=== PATIENT | male | born 1960 | race Caucasian/White ===

== ENCOUNTER → 2017-09-26 01:41 | Outpatient (CLI) | payer OTHER, SELFPAY ==
--- NOTE | 2017-09-26 14:27 | SCREENCT_ITS ---
SYMPTOMS/DIAGNOSIS: SCREENING, Z13.9, FORMER SMOKER CHEST CT FOR LUNG CANCER SCREENING: A low dose screening protocol was used. The exam was somewhat limited by the patient's body habitus. No pulmonary nodules are identified. No infiltrates or effusions are seen. There are no visible emphysematous changes. The heart size is normal. The patient is status post cholecystectomy. IMPRESSION: Lung Rads Category I, continued annual low dose screening CT is recommended. Lung-RAD Category: Lung RADS Category 1- Negative
== END ==
PROVIDERS: PCP Family Medicine; Visit Provider Family Medicine
DX: Z12.2 Encounter for screening for malignant neoplasm of respiratory organs (principal); Z87.891 Personal history of nicotine dependence; Z90.49 Acquired absence of other specified parts of digestive tract
CPT/HCPCS: G0297

== ENCOUNTER 2017-12-12 09:21 | Outpatient (CLI) | payer OTHER, SELFPAY ==
--- NOTE | 2017-12-12 09:07 | DI.RAD_ITS ---
SYMPTOM/DIAGNOSIS: F/U TKA LEFT KNEE: Two views. Comparison is made with 12/15/16. There are again seen post surgical changes of a left total knee replacement. The orthopedic hardware appears in good position. No evidence of hardware failure is seen. There is again seen an orthopedic staple in the distal femur. The bones are intact and normally mineralized. No acute fracture or dislocation is present. Dystrophic calcifications are seen in the soft tissues inferior to the patella. These are unchanged. Vascular calcifications are seen in the soft tissues. IMPRESSION: Stable left TKR. RIGHT KNEE: Two views. Comparison is made with 01/17/17. There are again seen post surgical changes of a right total knee replacement. No evidence of hardware failure is seen. Dystrophic calcifications are seen about the knee, particularly laterally. No acute fracture or dislocation is present. The soft tissues are unremarkable. IMPRESSION: Stable right TKR.
== END 2017-12-12 09:41 ==
PROVIDERS: PCP Family Medicine; Visit Provider Physician Assistant
DX: Z96.653 Presence of artificial knee joint, bilateral (principal); Z47.1 Aftercare following joint replacement surgery
CPT/HCPCS: 73560

== ENCOUNTER 2018-03-20 08:13 | Outpatient (CLI) | payer OTHER, SELFPAY ==
--- NOTE | 2018-03-20 08:09 | DI.RAD_ITS ---
SYMPTOM/DIAGNOSIS: BILAT WRIST PAIN RIGHT WRIST: There are minimal degenerative changes. Cysts are seen in the lunate and hamate. No bony erosions are identified. The bones appear normally mineralized. IMPRESSION: Mild degenerative changes. Incidental bone cysts. LEFT WRIST: No fracture or bony erosions are seen. The bones appear normally mineralized. There are mild degenerative changes at the first carpal metacarpal joint and scaphomultangular joint. There is a cyst in the distal pole of the navicular which may be degenerative. IMPRESSION: Mild degenerative changes.
== END 2018-03-20 08:33 ==
PROVIDERS: PCP Family Medicine; Visit Provider Student in an Organized Health Care Education/Training Program
DX: M25.531 Pain in right wrist (principal); M25.532 Pain in left wrist; M19.031 Primary osteoarthritis, right wrist; M19.032 Primary osteoarthritis, left wrist
CPT/HCPCS: 73110

== ENCOUNTER 2018-05-01 15:24 | Outpatient (CLI) | payer OTHER, SELFPAY ==
--- NOTE | 2018-05-01 15:21 | DI.RAD_ITS ---
SYMPTOM/DIAGNOSIS: RT FOOT MASS RIGHT FOOT: Three views. comparison 08/15/07. At the first metatarsal phalangeal joint there is moderately severe joint space narrowing. There are prominent osteophytes present particularly on the dorsal aspect of the joint. The metacarpal and interphalangeal joints are otherwise well maintained. There is a small spur at the plantar surface of the calcaneus. No lytic or sclerotic lesion is seen in the bones. No radiopaque foreign bodies are seen in the soft tissues. 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
== END 2018-05-01 15:44 ==
PROVIDERS: PCP Family Medicine; Visit Provider Physician Assistant
DX: R22.41 Localized swelling, mass and lump, right lower limb (principal); M19.071 Primary osteoarthritis, right ankle and foot; M77.31 Calcaneal spur, right foot
CPT/HCPCS: 73630

== ENCOUNTER 2018-06-27 12:15 | Day surgery (SDC) | payer OTHER, SELFPAY ==
[2018-06-27 12:31] VITALS: PULSE 78; RESP 16; TEMP 36.3; O2SAT 96
[2018-06-27] MEDS: Lactated Ringers 1,000 ML 80 ML IV (13:03)
[2018-06-27] MEDS: ceFAZolin 3,000 MG in Normal Saline 100 ML 200 MG IVPB (15:07)
[2018-06-27] MEDS: Sodium Bicarbonate 50 MEQ/50 ML VIAL (15:13)
[2018-06-27] MEDS: Lidocaine 1% Pres-Free 5 ML VIAL (15:13)
--- NOTE | 2018-06-27 15:29 | W.PM.DSUDISC ---
Discharge Plan Disposition Patient Disposition: HOME Condition: Good Discharge Details Reason For Visit: Left ECTR Attending Provider: Owen Amaya Primary Care Provider: Ha Anand Home Meds and New Rx's Prescriptions: New ibuprofen 600 mg tablet 600 mg PO TID PRN (Reason: pain) Qty: 30 RF: 3 hydrocodone-acetaminophen 5-325 mg tablet 1 tab PO Q6H PRN (Reason: pain) Qty: 6 RF: 0 Continued CPAP 1 applic Inhalation HS RF: 0 furosemide 20 MG tablet 20 mg PO DAILY PRNQty: 90 RF: 3 aspirin 81 MG tablet,delayed release (DR/EC) 162 mg PO BID Qty: 120 RF: 0 acetaminophen [Acetaminophen Extra Strength] 500 MG tablet 1,000 mg PO TID Qty: 180 RF: 0 ammonium lactate 225 GM lotion 1 applic Topical BID PRNQty: 225 RF: 2 albuterol sulfate [ProAir HFA] 8.5 GM HFA aerosol inhaler 2 puff Inhalation Q4H PRN Qty: 1 RF: 4 fluticasone propionate 16 GM spray,suspension 2 spry NS DAILY Qty: 16 RF: 7 sildenafil [Viagra] 100 MG tablet 100 mg PO PRN Qty: 40 RF: 3 amoxicillin 500 MG tablet 2,000 mg PO prior to dental work PRNQty: 15 RF: 1 omeprazole 40 mg capsule,delayed release(DR/EC) 40 mg PO DAILY Qty: 90 RF: 3 bupropion HCl [Wellbutrin SR] 150 mg tablet sustained-release 12 hr 150 mg PO BID Qty: 180 RF: 3 gabapentin 300 mg capsule 300 mg PO HS Qty: 90 RF: 1 Discontinued ibuprofen 200 mg Tablet 800 mg PO PRN PRNRF: 0 Discharge Instructions Stand Alone Forms: Monique Grimm Tunnel Release Referrals: Owen Amaya MD [ [facility] STAFF PHYSICIAN] - Equipment/Supplies: Sling Activity:: Elevate Remove Dressings/Wound Care:: 48 hours Shower/Bathe:: 48 hours Diet:: As Tolerated Discharge Orders Discharge Orders: Discharge Order (Routine); Ordered 06/27/18 Ordered By: Vernon Lynch DS: Diagnosis Discharge Diagnosis (1) Carpal tunnel syndrome of left wrist: Status: Chronic
[2018-06-27 16:07] VITALS: BP 139/76; PULSE 72; RESP 17; TEMP 36.6; O2SAT 94
--- NOTE | 2018-06-27 21:06 | W.PM.OP ---
Date of service: 06/27/18 Time of Service: 16:06 Operative Note DATE OF PROCEDURE: 06/27/18 PRE-OP DIAGNOSIS: Left Carpal Tunnel Syndrome POST-OP DIAGNOSIS: same PROCEDURE: Left Endoscopic Carpal Tunnel Release SURGEON: Owen Amaya ANESTHESIA: GETAnderson ESTIMATED BLOOD LOSS: 0 PATHOLOGY: none sent TOURNIQUET TIME: 6 COMPLICATIONS: None Patient was transported to: same day Patient's condition: stable Indications: I have seen Edwin in clinic for symptoms of carpal tunnel syndrome. The numbness, tingling, and pain limited function. Clinical exam findings with nerve conduction tests confirmed the diagnosis of carpal tunnel syndrome. Nonoperative measures such as bracing, time, activity modifications had been tried but disability and pain persisted. I discussed carpal tunnel release with the patient. I reviewed the risks of the procedure to include, but not limited to, bleeding, infection, pain, stiffness, incomplete release, damage to nerves or vessels, persistent numbness, recurrence. Despite these risks, the patient elected to proceed. Findings: There was tightened carpal tunnel. This was dilated and released successfully with the endoscopic with increased space within the tunnel. The antebrachial fascia was released proximally freeing the median nerve at the wrist. Procedure Description: Edwin was greeted in the preoperative holding area where the correct side was identified and marked. The consent was reviewed with the patient and signed. The history and physical was updated. All questions were answered. Edwin was taken back to the operating room. The patient was placed into the supine position on the operating room table with the left arm on an arm board. A nonsterile tourniquet was placed high onto the arm. All bony prominences were well padded. Prophylactic antibiotics in the form of Cefazolin were administered. The left arm was then prepped with Chloraprep and draped in a standard fashion with stockinette and extremity drape. A timeout to confirm correct identity, side and site, procedure, allergies, anesthesia, and medical concerns was performed. The surgical site was marked in the volar wrist creases in line with the radial border of the fourth ray. This area was anesthetized with approximately 6cc of 1% Lidocaine. The limb was then exsanguinated with an Esmarch. The skin was incised with a 15 blade, approximately 1cm. The skin only was cut and the deeper tissue was dissected bluntly with a tenotomy scissor, avoiding passing nerve and venous structures. The fascia was penetrated and opened bluntly. A two-prong skin hook was placed under this proximal fascial edge. A series of hamate finders were used to identify and dilate the carpal tunnel. Synovial elevator was used to free synovial attachments to the underside of the transverse carpal ligament. My thumb was kept in the palm to estrella the distal extent of the carpal tunnel and correctly position the hand. The Microaire endoscope was inserted without difficulty and without resistance. Excellent visualization showed horizontally running fibers of the transverse carpal ligament (TCL). The distal extent of the TCL was visualized and the end of the scope palpated with the thumb. The blade was elevated and withdrawn from distal to proximal. The TCL was split into two flaps. The endoscope was reinserted to confirm complete release and any remnant ligament was incised. The scope was withdrawn and the proximal aspect of the carpal tunnel was grossly inspected and appeared release with the median nerve visible. The antebrachial fascia at the level of the wrist was then freed from the overlying skin and then the underlying median nerve with blunt dissection. This was transected longitudinally for about 3cm proximal to the wrist incision. The wound was then irrigated with easy flow of irrigant distally and proximally. The incision was closed with a single 4-0 Nylon suture. The wound was dressed with Xeroform, Gauze, Kerlix and Lloyd. The tourniquet was deflated with the initial dressing and held with some pressure. Blood flow returned easily to all digits with capillary refill less than 2 seconds. The patient tolerated the procedure well and was returned to the Same Day Surgery area in a stable condition suffering no known complication.
== END 2018-06-27 16:26 | disposition home or self-care (01) ==
PROVIDERS: PCP Family Medicine; Visit Provider Student in an Organized Health Care Education/Training Program
PROC: 01N54ZZ Release Median Nerve, Percutaneous Endoscopic Approach (ICD-10-PCS; CPT 29848; principal; 2018-06-27 13:15)
DX: G56.02 Carpal tunnel syndrome, left upper limb (principal)
CPT/HCPCS: 29848; J0690; L3650

== ENCOUNTER 2018-07-04 10:14 | Day surgery (SDC) | payer OTHER, SELFPAY ==
[2018-07-04 10:37] VITALS: BP 156/89; PULSE 67; RESP 20; TEMP 36.8; O2SAT 96
--- NOTE | 2018-07-04 10:47 | PDOC.DSDIS_ITS ---
Discharge Plan Disposition Patient Disposition: HOME Condition: Good Discharge Details Reason For Visit: Right Carpal Tunnel Syndrome Attending Provider: Owen Amaya Primary Care Provider: Ha Anand Home Meds and New Rx's Prescriptions: Continued CPAP 1 applic Inhalation HS RF: 0 furosemide 20 MG tablet 20 mg PO DAILY PRNQty: 90 RF: 3 aspirin 81 MG tablet,delayed release (DR/EC) 162 mg PO BID Qty: 120 RF: 0 acetaminophen [Acetaminophen Extra Strength] 500 MG tablet 1,000 mg PO TID Qty: 180 RF: 0 ammonium lactate 225 GM lotion 1 applic Topical BID PRNQty: 225 RF: 2 albuterol sulfate [ProAir HFA] 8.5 GM HFA aerosol inhaler 2 puff Inhalation Q4H PRN Qty: 1 RF: 4 fluticasone propionate 16 GM spray,suspension 2 spry NS DAILY Qty: 16 RF: 7 sildenafil [Viagra] 100 MG tablet 100 mg PO PRN Qty: 40 RF: 3 amoxicillin 500 MG tablet 2,000 mg PO prior to dental work PRNQty: 15 RF: 1 omeprazole 40 mg capsule,delayed release(DR/EC) 40 mg PO DAILY Qty: 90 RF: 3 bupropion HCl [Wellbutrin SR] 150 mg tablet sustained-release 12 hr 150 mg PO BID Qty: 180 RF: 3 gabapentin 300 mg capsule 300 mg PO HS Qty: 90 RF: 1 ibuprofen 600 mg tablet 600 mg PO TID PRN (Reason: pain) Qty: 30 RF: 3 hydrocodone-acetaminophen 5-325 mg tablet 1 tab PO Q6H PRN (Reason: pain) Qty: 6 RF: 0 Discharge Instructions Stand Alone Forms: Monique Grimm Tunnel Release Referrals: Owen Amaya MD [ [facility] STAFF PHYSICIAN] - Activity:: Elevate Remove Dressings/Wound Care:: 48 hours Shower/Bathe:: 48 hours Diet:: As Tolerated Discharge Orders Discharge Orders: Discharge Order (Routine); Ordered 07/04/18 Ordered By: Owen Amaya DS: Diagnosis Discharge Diagnosis (1) Carpal tunnel syndrome of right wrist: Status: Chronic
[2018-07-04] MEDS: Lactated Ringers 1,000 ML 80 ML IV (10:50)
[2018-07-04] MEDS: ceFAZolin 3,000 MG in Normal Saline 100 ML 200 MG IVPB (12:40)
[2018-07-04] MEDS: Lidocaine 1% Multi-Dose 50 ML VIAL (12:48)
[2018-07-04 13:40] VITALS: BP 140/77; PULSE 68; RESP 18; TEMP 36.6; O2SAT 95
--- NOTE | 2018-07-04 16:36 | ROE_ITS ---
Date of service: 07/04/18 Time of Service: 14:35 Operative Note DATE OF PROCEDURE: 07/04/18 PRE-OP DIAGNOSIS: Right Carpal Tunnel Syndrome POST-OP DIAGNOSIS: same PROCEDURE: Right Endoscopic Carpal Tunnel Release SURGEON: Owen Amaya ANESTHESIA: GETAnderson ESTIMATED BLOOD LOSS: 0 PATHOLOGY: none sent TOURNIQUET TIME: 5 COMPLICATIONS: None Patient was transported to: same day Patient's condition: stable Indications: I have seen Edwin in clinic for symptoms of carpal tunnel syndrome. The numbness, tingling, and pain limited function. Clinical exam findings with nerve conduction tests confirmed the diagnosis of carpal tunnel syndrome. Nonoperative measures such as bracing, time, activity modifications had been tried but disability and pain persisted. I discussed carpal tunnel release with the patient. I reviewed the risks of the procedure to include, but not limited to, bleeding, infection, pain, stiffness, incomplete release, damage to nerves or vessels, persistent numbness, recurrence. Despite these risks, the patient elected to proceed. Findings: There was tightened carpal tunnel. This was dilated and released successfully with the endoscopic with increased space within the tunnel. The antebrachial fascia was released proximally freeing the median nerve at the wrist. Procedure Description: Edwin was greeted in the preoperative holding area where the correct side was identified and marked. The consent was reviewed with the patient and signed. The history and physical was updated. All questions were answered. Edwin was taken back to the operating room. The patient was placed into the supine position on the operating room table with the right arm on an arm board. A nonsterile tourniquet was placed high onto the arm. All bony prominences were well padded. Prophylactic antibiotics in the form of Cefazolin were administered. The right arm was then prepped with Chloraprep and draped in a standard fashion with stockinette and extremity drape. A timeout to confirm correct identity, side and site, procedure, allergies, anesthesia, and medical concerns was performed. The surgical site was marked in the volar wrist creases in line with the radial border of the fourth ray. This area was anesthetized with approximately 6cc of 1% Lidocaine. The limb was then exsanguinated with an Esmarch. The skin was incised with a 15 blade, approximately 1cm. The skin only was cut and the deeper tissue was dissected bluntly with a tenotomy scissor, avoiding passing nerve and venous structures. The fascia was penetrated and opened bluntly. A two-prong skin hook was placed under this proximal fascial edge. A series of hamate finders were used to identify and dilate the carpal tunnel. Synovial elevator was used to free synovial attachments to the underside of the transverse carpal ligament. My thumb was kept in the palm to estrella the distal extent of the carpal tunnel and correctly position the hand. The Microaire endoscope was inserted without difficulty and without resistance. Excellent visualization showed horizontally running fibers of the transverse carpal ligament (TCL). The distal extent of the TCL was visualized and the end of the scope palpated with the thumb. The blade was elevated and withdrawn from distal to proximal. The TCL was split into two flaps. The endoscope was reinserted to confirm complete release and any remnant ligament was incised. The scope was withdrawn and the proximal aspect of the carpal tunnel was grossly inspected and appeared release with the median nerve visible. The antebrachial fascia at the level of the wrist was then freed from the overlying skin and then the underlying median nerve with blunt dissection. This was transected longitudinally for about 3cm proximal to the wrist incision. The wound was then irrigated with easy flow of irrigant distally and proximally. The incision was closed with a single 4-0 Nylon suture. The wound was dressed with Xeroform, Gauze, Kerlix and Lloyd. The tourniquet was deflated with the initial dressing and held with some pressure. Blood flow returned easily to all digits with capillary refill less than 2 seconds. The patient tolerated the procedure well and was returned to the Same Day Surgery area in a stable cond ition suffering no known complication.
== END 2018-07-04 14:25 | disposition home or self-care (01) ==
PROVIDERS: PCP Family Medicine; Visit Provider Student in an Organized Health Care Education/Training Program
PROC: 01N54ZZ Release Median Nerve, Percutaneous Endoscopic Approach (ICD-10-PCS; CPT 29848; principal; 2018-07-04 12:30)
DX: G56.01 Carpal tunnel syndrome, right upper limb (principal)
CPT/HCPCS: 29848; J0690; J1885

== ENCOUNTER 2018-08-15 09:16 | Outpatient (CLI) | payer OTHER, SELFPAY ==
[2018-08-15 11:06] LABS: Hemoglobin A1C 7.7 % (4.5-6.2)
[2018-08-15 11:20] LABS: Calculated LDL 85 mg/dL; Cholesterol 156 mg/dL (50-200); HDL Cholesterol 39 mg/dL (40-60); Triglyceride 164 mg/dL (30-150)
[2018-08-16 11:21] LABS: Hepatitis C Ab w Rflx HCV PCR Reactive (NEGAT)
[2018-08-17 14:16] LABS: HCV RNA Detection Quantitative Undetected IU/mL (UNDECT)
== END 2018-08-15 09:36 ==
PROVIDERS: PCP Family Medicine; Visit Provider Family Medicine
DX: E11.9 Type 2 diabetes mellitus without complications (principal); E78.5 Hyperlipidemia, unspecified; Z11.59 Encounter for screening for other viral diseases
CPT/HCPCS: 36415; 80048; 80061; 83721; 85027; 86803; 83036; 87522

== ENCOUNTER 2018-08-28 09:48 | Outpatient (CLI) | payer OTHER, SELFPAY ==
--- NOTE | 2018-08-28 09:19 | DI.RAD_ITS ---
SYMPTOMS/DIAGNOSIS: RT WRIST PAIN RIGHT WRIST: Three views. No acute fracture or dislocation is seen. The articular surfaces appear well maintained. The soft tissues are unremarkable. IMPRESSION: No acute abnormality.
== END 2018-08-28 10:08 ==
PROVIDERS: PCP Family Medicine; Visit Provider Physician Assistant
DX: M25.531 Pain in right wrist (principal)
CPT/HCPCS: 73110

== ENCOUNTER 2018-09-27 03:53 | Outpatient (CLI) | payer OTHER, SELFPAY ==
[2018-09-27] MEDS: Bupivacaine 0.5% Pres-Free 10 ML VIAL 3 ML IJ (12:54)
[2018-09-27] MEDS: Omnipaque 300 MG/ML 10 ML BTL IJ (12:55)
[2018-09-27] MEDS: methylPREDNISolone ACETATE 40 MG/ML VIAL IM (12:56)
--- NOTE | 2018-09-27 12:56 | DI.RAD_ITS ---
SYMPTOMS/DIAGNOSIS: PRIMARY OSTEOARTHRITIS OF RIGHT WRIST, M19.031 C-ARM FLUOROSCOPY OF THE RIGHT WRIST: Fluoroscopy Time: 4 sec Fluoroscopy was provided for Dr. Amaya for guidance while performing a wrist injection. Hard copy images show placement of a needle and injection of contrast. Please see procedure note for details.
--- NOTE | 2018-09-28 15:21 | W.PROCNOTE ---
Date of service: 09/27/18 Time of Service: 12:44 Procedure Note Date of procedure: 09/27/18 Procedure: Right wrist injection Surgeon/Proceduralist/Physician: Owen Amaya Procedure Diagnosis: Right wrist arthritis Procedure Indications: Jacob is a 58-year-old who has had acute pain of his right wrist since an injury at work on 09 August. He jammed his wrist and since that time has had persistent pain about the ulnar aspect of the right wrist as well as within the wrist itself. We tried conservative options but he continues have pain. 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 Given these findings I did offer a intra-articular injection of the right wrist. This will hopefully serve both diagnostic and therapeutic purposes. I reviewed the risk of the procedure with Jacob. He agreed to proceed. Procedure Description: Edwin was greeted in the fluoroscopy room. A consent was signed with the patient. The right hand was identified as the correct site. The right has been placed on the fluoroscopy table. A brief verbal timeout was performed. The soft spot between the first row of the carpus and the DRUJ was identified. This was marked on the skin and confirmed with x-ray. The skin and subcutaneous tissues was injected with 1% lidocaine. I then used a 22-gauge needle to enter into the wrist joint. This was done easily and confirmed to be in appropriate positions on the x-ray. A small amount of Omnipaque dye was then injected to confirm interarticular location. With this confirmed and then injected the wrist joint with 3 cc of 0.5% bupivacaine and 40 mg of Depo-Medrol. He tolerated procedure well. He did notice some improvement with his pain with range of motion. A Band-Aid was applied.
== END 2018-09-27 04:13 ==
PROVIDERS: PCP Family Medicine; Visit Provider Student in an Organized Health Care Education/Training Program
DX: M19.031 Primary osteoarthritis, right wrist (principal)
CPT/HCPCS: 20605; 77002; J1030

== ENCOUNTER 2018-10-02 01:22 | Outpatient (CLI) | payer OTHER, SELFPAY ==
--- NOTE | 2018-10-02 14:22 | DI.CTLCSR_ITS ---
SYMPTOMS/DIAGNOSIS: QUIT SMOKING ABOUT 2 YEARS AGO, REASSESSMENT OF LUNGS, 40 PACK-YEAR H/O TOBACCO USE, Z72.[address], LOW DOES LUNG CANCER SCREENING PROTOCOL: CT examination of the chest was performed utilizing low dose lung cancer screening protocol. Images obtained through the upper abdomen show unremarkable appearance of visualized portions of liver, spleen, pancreas, adrenals and kidneys. There is a 3 mm intrapulmonary nodule associated with the interlobar fissure on the left. A 1-2 mm nodule, which may be partially calcified, is seen in the right lower lobe. No additional nodules seen. No mediastinal or hilar adenopathy. No pleural effusion. Tracheobronchial tree appears intact. CONCLUSION: Benign appearance or behavior, category 2. Continue annual screening with LDCT in 12 mos. Lung-RAD Category: 2- Benign Appearance/Behavior Lung- RAD Management of Findings: Continue annual LDCT screening in 12 months
== END 2018-10-02 01:42 ==
PROVIDERS: PCP Family Medicine; Visit Provider Family Medicine
DX: Z12.2 Encounter for screening for malignant neoplasm of respiratory organs (principal); Z87.891 Personal history of nicotine dependence; R91.1 Solitary pulmonary nodule; I49.3 Ventricular premature depolarization; I47.1 Supraventricular tachycardia
CPT/HCPCS: 93228; G0297

== ENCOUNTER 2018-11-27 11:55 | Outpatient (CLI) | payer OTHER, SELFPAY ==
--- NOTE | 2018-11-27 10:22 | DI.RAD_ITS ---
EXAM: XR KNEE RT 2V AP,LAT INDICATION: ANNUAL F/U. COMPARISON: XR knee RT 2V AP,lat from 12/12/2017 TECHNIQUE: 2D digital imaging was performed. FINDINGS: Two views were obtained and show total knee joint replacement in position. Components appear well se ated. No other significant bony abnormality seen. IMPRESSION:
--- NOTE | 2018-11-27 10:22 | DI.RAD_ITS ---
EXAM: XR KNEE LT 2V AP,LAT INDICATION: ANNUAL F/U. COMPARISON: XR KNEE RT 2V AP,LAT from 11/27/2018 TECHNIQUE: 2D digital imaging was performed. FINDINGS: Two views were obtained and show total knee joint replacement in position. Components appear well se ated. No other significant bony abnormality seen. IMPRESSION:
== END 2018-11-27 12:15 ==
PROVIDERS: PCP Family Medicine; Visit Provider Student in an Organized Health Care Education/Training Program
DX: Z96.653 Presence of artificial knee joint, bilateral (principal); Z47.1 Aftercare following joint replacement surgery
CPT/HCPCS: 73560

== ENCOUNTER 2019-02-09 10:51 | Outpatient (CLI) | payer OTHER, SELFPAY ==
[2019-02-09 12:39] LABS: AST 32 U/L (15-37); CREATININE 0.93 mg/dL (0.70-1.30); Lipase 239 U/L (73-393)
== END 2019-02-09 11:11 ==
PROVIDERS: PCP Family Medicine; Visit Provider Family Medicine
DX: E11.9 Type 2 diabetes mellitus without complications (principal); R10.11 Right upper quadrant pain; R19.7 Diarrhea, unspecified
CPT/HCPCS: 36415; 83690; 82565; 84450; 86255

== ENCOUNTER 2019-03-02 09:10 | Emergency (ER) | payer OTHER, SELFPAY ==
[2019-03-02 09:14] VITALS: BP 167/84; PULSE 74; RESP 20; TEMP 36.6; O2SAT 96
--- NOTE | 2019-03-02 09:25 | ED.GENADUL_ITS ---
Discharge Plan Disposition Patient Disposition: HOME Condition: Improving Discharge Details Chief Complaint: GenMedical Clinical Impression: Sprain of costal cartilage Primary Care Provider: Ha Anand ED Provider: Rowdy Penn Home Meds and New Rx's Prescriptions: New methocarbamol 500 mg tablet 500 - 1,000 mg PO Q6H PRN (Reason: Back pain or spasm) Qty: 14 RF: 0 Continued ammonium lactate 12 % lotion 1 applic Topical BID PRN (Reason: dry skin) Qty: 225 RF: 2 (DME) blood-glucose meter [Pharmacy DevelopmentTouch Ultra2 Meter] Kit See Rx Instructions .ROUTE .MEDSUPPLY Qty: 1 RF: 0 (DME) lancets [Pharmacy DevelopmentTouch Delica Plus Lancet] 33 gauge misc See Rx Instructions .ROUTE .MEDSUPPLY Qty: 100 RF: 3 (DME) OneTouch Ultra Blue Test Strip Strip See Rx Instructions .ROUTE .MEDSUPPLY Qty: 100 RF: 3 trazodone 100 mg tablet 100 mg PO QHS Qty: 90 RF: 3 terbinafine HCl 250 mg tablet 250 mg PO DAILY Qty: 30 RF: 0 terbinafine HCl 250 mg tablet 250 mg PO DAILY Qty: 28 RF: 0 amoxicillin 500 mg tablet 2,000 mg PO prior to dental work PRN (Reason: dental prophylaxis) Qty: 15 RF: 0 sildenafil [Viagra] 100 mg tablet 100 mg PO PRN Qty: 40 RF: 3 albuterol sulfate [ProAir HFA] 90 mcg/actuation HFA aerosol inhaler 2 puff Inhalation Q4H PRN Qty: 1 RF: 4 bupropion HCl [Wellbutrin SR] 150 mg tablet sustained-release 12 hr 150 mg PO BID Qty: 180 RF: 3 ibuprofen 600 mg tablet 600 mg PO TID PRN (Reason: pain) Qty: 30 RF: 3 CPAP 1 applic Inhalation HS RF: 0 furosemide 20 MG tablet 20 mg PO DAILY PRNQty: 90 RF: 3 acetaminophen [Acetaminophen Extra Strength] 500 MG tablet 1,000 mg PO TID Qty: 180 RF: 0 metformin 1,000 mg tablet 1,000 mg PO BID Qty: 180 RF: 3 gabapentin 300 mg capsule 300 mg PO HS Qty: 90 RF: 1 omeprazole 40 mg capsule,delayed release(DR/EC) 40 mg PO DAILY Qty: 90 RF: 3 Discharge Instructions Additional Instructions: Ibuprofen 600 to 800 mg every 6-8 hours as needed for pain. [place] amounts of fluids to maintain hydration. May apply ice to area to reduce discomfort. Remove Lidoderm patch in 12 hours time, may obtain additional patches [id number]. May use methocarbamol as needed for muscular spasm. Return for worsening discomfort, development of shortness of breath or fever, or any other acute concerns. Medical Decision Making 58-year-old male with 2 complaints. First is a sore throat that he feels is secondary to sick contact with his who had strep. He has had 2 days of discomfort. Last night he was in bed and sneeze and developed the abrupt onset of left anterolateral rib pain is worse with coughing and movement. Patient given ibuprofen, rapid strep test obtained, he is referred for chest x- ray with rib views. Radiographs are unremarkable for acute process. Patient strep test is negative. While in the ED he did have some mild muscle spasm around the site of costochondral strain. Will prescribe him methocarbamol. He was provided a Lidoderm patch may obtain additional ones [id number] if needed. He un derstands homecare as well as return precautions. HPI General Mode of arrival: ambulatory . Date/Time Provider Initiated Documentation: 03/02/19 09:11 . Limitations to Documentation: no limitations . Information obtained by: patient . History of Present Illness 58 year old M presents to the emergency department with the chief complaint of Left chest pain and sore throat, described as mild, Quality is described as dull, and is localized to the left. Patient reports no radiation. Patient started experiencing this hour(s) and it has been constant. No relieving factors i mprove symptom(s), No exacerbating factors reported . Patient notes cough; denies shortness of breath. Patient did receive the following treatments prior to arrival, none Related Data Home Medications Medication Instructions Recorded Confirmed Cpap 1 applic INHALATION HS 01/14/12 02/09/19 furosemide 20 mg PO DAILY PRN #90 tab-cap 03/10/16 02/09/19 acetaminophen [Acetaminophen Extra 1,000 mg PO TID #180 tab 12/10/16 02/09/19 Strength] amoxicillin 500 mg tablet 2,000 mg PO prior to dental work 08/15/18 02/09/19 PRN #15 tab-cap sildenafil 100 mg tablet 100 mg PO PRN #40 tab-cap 08/15/18 02/09/19 terbinafine HCl 250 mg tablet 250 mg PO DAILY #28 tab 08/15/18 02/09/19 terbinafine HCl 250 mg tablet 250 mg PO DAILY #30 tab 08/15/18 02/09/19 ammonium lactate 12 % lotion 1 applic TOPICAL BID PRN #225 gm 09/27/18 02/09/19 blood sugar diagnostic #100 each 09/27/18 02/09/19 blood-glucose meter #1 each 09/27/18 02/09/19 lancets 33 gauge #100 each 09/27/18 02/09/19 trazodone 100 mg tablet 100 mg PO QHS #90 tab 09/27/18 02/09/19 metformin 1,000 mg tablet 1,000 mg PO BID #180 tab 10/20/18 02/09/19 gabapentin 300 mg capsule 300 mg PO HS #90 cap 12/01/18 02/09/19 omeprazole 40 mg capsule,delayed 40 mg PO DAILY #90 tab-cap 12/01/18 02/09/19 release albuterol sulfate 90 mcg/actuation 2 puff INHALATION Q4H PRN #1 02/09/19 02/09/19 aerosol inhaler inhaler bupropion HCl 150 mg tablet,12 hr 150 mg PO BID #180 tab-cap 02/09/19 02/09/19 sustained-release ibuprofen 600 mg tablet 600 mg PO TID PRN #30 tab 02/09/19 02/09/19 methocarbamol 500 - 1,000 mg PO Q6H PRN #14 tab 03/02/19 Previous Rx's Medication Instructions Recorded acetaminophen [Acetaminophen Extra 1,000 mg PO TID #180 tab 12/10/16 Strength] amoxicillin 500 mg tablet 2,000 mg PO prior to dental work 08/15/18 PRN #15 tab-cap sildenafil 100 mg tablet 100 mg PO PRN #40 tab-cap 08/15/18 terbinafine HCl 250 mg tablet 250 mg PO DAILY #28 tab 08/15/18 terbinafine HCl 250 mg tablet 250 mg PO DAILY #30 tab 08/15/18 ammonium lactate 12 % lotion 1 applic TOPICAL BID PRN #225 gm 09/27/18 blood sugar diagnostic #100 each 09/27/18 blood-glucose meter #1 each 09/27/18 lancets 33 gauge #100 each 09/27/18 trazodone 100 mg tablet 100 mg PO QHS #90 tab 09/27/18 metformin 1,000 mg tablet 1,000 mg PO BID #180 tab 10/20/18 gabapentin 300 mg capsule 300 mg PO HS #90 cap 12/01/18 omeprazole 40 mg capsule,delayed 40 mg PO DAILY #90 tab-cap 12/01/18 release albuterol sulfate 90 mcg/actuation 2 puff INHALATION Q4H PRN #1 02/09/19 aerosol inhaler inhaler bupropion HCl 150 mg tablet,12 hr 150 mg PO BID #180 tab-cap 02/09/19 sustained-release ibuprofen 600 mg tablet 600 mg PO TID PRN #30 tab 02/09/19 methocarbamol 500 - 1,000 mg PO Q6H PRN #14 tab 03/02/19 Allergies Allergy/AdvReac Type Severity Reaction Status Date / Time No Known Allergies Allergy Unverified 02/09/19 10:27 General Stated Complaint: GenMedical JESUS: 3 Review of Systems Narrative: Sore throat, sick contact with his . Sneezed last night and left chest pain COUNT INCLUDES THE [facility] Medical History Anxiety (Chronic) Depressive disorder (Chronic 07/07/12) Diabetes mellitus type 2 in nonobese (Acute) Gastroesophageal reflux disease (Chronic) Gout (Chronic 12/01/12) Hyperlipidemia (Chronic 07/07/12) pt. states he no longer has this condition 06/27/18 Insomnia (Chronic) Low back pain (Chronic) L4-L5 disectomy 1999; back injury after a fall 01/16, spinal stenosis; Obesity (Chronic) Obstructive sleep apnea syndrome (Chronic) CPAP Obstructive sleep apnea treated with continuous positive airway pressure (CPAP) (Acute) Triangular fibrocartilage complex injury (Acute) Surgical History (Updated 11/27/18 @ 10:42 by ERICKA Pa) ANKLE FX (~1989) LEFT Arthroplasty of knee (01/04/17) DR. AMAYA;RIGHT Cholecystectomy (~2002) Colonoscopy - MAC (~2002) History of carpal tunnel release (Acute) L - 06/27/18 History of total left knee replacement (TKR) (Inactive 12/07/16) Dr. Amaya History of total right knee replacement (TKR) (Inactive 01/04/17) Dr. Amaya PROCEDURES ARTERIAL CATHETERIZATION, 06/23 [facility]-SUCCESSFUL CATHETER BASED AVNRT CRYOABLATION Repair of inguinal hernia X 3 Repair, ACL (~1985) LEFT Replacement of total knee joint B/L Social History Smoking/Tobacco Use Status: Former Tobacco Use Quit Date: 06/13/17 Second Hand Exposure: Yes Alcohol Intake: never Drug use: Never Substance use type: does not use Caregiver/Support person: No Household members: spouse Housing: house Communication Needs: None Do you need help understanding health information?: Never Pets and animals: Yes Pets and animals: cat(s) and dog(s) Sexually active: Yes Do you think of yourself as: straight/heterosexual Current gender identity: male What is your relationship status?: How often do you talk on the phone with friends or family?: twice per week How often do you get together with friends or relatives?: once per week How often do you attend religious or anglican services?: 1-3 times per year Do you belong to any clubs or organized social groups?: no Panel score (0-1 are the most socially isolated patients): 2 What type of physical activity do you participate in: none Monica/Religious: Gnosticist Special monica needs: No Seatbelt use: always Helmet use: Yes Helmet use: always 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 Pleasant, well groomed, interactive. HEAD: Normocephalic, atraumatic ENT: Mucous membranes moist, oropharynx erythematous, question scant white exudate, no asymmetry, uvula midline, tympanic membranes clear bilaterally, External ear exam unremarkable EYES: PERRL, EOMI NECK: Full ROM, no CHERRY, no menigismus CHEST/RESP: Left mid axillary to ventral chest pain with palpation near the lower thorax margin, no crepitus, clear to auscultation bilateral, no wheeze/rhonchi/rales CARDIOVASCULAR: RRR, no murmur, rub sea. 2+ Rad pulse bilateral ABDOMEN: Soft, nontender, no mass. +Bowel sounds EXT: Full ROM, no edema, no rash Neuro: Grossly normal neurologic exam, conversant, interactive. Psych: Speech fluent, thoughts congruent, affect normal Course Vital Signs Vital signs: Vital Signs Temperature 36.6 C 03/02/19 09:14 Pulse 74 03/02/19 09:14 Respiratory Rate 03/02/19 09:14 Blood Pressure 167/84 H 03/02/19 09:14 Pulse Oximetry 96 03/02/19 09:14 Temperature 36.6 C 03/02/19 09:14 Temperature Source Skin 03/02/19 09:14 Pulse 74 03/02/19 09:14 Respiratory Rate 03/02/19 09:14 Respiratory Effort Non-Labored 03/02/19 09:17 Blood Pressure 167/84 H 03/02/19 09:14 Blood Pressure Position Sitting 03/02/19 09:14 Pulse Oximetry 96 03/02/19 09:14 Oxygen Delivery Method Room Air 03/02/19 09:14 Oxygen Flow Rate 0 03/02/19 09:14 Pain Level 10 03/02/19 09:14
[2019-03-02] MEDS: Ibuprofen 800 MG TAB PO (09:31)
--- NOTE | 2019-03-02 09:41 | DI.RAD_ITS ---
EXAM: XR RIBS LT W PA LAT CHEST INDICATION: L pain after sneeze. COMPARISON: CT CHEST LUNG CANCER SCREEN from 10/02/2018 TECHNIQUE: 2D digital imaging was performed. FINDINGS: Heart size is normal. The lungs appear clear. No pneumothorax, infiltrate or effusion seen. No ri b fractures are seen. Degenerative changes are seen in the left shoulder and thoracic spine. IMPRESSION: No acute abnormality.
[2019-03-02 10:16] VITALS: BP 167/84; PULSE 74; RESP 20; TEMP 36.6; O2SAT 96
== END 2019-03-02 10:16 | disposition home or self-care (01) ==
PROVIDERS: Emergency Provider Emergency Medicine; PCP Family Medicine
DX: J02.9 Acute pharyngitis, unspecified (principal); S23.41XA Sprain of ribs, initial encounter; X50.9XXA Other and unspecified overexertion or strenuous movements or postures, initial encounter; R06.7 Sneezing; E11.9 Type 2 diabetes mellitus without complications; Z79.84 Long term (current) use of oral hypoglycemic drugs; Z87.891 Personal history of nicotine dependence
CPT/HCPCS: 87880; 99283; 71046; 71100; 87081

== ENCOUNTER 2019-03-06 10:51 | Outpatient (CLI) | payer OTHER, SELFPAY ==
[2019-03-06 13:26] LABS: HCT 48.1 % (40.0-50.0); Mean Corp. HGB Concentration 33.3 g/dL (32.0-36.0); Mean Corpuscular Hemoglobin 28.6 pg (27.0-33.0); Mean Corpuscular Volume 85.9 fL (80-95); Mean Platelet Volume 8.9 fL (8.0-11.0); Platelet Count 163 x1000/uL (130-400); RBC Distribution Width 13.2 % (11.8-14.1); White Blood Cell Count 6.61 k/cumm (4.4-10.8)
== END 2019-03-06 11:11 ==
PROVIDERS: PCP Family Medicine; Visit Provider Nurse Practitioner
DX: R10.9 Unspecified abdominal pain (principal); E11.9 Type 2 diabetes mellitus without complications
CPT/HCPCS: 36415; 85027; 83036

== ENCOUNTER 2019-03-06 20:26 | Emergency (ER) | payer OTHER, SELFPAY ==
[2019-03-06 20:31] VITALS: BP 156/94; PULSE 99; RESP 20; TEMP 36.4; O2SAT 95
--- NOTE | 2019-03-06 20:51 | W.ED.GENAD ---
Discharge Plan Disposition Patient Disposition: HOME Condition: Good Discharge Details Chief Complaint: Abd Prob Clinical Impression: Calculus of distal left ureter, Renal mass, right Primary Care Provider: Ha Anand ED Provider: Hardik [place] Meds and New Rx's Prescriptions: New tamsulosin 0.4 mg capsule 0.4 mg PO QHS Qty: 14 RF: 0 hydrocodone-acetaminophen 5-325 mg tablet 1 tab PO BID PRN (Reason: pain) Qty: 4 RF: 0 Continued ammonium lactate 12 % lotion 1 applic Topical BID PRN (Reason: dry skin) Qty: 225 RF: 2 (DME) blood-glucose meter [SpeedTaxTouch Ultra2 Meter] Kit See Rx Instructions .ROUTE .MEDSUPPLY Qty: 1 RF: 0 (DME) lancets [SpeedTaxTouch Delica Plus Lancet] 33 gauge misc See Rx Instructions .ROUTE .MEDSUPPLY Qty: 100 RF: 3 (DME) OneTouch Ultra Blue Test Strip Strip See Rx Instructions .ROUTE .MEDSUPPLY Qty: 100 RF: 3 trazodone 100 mg tablet 100 mg PO QHS Qty: 90 RF: 3 terbinafine HCl 250 mg tablet 250 mg PO DAILY Qty: 30 RF: 0 amoxicillin 500 mg tablet 2,000 mg PO prior to dental work PRN (Reason: dental prophylaxis) Qty: 15 RF: 0 sildenafil [Viagra] 100 mg tablet 100 mg PO PRN Qty: 40 RF: 3 albuterol sulfate [ProAir HFA] 90 mcg/actuation HFA aerosol inhaler 2 puff Inhalation Q4H PRN Qty: 1 RF: 4 bupropion HCl [Wellbutrin SR] 150 mg tablet sustained-release 12 hr 150 mg PO BID Qty: 180 RF: 3 ibuprofen 600 mg tablet 600 mg PO TID PRN (Reason: pain) Qty: 30 RF: 3 CPAP 1 applic Inhalation HS RF: 0 furosemide 20 MG tablet 20 mg PO DAILY PRNQty: 90 RF: 3 acetaminophen [Acetaminophen Extra Strength] 500 MG tablet 1,000 mg PO TID Qty: 180 RF: 0 metformin 1,000 mg tablet 1,000 mg PO BID Qty: 180 RF: 3 gabapentin 300 mg capsule 300 mg PO HS Qty: 90 RF: 1 omeprazole 40 mg capsule,delayed release(DR/EC) 40 mg PO DAILY Qty: 90 RF: 3 methocarbamol 500 mg tablet 500 - 1,000 mg PO Q6H PRN (Reason: Back pain or spasm) Qty: 14 RF: 0 terbinafine HCl 250 mg tablet See Rx Instructions .ROUTE .COMPLEX RF: 0 Discharge Instructions Instructions: Renal Colic (ED) Additional Instructions: There is a 3 to 4 mm kidney stone in the distal ureter at the level of the bladder on the left. This should pass on its own. Please alternate ibuprofen 600 mg with acetaminophen 650 mg every 4 hours. If you have breakthrough pain you may take a hydrocodone/acetaminophen in addition. Please follow-up with primary care especially if no stone passage within a week. You will also need outpatient ultrasound of the right kidney to evaluate the mass which is likely a complex cyst. Please return to emergency department if you develop fever, uncontrolled pain, persistent vomiting. Referrals: Ha Anand [Primary Care Provider] - Medical Decision Making Patient presenting with continued abdominal pain, nausea and bloating. There is no vomiting. There is no fever. Some urinary symptoms but no CVAT. Differential includes kidney stone, diverticulitis, colitis, obstruction. Normal white count earlier today. Will place IV and make n.p.o. LR, Zofran, Toradol ordered. Labs ordered. CT scan of abdomen pelvis with IV contrast ordered. Patient laboratory studies are unremarkable other than some blood in his urine. No sign of infection. No white count. Normal kidney function. CT scan of the abdomen pelvis shows evidence of a 3 to 4 mm distal ureteral stone with mild to moderate hydroureter and hydronephrosis. He is noted to have some cysts in the left kidney. He is noted to have a mass in the right kidney which is likely a complex cyst but will need outpatient follow-up/ultrasound. In regards to his pain it is better after Toradol and Zofran. Will give Flomax. Will have patient alternate ibuprofen and acetaminophen but will provide to go hydrocodone/acetaminophen from here for breakthrough pain. Patient to strain urine. Patient to follow-up with primary care within the week if not better. Stone should pass on its own but if not will need referral to urology. Return to ED for fever, uncontrolled pain, persistent vomiting. Patient and aware of diagnosis and plan and are in agreement. Medical Records Medical records reviewed: Yes I reviewed the patient's medical records. Lab Data Lab results reviewed: Yes I reviewed the patient's lab results. HPI General Mode of arrival: ambulatory. Date/Time Provider Initiated Documentation: 03/06/19 20:51. Limitations to Documentation: no limitations. Information obtained by: patient, RN notes reviewed and old records reviewed. HPI Narrative: Patient presents to ED with continued nausea, bloating, left-sided abdominal pain. Patient seen here last week with sore throat and chest pain felt related to strain from coughing. His sore throat has resolved. Still has some discomfort in the left chest which is pretty much unchanged. Late last week he developed some abdominal pain which was intermittent and resolved over the weekend. Since yesterday he has had persistent pain, nausea and bloating. He was seen by primary care this morning. He has previous history of diverticulitis. Plan was to get CBC and if elevated white count start antibiotics. His white count was normal. He has not been able to eat or drink today. He has had no vomiting. He has had some loose stools. Pain is in the left lower quadrant radiating through to the back. There is no pain in the testicle. There is some urinary urgency and frequency but no hematuria or dysuria. He has had no fever. He came in for further evaluation tonight. Related Data Home Medications Medication Instructions Recorded Confirmed Cpap 1 applic INHALATION HS 01/14/12 03/06/19 furosemide 20 mg PO DAILY PRN #90 tab-cap 03/10/16 03/06/19 acetaminophen [Acetaminophen Extra 1,000 mg PO TID #180 tab 12/10/16 03/06/19 Strength] amoxicillin 500 mg tablet 2,000 mg PO prior to dental work 08/15/18 03/06/19 PRN #15 tab-cap sildenafil 100 mg tablet 100 mg PO PRN #40 tab-cap 08/15/18 03/06/19 terbinafine HCl 250 mg tablet 250 mg PO DAILY #30 tab 08/15/18 03/06/19 ammonium lactate 12 % lotion 1 applic TOPICAL BID PRN #225 gm 09/27/18 03/06/19 blood sugar diagnostic #100 each 09/27/18 03/06/19 blood-glucose meter #1 each 09/27/18 03/06/19 lancets 33 gauge #100 each 09/27/18 03/06/19 trazodone 100 mg tablet 100 mg PO QHS #90 tab 09/27/18 03/06/19 metformin 1,000 mg tablet 1,000 mg PO BID #180 tab 10/20/18 03/06/19 gabapentin 300 mg capsule 300 mg PO HS #90 cap 12/01/18 03/06/19 omeprazole 40 mg capsule,delayed 40 mg PO DAILY #90 tab-cap 12/01/18 03/06/19 release albuterol sulfate 90 mcg/actuation 2 puff INHALATION Q4H PRN #1 02/09/19 03/06/19 aerosol inhaler inhaler bupropion HCl 150 mg tablet,12 hr 150 mg PO BID #180 tab-cap 02/09/19 03/06/19 sustained-release ibuprofen 600 mg tablet 600 mg PO TID PRN #30 tab 02/09/19 03/06/19 methocarbamol 500 - 1,000 mg PO Q6H PRN #14 tab 03/02/19 03/06/19 hydrocodone-acetaminophen 1 tab PO BID PRN #4 tab 03/06/19 tamsulosin 0.4 mg PO QHS #14 cap 03/06/19 terbinafine HCl See Rx Instructions .ROUTE .COMPLEX 03/06/19 Previous Rx's Medication Instructions Recorded acetaminophen [Acetaminophen Extra 1,000 mg PO TID #180 tab 12/10/16 Strength] amoxicillin 500 mg tablet 2,000 mg PO prior to dental work 08/15/18 PRN #15 tab-cap sildenafil 100 mg tablet 100 mg PO PRN #40 tab-cap 08/15/18 terbinafine HCl 250 mg tablet 250 mg PO DAILY #30 tab 08/15/18 ammonium lactate 12 % lotion 1 applic TOPICAL BID PRN #225 gm 09/27/18 blood sugar diagnostic #100 each 09/27/18 blood-glucose meter #1 each 09/27/18 lancets 33 gauge #100 each 09/27/18 trazodone 100 mg tablet 100 mg PO QHS #90 tab 09/27/18 metformin 1,000 mg tablet 1,000 mg PO BID #180 tab 10/20/18 gabapentin 300 mg capsule 300 mg PO HS #90 cap 12/01/18 omeprazole 40 mg capsule,delayed 40 mg PO DAILY #90 tab-cap 12/01/18 release albuterol sulfate 90 mcg/actuation 2 puff INHALATION Q4H PRN #1 02/09/19 aerosol inhaler inhaler bupropion HCl 150 mg tablet,12 hr 150 mg PO BID #180 tab-cap 02/09/19 sustained-release ibuprofen 600 mg tablet 600 mg PO TID PRN #30 tab 02/09/19 methocarbamol 500 - 1,000 mg PO Q6H PRN #14 tab 03/02/19 hydrocodone-acetaminophen 1 tab PO BID PRN #4 tab 03/06/19 tamsulosin 0.4 mg PO QHS #14 cap 03/06/19 Allergies Allergy/AdvReac Type Severity Reaction Status Date / Time No Known Allergies Allergy Unverified 03/06/19 20:35 General Stated Complaint: Abd Prob JESUS: 3 Review of Systems Narrative: 11/27 Review of Systems completed and is negative except as stated above in HPI (Systems reviewed: Const, Eyes, ENT, Resp, CV, GI, , MSK, Skin, Neuro) [facility] Medical History Anxiety (Chronic) Depressive disorder (Chronic 07/07/12) Diabetes mellitus type 2 in nonobese (Chronic) Gastroesophageal reflux disease (Chronic) Gout (Chronic 12/01/12) Hyperlipidemia (Chronic 07/07/12) pt. states he no longer has this condition 06/27/18 Insomnia (Chronic) Low back pain (Chronic) L4-L5 disectomy 1999; back injury after a fall 01/16, spinal stenosis; Obesity (Chronic) Obstructive sleep apnea syndrome (Chronic) CPAP Surgical History ANKLE FX (~1989) LEFT Arthroplasty of knee (01/04/17) DR. LAND;RIGHT Cholecystectomy (~2002) Colonoscopy - MAC (~2002) History of carpal tunnel release (Acute) L - 06/27/18 History of total left knee replacement (TKR) (Inactive 12/07/16) Dr. Land History of total right knee replacement (TKR) (Inactive 01/04/17) Dr. Land PROCEDURES ARTERIAL CATHETERIZATION, 06/23 [facility] [place]-SUCCESSFUL CATHETER BASED AVNRT CRYOABLATION Repair of inguinal hernia X 3 Repair, ACL (~1985) LEFT Social History Smoking/Tobacco Use Status: Former Tobacco Use Quit Date: 06/13/17 Second Hand Exposure: Yes Alcohol Intake: never Drug use: Never Substance use type: does not use Caregiver/Support person: No Household members: spouse Housing: house Communication Needs: None Do you need help understanding health information?: Never Pets and animals: Yes Pets and animals: cat(s) and dog(s) Sexually active: Yes Do you think of yourself as: straight/heterosexual Current gender identity: male What is your relationship status?: How often do you talk on the phone with friends or family?: twice per week How often do you get together with friends or relatives?: once per week How often do you attend sikh or episcopal services?: 1-3 times per year Do you belong to any clubs or organized social groups?: no Panel score (0-1 are the most socially isolated patients): 2 What type of physical activity do you participate in: none Monica/Anglican: Protestant Special monica needs: No Seatbelt use: always Helmet use: Yes Helmet use: always 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 Elevated blood pressure and slightly elevated heart rate. Normal room air pulse oximetry. Const: Obese male in NAD but does appear uncomfortable. HEENT: NC/AT. Normal facial exam. Eyes: Normal conjunctiva and sclera. Neck: Supple. Trachea midline. Lungs: Normal respiratory effort. Lungs are clear. Cor: RRR without murmur/gallop. Good distal pulses. GI: Soft and slightly distended. Bowel sounds present. Tenderness without guarding in left lower quadrant. Tenderness with some guarding which is inconsistent on repeat evaluation and right lower quadrant. : No testicular swelling or tenderness. No obvious hernia. Back: No CVAT. Neuro: A+O x 3. CN grossly in tact. Good strength and no focal deficit. Ext: No C/C/E. Skin: Warm and dry without rash. Course Vital Signs Vital signs: Vital Signs Temperature 97.5 F L 03/06/19 20:31 Pulse 99 H 03/06/19 20:31 Respiratory Rate 20 03/06/19 20:31 Blood Pressure 156/94 H 03/06/19 20:31 Pulse Oximetry 95 03/06/19 20:31 Temperature 97.5 F L 03/06/19 20:31 Temperature Source Skin 03/06/19 20:31 Pulse 99 H 03/06/19 20:31 Respiratory Rate 20 03/06/19 20:31 Respiratory Effort Non-Labored 03/06/19 20:33 Blood Pressure 156/94 H 03/06/19 20:31 Blood Pressure Position Sitting 03/06/19 20:31 Pulse Oximetry 95 03/06/19 20:31 Oxygen Delivery Method Room Air 03/06/19 20:31 Oxygen Flow Rate 0 03/06/19 20:31 Pain Level 10 03/06/19 20:31
[2019-03-06] MEDS: Lactated Ringers 1,000 ML 1000 ML IV (21:15)
[2019-03-06] MEDS: Ondansetron 4 MG/2 ML VIAL IVP (21:15)
[2019-03-06] MEDS: Ketorolac 15 MG/ML VIAL IVP (21:20)
[2019-03-06 21:22] LABS: Lactate 1.2 mmol/L (0.6-1.4)
[2019-03-06 21:23] LABS: Abs Immature Grans 0.02 k/cumm (0.0-0.09); Absolute Basophil Count 0.02 k/cumm (0.0-0.2); Absolute Eosinophil Count 0.05 k/cumm (0.0-0.7); Absolute Monocyte Count 0.74 k/cumm (0.11-0.7); Absolute Neutrophil Count 5.73 k/cumm (1.2-6.7); Basophils % 0.2; Eosinophils % 0.6; HCT 46.4 % (40.0-50.0); HGB 15.8 g/dL (13.5-17.5); Immature Grans % 0.2 %; Lymphocytes % 18.6; Mean Corp. HGB Concentration 34.1 g/dL (32.0-36.0); Mean Corpuscular Hemoglobin 28.9 pg (27.0-33.0); Mean Platelet Volume 8.5 fL (8.0-11.0); Monocytes % 9.2; Neutrophils % 71.2; Platelet Count 153 x1000/uL (130-400); RBC 5.46 m/cumm (4.50-6.00); RBC Distribution Width 13.2 % (11.8-14.1); White Blood Cell Count 8.06 k/cumm (4.4-10.8)
[2019-03-06 21:37] LABS: ALT 45 U/L (16-63); AST 27 U/L (15-37); Albumin 3.7 g/dL (3.4-5.0); Alkaline Phosphatase 44 U/L (46-116); Anion Gap 10.7 mmol/L (3-11); BUN 21 mg/dL (7-18); CO2 26.3 mmol/L (21.0-32.0); CREATININE 1.22 mg/dL (0.70-1.30); Calcium 9.2 mg/dL (8.5-10.1); Chloride 98 mmol/L (98-107); Glucose 145 mg/dL (74-106); Lipase 174 U/L (73-393); Potassium 3.8 mmol/L (3.5-5.1); Sodium 135 mmol/L (136-145); Total Protein 7.7 g/dL (6.4-8.2)
[2019-03-06] MEDS: Omnipaque 350 MG/ML 100 ML BTL IV (21:53)
[2019-03-06] MEDS: Omnipaque 350 MG/ML 50 ML BTL IJ (21:56)
--- NOTE | 2019-03-06 21:56 | DI.CT_ITS ---
EXAM: CT ABDOMEN PELVIS W CLINICAL HISTORY: LLQ pain/flank pain; tenderness TECHNIQUE: Imaging Protocol: Axial computed tomography images with coronal and sagittal reformatted images were created and reviewed CONTRAST MATERIAL: Intravenous: Omnipaque 350 Contrast volume:125 mL Oral: No COMPARISON: CHEST - LUNG CANCER SCREENING from 09/26/2017 CT CHEST LUNG CANCER SCREEN from 10/02/2018 FINDINGS: ABDOMEN: Lung Bases: Atelectasis. Liver: Diffuse fatty infiltration. No measurable mass. Gallbladder and biliary tract: Status post cholecystectomy. No biliary ductal dilatation. Pancreas: Normal density, no abnormal calcifications or inflammatory process. Spleen: Normal. Kidneys: Normal size, contour and axis. There is a 3 millimeter stone at the left ureteral vesicular junction causing mild hydronephrosis. There are bilateral renal cysts. The largest right and left r enal cysts are slightly of increased density. These may represent complex cysts. Ultrasound may be considered for further evaluation. Adrenal glands: No masses seen. Abdominal Aorta: Abdominal portion non-dilated. Atherosclerosis. No aneurysmal dilatation. PELVIS: Bladder: Symmetric distention, no gross wall thickening. Bowel: No obstruction or bowel wall thickening. Normal appendix. Peritoneal cavity: No ascites, collection or mesenteric inflammatory response. Bones: Degenerative changes. Reproductive organs: Within normal limits. Lymph nodes: Unremarkable. Impression: 1. 3 millimeter left UVJ stone causing mild hydronephrosis. 2. Fatty infiltration of the liver 3. Bilateral renal cystic lesions. Ultrasound is recommended for evaluation of the cysts. The large st one on each of the kidneys is of slightly higher density and may represent a complex cyst. DATA REPOSITORY: All CT scans at this facility are submitted to the National Radiology Data Registry (NRDR) Dose Index Registry (DIR) with the [employer] (ACR). RADIATION OPTIMIZATION: All CT scans at this facility use at least one of these dose optimization te chniques: automated exposure control; mA and/or kV adjustment per patient size (includes targeted exa ms where dose is matched to clinical indication); or iterative reconstruction.
[2019-03-06 22:33] LABS: Bilirubin Negative (Negative); Blood Small (Negative); Clarity Clear (Clear); Glucose Negative (Negative); Ketones Negative (Negative); Leukocyte Esterase Negative (Negative); Nitrite Negative (Negative); Specific Gravity 1.025 (1.005-1.025); Urobilinogen 0.2 EU/dL (Up TO 0.2)
--- NOTE | 2019-03-06 22:33 | DI.VRAD_ITS ---
PROCEDURE INFORMATION: Exam: CT Abdomen And Pelvis With Contrast Exam date and time: 03/06/2019 9:10 PM Age: 58 years old Clinical indication: Abdominal pain; Localized; Left lower quadrant (llq); Prior surgery; Surgery date: 6+ months; Surgery type: Hernia repair x 2, cholecystectomy; Patient HX: Llq pain and nausea, , flank pain; Tenderness in blq TECHNIQUE: Imaging protocol: Computed tomography of the abdomen and pelvis with intravenous contrast. Radiation optimization: All CT scans at this facility use at least one of these dose optimization techniques: automated exposure control; mA and/or kV adjustment per patient size (includes targeted exams where dose is matched to clinical indication); or iterative reconstruction. Contrast material: OMNIPAQUE 350; Contrast volume: 125 ml; Contrast route: IV RAC; COMPARISON: No relevant prior studies. FINDINGS: There is atelectasis within the lung bases. There are degenerative changes of the spine. There is fatty infiltration of the liver. There is no liver mass. There is no intrahepatic biliary dilatation. The patient is status post cholecystectomy. The pancreas is unremarkable. The spleen is unremarkable. There is no adrenal mass. There is a 3.7 cm mass involving the midpole of the right kidney. This measures slightly above fluid attenuation. It could represent a complex cyst. There is a 2.1 cm cyst in the midpole of the left kidney. There is also a small cyst anteriorly within the midpole of the left kidney. There is some mild perinephric fat stranding on the left. There is mild hydronephrosis of the left kidney. There is no hydronephrosis of the right. The left ureter is mildly dilated with periureteric fat stranding. There is a 3-4 mm calculus in the left distal ureter just above the bladder. The aorta is normal in caliber. The IVC is normal in caliber. There is no retroperitoneal adenopathy. There is no mesenteric adenopathy. The stomach is unremarkable. The small bowel loops in the upper abdomen are nondistended with no bowel wall thickening. Feces is seen throughout the colon. There is no thickening of the wall of the ascending, transverse or descending colons. Within the pelvis: A normal appendix is seen within the right lower quadrant. The bladder is unremarkable. The prostate gland and seminal vesicles are normal. There is no free fluid within the pelvis. There is no inguinal adenopathy. There is no pelvic adenopathy. The bowel loops within the pelvis are unremarkable. IMPRESSION: 1. 3-4 mm calculus involving the left distal ureter producing mild hydronephrosis of the left kidney. 2. 3.7 cm mass involving the midpole of the right kidney just above fluid 10 attenuation. This may represent a complex cyst. Comparison with old studies would be helpful. Correlation with ultrasound may be warranted. 3. Fatty infiltration of the liver. Dictated and Authenticated by: George Bauer MD. Ordering:TE Dye MD
[2019-03-06 22:43] LABS: Bacteria Negative HPF (Negative); C & S Indicated? No; Crystals Negative HPF (Negative); Epithelial Cells Negative HPF (Negative); Mucus Trace (Negative); WBC Negative HPF (0-5)
[2019-03-06 22:50] VITALS: BP 154/89; PULSE 82; O2SAT 96
[2019-03-06 22:51] VITALS: O2SAT 96
[2019-03-06 23:00] VITALS: O2SAT 96
[2019-03-06 23:01] VITALS: BP 154/80; PULSE 81; O2SAT 94
[2019-03-06] MEDS: Tamsulosin 0.4 MG CAPCR PO (23:11)
[2019-03-06 23:15] VITALS: BP 154/80; PULSE 81; RESP 20; O2SAT 94
== END 2019-03-06 23:15 | disposition home or self-care (01) ==
PROVIDERS: Emergency Provider Emergency Medicine; PCP Family Medicine
DX: N13.2 Hydronephrosis with renal and ureteral calculous obstruction (principal); N13.4 Hydroureter; R93.421 Abnormal radiologic findings on diagnostic imaging of right kidney; R11.0 Nausea; E11.9 Type 2 diabetes mellitus without complications; Z79.84 Long term (current) use of oral hypoglycemic drugs
CPT/HCPCS: 36415; 80053; 83690; 96361; 96374; 96375; 99285; 74177; 81003; 81015; 83605; 85025; 99284; J1885; J2405; J3490; Q9967

== ENCOUNTER 2019-03-12 01:48 | Outpatient (CLI) | payer OTHER, SELFPAY ==
--- NOTE | 2019-03-12 10:36 | DI.US_ITS ---
EXAM: US RENAL CLINICAL HISTORY: assess rt kidney mass seen on CT, renal mass rt, N28.89 TECHNIQUE: Ultrasound performed using standard protocol. COMPARISON: CT ABDOMEN PELVIS W from 03/06/2019 CT ABDOMEN PELVIS W from 03/06/2019 FINDINGS: The exam is limited by patient body habitus. The prevoid bladder volume measures 86 cc. There is po stvoid residual of 4 cc. No bladder calculi or masses are seen. The prostate volume is 22 cc. Ther e is no evidence of hydronephrosis. Kidneys are normal in size and show normal parenchymal thicknes s and echogenicity. There is a simple appearing cyst measuring 4.3 cm in maximal dimension in the mi d portion of the right kidney. There is an exophytic 2.5 centimeter low-density lesion of the latera l portion of the left kidney. It appears well circumscribed. It is less well evaluated but also appe ars to represent a simple cyst. IMPRESSION: Bilateral renal lesions are consistent with cysts. There is no evidence of hydronephrosis.
== END 2019-03-12 02:08 ==
PROVIDERS: PCP Family Medicine; Visit Provider Family Medicine
DX: N28.1 Cyst of kidney, acquired; N28.89 Other specified disorders of kidney and ureter
CPT/HCPCS: 76770

== ENCOUNTER 2019-04-19 01:42 | Outpatient (CLI) | payer OTHER, SELFPAY ==
--- NOTE | 2019-04-19 14:30 | DI.RAD_ITS ---
EXAM: RF JOINT INJECTION FLUORO GUID CLINICAL HISTORY: R WRIST INJ UNDER FLUORO,rt wrist pain, m25.531 TECHNIQUE: 2D and realtime digital imaging was performed. water soluble contrast was administered. COMPARISON: No exams were available for comparison FINDINGS: Fluoroscopy was provided for Dr. Amaya during the performance of a right wrist injection. Please refer to the procedure report for complete details. Fluoro time: 18 seconds IMPRESSION:
[2019-04-19] MEDS: Omnipaque 300 MG/ML 10 ML BTL IJ (14:57)
[2019-04-19] MEDS: Bupivacaine 0.5% Pres-Free 10 ML VIAL 2 ML EP (14:58)
[2019-04-19] MEDS: methylPREDNISolone ACETATE 40 MG/ML VIAL IM (14:59)
--- NOTE | 2019-04-19 16:09 | W.PROCNOTE ---
Date of service: 04/19/19 Time of Service: 14:09 Procedure Note Date of procedure: 04/19/19 Procedure: Right TFCC Tear Surgeon/Proceduralist/Physician: Owen Amaya Procedure Indications: Edwin has had pain of the right wrist. He has had surgery but continues to be limited with some pain, albeit better and different. Noninvasive measures have been tried. To improve his pain and function, I recommended an injection under fluoroscopy. I discussed the risks of the procedure and the patient elected to proceed. Procedure Description: Edwin was greeted in the flouroscopy room. The correct side was identified and the consent was reviewed with the patient and signed. Edwin was seated next to the fluoroscopy table and his right hand was placed in a pronated position. The RIGHT wrist was then prepped with Chloraprep. The skin and soft tissue in the tract of the injection was anesthetized with 1% Lidocaine. A 1.5 spinal needle was then inserted deep into the wrist joing at the level of the DRUJ. A small amount of Omnipaque solution was injected to confirm intraarticular placement. Once confirmed, the wrist was injected with 2cc of 0.5% Bupivicaine and 40mg of Depo-Medrol. A bandaid was placed on the injection site. The patient tolerated the procedure well.
== END 2019-04-19 02:02 ==
PROVIDERS: PCP Family Medicine; Visit Provider Student in an Organized Health Care Education/Training Program
DX: M25.531 Pain in right wrist (principal)
CPT/HCPCS: 20605; 77002; J1030

== ENCOUNTER 2019-08-15 09:33 | Outpatient (CLI) | payer OTHER, SELFPAY ==
[2019-08-15 12:52] LABS: HCT 46.8 % (40.0-50.0); HGB 15.8 g/dL (13.5-17.5); Mean Corp. HGB Concentration 33.8 g/dL (32.0-36.0); Mean Corpuscular Hemoglobin 29.4 pg (27.0-33.0); Mean Platelet Volume 9.9 fL (8.0-11.0); Platelet Count 166 x1000/uL (130-400); RBC 5.38 m/cumm (4.50-6.00); RBC Distribution Width 13.1 % (11.8-14.1); White Blood Cell Count 4.79 k/cumm (4.4-10.8)
[2019-08-15 13:07] LABS: Anion Gap 9.9 mmol/L (3-11); CO2 26.1 mmol/L (21.0-32.0); Calculated LDL 54 mg/dL (<100); Chloride 99 mmol/L (98-107); Cholesterol 129 mg/dL (<200); HDL Cholesterol 45 mg/dL (40-60); Potassium 4.5 mmol/L (3.5-5.1); Sodium 135 mmol/L (136-145); Triglyceride 153 mg/dL (<150)
[2019-08-15 13:48] LABS: Hemoglobin A1C 6.8 % (3.8-5.6)
[2019-08-15 13:57] LABS: COMMENT (LAB VIEW ONLY) 92.19 mg/dL; Microalb ug/mg Crea 16.2 ug/mg Cr
== END 2019-08-15 09:53 ==
PROVIDERS: PCP Family Medicine; Visit Provider Nurse Practitioner Family
DX: Z01.818 Encounter for other preprocedural examination (principal); E11.9 Type 2 diabetes mellitus without complications; E87.1 Hypo-osmolality and hyponatremia; R73.9 Hyperglycemia, unspecified; E78.5 Hyperlipidemia, unspecified
CPT/HCPCS: 80051; 80061; 85027; 82043; 82565; 82570; 83036

== ENCOUNTER 2019-10-03 10:02 | Outpatient (CLI) | payer OTHER, SELFPAY ==
[2019-10-03 12:32] LABS: COMMENT (LAB VIEW ONLY) 123.95 mg/dL; Microalb ug/mg Crea 10.1 ug/mg Cr
[2019-10-04 09:18] LABS: PSA, Screening 0.4 ng/mL (0.0-3.5)
== END 2019-10-03 10:22 ==
PROVIDERS: PCP Family Medicine; Visit Provider Family Medicine
DX: E11.9 Type 2 diabetes mellitus without complications (principal); Z12.5 Encounter for screening for malignant neoplasm of prostate
CPT/HCPCS: 36415; 84153; 82043; 82570

== ENCOUNTER 2019-10-10 01:05 | Outpatient (CLI) | payer OTHER, SELFPAY ==
--- NOTE | 2019-10-10 06:30 | DI.CTLCSR_ITS ---
EXAM: CT CHEST LUNG CANCER SCREEN CLINICAL HISTORY: Screening for lung cancer,FORMER SMOKER,Z12.2 TECHNIQUE: COMPARISON: CT CT CHEST LUNG CANCER SCREEN from 10/02/2018 FINDINGS: CT examination of the chest was performed utilizing low-dose noncontrast lung cancer screening protoc ol. Images obtained through the upper abdomen are of very limited technical quality. No gross mediastinal or hilar adenopathy. No pleural effusion. Coronary artery calcification noted. Left interlobar fissure 3 millimeter noncalcified intrapulmonary nodule again noted, unchanged from A ugust 2019. Tiny calcified nodule again also noted. No new intrapulmonary nodule seen. IMPRESSION: Stable probably benign intrapulmonary nodules. Continue annual screening with LD CT in 12 months. Lung RADS Cat 2 - Benign Appearance / Behavior: Nodules with a very low likelihood of becoming a clin ically active cancer due to size or lack of growth RADIATION DOSE DELIVERED: 94.97mGy.cm Total DLP
== END 2019-10-10 01:25 ==
PROVIDERS: PCP Family Medicine; Visit Provider Family Medicine
DX: Z12.2 Encounter for screening for malignant neoplasm of respiratory organs (principal); Z87.891 Personal history of nicotine dependence; R91.8 Other nonspecific abnormal finding of lung field
CPT/HCPCS: G0297

== ENCOUNTER 2020-01-07 04:14 | Outpatient (CLI) | payer OTHER, SELFPAY ==
[2020-01-08 21:18] LABS: Patient Race White; SARS-CoV-2 RNA Undetected (Undetected); SARS-CoV-2 Specimen Source Nasal
== END 2020-01-07 04:34 ==
PROVIDERS: PCP Family Medicine; Visit Provider Family Medicine
DX: Z11.59 Encounter for screening for other viral diseases (principal)
CPT/HCPCS: U0003

== ENCOUNTER 2020-01-23 15:25 | Outpatient (CLI) | payer OTHER, SELFPAY ==
--- NOTE | 2020-01-23 12:30 | DI.RAD_ITS ---
EXAM: XR LUMBAR SPINE COMPLETE CLINICAL HISTORY: worsening back pain M54.9 dorsalgia. TECHNIQUE: 2D digital imaging was performed. COMPARISON: No exams were available for comparison FINDINGS: There is no evidence of fracture or listhesis. There is advanced multilevel disc space narrowing. A lso multilevel anterior osteophytes. Degenerative changes in the facet joints. Some posterior bony ridging is noted at L2-3 and L3-4 levels. Probably an element of spinal canal stenosis. SI joints a ppear unremarkable. Increased density noted in portable of obvious but this is mostly sub endplate t herefore less likely to represent metastatic blastic disease.. IMPRESSION: Advanced chronic multilevel degenerative disc disease and degenerative facet changes. Suspect multil evel spinal canal stenosis. If clinically indicated follow-up MRI can be performed. DATA REPOSITORY: RADIATION DOSE DELIVERED:
== END 2020-01-23 15:45 ==
PROVIDERS: PCP Family Medicine; Visit Provider Family Medicine
DX: M54.9 Dorsalgia, unspecified (principal); M47.816 Spondylosis without myelopathy or radiculopathy, lumbar region
CPT/HCPCS: 72110

== ENCOUNTER 2020-04-22 14:09 | Outpatient (CLI) | payer OTHER, SELFPAY ==
--- NOTE | 2020-04-25 10:54 | NS.NUTBLAN_ITS ---
Date of service: 04/22/20 Time of Service: 14:30 Nutritional Consult ASSESSMENT: ASSESSMENT: Edwin ( 60 y/o M) presents with referral from Dr. Anand at [facility] for DM edu, CGM placement and obesity. He is on 1000mg metformin BID , Rybelsus 7 mg for his DM. Patient stated that he does finger stick to check BG 3x/day and recently his numbers have been in the mid 130's 10 150's. He reports hx elevated A1c and BG levels in the 200's. It seems the oral semaglutide is helping and he stated that he has been watching what he eats and has had a recent desirable weight loss of ~10lbs. He reports no episodes of hypoglycemia. He was able to give a good snapshot of his typical meals. He has a very good understanding of counting CHO's and was given some CHO intake goals by [facility] which are strict but he reports he has been able to follow successfully w/o feeling hungry. He reports no GI issues r/t his DM meds but documentation reveal chcf hx dumping syndrome. He has hx bilateral knee replacements. He does a lot of the cooking at home. 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 He uses chronometer to track his CHO's. Overall his knowledge of DM is very good and his action plan to help with BG control is satisfactory. INTERVENTION: Reiterated the importance of CHO intake and eating a variety of fresh whole foods with emphasis on plant based and lean PRO to promote intake of phytochemicals and anti-oxidants. Provided instruction and demonstration of carbs and cals phone anish. explained how weight loss has lowering effect on A1c. Explained interstitial fluid Vs. blood glucose readings to clarify CGM use. Educated patient on the concept of 'lag time with CGM use. Provided guidance for patient to place Libre2 sensor and set alarms on reader from 70-180mg/dl. He was able to successfully place the device. Helped patient connect to [employer] to look at various reports associated with BG levels. Provided resources to help with mindfulness around food choices. Explained that the Rybelsus can be titrated to a 14mg dose if necessary to help with lowering BG and also noted the weight loss side effects associated with this medication. MONITOR/EVAL: Edwin will accept byUs invitation and download his reader after 72 hours of data have been collected. He has agreed to contact PCP for more sensors and he has information to connect to [employer] to obtain a coupon for the sensors as well. He has agreed to visit this RD to replace senor in 14-15 days and review 14 days of data on byUs to help adjust lifestyle, weight loss goals, review progress and set new goal in his DM self- management. Time Spent in Nutritional Counseling and Treatment: 1 hr/4 units face to face
== END 2020-04-22 14:10 | disposition home or self-care (01) ==
LOC: DS 14:10
PROVIDERS: PCP Family Medicine; Visit Provider Dietitian, Registered
DX: E11.9 Type 2 diabetes mellitus without complications (principal); E66.9 Obesity, unspecified; Z79.84 Long term (current) use of oral hypoglycemic drugs; Z71.3 Dietary counseling and surveillance
CPT/HCPCS: 97802

== ENCOUNTER 2020-05-06 04:07 | Outpatient (CLI) | payer OTHER, SELFPAY ==
--- NOTE | 2020-05-06 09:00 | NS.NUTBLAN_ITS ---
ASSESSMENT: Edwin returns for 14 day f/u after initial placement of Freestyle 2 CGM device. He continues on oral semaglutide (rybelsus) 7 mg 1 x/day and metformin 1000mg BID. He has had very good results with his meds and his adherence to diet and portion size with ~ 3-4 lbs weight loss since last encounter. His sensor still had 6 hours left on it when he arrived. He did not eat breakfast today and random CGM reading was 164mg/dl most likely r/t biliary glycogen conversion. He has some concerns about some hyperglycemic episodes in the morning and at night. He is improving and motivated to change lifestyle, diet and DM self- management with support from this office, Family member and MD. INTERVENTION: Reviewed Victoria Phenomenon and Symogi effect as possible reasons for night time and early am hyperglycemia. Advised Edwin to consume 3 meals per day to mitigate glycogen conversion resulting in glucose spikes. Connected Edwin to [employer] for remote monitoring. Encouraged continued weight loss and appropriate food choices and portion sizes. CGM Chidi Is adequate for analysis by MD: Time in Range: 99% Glucose Variablity: 16.3% HypoGlycemic Episodes: 0% Hyperglycemic Episodes: 1% ( 14 minutes) Average Glucose: 125mg/dl Recommendations: Edwin may benefit from completing the Rybelsus regemin with the 14mg dose when appropriate. MONITOR/EVAL: Edwin will continue to take DM meds as prescribed. He will stay connected with this RD through [employer] and consult his MD for further adjustment of meds if deemed necessary by MD.
== END 2020-05-06 04:08 | disposition home or self-care (01) ==
LOC: DS 04:07
PROVIDERS: PCP Family Medicine; Visit Provider Dietitian, Registered
DX: E11.9 Type 2 diabetes mellitus without complications (principal); Z79.84 Long term (current) use of oral hypoglycemic drugs; Z71.3 Dietary counseling and surveillance
CPT/HCPCS: G0270

== ENCOUNTER 2020-07-08 09:06 | Emergency (ER) | payer OTHER, SELFPAY ==
[2020-07-08 09:10] VITALS: BP 145/75; PULSE 66; RESP 16; TEMP 36.4; O2SAT 98
--- NOTE | 2020-07-08 09:15 | DI.RAD_ITS ---
Exam(s) XR ELBOW LT COMPLETE EXAM: XR ELBOW LT COMPLETE CLINICAL HISTORY: left elbow tenderness medially with traumatic burs. TECHNIQUE: 2D digital imaging was performed. COMPARISON: No exams were available for comparison FINDINGS: BONES: No acute fracture is present. No bony destructive lesion is seen. Spurring at the coronoid pro cess. JOINTS: The elbow is normally aligned. No joint effusion is seen. SOFT TISSUE: Normal. No tendon calcifications seen. IMPRESSION: Mild degenerative changes. DATA REPOSITORY: RADIATION DOSE DELIVERED:
--- NOTE | 2020-07-08 09:27 | ED.GENADUL_ITS ---
Discharge Plan Disposition Patient Disposition: HOME Condition: Good Discharge Details Clinical Impression: Bursitis, olecranon Primary Care Provider: Ha Anand ED Provider: Linda Ledezma Home Meds and New Rx's Prescriptions: No Action ammonium lactate 12 % lotion 1 applic Topical BID PRN (Reason: dry skin) Qty: 225 RF: 2 (DME) blood-glucose meter [OneTouch Ultra2 Meter] Kit See Rx Instructions .ROUTE .MEDSUPPLY Qty: 1 RF: 0 (DME) lancets [OneTouch Delica Plus Lancet] 33 gauge misc See Rx Instructions .ROUTE .MEDSUPPLY Qty: 100 RF: 3 albuterol sulfate [ProAir HFA] 90 mcg/actuation HFA aerosol inhaler 2 puff Inhalation Q4H PRN Qty: 1 RF: 4 (DME) OneTouch Ultra Blue Test Strip Strip See Rx Instructions .ROUTE .MEDSUPPLY Qty: 100 RF: 3 trazodone 100 mg tablet 100 mg PO QHS Qty: 90 RF: 3 metformin 1,000 mg tablet 1,000 mg PO BID Qty: 180 RF: 3 omeprazole 40 mg capsule,delayed release(DR/EC) 40 mg PO DAILY Qty: 90 RF: 3 sildenafil [Viagra] 100 mg tablet 100 mg PO PRN Qty: 40 RF: 6 ibuprofen 600 mg tablet 600 mg PO TID PRN (Reason: pain) Qty: 30 RF: 3 methocarbamol 500 mg tablet 500 - 1,000 mg PO Q6H PRN (Reason: Back pain or spasm) Qty: 14 RF: 0 losartan 50 mg tablet 50 mg PO DAILY Qty: 90 RF: 3 cyclobenzaprine 10 mg tablet 10 mg PO HS PRN (Reason: muscle spasm) Qty: 20 RF: 0 terbinafine HCl 250 mg tablet 250 mg PO DAILY Qty: 30 RF: 0 (DME) FreeStyle Gloria 2 Sensor Kit See Rx Instructions .ROUTE .MEDSUPPLY Qty: 1 RF: 5 CPAP 1 applic Inhalation HS RF: 0 furosemide 20 MG tablet 20 mg PO DAILY PRNQty: 90 RF: 3 acetaminophen [Acetaminophen Extra Strength] 500 MG tablet 1,000 mg PO TID Qty: 180 RF: 0 bupropion HCl [Wellbutrin SR] 150 mg tablet sustained-release 12 hr 150 mg PO BID Qty: 180 RF: 3 gabapentin 300 mg capsule 600 mg PO TID Qty: 180 RF: 2 Rybelsus 7 mg tablet 7 mg PO DAILY Qty: 90 RF: 3 amoxicillin 500 mg tablet 2,000 mg PO prior to dental work PRN (Reason: dental and tattoing prophylaxis) Qty: 16 RF: 0 Discharge Instructions Instructions: Elbow Bursitis (ED) Additional Instructions: Compression, rest your arm Tylenol as needed for pain You may use [id number] Voltaren gel or diclofenac gel as well Ice, return with spreading redness, fever, worsening pain Repeat x-ray in 1 week with persistent pain Medical Decision Making Obvious bursitis noted, no evidence of septic joint Sling as recommended Agree with anticoagulation Return precautions discussed patient with systems clinic, no septic joint, reviewed radiology interpretation without evidence of an acute fracture anterior fat-pad only Other range, boggy bursa consistent with olecranon bursitis. He evaluation in 1 week with persistent pain Differential Diagnosis Differential Diagnosis: olecranon bursitis, fracture, strain, abrasion HPI General Mode of arrival: ambulatory . Date/Time Provider Initiated Documentation: 07/08/20 09:13 . Limitations to Documentation: no limitations . Information obtained by: patient . HPI Narrative: This 60-year-old male with history of diarrhea, diabetes, spinal stenosis, obstructive sleep apnea, arthritis, gout presents with report of left elbow pain which is persistent after falling off a standard riding lawnmower. He states that he landed directly on his elbow. He denies head injury or any additional complaints at this time. He states the pain is exacerbated with movement. Denies any neck p ain, sensation change to extremities, abdominal pain, chest pain, or any additional complaints this time. Pain is exacerbated with movement. Related Data Home Medications Medication Instructions Recorded Confirmed Cpap 1 applic INHALATION HS 01/14/12 07/08/20 furosemide 20 mg PO DAILY PRN #90 tab-cap 03/10/16 07/08/20 acetaminophen [Acetaminophen Extra 1,000 mg PO TID #180 tab 12/10/16 07/08/20 Strength] ammonium lactate 12 % lotion 1 applic TOPICAL BID PRN #225 gm 09/27/18 07/08/20 blood-glucose meter #1 each 09/27/18 07/08/20 lancets 33 gauge #100 each 09/27/18 07/08/20 ibuprofen 600 mg tablet 600 mg PO TID PRN #30 tab 05/09/19 07/08/20 methocarbamol 500 mg tablet 500 - 1,000 mg PO Q6H PRN #14 tab 05/09/19 07/08/20 albuterol sulfate 90 mcg/actuation 2 puff INHALATION Q4H PRN #1 10/03/19 07/08/20 aerosol inhaler inhaler blood sugar diagnostic #100 each 10/03/19 07/08/20 trazodone 100 mg tablet 100 mg PO QHS #90 tab 10/03/19 07/08/20 metformin 1,000 mg tablet 1,000 mg PO BID #180 tab 12/11/19 07/08/20 omeprazole 40 mg capsule,delayed 40 mg PO DAILY #90 tab-cap 12/11/19 07/08/20 release sildenafil 100 mg tablet 100 mg PO PRN #40 tab-cap 12/11/19 07/08/20 cyclobenzaprine 10 mg tablet 10 mg PO HS PRN #20 tab 01/23/20 07/08/20 terbinafine HCl 250 mg tablet 250 mg PO DAILY #30 tab 03/19/20 07/08/20 losartan 50 mg tablet 50 mg PO DAILY #90 tab 04/01/20 07/08/20 flash glucose sensor #1 ea 04/23/20 07/08/20 bupropion HCl 150 mg tablet,12 hr 150 mg PO BID #180 tab-cap 04/24/20 07/08/20 sustained-release gabapentin 300 mg capsule 600 mg PO TID #180 cap 04/24/20 07/08/20 semaglutide 7 mg tablet 7 mg PO DAILY #90 tab 06/18/20 07/08/20 amoxicillin 500 mg tablet 2,000 mg PO prior to dental work 07/07/20 07/08/20 PRN #16 tab-cap Previous Rx's Medication Instructions Recorded acetaminophen [Acetaminophen Extra 1,000 mg PO TID #180 tab 12/10/16 Strength] ammonium lactate 12 % lotion 1 applic TOPICAL BID PRN #225 gm 09/27/18 blood-glucose meter #1 each 09/27/18 lancets 33 gauge #100 each 09/27/18 ibuprofen 600 mg tablet 600 mg PO TID PRN #30 tab 05/09/19 methocarbamol 500 mg tablet 500 - 1,000 mg PO Q6H PRN #14 tab 05/09/19 albuterol sulfate 90 mcg/actuation 2 puff INHALATION Q4H PRN #1 10/03/19 aerosol inhaler inhaler blood sugar diagnostic #100 each 10/03/19 trazodone 100 mg tablet 100 mg PO QHS #90 tab 10/03/19 metformin 1,000 mg tablet 1,000 mg PO BID #180 tab 12/11/19 omeprazole 40 mg capsule,delayed 40 mg PO DAILY #90 tab-cap 12/11/19 release sildenafil 100 mg tablet 100 mg PO PRN #40 tab-cap 12/11/19 cyclobenzaprine 10 mg tablet 10 mg PO HS PRN #20 tab 01/23/20 terbinafine HCl 250 mg tablet 250 mg PO DAILY #30 tab 03/19/20 losartan 50 mg tablet 50 mg PO DAILY #90 tab 04/01/20 flash glucose sensor #1 ea 04/23/20 bupropion HCl 150 mg tablet,12 hr 150 mg PO BID #180 tab-cap 04/24/20 sustained-release gabapentin 300 mg capsule 600 mg PO TID #180 cap 04/24/20 semaglutide 7 mg tablet 7 mg PO DAILY #90 tab 06/18/20 amoxicillin 500 mg tablet 2,000 mg PO prior to dental work 07/07/20 PRN #16 tab-cap Allergies Allergy/AdvReac Type Severity Reaction Status Date / Time No Known Allergies Allergy Verified 07/08/20 09:15 General Stated Complaint: Orthopedic JESUS: 4 Review of Systems Narrative: Review of systems obtained x3 aside from where indicated in HPI [facility] Medical History (Updated 07/08/20 @ 09:53 by ERICKA Mejia) Alcohol abuse (07/07/12) Anxiety 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 states he no longer has this condition 06/27/18 Insomnia LLQ abdominal pain Low back pain L4-L5 disectomy 1999; back injury after a fall 01/16, spinal stenosis; Obesity Obstructive sleep apnea syndrome CPAP Onychomycosis Test 12will start pulse therapy with terbinafine Right rotator cuff tendinitis (01/12/16) Right wrist tendinitis Smoker [place]raventricular tachy[place]02[place] [facility] [place] BASED CRYOBLATION Surgical History (Updated 12/18/19 @ 10:39 by Tamra Heck MD) ANKLE FX (~1989) LEFT Arthroplasty of knee (01/04/17) DR. AMAYA;RIGHT Carpal tunnel syndrome of left wrist Status post left ECTR 06/27/2018 Carpal tunnel syndrome of right wrist Status post right ECTR 07/04/2018 Colonoscopy - MAC (~2002) History of carpal tunnel release L - 06/27/18 History of total left knee replacement (TKR) (12/07/16) Dr. Amaya History of total right knee replacement (TKR) (01/04/17) Dr. Amaya PROCEDURES ARTERIAL CATHETERIZATION, 06/23 [facility] [place] AV[place]YOABLATION Repair of inguinal hernia X 3 Repair, ACL (~1985) LEFT Status post cholecystectomy Triangular fibrocartilage complex injury S/P right wrist arthroscopy with debridement of central TFCC tear and release of the third extensor compartment [place] Dr. Dorantes [place] [place]/21/2018 Family History Mother Hyperlipidemia Stroke Breast cancer Father Sleep apnea Heart disease Sister Heart disease CHF/ASHD Depression Brother Heart disease A-FIB Maternal Grandfather , 81 Heart disease Liver cancer Paternal Grandfather , 80 Prostate cancer Maternal Grandmother , 71 Diabetes Essential hypertension Lung cancer Paternal Grandmother , 80 Heart disease Colon cancer Maternal Aunt Lung cancer Maternal Aunt Breast cancer Sister Asthma Heart disease Brother Heart disease Son No problems noted. Daughter Heart disease Daughter Heart disease Other Diabetes mellitus type 2 in nonobese Social History Smoking/Tobacco Use Status: Former Tobacco Use Quit Date: 06/13/17 Tobacco: How many years used: 40 Smoking risk assessment performed?: Yes Alcohol Intake: current Alcohol Intake frequency: holidays/special occasions only Drug use: Never Substance use type: does not use Household members: spouse Pets and animals: Yes Pets and animals: cat(s) and dog(s) Sexually active: Yes Do you think of yourself as: straight/heterosexual Current gender identity: male What is your relationship status?: How often do you talk on the phone with friends or family?: twice per week How often do you attend christian or lutheran services?: 1-3 times per year Do you belong to any clubs or organized social groups?: no Panel score (0-1 are the most socially isolated patients): 1 What type of physical activity do you participate in: none Monica/Uatsdin: Rastafari Seatbelt use: always Helmet use: Yes Helmet use: always Drive 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: No Do you feel safe at home: Yes Do you feel safe in your relationship?: Yes Exam Const General: cooperative and no acute distress Neck Other: No midline tenderness Chest Other: No chest wall tenderness Extrem Other: Left elbow tenderness, no tenderness to left shoulder or left wrist, distal pulses intact, sensation intact intact distally, boggy olecranon bursa, tenderness medially, no visible sign of trauma bursitis, neurovascularly intact Course Vital Signs Vital signs: Vital Signs Temperature 36.4 C L 07/08/20 09:10 Pulse 66 07/08/20 09:10 Respiratory Rate 16 07/08/20 09:10 Blood Pressure 145/75 H 07/08/20 09:10 Pulse Oximetry 98 07/08/20 09:10 Temperature 36.4 C L 07/08/20 09:10 Temperature Source Temporal Artery Scan 07/08/20 09:10 Pulse 66 07/08/20 09:10 Respiratory Rate 16 07/08/20 09:10 Respiratory Effort Non-Labored 07/08/20 09:13 Blood Pressure 145/75 H 07/08/20 09:10 Blood Pressure Position Sitting 07/08/20 09:10 Pulse Oximetry 98 07/08/20 09:10 Oxygen Delivery Method Room Air 07/08/20 09:10 Oxygen Flow Rate 0 07/08/20 09:10 Pain Level 6 07/08/20 09:25
== END 2020-07-08 10:01 | disposition home or self-care (01) ==
PROVIDERS: Emergency Provider Physician Assistant; PCP Family Medicine
DX: M70.22 Olecranon bursitis, left elbow (principal)
CPT/HCPCS: 99283; 73080; 99282

== ENCOUNTER 2020-09-16 12:46 | Outpatient (CLI) | payer OTHER, SELFPAY ==
[2020-09-16 12:59] VITALS: BP 135/75; PULSE 63; RESP 18; TEMP 37.3; O2SAT 99
--- NOTE | 2020-09-16 14:05 | DI.RAD_ITS ---
Exam(s) XR PAIN CLINIC LUMBAR SP 2V EXAM: XR PAIN CLINIC LUMBAR SP 2V CLINICAL HISTORY: Lumbar Radiculopathy TECHNIQUE: 2D and realtime digital imaging was performed. COMPARISON: No exams were available for comparison FINDINGS: C-arm fluoroscopy was utilized by Dr. Blair during apparent trans foraminal injection. Hard copy shows needle placement overlying the left neural foramen at what appears to be the L5-S1 level. IMPRESSION: RADIATION DOSE DELIVERED: maximino Guerra 26.8 mGy
[2020-09-16] MEDS: Omnipaque 240 MG/ML 50 ML BTL IJ (14:06)
[2020-09-16] MEDS: Dexamethasone Sod. Phos./Pres-Free 10 MG/ML VIAL IJ (14:06)
[2020-09-16 14:10] VITALS: BP 151/88; PULSE 63; RESP 20; O2SAT 95
--- NOTE | 2020-09-16 15:57 | PDOC.PAIN_ITS ---
Pain Clinic Procedure Note Procedure Note Procedure Note: PROCEDURE NOTE Transforaminal Epidural Steroid Injection with Fluoroscopic Guidance at L5 TFESI Chief Complaint: left leg pain, involving left lower back with radiation down left lateral thigh to left knee, rarely past the left knee. patient is followed by Dr Yu who would not operate on him until his BMI is below 40. Pre-operative diagnosis: lumbar radiculopathy Post-operative diagnosis: same as above Edwin Levy Sr has been [facility] Lumbar Transforaminal Epidural Steroid Injection left L5 TFESI. COMMENTS: Pre-procedure VAS: 5/10 to the left leg Edwin Levy Sr was greeted by the nurse who verified patients name and . Patient was then taken to the fluoroscopy suite. Edwin was interviewed and the medical record reviewed. There were no medical, pharmacologic, radiographic or other structural contraindications to attempting fluoroscopically guided transforaminal lumbar epidural steroid injection. The risks, benefits, and potential side effects were reviewed with the patient. Risk include, but not limited to, post dural puncture, headache, infection, nerve injury, allergic reaction, possible increase in symptoms over the ensuing 24 to 48 hours, and paralysis. The patient appeared to understand, questions were answered and the patient agreed to proceed. Once I obtained informed verbal consent, the printed consent form was signed by the patient and myself. Standard time-out procedure was performed. TECHNIQUE: After informed written consent was obtained the patient was placed in the prone position. The lumbar spine was prepped with chloraprep and draped. Sterile technique was observed during the entire procedure ( cap, gloves, and mask were worn). Vitals signs were monitored throughout the procedure. The left side was marked with a radioopaque marker. The skin and subcutaneous structures were anesthetized with lidocaine 1% to a total volume of 3 ML at each level. Under fluoroscopic guidance, in ipsilateral oblique view, co-axial approach, 22 gauge 5'' spinal needle(s) were advanced to the base of the left L5 pedicle(s). The needle(s) were advanced to the superio-posterior aspect of the neural foramen under lateral view. Oblique and AP views were rechecked. Under AP view Omnipaque 240 1 cc's was injected while visualized with fluoroscopy. There was no evidence of intravascular uptake, the epidural space was delineated. 10 mg Dexamethasone was injected after negative aspiration, at each level, followed by lidocaine 1% 1.0-ML at each level. (49 cc of Omnipaque was wasted) Outcome: The patient tolerated the procedure well and had stable vital signs. The patient noted after getting up after the procedure that their left leg pain was at a 2 out of 10 level. Follow up plans and appointments were discussed with Edwin . The patient was observed in the pain clinic and then discharged after having met discharge criteria to the care of a concrete pile driver operator. The patient received written instructions as documented in nursing records. Disposition: Edwin was discharged from the procedure suite without new neurological complaints. Follow-up: left L5 TFESI was ordered by Ms Chloe Blanchard APRN for both diagnostic and therapeutic purposes. If patient has transient but excellent pain relief, then would need to work with PT, weight loss and discuss surgical intervention with Dr Yu whena appropriate. If significant and sustained pain relief of left leg pain, then this can be repeated up to three times per 12 calendar months. I personally performed the entire procedure. Yecenia Blair MD ABPN-subspecialty board certification in Pain Medicine Attending Physician-Pain Management
== END 2020-09-16 12:47 | disposition home or self-care (01) ==
LOC: PC 12:47
PROVIDERS: PCP Family Medicine; Visit Provider Internal Medicine
DX: M54.16 Radiculopathy, lumbar region (principal)
CPT/HCPCS: 64483; 72100; Q9967

== ENCOUNTER 2020-11-06 01:51 | Outpatient (CLI) | payer OTHER, SELFPAY ==
[2020-11-06 13:55] LABS: COMMENT (LAB VIEW ONLY) 160.19 mg/dL; Microalb ug/mg Crea 3.9 ug/mg Cr
[2020-11-06 14:28] LABS: Calculated LDL 65 mg/dL (<100); Cholesterol 136 mg/dL (<200); HDL Cholesterol 54 mg/dL (40-60); Potassium 4.4 mmol/L (3.5-5.1); Triglyceride 87 mg/dL (<150)
[2020-11-06 14:36] LABS: Uric Acid 8.4 mg/dL (3.5-7.2)
== END 2020-11-06 01:52 | disposition home or self-care (01) ==
LOC: LBO 01:51
PROVIDERS: PCP Family Medicine; Visit Provider Family Medicine
DX: E78.5 Hyperlipidemia, unspecified (principal); E11.9 Type 2 diabetes mellitus without complications; I10 Essential (primary) hypertension; M10.9 Gout, unspecified
CPT/HCPCS: 36415; 80061; 82043; 82565; 82570; 84132; 84550

== ENCOUNTER 2021-03-03 08:25 | Outpatient (CLI) | payer OTHER, SELFPAY ==
--- NOTE | 2021-03-03 08:15 | DI.RAD_ITS ---
Exam(s) XR ANKLE RT COMPLETE EXAM: XR ANKLE RT COMPLETE CLINICAL HISTORY: ankle pain. TECHNIQUE: 2D digital imaging was performed. COMPARISON: CR XR ANKLE LT COMPLETE from 03/03/2021 FINDINGS: No evidence of fracture nor widening of the mortise. Talar dome appears unremarkable. Mild degenera tive changes. Os trigonum noted. IMPRESSION: DATA REPOSITORY: RADIATION DOSE DELIVERED:
--- NOTE | 2021-03-03 08:15 | DI.RAD_ITS ---
Exam(s) XR ANKLE LT COMPLETE EXAM: XR ANKLE LT COMPLETE CLINICAL HISTORY: ankle pain. TECHNIQUE: 2D digital imaging was performed. COMPARISON: CR RIGHT ANKLE COMPLETE from 06/04/2008 FINDINGS: No evidence of fracture nor widening of the mortise. Mild degenerative changes in the ankle joint. Os trigonum noted. Small inferior calcaneal spur is noted. There is also calcification in the plant ar fascia evident on this side. IMPRESSION: DATA REPOSITORY: RADIATION DOSE DELIVERED:
== END 2021-03-03 08:26 | disposition home or self-care (01) ==
LOC: DIORS 08:25
PROVIDERS: PCP Family Medicine; Referring Provider Family Medicine; Visit Provider Physician Assistant
DX: M25.571 Pain in right ankle and joints of right foot (principal); M25.572 Pain in left ankle and joints of left foot; Q68.8 Other specified congenital musculoskeletal deformities; M77.32 Calcaneal spur, left foot
CPT/HCPCS: 73610

== ENCOUNTER 2021-03-24 01:05 | Outpatient (CLI) | payer OTHER, SELFPAY ==
--- NOTE | 2021-03-24 07:00 | DI.MRI_ITS ---
Exam(s) MR LOWER JOINT RT WO EXAM: MR LOWER JOINT RT WO CLINICAL HISTORY: R ANKLE PAIN,INSUFFICIENCY RT POSTERIOR TIBIAL TENDON,M76.821 TECHNIQUE: Multiplanar multisequence MRI was performed without intravenous contrast. COMPARISON: CR XR ANKLE RT COMPLETE from 03/03/2021 FINDINGS: BONES/JOINTS: There is nonspecific patchy marrow edema in the visualized bones of the foot and the di stal fibula. Subchondral cysts are seen at articulations at the tarsal metatarsal joints the talocal caneal joint and the distal fibula likely reflecting arthrosis. No occult fracture is seen.. No bon e lesions identified. The talar dome is smooth. The ankle mortise is maintained. There is a small jorge unt of fluid in the ankle joint. LIGAMENTS: The tibiofibular ligaments are intact. The posterior talofibular ligament is ill-defined w ith isointense soft tissue present. The anterior talofibular ligament show some intermediate signal and thickening.. There is some thickening and intermediate signal seen in the proximal calcaneal fibu lar ligament. The deltoid ligament is intact. The syndesmosis is unremarkable. Sinus tarsi is normal. MUSCULOTENDINOUS STRUCTURES: Achilles tendon: Unremarkable. Plantar fascia: There is mild thickening and intermediate signal at the plantar fascial insertion sit e on the calcaneus. Anterior Extensor tendons: Unremarkable. Posterior Tibialis: Unremarkable. Flexor Digitorum longus: Unremarkable. Flexor Hallucis longus: Unremarkable. Peroneus longus: Unremarkable. Peroneus brevis:Unremarkable. SOFT TISSUES: There is some fluid posterior to the ankle joint. This may lead to symptoms of impingem ent posteriorly. OTHER FINDINGS: None. IMPRESSION: 1. Unremarkable posterior tibialis tendon. 2. Thickening and ill-defined signal within the anterior talofibular, calcaneal fibular and posterior talofibular ligaments. This may represent a tear and/or fibrosis. 3. Fluid seen posterior to the ankle joint. This can lead to symptoms of impingement posteriorly. 4. Mild thickening and intermediate signal seen at the plantar fascia insertion site on the calcaneus . This may represent a mild plantar fasciitis. 5. Degenerative changes seen in the foot and ankle. DATA REPOSITORY:
== END 2021-03-24 01:25 ==
PROVIDERS: PCP Family Medicine; Visit Provider Student in an Organized Health Care Education/Training Program
DX: M76.821 Posterior tibial tendinitis, right leg (principal); M25.571 Pain in right ankle and joints of right foot; M25.471 Effusion, right ankle; M19.071 Primary osteoarthritis, right ankle and foot; M67.871 Other specified disorders of synovium, right ankle and foot
CPT/HCPCS: 73721

== ENCOUNTER 2021-05-11 09:42 | Outpatient (CLI) | payer OTHER, SELFPAY ==
--- NOTE | 2021-05-11 08:45 | DI.RAD_ITS ---
Exam(s) XR SHOULDER LT COMPLETE 2+V EXAM: XR SHOULDER LT COMPLETE 2+V CLINICAL HISTORY: eval L shoulder pain. TECHNIQUE: 2D digital imaging was performed. Two views. COMPARISON: CR RIGHT SHOULDER COMPLETE from 07/28/2015 FINDINGS: BONES: No acute fracture is present. No bony destructive lesion is seen. Subchondral cysts in the gl enoid, greater and lesser tuberosities. Prominence of the greater and lesser tuberosities. Small ca lcification adjacent to the greater tuberosity could indicate mild calcific tendinosis. JOINTS: Glenohumeral joint is well maintained. No dislocation present. Mild spurring at the AC join t. Mild spurring at the anteroinferior glenoid. SOFT TISSUE: Normal. IMPRESSION: [id number] degenerative changes and mild calcific tendinosis. DATA REPOSITORY: RADIATION DOSE DELIVERED:
== END 2021-05-11 09:43 | disposition home or self-care (01) ==
LOC: DIORS 09:43
PROVIDERS: PCP Family Medicine; Referring Provider Family Medicine; Visit Provider Student in an Organized Health Care Education/Training Program
DX: M25.512 Pain in left shoulder (principal); M75.32 Calcific tendinitis of left shoulder; M19.012 Primary osteoarthritis, left shoulder
CPT/HCPCS: 73030

== ENCOUNTER 2021-10-27 03:55 | Outpatient (CLI) | payer OTHER, SELFPAY ==
[2021-10-27 07:25] LABS: Hemoglobin A1C 5.5 % (<5.7)
[2021-10-27 07:33] LABS: CREATININE 0.9 mg/dL (0.70-1.30); Calculated LDL 47 mg/dL (<100); Cholesterol 114 mg/dL (<200); Estimated GFR 97.78 (mL/min/1.73m2); HDL Cholesterol 57 mg/dL (40-60); Potassium 3.5 mmol/L (3.5-5.1); Triglyceride 53 mg/dL (<150)
== END 2021-10-27 03:56 | disposition home or self-care (01) ==
LOC: LBO 03:55
PROVIDERS: PCP Family Medicine; Visit Provider Family Medicine
DX: I10 Essential (primary) hypertension (principal); R73.9 Hyperglycemia, unspecified; E78.5 Hyperlipidemia, unspecified
CPT/HCPCS: 36415; 80061; 82565; 83036; 84132

== ENCOUNTER 2022-02-23 13:36 | Outpatient (REF) | payer OTHER, SELFPAY ==
[2022-02-23 16:26] LABS: COMMENT (LAB VIEW ONLY) 105.84 mg/dL
== END 2022-02-23 13:37 | disposition home or self-care (01) ==
LOC: LBN 13:36
PROVIDERS: PCP Family Medicine; Visit Provider Family Medicine
DX: E11.9 Type 2 diabetes mellitus without complications (principal)
CPT/HCPCS: 82043; 82570

== ENCOUNTER 2022-11-15 11:17 | Outpatient (CLI) | payer OTHER, SELFPAY ==
--- NOTE | 2022-11-15 11:00 | DI.RAD_ITS ---
Exam(s) XR SHOULDER RT COMPLETE 2+V EXAM: XR SHOULDER RT COMPLETE 2+V CLINICAL HISTORY: RIGHT SHOULDER PAIN. TECHNIQUE: 2D digital imaging was performed. COMPARISON: CR XR SHOULDER LT COMPLETE 2+V from 05/11/2021 FINDINGS: Two views. There is no evidence of fracture location nor diminution of the subacromial space and there are no so ft tissue calcifications. There are mild degenerative changes in the glenohumeral joint. Small os o ssific ridge is noted on the undersurface the acromion. IMPRESSION: Mild degenerative changes. DATA REPOSITORY: RADIATION DOSE DELIVERED:
== END 2022-11-15 11:18 | disposition home or self-care (01) ==
LOC: DIORS 11:18
PROVIDERS: PCP Family Medicine; Visit Provider Student in an Organized Health Care Education/Training Program
DX: M25.511 Pain in right shoulder (principal)
CPT/HCPCS: 73030

== ENCOUNTER → 2022-12-13 01:58 | Outpatient (CLI) | payer OTHER, SELFPAY ==
--- NOTE | 2022-12-13 10:00 | DI.MRI_ITS ---
Exam(s) MR UPPER JOINT RT WO EXAM: MR UPPER JOINT RT WO CLINICAL HISTORY: eval R RTC tear? M75.81 RT SHULDER LESION. TECHNIQUE: Multiplanar multisequence MRI was performed. COMPARISON: Plain films 15 November 2022 FINDINGS: BONES: There is no fracture or contusion pattern. Degenerative cystic changes in the humeral head. JOINTS:The acromioclavicular joint postsurgical changes. Small amount of adjacent fluid. The glenoh umeral joint shows a small effusion. TENDONS: Supraspinatus: Abnormal thickening and edema greater anteriorly. Severe partial tear with a few inta ct fibers. Infraspinatus: Fluid but no visible tear. Some distal edema. Subscapularis: Unremarkable. Teres Minor: Unremarkable. Biceps and [place]: Edema surrounding proximal long head of biceps tendon but no visible tear. MUSCLES: Unremarkable. GLENOID LABRUM: Unremarkable on this noncontrast examination. SOFT TISSUES: Unremarkable. OTHER: Subacromial and subdeltoid bursae show minimal fluid.. IMPRESSION: Tendinosis and severe partial tear of the supraspinatus tendon. Fluid in infraspinatus tendon without visible tear. Edema around proximal biceps tendon without visible tear. Edema around distal subscapularis tendon without visible tear. DATA REPOSITORY:
== END ==
PROVIDERS: PCP Family Medicine; Visit Provider Student in an Organized Health Care Education/Training Program
DX: M75.81 Other shoulder lesions, right shoulder (principal)
CPT/HCPCS: 73221

== ENCOUNTER 2023-04-01 10:17 | Day surgery (SDC) | payer OTHER, SELFPAY ==
[2023-04-01] VITALS (10 sets, daily range): BP systolic 113–128; BP diastolic 55–72; PULSE 63–69; RESP 14–20; TEMP 36.4–37.1; O2SAT 91–96; BMI 40.8
--- NOTE | 2023-04-01 07:13 | PDOC.DSDIS_ITS ---
Date of service: 04/01/23 Time of Service: 15:30 Discharge Plan Disposition Patient Disposition: Home Condition: Stable Discharge Details Attending Provider: Corbin Moody Primary Care Provider: Ha Anand Home Meds and New Rx's Prescriptions: New naproxen 250 mg tablet 250 - 500 mg PO BID PRN (Reason: Moderate pain) Qty: 40 0RF aspirin 81 mg tablet,delayed release (DR/EC) 81 mg PO DAILY 7 Days Qty: 7 0RF oxycodone 5 mg tablet 5 - 10 mg PO Q4H PRN (Reason: Moderate to severe pain) Qty: 18 0RF Continued ibuprofen 600 mg tablet 600 mg PO TID PRN (Reason: pain) Qty: 30 3RF ammonium lactate 12 % lotion 1 applic Topical BID PRN (Reason: dry skin) Qty: 225 2RF amoxicillin 500 mg tablet 2,000 mg PO prior to dental work PRN (Reason: dental and tattoing prophylaxis) Qty: 16 0RF alprostadil/Papaverine/Phentolamine 0.5 ml intra-cavernosal PRN MDD 1 mL Qty: 5 12RF Rx Instructions: 10mcg/30mg/1mg per mL methocarbamol 500 mg tablet 500 - 1,000 mg PO Q6H PRN (Reason: Back pain or spasm) Qty: 14 0RF Hold Instructions: Home Medication placed on hold at Doctor's office CPAP 1 applic Inhalation HS Rx Instructions: [facility] [place] acetaminophen [Acetaminophen Extra Strength] 500 MG tablet 1,000 mg PO TID Qty: 180 0RF (DME) FreeStyle Gloria 2 Sensor Kit See Rx Instructions .ROUTE .MEDSUPPLY Qty: 1 5RF Rx Instructions: As directed phentermine 30 mg capsule 30 mg PO DAILY Qty: 30 2RF Rx Instructions: must administer 2 hours after breakfast allopurinol 300 mg tablet 300 mg PO DAILY Qty: 90 3RF amitriptyline 10 mg tablet 10 mg PO DAILY Qty: 90 3RF bupropion HCl [Wellbutrin SR] 150 mg tablet sustained-release 12 hr 150 mg PO BID Qty: 180 3RF Rx Instructions: 1 TAB BID losartan 50 mg tablet 50 mg PO DAILY Qty: 90 3RF metformin 1,000 mg tablet 1,000 mg PO BID Qty: 180 3RF omeprazole 40 mg capsule,delayed release(DR/EC) 40 mg PO DAILY Qty: 90 3RF Rx Instructions: 1 CAP DAILY ropinirole 1 mg tablet 1 mg PO QHS Qty: 90 3RF Rx Instructions: administer 1-3 hours before bedtime Ozempic 2 mg/dose (8 mg/3 mL) pen injector 2 mg subcut QWEEK Qty: 3 11RF trazodone 100 mg tablet 100 mg PO QHS Qty: 90 3RF Rx Instructions: start with 50 mg; increase to 100 mg as needed Discharge Instructions Additional Instructions: Surgery: Right shoulder arthroscopy with large rotator cuff repair (supraspinatus & infraspinatus), extensive debridement, and subacromial decompression. Activity: For 6 weeks, you should keep your arm at your side in a neutral position at all times except for physical therapy. Do not try to lift or raise your arm using your own muscles. You should use the sling whenever you are out of the house. You may have to adjust the abduction pillow or remove it for comfort. At home it is best to remove the sling and rest the arm on a pillow at your side or support the operative side with your other hand. You may allow the arm to dangle at your side. A physical therapy prescription will be sent electronically to begin in about 3 weeks. CONSERVATIVE protocol. Prescriptions: Aspirin 81 mg take 1 daily to prevent a blood clot for 7 days Naproxen 250 mg take 1-2 every 12 hours with a meal as needed for moderate pain Oxycodone 5 mg take 1-2 every 4-6 hours as needed for severe pain You may use [id number] Tylenol (acetaminophen) as needed for mild pain. These pain medications may be taken all at once or in different combinations as needed. Also, recommend Colace (docusate) as a stool softener as surgery and pain medicine cause constipation. You may try [id number] diphenhydramine (Benadryl) 25-50 mg nightly as a sleep aid Dressings: Remove shoulder bandage after 3 days. Leave the sticky Steri-Strips in place until they fall off or remove them after you shower. Cover the incisions with Band-Aids or leave them open to air. You may shower after 5 days. Follow-up: 10-[address] Moody You may take off the leg compression stockings this evening at home. You may also leave them on a few days longer if you have a history of leg swelling or edema. Let us know right away if you develop any redness, drainage, fevers, chest pain, or trouble breathing. Do not drink alcohol or drive for at least 24 hours after anesthesia. Please call the office during business hours with any questions or concerns. Discharge Orders Discharge Orders: Discharge Order (Routine); Ordered 04/01/23 Ordered By: Wicho Gu DS: Diagnosis Discharge Diagnosis (1) Left rotator cuff tear: Status: Acute
--- NOTE | 2023-04-01 07:28 | ROE_ITS ---
Date of service: 04/01/23 Time of Service: 15:00 Operative Note Operative Note DATE OF PROCEDURE: 04/01/23 PRE-OP DIAGNOSIS: Right shoulder: 1. Rotator cuff tear 2. Proximal biceps rupture 3. Bursitis POST-OP DIAGNOSIS: same PROCEDURE: Right shoulder: 1. Rotator cuff repair, CPT# 57313. This involved repair of the supraspinatus and partial infraspinatus using anchors and sutures to reattach the rotator cuff back to the footprint of the greater tuberosity. 3. Extensive debridement, CPT# 09512. This involved using arthroscopic hand instruments, power instruments, and radiofrequency instruments to debride anterior and posterior labral tearing, debride abnormal biceps tendon stump at the superior labrum from previous rupture, debride anterior capsule, release thickened and abnormal MG HL, and debride interposed SG HL and CHL as well as upper margin lateral subscapularis tearing. Significant time was also spent debriding what appeared to be calcium or gouty deposits throughout the glenohumeral joint. 3. Subacromial decompression with partial acromioplasty, CPT# 76884. This involved using arthroscopic power instruments and a radiofrequency wand to complete a bursectomy and smooth the undersurface of the acromion. The senior underwriting assistant was medically required in order to help assist in techniques above, which require positioning the arm, holding the arthroscope, and manipulat ing multiple instruments and sutures at the same time. This cannot be done without the help of an experienced senior underwriting assistant. SURGEON: Corbin Moody COORDINATE MEASURING MACHINE OPERATOR: Wicho Gu ANESTHESIA TYPE: Local By Surgeon, General LMA/ETT and Primary Nerve Block Refer to Anesthesia Record ESTIMATED BLOOD LOSS: 5 PATHOLOGY: none sent COMPLICATIONS: None Patient was transported to: PACU Patient's condition: stable Implants: Arthrex: 4.75mm SwiveLocks x 4 Indications: The patient was diagnosed with the above conditions and appropriately indicated for surgical intervention. Please see complete medical record for details. Findings: Exam under anesthesia: Full range of motion, no instability Glenohumeral joint: Large articular supraspinatus and infraspinatus tearing with small full-thickness defect anterior superiorly. Upper lateral margin s ubscapularis partial tearing. Disruption and interposing engaging in the glenohumeral joint biceps sling SGHL & CHL as well as thickening of the [facility] L. Significant calcium or gouty tophaceous deposits anteriorly and through the remainder of the glenohumeral joint including on the labrum. Anterior and posterior labral fraying tearing and these deposits. Prior biceps rupture with irregular superior labrum biceps tendon stump. Subacromial space: Significant bursal thickening and moderate bursitis. Only small supraspinatus bursal defect. Minimal undersurface acromial bone spurring. Moderately diffuse bursal rotator cuff fraying. Procedure Description: In the operating room, general anesthesia was induced. Bilateral shoulders were examined. The patient was positioned in the beachchair position. All bony prominences were well-padded. Preoperative antibiotics were administered. The shoulder was prepped and draped in the usual sterile fashion. The correct patient, procedure, and side of the procedure were all verified prior to incision. Starting through the posterior portal a standard complete diagnostic arthroscopy was performed of the glenohumeral joint including inspection of the long head of the biceps, anterior and superior labrum, subscapularis tendon, supraspinatus and infraspinatus tendons, and axillary recess. The glenoid and humeral head cartilage as well as the posterior labrum were inspected from a superior anterior lateral viewing portal established through the full-thickness rotator cuff tear. Significant findings and interventions noted above. Significant time was spent identifying and debriding abnormal glenohumeral and in particular anterior structures. There was significant interposed and redundant tissue that became apparent was disrupted biceps sling, thickened [facility] L, and partial subscapularis tearing. [place] gouty tophaceous deposits were debrided from the rotator interval, anterior and posterior labrum. The subscapularis was released from anterior capsular adhesions and the [facility] L. The Starting through the posterior portal, the arthroscope was directed into the subacromial space. A lateral 50 yard line lateral portal was created. A combination of power instruments and a radiofrequency ablator were used to debride bursitis anteriorly, posteriorly, and laterally as well as expose and smooth bone spurring on the undersurface of the acromion. The coracoacromial ligament was partially released. The bursectomy was completed viewing laterally and working from posteriorly and the rotator cuff was thoroughly inspected with findings noted above. Significant time was spent identifying the rotator cuff tearing in the subacromial space working on the lateral supraspinatus. There were a few smaller full-thickness rents in the bursal tendon slightly medial to the lateral drop-off. The goal was to identify the large nearly 90% articular sided tearing while preserving length for repair. The elevator was used to lift the lateralmost intact supraspinatus off the greater tuberosity and then debride irregular tendon margins until a large crescent tear was identified containing the majority of the supraspinatus and upper portion wrapping around to the infraspinatus. The greater tuberosity was thoroughly debrided to optimize bone tendon healing. Cuff grasper was used to confirm appropriate arm position and reduction of the rotator cuff from medial to lateral without undue tension. Anterior and posterior medial row anchors were placed 4.75 mm swivel lock [id number] loaded with FiberTape's. The 4 medial FiberTape's were individually shuttled through the appropriate level of the rotator cuff spreading across the tissue for best repair. The anterior most posterior and anterior medial row tapes were brought out and reduction demonstrated through the clear Nita cannula insert to an anterior lateral anchor, but before anchor was placed an additional suture tape FiberLink was secured to the anteriormost margin of the tear. The remaining medial FiberTape's were brought out laterally and similarly an additional suture tape FiberLink was placed through the posterior most margin of the tear ensuring security of the infraspinatus tissue wrapping around the greater tuberosity before being secured to a posterior lateral anchor. There was good reduction of the large rotator cuff tear across the well-prepared greater tuberosity. The repair was stable through motion and testing with excellent fixation strength. The shoulder was drained of arthroscopic fluid. All portal sites were copiously irrigated. These incisions were closed using 3-0 Monocryl in a buried fashion and then covered with Mastisol, Steri-Strips, Xeroform, dry gauze, and ABDs. The dressings were covered and secured with Medipore tape. The operative extremity was placed into a sling for immobilization. The patient awoke from anesthesia without complication and was transferred to the recovery room in a stable condition.
[2023-04-01] MEDS: Lactated Ringers 1,000 ML 30 ML IV (11:18)
--- NOTE | 2023-04-01 12:01 | W.ANESPRE ---
General Info Date of Service Date Performed: 04/01/23 Height: 6 ft Weight: 136.7 kg Body Mass Index (BMI): 40.8 Surgical Procedure: Operation Date: 04/01/23 13:10 Proposed Procedure Side Surgeon p Shoulder Rotator Cuff Arthroscopic w/Extensive Debridement, Subacromial Decompression Right Corbin Moody MD Meds Allergies and Home Medications Allergies Allergy/AdvReac Type Severity Reaction Status Date / Time No Known Allergies Allergy Verified 04/01/23 11:01 Home Medication Medication Instructions Recorded Cpap 1 applic inhalation HS 01/14/12 acetaminophen 500 mg tablet 1,000 mg (2 x 500 mg) PO TID #180 12/10/16 (Acetaminophen Extra Strength) tabs ibuprofen 600 mg tablet 600 mg PO TID PRN pain #30 tabs 10/24/20 flash glucose sensor (FreeStyle #1 ea 07/05/22 Gloria 2 Sensor kit) amoxicillin 500 mg tablet 2,000 mg (4 x 500 mg) PO prior to 07/21/22 dental work PRN dental and tattoing prophylaxis #16 tab-caps ammonium lactate 12 % lotion 1 applic topical BID PRN dry skin 11/03/22 #225 grams alprostadil/Papaverine/Phentolamine 0.5 ml intra-cavernosal PRN #5 mL 02/03/23 methocarbamol 500 mg tablet 500 - 1,000 mg (1 - 2 x 500 mg) PO 02/03/23 Q6H PRN Back pain or spasm #14 tabs allopurinol 300 mg tablet 300 mg PO DAILY #90 tabs 02/21/23 phentermine 30 mg capsule 30 mg PO DAILY #30 caps 02/21/23 amitriptyline 10 mg tablet 10 mg PO DAILY #90 tabs 03/21/23 bupropion HCl 150 mg tablet,12 hr 150 mg PO BID #180 tab-caps 03/21/23 sustained-release (Wellbutrin SR) losartan 50 mg tablet 50 mg PO DAILY #90 tabs 03/21/23 metformin 1,000 mg tablet 1,000 mg PO BID #180 tabs 03/21/23 omeprazole 40 mg capsule,delayed 40 mg PO DAILY #90 tab-caps 03/21/23 release ropinirole 1 mg tablet 1 mg PO QHS #90 tabs 03/21/23 semaglutide 2 mg/dose (8 mg/3 mL) 2 mg (0.75 mL) subcut QWEEK #3 mL 03/21/23 subcutaneous pen injector (Ozempic) trazodone 100 mg tablet 100 mg PO QHS #90 tabs 03/21/23 aspirin 81 mg tablet,delayed 81 mg PO DAILY Prevent blood clot 04/01/23 release 7 days #7 tabs naproxen 250 mg tablet 250 - 500 mg (1 - 2 x 250 mg) PO 04/01/23 BID PRN Moderate pain #40 tabs oxycodone 5 mg tablet 5 - 10 mg (1 - 2 x 5 mg) PO Q4H 04/01/23 PRN Moderate to severe pain #18 tabs Current Visit Medications: Current Medications Generic Name Dose Route Start Last Admin Trade Name Freq PRN Reason Stop Dose Admin Ringer's Solution 1,000 mls @ 30 mls/hr 04/01/23 06:00 04/01/23 11:18 IV 04/01/23 23:59 30 mls/hr INFUSION SHELL Administration Cefazolin Sodium 3,000 mg/ 100 mls @ 200 mls/hr 04/01/23 06:00 Sodium Chloride IV 04/01/23 23:59 PREOP [facility] IV Miscellaneous Supplies 1 each 04/01/23 06:00 Iv Access IV 04/01/23 23:59 DIRECTED SHELL Oxycodone HCl 0 mg 04/01/23 07:12 Oxycodone 5 Mg Tab PO 05/01/23 07:11 Q3H PRN PRN Pain Sodium Chloride 0 ml 04/01/23 06:00 Normal Saline Flush 10 Ml Syr IV 04/01/23 23:59 PRN PRN Sodium Chloride 0 ml 04/01/23 06:00 Normal Saline 10 Ml Vial IJ 04/01/23 23:59 DIRECTED PRN Sterile Water 0 ml 04/01/23 06:00 Water,Injection,Sterile 10 Ml Vial IJ 04/01/23 23:59 DIRECTED PRN PFSH Active Problems Active Problems: Problem Status Onset Code Biceps tendinitis of left shoulder M75.22 Dysfunction of left rotator cuff M67.912 Left shoulder pain M25.512 Erectile dysfunction N52.9 Arthrosis of left midfoot 01/12/16 M19.072 Arthrosis of right midfoot 01/12/16 M19.071 Arthralgia of right ankle M25.571 Bursitis, olecranon M70.20 Diarrhea R19.7 Essential hypertension I10 Diabetes mellitus E11.9 Spinal stenosis M48.00 Inguinal hernia K40.90 Abdominal pain R10.9 Obstructive sleep apnea treated with continuous positive airway pressure (CPAP) G47.33, Z99.89 Well adult Abnormal weight R68.89 Chest pain 01/13/03 R07.9 History of arthroscopy of knee Z98.890 Status post inguinal hernia repair Z98.890, Z87.19 Status post repair of anterior cruciate ligament Z98.890 Family history of hemochromatosis 08/29/14 Z83.49 Impaired fasting glucose 08/12/09 R73.01 Tear of right rotator cuff 07/28/15 M75.101 Arthritis of carpometacarpal (CMC) joint of right thumb M18.11 Obstructive sleep apnea syndrome G47.33 Obesity E66.9 Low back pain M54.5 Insomnia G47.00 Hyperlipidemia 07/07/12 E78.5 Gout 12/01/12 M10.9 Gastroesophageal reflux disease K21.9 Depressive disorder 07/07/12 F32.9 Anxiety F41.9 Medical History Medical History Alcohol abuse (07/07/12) Chronic nasal congestion Chronic rhinitis Closed nondisplaced fracture of first metatarsal bone of left foot with routine healing (01/12/16) De Quervain's tenosynovitis, left De Quervain's tenosynovitis, right Injected 03/20/2018 Diverticulitis (09/02/17) [facility]-09/02/17 Ganglion cyst of right foot History of fracture of ankle History of right inguinal hernia LLQ abdominal pain Onychomycosis Test 12will start pulse therapy with terbinafine Right rotator cuff tendinitis (01/12/16) Right wrist tendinitis Smoker Supraventricular tachycardia 07/02/09 [facility] [place]: SUCCESSFUL AVNRT CATHETER BASED CRYOBLATION Surgical History Surgical History ANKLE FX (~1989) LEFT Arthroplasty of knee (01/04/17) DR. AMAYA;RIGHT Carpal tunnel syndrome of left wrist Status post left ECTR 06/27/2018 Carpal tunnel syndrome of right wrist Status post right ECTR 07/04/2018 Colonoscopy - MAC (~2002) History of carpal tunnel release L - 06/27/18 History of total left knee replacement (TKR) (12/07/16) Dr. Amaya History of total right knee replacement (TKR) (01/04/17) Dr. Amaya PROCEDURES ARTERIAL CATHETERIZATION, 06/23 [facility] [place]-SUCCESSFUL CATHETER BASED AVNRT CRYOABLATION Repair of inguinal hernia X 3 Repair, ACL (~1985) LEFT Status post cholecystectomy Triangular fibrocartilage complex injury S/P right wrist arthroscopy with debridement of central TFCC tear and release of the third extensor compartment done by Dr. Dorantes ([facility] [place]) on 12/21/2018 Tobacco Smoking/Tobacco Use Status: Former Tobacco Use Passive smoking exposure: Yes Second hand exposure: Yes Alcohol Alcohol Intake: current Alcohol intake frequency: a few times a month Alcohol type: beer and wine Substance Use Substance use: Never Substance use type: does not use Vital Signs and Lab Results Vital Signs Most Recent Vital Signs in EMR: Most Recent Vital Signs Temp Pulse Resp BP Pulse Ox 37.0 C 69 16 123/68 95 04/01/23 11:07 04/01/23 11:07 04/01/23 11:07 04/01/23 11:07 04/01/23 11:07 Point of Care Results Point of Care Results: Finger Stick Blood Glucose 99 04/01/23 11:10 Lab Results Blood Type / Crossmatch: No Data to Display Complete Blood Count: No Data to Display Complete Metabolic Panel: No Data to Display Liver Function Panel: No Data to Display Coagulation Panel: No Data to Display Cardiac Panel: No Data to Display Arterial Blood Gas: No Data to Display Venous Blood Gas: No Data to Display Pancreas Panel: No Data to Display Thyroid Panel: No Data to Display Infectious Disease: No Data to Display Blood Cultures: No Data to Display Toxicology Panel: No Data to Display Imaging and Studies Imaging and Studies Study information below may be from another EMR and interpreted by another provider. Please see original notes in EMR for more complete details. Other Study Summary:: lumbar spine XR, nuclear medicine scan, echo results reviewed and results in chart Anesthesia Assessment and Plan Anesthesia History Personal History: No History of Anesthesia Complications Family History: No Family History of Anesthesia Complications Exercise Tolerance Exercise Tolerance: Metabolic Equivalents>4 Pertinent Negatives Pertinent Negatives: No Major Cardiovascular Symptoms or Complaints, No Major Pulmonary Symptoms or Complaints and No History of CVA/TIA Cardiac & Pulmonary Exam Cardiac Exam: Normal S1/S2 Heart Sounds Pulmonary Exam: Clear Bilateral Breath Sounds Implantable Cardiac Device Does patient have a Pacemaker or an ICD?: No Airway Exam Known Difficult Airway: No Mallampati Class: 3 Mouth Opening: Normal (> 3cm) Thyromental Distance: Greater than 3 cm Neck Range of Motion: Full ROM Neck Circumference: Normal Teeth Condition: Normal Dentition ASA Classification ASA Score: ASA 3 Emergency Case?: No NPO Status NPO Status: NPO Clears >2 hours, Solids >8 hours Anesthesia Plan Resuscitation Status: Full Code Anesthesia Technique: General Anesthesia Airway Planned: Endotracheal Tube Pain Management: Surgeon and patient request nerve block Monitors Used: Standard Monitors and SedLine
[2023-04-01] MEDS: ceFAZolin 3,000 MG in Normal Saline 100 ML 200 MG IV (14:13)
[2023-04-01] MEDS: Tranexamic Acid 1,000 MG/10 ML VIAL 1000 MG (14:24)
--- NOTE | 2023-04-01 14:39 | W.ANESNERVE ---
Nerve Block Single Injection Procedure Date and Time Date Performed: 04/01/23 Procedure Start: 12:39 Location Where Procedure Performed Procedure Location: Day Surgery Unit Reason Performed: Postoperative Analgesia Requesting Provider: Corbin Moody Timeout Performed Timeout Performed: Yes Monitoring Used ECG, Blood Pressure and SpO2 Sterility Sterility: Hand Hygiene, Surgical Cap, Surgical Mask, Sterile Gloves and Chlorhexidine Sedation Given During Procedure Sedation Given (Indicate Dose Given): Versed IV Dose:: 2mg Patient Mental Status Patient Mental Status: Sedate with meaningful communication Nerve Block 1st Nerve Block: Laterality: Right Block Type: Interscalene Ultrasound Image Saved?: Yes Needle / Catheter Used: 100mm SonoPlex II Local Anesthetic Bolus (Indicate Dose Given): Lidocaine used for local infiltration of skin, Injected in 3-5ml increments after negative blood aspiration, Bupivacaine 0.5% Dose:: 10mL and Exparel Dose:: 10mL Additives (Indicate Dose Given): None Ultrasound: Sterile probe cover and gel used Nerve Stimulator: Supplement to Ultrasound use Paresthesia: None Procedure Tolerated: No Complications and Patient tolerated well Procedure Outcome: Successful Performed By: Bill Chan
[2023-04-01] MEDS: Bupivacaine 0.25% Pres-Free 30 ML VIAL (14:43)
[2023-04-01] MEDS: EPINEPHrine 10 MG/10 ML ML ×2 (14:43→15:56)
--- NOTE | 2023-04-01 16:59 | W.ANESPOSTOP ---
Postoperative Evaluation Date, Time and Location Date Performed: 04/01/23 Time Performed: 16:59 Patient Location: PACU Vital Signs Most Recent Imported Vital Signs: Most Recent Vital Signs Temp Pulse Resp BP Pulse Ox 37.1 C 64 15 117/63 96 04/01/23 16:58 04/01/23 16:58 04/01/23 16:58 04/01/23 16:58 04/01/23 16:58 Pain Score Most Recent Pain Score: Most Recent Pain Score Pain Level 0 04/01/23 16:58 Assessment Mental Status: Awake (Alert & Oriented to Patient Baseline) Airway and Respiratory Function: Patent airway with normal (patient baseline) respiratory exam Cardiovascular Function: Hemodynamically Stable Hydration Status: Adequately Hydrated Nausea & Vomiting: No Nausea or Vomiting Pain: Pt. Denies Any Pain Peripheral Nerve Block: Regional nerve block not resolved at time of post operative discharge
== END 2023-04-01 10:18 | disposition home or self-care (01) ==
PROVIDERS: PCP Family Medicine; Visit Provider Student in an Organized Health Care Education/Training Program
PROC: (CPT 29827; principal; 2023-04-01 13:00)
DX: M75.121 Complete rotator cuff tear or rupture of right shoulder, not specified as traumatic (principal); M75.51 Bursitis of right shoulder; M1A Chronic gout; M75.21 Bicipital tendinitis, right shoulder; E11.9 Type 2 diabetes mellitus without complications; K21.9 Gastro-esophageal reflux disease without esophagitis; G47.33 Obstructive sleep apnea (adult) (pediatric)
CPT/HCPCS: 29827; 29823; 29826; C9290; J0131; J0665; J0690; J1100; J1885; J2001; J2250; J2371; J2405; J2704

== ENCOUNTER 2023-11-29 15:22 | Outpatient (CLI) | payer OTHER, SELFPAY ==
--- NOTE | 2023-11-29 08:15 | DI.RAD_ITS ---
Exam(s) XR SHOULDER LT COMPLETE 2+V EXAM: XR SHOULDER LT COMPLETE 2+V CLINICAL HISTORY: evalate shoulder. TECHNIQUE: 2D digital imaging was performed of the left shoulder. Two images were obtained. Axilla ry and Grashey views were obtained. COMPARISON: CR XR SHOULDER LT COMPLETE 2+V from 05/11/2021 FINDINGS: BONES: No acute fracture is present. No bony destructive lesion is seen. JOINTS: There are degenerative changes seen at both the acromioclavicular and glenohumeral joints ibrahima racterized by joint space narrowing and osteophytes. Subchondral cysts are seen at the glenoid. SOFT TISSUE: There are tiny calcifications adjacent to the greater tuberosity which may reflect calci fic tendinitis. IMPRESSION: Moderate arthrosis of the left shoulder. DATA REPOSITORY: RADIATION DOSE DELIVERED:
--- NOTE | 2023-11-29 08:45 | DI.RAD_ITS ---
Exam(s) XR SHOULDER RT COMPLETE 2+V EXAM: XR SHOULDER RT COMPLETE 2+V CLINICAL HISTORY: f/u shoulder pain. TECHNIQUE: 2D digital imaging was performed of the right shoulder. Two images were obtained. Grash ey and Y views were obtained. COMPARISON: CR XR SHOULDER RT COMPLETE 2+V from 11/15/2022 FINDINGS: BONES: No acute fracture is present. No bony destructive lesion is seen. JOINTS: No dislocation present. Mild degenerative changes are seen at the glenohumeral joint with a s mall spur at the inferior aspect of the humeral head. There are postsurgical changes seen at the acr omioclavicular joint. SOFT TISSUE: Normal. IMPRESSION: Mild degenerative changes seen at the glenohumeral joint. DATA REPOSITORY: RADIATION DOSE DELIVERED:
== END 2023-11-29 15:23 | disposition home or self-care (01) ==
LOC: DIORS 15:22
PROVIDERS: PCP Family Medicine; Visit Provider Student in an Organized Health Care Education/Training Program
DX: M19.011 Primary osteoarthritis, right shoulder (principal); M19.012 Primary osteoarthritis, left shoulder
CPT/HCPCS: 73030

== ENCOUNTER 2023-11-30 16:03 | Outpatient (REF) | payer OTHER, SELFPAY ==
--- OUTSIDE RECORDS SUMMARY | 2023-11-30 16:08 | XMS_ITS | Encounter Summary ---
Author Organization [facility] Address [facility] 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 [place] [address] [facility] [place] [address] Referral ID Status Reason Start Date Expiration Date V isits Requested Visits Authorized [id number] Closed Consult, Test & Treat 11/28/2020 11/28/2021 1 1 Encounter Details Date Type Department Care Team (Latest Contact Info) Description 01/13/2021 12:00 PM EST TH Visit (TeleHealth) [place] [address] Gianna Fountain [facility] [place] [address] Ulcerative colitis without complications, unspecified location Social History Tobacco Use Types Packs/Day Years Used Date Smoking Tobacco: Former Cigarettes Q uit: 07/03/2016 Smokeless Tobacco: Never Alcohol Use Standard Drinks/Week Comments Not Currently 0 (1 standard drink = 0.6 oz pur e alcohol) monthly Sex and Gender Information Value Date Recorded Sex Assigned at Male 04/21/2020 10:42 AM EST Gender Identity Male 04/21/2020 10:42 AM EST Sexual Orientation Not on file documented as of this encounter Progress Notes * Gianna Fountain, JANET - 01/13/2021 12:00 PM EST [facility] Gastroenterology Telehealth Visit Primary care provider: Ha Anand MD Referring provider: Ms. Avtar Betancourt APRN Other providers: Ms. Avtar Betancourt APRN Reason for visit: ulcerative proctitis Problem List Patient Active Problem List Diagnosis Date Noted ??? Diarrhea 04/22/2020 ??? Family history of colon cancer 04/22/2020 ??? Family history of celiac disease 04/22/2020 ??? Abdominal cramping 04/22/2020 ??? Abdominal bloating 04/22/2020 ??? Abdominal distention 04/22/2020 ??? History of diverticulitis of colon 04/22/2020 ??? History of heartburn 04/22/2020 ??? Right lateral epicondylitis 02/27/2020 ??? s/p Right Extensor Subsheath Reconstruction for Subluxing ECU - 08/30/2019 Dr. Dorantes 08/30/2019 ??? Subluxation of right extensor carpi ulnaris tendon 08/01/2019 ??? s/p Right wrist arthroscopy with debridement of central TFCC tear and release of the EPL right wrist 12/21/[address] Dorantse 10/09/2018 ??? CIS - Entered not Verified 05/28/2009 ??? CIS - Diabetes ??? CIS - Hyperlipidemia ??? CIS - Obesity ??? CIS - obstructive sleep apnea ??? CIS - palpitations Resolved Hospital Problems No resolved problems to display. Current Gastroenterology Medications: Canasa supp q hs History of Present Illness: Edwin Levy who is referred by Ms. Avtar Betancourt APRN at [facility] for new dx of Ulcerative proctitis by colonoscopy, see reports below. Please see Ms. Betancourt notes below for details of history. In summary, patient reported longstanding history of GI issues for many years that have progressively gotten worse. Notes postprandial crampy pain and urge to defecate. Bowel pattern varies: BM 3-6x/day watery to pudding consistencies. Other times formed stool that occur 1-2x/week. + urgency. No nocturnal Bm. No fecal incontinence. After his colonoscopy, he was started on Canasa supp Q hs on 12/15( delayed from pharmacy) He has less frequent BM, having Bm 4-5x/day, still mostly liquid stools, + urgency, no tenesmus, nobleeding, no mucus. At times will have nocturnal BM. Less crampy pain He is eating No f/c Has lost 65 lbs of weight over 5 months' duration, intentional weight loss thru dietary changes forhealth reason ( DM). No GERD sxs on Prilosec. H/O diverticulitis about 1 1/2 years ago when he presented to the ER with LLQ pain and CT scan revealed diverticulitis. Tx with abx. Taken from Ms. Avtar Betancourt notes on 04/22/20 : History of Present Illness: 60 y.o. male with past medical history significant for diabetes, hyperlipidemia, obesity, obstructive sleep apnea, palpitations, alcohol abuse (not currently), chronic rhinitis, depression, diverticulitis, former smoker, cholecystectomy (1999) ?? Edwin states that he has always had GI issues. Lately things are worse. ?? Whenever he eats or drinks within a 1/2hr after eating he has lower abdominal cramping and urge to defecate. Has occurred for years but worse, daily. Abdominal cramping 4/10 relieved after BM. ?? Variable bowel pattern. Watery stool or pudding consistency, 3-6 BM daily (large first BM followed by smaller). Only formed 1-2 times a week. Stable. Denies going a few days without BM. Dairy products cause formed. Has had formed followed by loose. Endorses fecal urgency. Denies fecal incontinence,nocturnal BM, bloody stool, melena, rectal tenesmus, straining, prolonged toilet time. [place] 6 and 7. Has seen mucus. Denies oily stool. ?? Abdominal bloating/distention. Has improved after cutting out carbohydrates. [place] after eating, increased bloating. Relieved with BM ?? Heartburn is completely controlled on prilosec. 20 years. Denies dysphagia and odynophagia. Denies nausea and vomiting. Denies upper abdominal pain. ?? Has lost 10lbs, this has been intentional. Denies fevers, night sweats, chills. ?? 1.5 years ago had LLQ pain. Went to ED and had CT that revealed diverticulitis. Treated with antibiotics. ?? Began metformin 1 year ago ?? Had EGD 30 years ago, normal. ?? Lifestyle NSAID: Ibuprofen (hasn't taken in a while) 1-2 times per week Caffeine/Soda/Artificial Sugar: 1 Coffee daily. Diet pepsi once every 2 weeks. 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 [employer] ?? Review of systems as in the HPI, the rest of the review of systems were negative. DETAILED IBD HISTORY: Ulcerative proctitis, but colitis on histology. - longstanding history of GI issues for many years that have progressively gotten worse. - Notes postprandial crampy pain and diarrhea, + urgency. - 11/18/20 Colonoscopy ( Dr. Fontaine): Rectal erythema, likely clinically insignificant otherwisenormal exam. EGD: Normal EGD. A - Duodenum ro celiac, biopsy (Multiple): Duodenal mucosa within normal limits, including preserved villous architecture. B - Colon random, biopsy (Multiple): ??Moderately active colitis, patchy. ??There is no evidence ofdysplasia. C - Rectum, biopsy (Multiple): Moderately active chronic colitis. There is no evidence of dysplasia. DISCUSSION B & C - The differential diagnosis includes chronic infection, and incipient inflammatory boweldisease (IBD). Clinical correlation is recommended. - Started on Canasa supp Q hs on 12/15/20 ( delayed from pharmacy) # H/O diverticulitis about 1 1/2 years ago when he presented to the ER with LLQ pain and CT scan revealed diverticulitis. Tx with abx. Past Medical History: Diagnosis Date ??? Alcohol abuse ??? Depression ??? Diabetes ??? Diverticulitis ??? Former smoker ??? Hyperlipidemia ??? FOUZIA (obstructive sleep apnea) ??? s/p Right Extensor Subsheath Reconstruction for Subluxing ECU - 08/30/2019 Dr. Dorantes 08/30/2019 Past Surgical History: Procedure Laterality Date ??? CARDIAC CATHERIZATION ??? CHOLECYSTECTOMY ??? PRO COLONOSCOPY, BIOPSY N/A 11/18/2020 COLONOSCOPY FLEXIBLE, WITH BX (WRVU 3.66) performed by Carrol Fontaine MD at [facility]COPY ??? PRO COLONOSCOPY, DIAGNOSTIC N/A 11/18/2020 COLONOSCOPY, DIAGNOSTIC performed by Carrol Fontaine MD at [facility]COPY ??? PRO EXCIS SYNOV WRIST, EXTENS TENDON Right 12/21/2018 SYNOVECTOMY, EXTENSOR SHEATH, WRIST, SINGLE COMPARTMENT (WRVU 4.51) performed by Ferdinand Dorantes MD at [facility] MAIN OR ??? PRO EXCIS SYNOV WRIST, EXTENS TENDON Right 08/30/2019 SYNOVECTOMY, EXTENSOR SHEATH, WRIST, SINGLE COMPARTMENT (WRVU 4.51) performed by Ferdinand Dorantes MD at [facility] MA[facility] OR ??? PRO REFOREARM EXT TEND SHEATH, GRAFT Right 08/30/2019 REPAIR, TENDON SHEATH , FOREARM &,OR WRIST, EXTENSOR, W/ FREE GRAFT (WRVU 8.96) performed by Ferdinand Dorantes MD at [facility] OR ??? PRO UPPER GI ENDOSCOPY, BIOPSY N/A 11/18/2020 UPPER GASTROINTESTINAL ENDOSCOPY,WITH BIOPSY SINGLE OR MULTIPLE (WRVU 2.49) performed by Carrol Fontaine MD at [facility] ??? PRO UPPER GI ENDOSCOPY, DIAGNOSTIC N/A 11/18/2020 EGD, UPPER GI ENDOSCOPY performed by Carrol Fontaine MD at [facility] ??? PRO WRIST ARTHROSCOP, EXCIS TRIANG CART Right 12/21/2018 ARTHROSCOPY WRIST, REPAIR TFCC, DEBRIDMENT (WRVU 6.89) performed by Ferdinand Dorantes MD at [facility] Social History Socioeconomic History ??? Marital status: Spouse name: Not on file ??? Number of children: Not on file ??? Years of education: Not on file ??? Highest education level: Not on file Occupational History ??? Not on file Tobacco Use ??? Smoking status: Former Smoker Types: Cigarettes Quit date: 07/03/2016 Years since quittin.5 ??? Smokeless tobacco: Never Used Vaping Use ??? Vaping Use: Never used Substance and Sexual Activity ??? Alcohol use: Not Currently Comment: monthly ??? Drug use: Not Currently ??? Sexual activity: Not on file Other Topics Concern ??? Not on file Social History Narrative ??? Not on file Social Determinants of Health Financial Resource Strain: Not on file Food Insecurity: Not on file Transportation Needs: Not on file Physical Activity: Not on file Housing Stability: Not on file Social History: reports that he quit smoking about 3 years ago. His smoking use included cigarettes. He has never used smokeless tobacco. He reports previous alcohol use. He reports previous drug use. Family History Problem Relation Age of Onset ??? Diabetes Maternal Grandmother ??? Diabetes Maternal Grandfather ??? Celiac Disease Sister ??? Colorectal Cancer Paternal Grandmother 81 ??? Inflammatory Bowel Disease Neg Hx ??? Esophageal Cancer Neg Hx Outpatient Medications Prior to Visit Medication Sig Dispense Refill ??? Mesalamine (Canasa) 1,[address] 1 suppository rectally nightly. 30 suppository 5 ??? cyclobenzaprine (Flexeril) 10 mg Tablet Bedtime ??? furosemide (Lasix) 20 mg Tablet PRN ??? losartan (Cozaar) 50 mg Tablet Daily ??? methocarbamoL (Robaxin) 500 mg Tablet Q6H ??? Rybelsus 3 mg Tablet ??? acetaminophen (Tylenol) 500 mg Tablet Take 1,000 mg by mouth every 6 hours as needed for Pain. ??? metFORMIN (GLUCOPHAGE) 1,000 mg Tablet Take 1,000 mg by mouth 2 times daily. ??? ibuprofen (ADVIL;MOTRIN) 600 mg Tablet Take 1 tablet by mouth every 8 hours as needed for Pain.30 tablet 3 ??? ONE TOUCH DELICA 33 gauge Misc 3 ??? terbinafine (LAMISIL) 250 mg Tablet 0 ??? gabapentin (NEURONTIN) 300 mg Capsule 1 ??? ONETOUCH ULTRA2 METER Misc 0 ??? ONETOUCH ULTRA BLUE TEST STRIP Strip 3 ??? amoxicillin (AMOXIL) 500 mg Capsule 0 ??? ammonium lactate (LAC-HYDRIN) 12 % Lotion 2 ??? PROVENTIL HFA 90 mcg/actuation HFA Aerosol Inhaler 4 ??? buPROPion (WELLBUTRIN SR OR ZYBAN) 150 mg Tablet Sustained Release TAKE ONE TABLET BY MOUTH TWICE A DAY 11 ??? omeprazole (PRILOSEC) 40 mg Capsule, Delayed Release(E.C.) TAKE ONE CAPSULE BY MOUTH EVERY DAY 11 ??? sildenafil (VIAGRA) 100 mg tablet 100MG, PO, PRN ??? traZODone (DESYREL) 100 mg tablet 50MG, PO, QHS No facility-administered medications prior to visit. Allergies/Adverse reactions Patient has no known allergies. No Physical Examination Performed Recent labs Admission on 11/18/2020, Discharged on 11/18/2020 Component Date Value Ref Range Status ??? UPPER GI ENDOSCOPY 11/18/2020 Final Value:[facility] Endoscopy Procedure Date: 11/18/2020 8:25 AM Patient Name: Edwin Levy Date of : 1960 Age: 60 Order #: [id number] Instrument Name: [id number] Procedure: Upper GI endoscopy Indications: Diarrhea Providers: Carrol Fontaine MD, Penny Willis RN, Lelia Serrano Referring MD: Ha Anand MD Requesting Provider: Avtar Betancourt Medicines: Monitored Anesthesia Care Complications: No immediate complications. Procedure: The procedure, indications, benefits, risks and alternatives were explained to the patient. Specifically discussed were potential complications including, but not limited to, bleeding, perforation, infection, missing a cancer, and adverse medication reactions. The Endoscope was introduced through the mouth, and advanced to the second part of duodenum. The patient tolerated the procedure well. The upper GI endoscopy was accomplished without difficulty. The patient tolerated the procedure well. Findings: The Z-line was regular and was found 45 cm from th e incisors. The examined esophagus was normal. The entire examined stomach was normal. The examined duodenum was normal with normal appearing villi. Biopsies for histology were taken with a cold forceps for evaluation of celiac disease. Moderate Sedation: Not applicable - See Anesthesia documentation Impression: - Normal EGD. Duodenal biopsies obtained. Recommendation: - Await pathology results. - Perform a colonoscopy today. Attending Participation: I personally performed the entire procedure. Carrol Fontaine MD 11/18/2020 8:44:11 AM Number of Addenda: 0 Note Initiated On: 11/18/2020 8:25 AM ??? COLONOSCOPY 11/18/2020 Final Value:[facility] Endoscopy Procedure Date: 11/18/2020 8:25 AM Patient Name: Edwin Levy Date of : 1960 Age: 60 Order #: [id number] Instrument Name: [id number] Procedure: Colonoscopy Indications: Clinically significant diarrhea of unexplained origin Providers: Carrol Fontaine MD, Penny Willis RN, Lelia Serrano Referring MD: Ha Anand MD Requesting Provider: Avtar Betancourt Medicines: Monitored Anesthesia Care Complications: No immediate complications. Procedure: The procedure, indications, benefits, risks and alternatives were explained to the patient. Specifically discussed were potential complications including, but not limited to, bleeding, perforation, infection, missing a cancer, and adverse medication reactions. The patient was placed in the left lateral decubitus position, and a digital rectal exam was performed. The Colonoscope was inserted in the anus and under direct visualization, advanced to the cecum, identified by appendiceal orifice and ileocecal valve. Careful inspection was made as the colonoscope was withdrawn. The colonoscopy was performed without difficulty. The patient tolerated the procedure well. The quality of the bowel preparation was evaluated using the BBPS ([place] Bowel Preparation Scale) with scores of: Right Colon = 2, Transverse Colon = 2 and Left Colon = 2. The total BBPS score equals 6. The quality of the bowel preparation was good. Scope withdrawal time was 8 minutes. Findings: The sigmoid colon, descending colon, transverse colon, ascending colon and cecum appeared normal. Biopsies for histology were taken with a cold forceps from the right colon and left colon for evaluation of microscopic colitis. A localized area of mildly erythematous mucosa was found in the rectum. Biopsies were taken with a cold forceps for histology. Moderate Sedation: Not applicable - See Anesthesia documentation Impression: - Rectal erythema, likely clinically insignificant otherwise normal exam. Biopsies taken. Recommendation: - Await pathology results. - Discharge home ambulatory. - Follow-up with Avtar Betancourt APRN as planned. Attending Participation: I personally performed the entire procedure. Carrol Fontaine MD 11/18/2020 9:11:31 AM Number of Addenda: 0 Note Initiated On: 11/18/2020 8:25 AM ??? Surgical Pathology Report 11/18/2020 Final Value:[id number] Location: 4T; EA12; A The signing pathologist has (i) examined the relevant preparation(s) for the specimen(s) and (ii) rendered or confirmed the diagnosis(es). . Surgical Pathology DIAGNOSIS A - Duodenum ro celiac, biopsy (Multiple): - Duodenal mucosa within normal limits, including preserved villous architecture. B - Colon random, biopsy (Multiple): - Moderately active colitis, patchy. - There is no evidence of dysplasia. C - Rectum, biopsy (Multiple): - Moderately active chronic colitis. - There is no evidence of dysplasia. Electronically signed by: Jessica PALUMBO PhD, Danuta Verified: 11/21/2020 11:03 Pathologist Performed at: -[facility] Dept. of Pathology, [place], [place] DISCUSSION B & C - The differential diagnosis includes chronic infection, and incipient inflammatory bowel disease (IBD). Clinical correlation is recommended. SPECIMEN(S) SUBMITTED A - Duodenum ro celiac, biopsy (Multiple) B - Colon random, biopsy (Multiple) C - Rectum, biopsy (Multiple) CLINICAL INFORMATION Diarrhea SPECIMEN PROCESSING A - Labeled/Fixative: Duodenum R/O celiac, formalin. Quantity/Size: Two, averaging 0.4 cm. Tissue Description: Soft, hinkle-pink tissues. Sections/Processing: Submitted en toto in 1 cassette labeled A1. B - Labeled/Fixative: Colon random, formalin. Quantity/Size: Multiple, 0.2-0.3 cm. Tissue Description: Soft, hinkle-pink tissues. Sections/Processing: Submitted en toto in 2 cassettes labeled B1-B2. C - Labeled/Fixative: Rectum, formalin. Quantity/Size: Four, 0.2-0.3 cm. Tissue Description: Soft, hinkle tissues. Sections/Processing: Submitted en toto in 1 cassette labeled C1. yojana Recent endoscopic procedures As in detailed in history above Recent relevant imaging As in detailed in history above Assessment/Plan: Mr. Levy is a 60 y.o. patient with past medical history significant for diabetes, hyperlipidemia, obesity, obstructive sleep apnea, palpitations, alcohol abuse (not currently), chronic rhinitis, depression, diverticulitis, former smoker, cholecystectomy (1999) who is referred by Ms Betancourt for new dx of Ulcerative proctitis but colitis on histology. He has been having GI issues for many years and has progressively gotten worse recently. Having frequent bm's of mostly liquid stool with urgency and crampy abdominal pain On 12/15, started canasa supp. He is still symptomatic. We discussed the natural history of Ulcerative colitis/proctitis and medications that would keep him in remission. Discussed use of oral and topical mesalamine. I told him that adding an oral mesalamine to his regimen would be helpful given he has colitis on histology. Reviewed risks/benefits. Plans: - Labs: CBC, CMP, ESR, CRP at [facility] - Submit stool tests: Cx, C diff and FCP at [facility] - Start Lialda 2 tabs BID - Continue Canasa supp qhs - Recheck Labs: CBC, CMP, ESR and CRP in 4 months then annually to evaluate for rare complications from IBD (PSC) and from mesalamine(interstitial nephritis, abnormal LFT's, myelosuppression) - F/U with me in 6 weeks. 20 minutes of this 30 minute telehealth appointment were spent in direct counseling regarding treatment of patient's gastroenterology concern. Please contact me if there are any further questions regarding the care of this patient. Nazario Fountain APRN Gastroenterology Section [facility] documented in this encounter Plan of Treatment Not on file documented as of this encounter Visit Diagnoses Diagnosis Ulcerative colitis without complications, unspecified location documented in this encounter Care Teams Spray Gun Operator Relationship Specialty Start Date End Date Ha Anand MD [address] [place] [address] PCP - General Family Medicine 09/25/18 documented as of this encounter
--- OUTSIDE RECORDS SUMMARY | 2023-11-30 16:08 | XMS_ITS | Encounter Summary ---
Author Organization [facility] Address [facility] [place] [address] Care Team Providers Care Agricultural Agent Name Role Phone Ha Anand MD Primary Care Provider [phone] [phone] Reason for Visit * Reason Comments Follow-up NXR Right ECU ten don subluxation repair DOS 08.30.19 Encounter Details Date Type Department Care Team (Latest Contact Info) Description 02/27/2020 9:00 AM EST Office [place] [address] Ferdinand Dorantes MD [facility] [place] [address] Subluxation of right extensor carpi ulnaris tendon, sequela; s/p Right wrist arthroscopy with debridement of central TFCC tear and release of the EPL right wrist 12/21/[address] Dorantes ; Right lateral epicondylitis Social History Tobacco Use Types Packs/Day Years [...] on file documented as of this encounter Last Filed Vital Signs Vital Sign Reading Time Taken Comments Blood Pressure 148/81 02/27/2020 8:58 AM EST Pulse 72 02/27/2020 8:58 AM EST Temperature - - Respiratory Rate - - Oxygen Saturation - - Inhaled Oxygen Concentration - - Weight 163.3 kg (360 lb) 02/27/2020 8:58 AM EST Height 180.3 cm (5' 11) 02/27/2020 8:58 AM EST Body Mass Index 50.21 02/27/2020 8:58 AM EST documented in this encounter Progress Notes * Ferdinand Dorantes MD - 02/27/2020 9:00 AM EST Edwin Levy returns for follow-up of his right wrist. He underwent right sixth extensor subsheath reconstruction by me on 08/30/2019. He has been working diligently in hand therapy and reports that about 2 weeks ago he developed right lateral epicondylar discomfort. He is being treated by hishand therapist for right lateral epicondylitis. He reports that his resting pain is significantly improved compared to preop but when doing anything with resistance he still has some exacerbation of discomfort over the extensor carpi ulnaris tendon proximal to the wrist joint. Examination reveals the patient is alert, oriented, and in no apparent distress. He has no significant swelling about his right wrist. His right hand is sensate and well perfused. He has no pain overthe TFCC but he does have discomfort over his ECU tendon at the site of the 6th extensor compartment reconstruction. There is no evidence of subluxation or snapping of his ECU tendon. He also does have tenderness directly to palpation over the lateral epicondyle and this is exacerbated with resisted wrist extension with his elbow extended. Overall Edwin is made some gains since his surgery but still is having discomfort in his wrist and now in his elbow. The elbow discomfort appears to be related to the hand therapy he was doing to work on strengthening. I believe that he has developed lateral epicondylitis. He will continue to treathis lateral epicondylitis with therapy for ultrasound, heat, iontophoresis, stretching, and a counterforce brace. He is not yet ready to work in any capacity and it is not clear that he is going to be able to return to his previous job. I do believe that he will likely become a candidate for vocational rehabilitation when he reaches [facility] [employer]. I would like to see him back for clinical reassessment in approximately 8 weeks. He may be at [facility] at that time. documented in this encounter Plan of Treatment Not on file documented as of this encounter Visit Diagnoses Diagnosis Subluxation of right extensor carpi ulnaris tendon, sequela s/p Right wrist arthroscopy with debridement of central TFCC tear and release of the EPL right wrist 12/21/[address] Dorantes Pain in joint, forearm Right lateral epicondylitis Lateral epicondylitis of elbow documented in this encounter Care Teams Agricultural Agent Relationship Specialty Start Date End Date Ha Anand MD [address] [place] [address] PCP - General Family Medicine 09/25/18 documented as of this encounter
--- OUTSIDE RECORDS SUMMARY | 2023-11-30 16:08 | XMS_ITS | Encounter Summary ---
Author Organization [facility] [place] [address] Care Team Providers Care Steam Gigger Name Role Phone Ha Anand MD Primary Care Provider [phone] [phone] Encounter Details Date Type Department Care Team (Late st Contact Info) Description 12/11/2020 Telephone [place] [phone] Erica Gabmoa Social History Tobacco Use Types Packs/Day Years [...] on file documented as of this encounter Miscellaneous Notes * Telephone Encounter - Erica Gamboa - 12/20/2020 1:16 PM EDT Left third message for patient to contact the office for scheduling. ROBERTO Betancourt would like the patient scheduled for a RAMSES with an IBD Provider for ulcerative proctitis. A letter has been sent askingthe patient to contact the office for scheduling. * Telephone Encounter - Erica Gamboa - 12/17/2020 12:19 PM EDT Left second message for patient to contact the office for scheduling. ROBERTO Betancourt would like the patient scheduled for a RAMSES with an IBD Provider for ulcerative proctitis. * Telephone Encounter - Erica Gamboa - 12/11/2020 1:00 PM EDT Left message for patient to contact the office for scheduling. ROBERTO Betancourt would like the patient scheduled for a RAMSES with an IBD Provider for ulcerative proctitis. documented in this encounter Plan of Treatment Not on file documented as of this encounter Visit Diagnoses Not on filedocumented in this encounter Care Teams Steam Gigger Relationship Specialty Start Date End Date Ha Anand MD [address] [place] [address] PCP - General Family Medicine 09/25/18 documented as of this encounter
--- OUTSIDE RECORDS SUMMARY | 2023-11-30 16:08 | XMS_ITS | Encounter Summary ---
Author Organization [facility] Address [facility] [place] [address] Care Team Providers Care Supervisor Multifocal Lens Name Role Phone Ha Anand MD Primary Care Provider [phone] Encounter Details Date Type Department Care Team (Late st Contact Info) Description 01/23/2020 Ancillary Procedure Radiology at [facility] [address] [place] [phone] Raul Jeffries MD [address] [place] [address] Social History Tobacco Use Types Packs/Day Years [...] on file documented as of this encounter Plan of Treatment Not on file documented as of this encounter Procedures Procedure Name Priority Date/Time Associated Diagnosis Comments FILM LIBRARY STORAGE ONLY DX SPINE Routine 01/23/2020 12:00 AM EST documented in this encounter Results * Film Library- Storage Only DX Spine (01/23/2020 12:00 AM EST) Narrative [facility] RAD - 02/20/2020 3:25 PM EST This exam is auto-finalizing. It's purpose is for storage only. Raul Jeffries MD [facility] [place] LIBRARY [place]D ERABLES [place], [place] documented in this encounter Visit Diagnoses Not on filedocumented in this encounter Care Teams Supervisor Multifocal Lens Relationship Specialty Start Date End Date Ha Anand MD [address] [place] [address] PCP - General Family Medicine 09/25/18 documented as of this encounter
--- OUTSIDE RECORDS SUMMARY | 2023-11-30 16:08 | XMS_ITS | Encounter Summary ---
Author Organization [facility] [address] Care Team Providers Care Dispatch Specialist Name Role Phone Ha Anand MD Primary Care Provider [phone] [phone] Encounter Details Date Type Department Care Team (Late st Contact Info) Description 02/11/2020 Ancillary Procedure [facility] [address] [place] [address] Raul Jeffries MD [address] [place] [address] Social History Tobacco Use Types Packs/Day Years [...] Associated Diagnosis Comments FILM LIBRARY STORAGE ONLY MR SPINE Routine 02/11/2020 12:00 AM EST documented in this encounter Results * Film Library- Storage Only MR Spine (02/11/2020 12:00 AM EST) Narrative [facility] RAD - 02/20/2020 3:25 PM EST This exam is auto-finalizing. It's purpose is for storage only. Raul Jeffries MD [facility] [place] LIBRARY ORD ERABLES [place], [place] documented in this encounter Visit Diagnoses Not on filedocumented in this encounter Care Teams Dispatch Specialist Relationship Specialty Start Date End Date Ha Anand MD [address] [place] [address] PCP - General Family Medicine 09/25/18 documented as of this encounter
--- OUTSIDE RECORDS SUMMARY | 2023-11-30 16:08 | XMS_ITS | Encounter Summary ---
Author Organization [facility] Address [facility] [place] [address] Care Team Providers Care Cna Caregiver Name Role Phone Ha Anand MD Primary Care Provider [phone] [phone] Encounter Details Date Type Department Care Team (Late st Contact Info) Description 06/01/2021 Orders [place] [address] Janny Hidalgo MD [facility] DR [place] [address] Bilateral foot pain; Chronic pain of both ankles Social History Tobacco Use Types Packs/Day Years [...] as of this encounter Progress Notes * Ezekiel Cerna - 06/01/2021 2:40 PM EDT Patient is being seen for bilateral foot and ankle pain. They only have images of the left ankle, and they are nonweightbearing. Pended orders for bilateral foot and ankle views to Dr. Hidalgo for review and approval if necessary. documented in this encounter Plan of Treatment Not on file documented as of this encounter Visit Diagnoses Diagnosis Bilateral foot pain Pain in limb Chronic pain of both ankles documented in this encounter Care Teams Cna Caregiver Relationship Specialty Start Date End Date Ha Anand MD [address] [place] [address] PCP - General Family Medicine 09/25/18 documented as of this encounter
--- OUTSIDE RECORDS SUMMARY | 2023-11-30 16:08 | XMS_ITS | Encounter Summary ---
Author Organization [facility] [place] [address] Care Team Providers Care Cold Storage Supervisor Name Role Phone Ha Anand MD Primary Care Provider [phone] [phone] Reason for Visit * Reason Onset Date Comments Reminder Appointment 04/22/2020 Encounter Details Date Type Department Care Team (Late st Contact Info) Description 04/22/2020 Telephone [place] [address] Karen Simpson CCMA Reminder Appointment Social History Tobacco Use Types Packs/Day Years [...] encounter Miscellaneous Notes * Telephone Encounter - Karen Simpson LNA - 04/22/2020 9:19 AM EST Called patient to review medications and allergies for their upcoming gastroenterology Type of Appointment: Telehealth appointment. Reach Patient during MA Check: No, Left Message Notes for the provider: Notes for the nurse: documented in this encounter Plan of Treatment Not on file documented as of this encounter Visit Diagnoses Not on filedocumented in this encounter Care Teams Cold Storage Supervisor Relationship Specialty Start Date End Date Ha Anand MD [address] [place] [address] PCP - General Family Medicine 09/25/18 documented as of this encounter
--- OUTSIDE RECORDS SUMMARY | 2023-11-30 16:08 | XMS_ITS | Encounter Summary ---
Author Organization [facility] Address [facility] [place] [address] Care Team Providers Care Assembler Equipment Name Role Phone Ha Anand MD Primary Care Provider [phone] [phone] Encounter Details Date Type Department Care Team (Late st Contact Info) Description 11/18/2020 8:31 AM EDT Anesthesia [place] [phone] Esmer Trujillo MD [facility] [place] [address] Edward Graham MD [facility] [place] [address] Anesthesia Record Procedure Summary Procedure Name Responsible Anesthesiologist Anesthesia Start Time Anesthesia Stop Time EGD, UPPER GI ENDOSCOPY (WRVU 2.09) (Trunk) Esmer Trujillo MD 11/18/20 0831 11/18/20 0907 Events Date Time Event Comment 11/18/2020 0808 0830 AN Verify 0831 Start 0831 An Start Data 0833 An Induction 0834 Anesthesia Ready 0907 an stop data 0907 Recovery or ICU Handoff Yesi ent care was transferred to the destination unit staff after review of the patient's medical history, current anesthetic/surgical status and plan, according to the Provider Handoff Checklist. 0907 Stop Meds Name Total IV Lidocaine 40 mg Propofol 70 mg Propofol INF 489.9 mg Dexmedetomidine 12 mcg lactated ringers infusion 0 mL * Agents Name O2 Auxiliary Flowmeter 1 * Blood No blood administrations on file. Lines, Drains, and Airways Type Details Placement Removal Incision 12/21/18; 1032; hand ; 10/12/21 (LDA cleanup utility RA#[id number]); 1715 (LDA cleanup utility RA#[id number]) 12/21/18 1032 by Osman Velásquez RN 10/12/21 1715 by Thea Gasca Incision 08/30/19; 1559; wris t; 10/12/21 (LDA cleanup utility RA#[id number]); 1715 (LDA cleanup utility RA#[id number]) 08/30/19 1559 by Kevin Garibay RN 10/12/21 1715 by Thea Gasca (RETIRED) Peripheral IV Line - Single Lumen 11/18/20; 0752; metacarpal vein (top of hand), right; [id number] catheter system; Anatomical Landmarks; 22 gauge; Wicho Vences RN; tolerated well, appears comfortable; 11/18/20; 0915 11/18/20 0752 by Rm Vences RN 11/18/20 0915 by Patsy Stauffer RN documented in this encounter Social History Tobacco Use Types Packs/Day Years [...] on file documented as of this encounter OR Notes * Anesthesia Postprocedure Evaluation - Esmer Trujillo MD - 11/18/2020 10:42 AM EDT Department of Anesthesiology Post-procedure Note Patient: Edwin Levy Procedure Summary Date: 11/18/20 Room / Location: [facility] ENDO 1 / [facility] ENDOSCOPY Anesthesia Start: 830 Anesthesia Stop: 906 Procedures: EGD, UPPER GI ENDOSCOPY (N/A Trunk) COLONOSCOPY, DIAGNOSTIC (N/A Trunk) UPPER GASTROINTESTINAL ENDOSCOPY,WITH BIOPSY SINGLE OR MULTIPLE (WRVU 2.49) (N/A ) COLONOSCOPY FLEXIBLE, WITH BX (WRVU 3.66) (N/A ) Diagnosis: Diarrhea, unspecified type Family history of colon cancer Family history of celiac disease Abdominal cramping Abdominal bloating Abdominal distention History of diverticulitis of colon History of heartburn (bloating, distention, abdominal cramping, diarrhea, family history of colon cancer, family historyof celiac disease.) Surgeons: Carrol Fontaine MD Responsible Provider: Esmer Trujillo MD Anesthesia Type: MAC ASA Status: 3 All Anesthesia Providers: Anesthesiologist: Esmer Trujillo MD DIGITAL MARKETING PROJECT MANAGER: Donna Rodriguez CRNA Vitals Value Taken Time BP 157/84 11/18/20 0940 Temp Pulse Resp 16 11/18/20 0940 SpO2 97 % 11/18/20 0940 Pain Level 0 11/18/20 0940 Patient Location: PACU/[facility] Level of Consciousness: Awake and Alert Pain Management: Satisfactory Analgesia PONV: None Cardiovascular Status: At Baseline and Hemodynamically Stable Respiratory Status: At Baseline and Room Air Postoperative Fluid Status: Intravascular EUvolemia Possible Anesthetic Complications: NONE apparent at time of evaluation Final Primary Anesthesia Type: MAC (The anesthetic type performed was the same as planned.) Comments: Esmer Trujillo MD * Anesthesia Preprocedure Evaluation - Esmer Trujillo MD - 11/18/2020 7:09 AM EDT Pre-Anesthesia Evaluation for: Edwin Capone Scarletkirtiashvin a 60 y.o. male. Procedure(s): EGD, UPPER GI ENDOSCOPY COLONOSCOPY, DIAGNOSTIC Patient Active Problem List Diagnosis ??? Diarrhea Added automatically from request for surgery [id number] ??? Family history of colon cancer Added automatically from request for surgery [id number] ??? Family history of celiac disease Added automatically from request for surgery [id number] ??? Abdominal cramping Added automatically from request for surgery [id number] ??? Abdominal bloating Added automatically from request for surgery [id number] ??? Abdominal distention Added automatically from request for surgery [id number] ??? History of diverticulitis of colon Added automatically from request for surgery [id number] ??? History of heartburn Added automatically from request for surgery [id number] ??? Right lateral epicondylitis ??? s/p Right Extensor Subsheath Reconstruction for Subluxing ECU - 08/30/2019 Dr. Dorantes ??? 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 s/p Right wrist arthroscopy with debridement of central TFCC tear and release of the EPL right wrist 12/21/[address] Dorantes ??? CIS - Entered not Verified ??? CIS - Diabetes ??? CIS - Hyperlipidemia ??? CIS - Obesity ??? CIS - obstructive sleep apnea ??? CIS - palpitations Past Medical History: Diagnosis Date ??? Alcohol abuse ??? Depression ??? Diabetes ??? Diverticulitis ??? Former smoker ??? Hyperlipidemia ??? FOUZIA (obstructive sleep apnea) ??? s/p Right Extensor Subsheath Reconstruction for Subluxing ECU - 08/30/2019 Dr. Dorantes 08/30/2019 Past Surgical History: Procedure Laterality Date ??? CARDIAC CATHERIZATION ??? CHOLECYSTECTOMY ??? PRO EXCIS SYNOV WRIST, EXTENS TENDON Right 12/21/2018 SYNOVECTOMY, EXTENSOR SHEATH, WRIST, SINGLE COMPARTMENT (WRVU 4.51) performed by Ferdinand Dorantes MD at [facility] MAIN OR ??? PRO EXCIS SYNOV WRIST, EXTENS TENDON Right 08/30/2019 SYNOVECTOMY, EXTENSOR SHEATH, WRIST, SINGLE COMPARTMENT (WRVU 4.51) performed by Ferdinand Dorantes MD at [facility] MAIN OR ??? PRO REFOREARM EXT TEND SHEATH, GRAFT Right 08/30/2019 REPAIR, TENDON SHEATH , FOREARM &,OR WRIST, EXTENSOR, W/ FREE GRAFT (WRVU 8.96) performed by Ferdinand Dorantes MD at [facility] MAIN OR ??? PRO WRIST ARTHROSCOP, EXCIS TRIANG CART Right 12/21/2018 ARTHROSCOPY WRIST, REPAIR TFCC, DEBRIDMENT (WRVU 6.89) performed by Ferdinand Dorantes MD at [facility] MAIN OR Social History Tobacco Use ??? Smoking status: Former Smoker Types: Cigarettes Quit date: 07/03/2016 Years since quittin.3 ??? Smokeless tobacco: Never Used Substance Use Topics ??? Alcohol use: Not Currently Comment: monthly Social History Substance and Sexual Activity Drug Use Not Currently No Known Allergies Medications: MAR and/or home medications have been reviewed. Physical Exam: Preprocedure Vitals Current as of 11/18/20 0709 No BP, pulse, respiration, SpO2, or temperature recorded. Height: Weight: BMI: IBW: Airway Assessment: Mallampati: I TM distance: >3 FB Neck ROM: full Cardiovascular Assessment: Rhythm: regular Rate: normal system normal Pulmonary Assessment: unlabored breathing pulmonary exam normal Dental Assessment: Misc Assessment: IV access: Peripheral line Other exam findings: Trim raymond Last Filed Perioperative Cognitive Screening None Anesthesia Plan: ASA 3 MAC, with a(n) intravenous induction 60 yo M here for EGD colo. Hx of FOUZIA, obesity BMI 42.45, DM, GERD, diverticulitis, depression, ETOH abuse Allergy: No Known Allergies Patient Vitals in the past 24 hrs: BP Readings from Last 3 Encounters: 04/23/20 : 139/65 02/27/20 : 148/81 12/12/19 : 157/85 Labs: No results found for: WBC, HGB, HCT, MCV, PLATELET No results found for: ALT, AST, GGT, ALKPHOS, BILITOT, BILIDIR, ALBUMIN, PROT Lab Results Component Value Date TSH 2.08 04/23/2020 [id number] 116 04/23/2020 TT4 6.8 04/23/2020 No results found for: HA1C No results found for: GLUCOSE NPO >4 METS No active GERD Plan: MAC with PIV access and standard ASA monitors. The patient was informed of the risks, benefits and alternatives of anesthesia. These risks included, but were not limited to, post-operative nausea and/or vomiting, pain, sore throat, dental/lip trauma, and other rare but serious complications such as major organ damage, awareness, severe allergicreactions, position-related nerve injuries, corneal abrasion/blindness and need blood transfusions.All questions were sought and answered. Consent was signed and placed in chart. Region - Other Informed Consent: Anesthetic plan and risks discussed with patient. Plan discussed with DIGITAL MARKETING PROJECT MANAGER. Anesthesia Screening documented in this encounter Plan of Treatment Not on file documented as of this encounter Visit Diagnoses Not on filedocumented in this encounter Administered Medications Inactive Administered Medications - up to 3 most recent administrations Medication Order MAR Action Action Date Dose Rate Site dexmedetomidine (Precedex) (4 mcg/mL) bolus injection (Anesthsia) Intravenous, PRN, Starting on Tue11/18/20 at 0835, Until Tue11/18/20 at 0907, Anesthesia Intra-op, Routine Given 11/18/2020 8:50 AM EDT 4 mcg Given 11/18/2020 8:35 AM EDT 8 mcg lactated ringers infusion 100 mL/hr, Intravenous, CONTINUOUS, Starting on Tue11/18/20 at 0800, Until Tue11/18/20 at 0915, Endoscopy (Day of Procedure) Rate/Dose Change 11/18/2020 9:04 AM EDT 100 mL/hr New Bag 11/18/2020 7:52 AM EDT 100 mL/hr 100 mL/hr lidocaine (pf) (Xylocaine) (20 mg/mL) 2% injection syringe Intravenous, PRN, Starting on Tue11/18/20 at 0833, Until Tue11/18/20 at 0907, Anesthesia Intra-op, Routine Given 11/18/2020 8:33 AM EDT 40 mg propofoL (Diprivan) 10 mg/mL bolus injection (Anesthesia) Intravenous, PRN, Starting on Tue11/18/20 at 0833, Until e 11/18/20 at 0907, Anesthesia Intra-op Given 11/18/2020 8:33 AM EDT 70 mg propofoL (Diprivan) infusion Intravenous, CONTINUOUS PRN, Starting on Tue11/18/20 at 0833, Until Tue11/18/20 at 0907, Anesthesia Intra-op, Routine Rate/Dose Change 11/18/2020 8:44 AM EDT 100 mcg/kg/min 85.2 mL/hr New Bag 11/18/2020 8:33 AM EDT 150 mcg/kg/min 127.8 mL/ hr documented in this encounter Care Teams Assembler Equipment Relationship Specialty Start Date End Date Ha Anand MD [address] [place] [address] PCP - General Family Medicine 09/25/18 documented as of this encounter
--- OUTSIDE RECORDS SUMMARY | 2023-11-30 16:08 | XMS_ITS | Encounter Summary ---
Author Organization [facility] Address [facility] [place] [address] Care Team Providers Care Wheel Adjuster Name Role Phone Ha Anand MD Primary Care Provider [phone] [phone] Reason for Referral * Occupational Therapy (Routine) - Specialty Diagnoses / Procedures Referred By Controel t Referred To Contact Diagnoses Subluxation of right extensor carpi ulnaris tendon, subsequent encounter Pain in right wrist Yenni Dorantes MD [facility] [place] [address] Referral ID Status Reason Start Date Expiration Date V isits Requested Visits Authorized [id number] Evaluate and Treat 12/12/2019 06/09/2020 12 12 Reason for Visit * Reason Comments Follow-up Right ECU tendon Sub luxation repair DOS 07.16.20 Encounter Details Date Type Department Care Team (Late st Contact Info) Description 12/12/2019 9:00 AM EDT Office [place] [address] Yenni Dorantes MD [facility] [place] [address] Subluxation of right extensor carpi ulnaris tendon, sequela; Subluxation of right extensor carpi ulnaris tendon, subsequent encounter; s/p Right wrist arthroscopy with debridement of central TFCC tear and release of the EPL right wrist 12/21/[address] Dorantes Social History Tobacco Use Types Packs/Day Years [...] Sign Reading Time Taken Comments Blood Pressure 157/85 12/12/2019 8:38 AM EDT Pulse 65 12/12/2019 8:38 AM EDT Temperature - - Respiratory Rate - - Oxygen Saturation - - Inhaled Oxygen Concentration - - Weight 163.3 kg (360 lb) 12/12/2019 8:38 AM EDT reported Height 180.3 cm (5' 11) 12/12/2019 8:38 AM EDT reported Body Mass Index 50.21 12/12/2019 8:38 AM EDT documented in this encounter Progress Notes * Pedro Song MD - 12/12/2019 9:00 AM EDT Orthopedic surgery hand clinic note Edwin is a very pleasant 59-year-old male who is now status post right sixth extensor compartment subsheath reconstruction on 08/30/2019 who presents for follow-up evaluation. Edwin reports that his been doing very well in the postoperative period. He does not have any acutecomplaints or concerns on today's visit. He has been wearing his removable right short wrist brace/splint as instructed. He has been careful not to move his right wrist and extremes of supination or wrist extension. He does not have any significant pain is no longer taking pain medication. He is also neurovascular intact diffusely to right upper extremity with exception of some minor paresthesia over thumb which he attributes to previous casting splinting but this is greatly improving with time. Review of systems is negative as he has no chest pain shortness of breath fevers chills nausea vomiting. Physical exam: Alert and oriented x3, well-appearing Nonlabored breathing on room air Right hand/wrist Incisions over dorsum of hand/wrist are well-healed scars without any erythema nor signs of wound healing complications Minor tenderness to palpation over 6 extensor compartment which is not overtly bothersome DRUJ stable to piano ledesma testing Able to get out to near full extension of right elbow and no significant pain with light wrist extension and supination just past neutral wrist Sensation diffusely intact median radial and ulnar nerve distributions perhaps subtle diminished sensation over volar aspect of thumb (improving) Motor intact to radial ulnar median nerve function Brisk cap refill +2 radial pulse Assessment and plan 59-year-old male who underwent right sixth extensor compartment sub-sheath reconstruction now approximately on 08/30/2019 who is progressing well in the postoperative period. Plan for continued work with hand therapy/OT as will now allow for weaning from removal short arm wrist splint with work of passive flexion extension and supination. He also may begin strengthening program of right wrist in 6months time from today's visit. Follow-up as planned for approximately [address] Dorantes. Pedro Song MD Orthopaedic Surgery PGY3 * Yenni Dorantes MD - 12/12/2019 9:00 AM EDT I examined Edwin Levy and I agree with Dr. Song' note. He is feeling much better and progressing well since his right sixth extensor compartment reconstruction. I am hopeful to make a planfor him to return to work after his next visit with me. YENNI DORANTES MD documented in this encounter Plan of Treatment Scheduled Referrals Name Type Priority Associated Diagnoses Orde r Schedule Referral to Occupational Therapy Outpatient Referral Routine Subluxation of right extensor carpi ulnaris tendon, subsequent encounter s/p Right wrist arthroscopy with debridement of central TFCC tear and release of the EPL right wrist 12/21/[address] Dorantes Ordered: 12/12/2019 documented as of this encounter Visit Diagnoses Diagnosis Subluxation of right extensor carpi ulnaris tendon, sequela Subluxation of right extensor carpi ulnaris tendon, subsequent encounter s/p Right wrist arthroscopy with debridement of central TFCC tear and release of the EPL right wrist 12/21/[address] Dorantes Pain in joint, forearm documented in this encounter Care Teams Wheel Adjuster Relationship Specialty Start Date End Date Ha Anand MD [address] [place] [address] PCP - General Family Medicine 09/25/18 documented as of this encounter
--- OUTSIDE RECORDS SUMMARY | 2023-11-30 16:08 | XMS_ITS | Encounter Summary ---
Author Organization [facility] [place] [place] [address] Care Team Providers Care Value Stream Leader Name Role Phone Ha Anand MD Primary Care Provider [phone] [phone] Encounter Details Date Type Department Care Team (Late st Contact Info) Description 03/24/2021 Ancillary Procedure Radiology Library at [facility] [place] [id number] Ha Anand MD [address] [place] [address] Social History Tobacco Use Types Packs/Day Years [...] Diagnosis Comments FILM LIBRARY STORAGE ONLY MR ANKLE Routine 03/24/2021 12:00 AM EST documented in this encounter Results * Film Library- Storage Only MR Ankle (03/24/2021 12:00 AM EST) Narrative [facility] - 04/13/2021 4:19 PM EST This exam is auto-finalizing. It's purpose is for storage only. Ha Anand MD IM FILM LIBRARY ORDERABLES [place], [place] documented in this encounter Visit Diagnoses Not on filedocumented in this encounter Care Teams Value Stream Leader Relationship Specialty Start Date End Date Ha Anand MD [address] [place] [address] PCP - General Family Medicine 09/25/18 documented as of this encounter
--- OUTSIDE RECORDS SUMMARY | 2023-11-30 16:08 | XMS_ITS | Encounter Summary ---
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 [place] [address] [facility] [address] [place] [address] Referral ID Status Reason Start Date Expiration Date V isits Requested Visits Authorized [id number] Closed Consult, Test & Treat 11/28/2020 11/28/2021 1 1 Encounter Details Date Type Department Care Team (Late st Contact Info) Description 11/28/2020 Telephone [place] [address] Avtar Betancourt APRN [facility] [place] [address] Social History Tobacco Use Types Packs/Day Years [...] encounter Miscellaneous Notes * Telephone Encounter - Avtar Betancourt APRN - 11/28/2020 3:25 PM EDT Called to discuss findings on colonoscopy. Discussed that biopsies of rectum revealed ulcerative proctitis. Will prescribe Canasa suppository. We discussed possible side effects. Since random colon biopsies also revealed moderately active colitis will place referral to IBD team. Patient is agreeable to this plan. 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
--- OUTSIDE RECORDS SUMMARY | 2023-11-30 16:08 | XMS_ITS | Encounter Summary ---
Author Organization [facility] [place] [address] Care Team Providers Care Center Rep Name Role Phone Ha Anand MD Primary Care Provider [phone] [phone] Encounter Details Date Type Department Care Team (Late st Contact Info) Description 02/05/2021 Telephone [place] [phone] Manjula Hudr Social History Tobacco Use Types Packs/Day Years [...] encounter Miscellaneous Notes * Telephone Encounter - Manjula Hurd - 02/05/2021 11:55 AM EST Left Message. Need to schedule appointment with Rose in Mid February documented in this encounter Plan of Treatment Not on file documented as of this encounter Visit Diagnoses Not on filedocumented in this encounter Care Teams Center Rep Relationship Specialty Start Date End Date Ha Anand MD [address] [place] [address] PCP - General Family Medicine 09/25/18 documented as of this encounter
--- OUTSIDE RECORDS SUMMARY | 2023-11-30 16:08 | XMS_ITS | Encounter Summary ---
Author Organization [facility] Address [facility] [place] [address] Care Team Providers Care Teacher Theater Arts Name Role Phone Ha Anand MD Primary Care Provider [phone] [phone] Reason for Visit * Occupational Therapy (Routine) - Specialty Diagnoses / Procedures Referred By Controel t Referred To Contact Orthopaedics Diagnoses Pain in right wrist Ferdinand Dorantes MD [facility] DR ORTHOPAEDIC [place] [address] Domonique Almanzar OT Referral ID Status Reason Start Date Expiration Date V isits Requested Visits Authorized [id number] Evaluate and Treat 10/31/2019 10/30/2020 12 12 Encounter Details Date Type Department Care Team (Late st Contact Info) Description 10/31/2019 11:00 AM EDT Office [place] [address] Domonique Almanzar OT Subluxation of right extensor carpi ulnaris tendon, sequela Social History Tobacco Use Types Packs/Day Years [...] as of this encounter Miscellaneous Notes * Initial Evaluation - Domonique Almanzar OT - 10/31/2019 11:00 AM EDT OCCUPATIONAL THERAPY ORTHOTIC EVALUATION Certification Period: 10/31/19 - 12/24/19 Referral Source: Dr. Jose E West MD Follow-up: 12/12/19 Total Treatment time: 19 Minutes Timed Code Treatment Time: 0 minutes OCCUPATIONAL PROFILE: Edwin Levy is a 59 y.o. year old Right hand dominant male who underwent RIGHT sixth dorsal compartment reconstruction. He has been in a [place] cast, has a recent hx ofRIGHT TFCC debridement. Edwin Levy is referred to Occupational Therapy for evaluation and treatment to include fabrication of a custom orthosis. Patient presents today alone. Date of onset of symptoms: ongoing Date of surgery: 08/30/19 Pertinent History and/or Co-morbidities: No diagnosis found. 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 Edwin Levy reportsstiffness in elbow extension, secondary to [place] cast. Global Mental Function: With gross screening of patient???s global mental functions, patient demonstrates orientation to person, place, time, and situation. Patient???s affect/behavior is appropriateand cooperative today. Pain: (Assessed using the Visual Analog Pain Scale) At Rest: 2/10 With Activity: 310 Treatment Today: Orthosis - Wrist-Hand Orthotic, W/O [employer] Fit & Adj ([id number]) Educated patient in etiology and biomechanics as related to patient's symptoms Fabricated volar wrist cock-up orthosis with approx. 8* radial deviation, neutral to flexion/extension (per Dr. Dorantes) Instructed in orthosis wear and care: on at all times Range of Motion Exercises: Edwin Levy was provided with exercises today which can be found in the scanned documents section of the chart. AROM elbow flexion/extension, gentle AROM wrist flexion/extension, tendon glides, full AROM pronation/supination only to neutral. CLINICAL DECISION MAKING: Edwin Levy has a well fitting orthosis post therapy. Edwin Levy is able to independently verbalize and demonstrate the recommended home program following instructions today. Edwin Levy has good potential for gains with therapy/home program use. Patient knows to call with any questions or concerns. Short Term Goals (to be met by end of the visit today): Date Goal Met: Today 1. Edwin Levy will demonstrate independence with donning and doffing of his orthosis and verbalization of purpose. Goal Status: Meets. Today 2. Edwin Levy will be independent with home exercises as evident with demonstration in therapy. Goal Status: Meets PLAN: Therapeutic exercises to increase functional mobility, Orthosis to provide support and protection to the joint and follow up PRN (X) Edwin Levy participated in the evaluation, collaborated on treatment goals, and agrees to the treatment plan. documented in this encounter Plan of Treatment Scheduled Referrals Name Type Priority Associated Diagnoses Orde r Schedule Referral to Occupational Therapy Outpatient Referral Routine s/p Right wrist arthroscopy with debridement of central TFCC tear and release of the EPL right wrist 12/21/[address] Dorantes Ordered: 10/31/2019 documented as of this encounter Visit Diagnoses Diagnosis Subluxation of right extensor carpi ulnaris tendon, sequela documented in this encounter Care Teams Teacher Theater Arts Relationship Specialty Start Date End Date Ha Anand MD [address] [place] [address] PCP - General Family Medicine 09/25/18 documented as of this encounter
--- OUTSIDE RECORDS SUMMARY | 2023-11-30 16:08 | XMS_ITS | Encounter Summary ---
Author Organization [facility] [place] [address] Care Team Providers Care Wood [employer] Factory Worker Name Role Phone Ha Anand MD Primary Care Provider [phone] [phone] Encounter Details Date Type Department Care Team (Latest Contact Info) Description 04/23/2020 10:35 AM EST Laboratory Appointment Lab [address]L [facility] [place] [phone] Diarrhea, unspecified type; Family history of colon cancer; Family history of celiac disease; Abdominal cramping; Abdominal bloating; Abdominal distention; History of diverticulitis of colon; History of heartburn Social History Tobacco Use Types Packs/Day Years [...] Procedure Name Priority Date/Time Associated Diagnosis Comments HC THYROID STIMULATING HORMONE, SERUM Routine 04/23/2020 10:57 AM EST Diarrhea, unspecified type Family history of colon cancer Family history of celiac disease Abdominal cramping Abdominal bloating Abdominal distention History of diverticulitis of colon History of heartburn HC FREE T3 LEVEL Routine 04/23/2020 10:5 7 AM EST Diarrhea, unspecified type Family history of colon cancer Family history of celiac disease Abdominal cramping Abdominal bloating Abdominal distention History of diverticulitis of colon History of heartburn HC TOTAL T3 Routine 04/23/2020 10:57 AM EST Diarrhea, unspecified type Family history of colon cancer Family history of celiac disease Abdominal cramping Abdominal bloating Abdominal distention History of diverticulitis of colon History of heartburn HC TOTAL T4 Routine 04/23/2020 10:57 AM EST Diarrhea, unspecified type Family history of colon cancer Family history of celiac disease Abdominal cramping Abdominal bloating Abdominal distention History of diverticulitis of colon History of heartburn documented in this encounter Results * [facility] [place] (04/23/2020 10:57 AM EST) [facility] Thyroid Stimulating Hormone 2.08 0.27 - 4.20 mcIU/mL [facility] Blood specimen (specimen) 04/23/2020 10:57 AM EST 04/23/2020 11:35 AM EST Narrative Resulting Agency Comment Spec In Lab Avtar Betancourt APRN CHEMISTRY ORDERABLE S Performing Organization Address [facility] Co de Phone Number [facility] [place] [place] [address] * T3 Total (04/23/2020 10:57 AM EST) Pathologist [facility] T3 Total 116 75 - 170 ng/dL [facility] Blood specimen (specimen) 04/23/2020 10:57 AM EST 04/23/2020 11:35 AM EST Narrative Resulting Agency Comment Spec In Lab Avtar Betancourt APRN CHEMISTRY ORDERABLE S Performing Organization Address [facility]/ZIP Co de Phone Number [facility] [place] [address] * T4 Total (04/23/2020 10:57 AM EST) Pathologist [facility] T4 Total 6.8 4.6 - 7.9 mcg/dL [facility] Comment: Reference Range: Females: First Trimester: 6.2-13.3 mcg/dL Second Trimester: 7.0-14.7 mcg/dL Third Trimester: 7.0-14.7 mcg/dL Blood specimen (specimen) 04/23/2020 10:57 AM EST 04/23/2020 11:35 AM EST Narrative Resulting Agency Comment Spec In Lab Avtar Betancourt DICE MANAGER CHEMISTRY ORDERABLE S Performing Organization Address City/[facility]/ZIP Co de Phone Number [facility] [place] [address] * T3, free (04/23/2020 10:57 AM EST) Free T3 3.1 2.0 - 4.4 pg/mL [facility] Blood specimen (specimen) 04/23/2020 10:57 AM EST 04/23/2020 11:35 AM EST Narrative Resulting Agency Comment Spec In Lab Avtar Betancourt DICE MANAGER CHEMISTRY ORDERABLE S Performing Organization Address City/[facility] Co de Phone Number [facility] [place] [address] documented in this encounter Visit Diagnoses Diagnosis Diarrhea, unspecified type Family history of colon cancer Family history of malignant neoplasm of gastrointestinal tract Family history of celiac disease Family history of other digestive disorders Abdominal cramping Abdominal pain, unspecified site Abdominal bloating Flatulence, eructation, and gas pain Abdominal distention Flatulence, eructation, and gas pain History of diverticulitis of colon Personal history of other diseases of digestive system History of heartburn Personal history of other diseases of digestive system documented in this encounter Care Teams [employer] Factory Worker Relationship Specialty Start Date End Date Ha Anand MD [address] [place] [address] PCP - General Family Medicine 09/25/18 documented as of this encounter
--- OUTSIDE RECORDS SUMMARY | 2023-11-30 16:08 | XMS_ITS | Clinical Summary ---
Author Organization [facility] Address [facility] [place] [address] Care Team Providers Care Area Coordinator Name Role Phone Ha Anand MD Primary Care Provider [phone] Allergies No known active allergies Medications Medication Sig Dispensed Refills Start Date End Date Status sildenafil (VIAGRA) 100 mg tablet 100MG, PO, PRN 10/06/2009 Active traZODone (DESYREL) 100 mg tablet 50MG, PO, QHS 10/06/2009 Active buPROPion (WELLBUTRIN SR OR ZYBAN) 150 mg Tablet Sustained Release TAKE ONE TABLET BY MOUTH TWICE A DAY 11 01/06/2016 Active omeprazole (PRILOSEC) 40 mg Capsule, Delayed Release(E.C.) TAKE ONE CAPSULE BY MOUTH EVERY DAY 11 01/06/2016 Active ONE TOUCH DELICA 33 gauge Misc 3 09/27/2018 Active terbinafine (LAMISIL) 250 mg Tablet 0 08/15/2018 Active gabapentin (NEURONTIN) 300 mg Capsule 1 08/31/2018 Active ONETOUCH ULTRA2 METER Misc 0 09/27/2018 Active ONETOUCH ULTRA BLUE TEST STRIP Strip 3 09/27/2018 Active amoxicillin (AMOXIL) 500 mg Capsule 0 08/15/2018 Active ammonium lactate (LAC-HYDRIN) 12 % Lotion 2 09/28/2018 Active PROVENTIL HFA 90 mcg/actuation HFA Aerosol Inhaler 4 08/15/2018 Active ibuprofen (ADVIL;MOTRIN) 600 mg Tablet Take 1 tablet by mouth every 8 hours as needed for Pain. 30 tablet 3 12/21/2018 Active metFORMIN (GLUCOPHAGE) 1,000 mg Tablet Take 1,000 mg by mouth 2 times daily. 01/30/2019 Active acetaminophen (Tylenol) 500 mg Tablet Take 1,000 mg by mouth every 6 hours as needed for Pain. 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 30 suppository 5 11/28/[address] (Lialda) 1.2 gram Tablet, Delayed Release (E.C.) Take 2 tablets by mouth 2 times daily. 120 tablet 3 01/13/2021 Active Active Problems Problem Noted Date Diagnosed Date Diarrhea 04/22/2020 Overview (04/22/2020): Added automatically from request for surgery [id number] Family history of colon cancer 04/22/2020 Overview (04/22/2020): Added automatically from request for surgery [id number] Family history of celiac disease 04/22/2020 Overview (04/22/2020): Added automatically from request for surgery [id number] Abdominal cramping 04/22/2020 Overview (04/22/2020): Added automatically from request for surgery [id number] Abdominal bloating 04/22/2020 Overview (04/22/2020): Added automatically from request for surgery [id number] Abdominal distention 04/22/2020 Overview (04/22/2020): Added automatically from request for surgery [id number] History of diverticulitis of colon 04/22/2020 Overview (04/22/2020): Added automatically from request for surgery [id number] History of heartburn 04/22/2020 Overview (04/22/2020): Added automatically from request for surgery [id number] Right lateral epicondylitis 02/27/2020 s/p Right Extensor Subsheath Reconstruction for Subluxing ECU - 08/30/2019 Dr. Dorantes 08/30/2019 Subluxation of right extensor carpi ulnaris tend on 08/01/2019 s/p Right wrist arthroscopy with debridement of central TFCC tear and release of the EPL right wrist 12/21/[address] Dorantes 10/09/2018 CIS - Entered not Verified 05/28/2009 CIS - Diabetes CIS - Hyperlipidemia CIS - Obesity CIS - obstructive sleep apnea CIS - palpitations Immunizations Name Administration Dates Next Due Influenza (Novel [id number]) Injectable 02/14/2009 Influenza Vaccine, Whole 11/14/2008 Pneumococcal 23-Valent Polysaccharide (Pneumovax 23) 07/03/2009 Td Adult (not absorbed) 03/19/2005 Family History Medical History Relation Comments Diabetes Maternal Grandfather Diabetes Maternal Grandmother Colorectal Cancer Paternal Grandmother Celiac Disease Sister Esophageal Cancer Neg Hx Inflammatory Bowel Disease Neg Hx Relation Status Comments Maternal Grandfather Maternal Grandmother Paternal Grandmother Sister Social History Tobacco Use Types Packs/Day Years [...] AM EST Sexual Orientation Not on file Last Filed Vital Signs Vital Sign Reading Time Taken Comments Blood Pressure 157/84 11/18/2020 9:40 AM EDT Pulse 59 11/18/2020 7:41 AM EDT Temperature 36.8 ??C (98.3 ??F) 11/18/2020 7:41 AM ED T Respiratory Rate 16 11/18/2020 9:40 AM EDT Oxygen Saturation 97% 11/18/2020 9:40 AM EDT Inhaled Oxygen Concentration - - Weight 142 kg (313 lb) 11/18/2020 7:41 AM EDT Height 182.9 cm (6') 11/18/2020 7:41 AM EDT Body Mass Index 42.45 11/18/2020 7:41 AM EDT Plan of Treatment Health Maintenance Due Date Last Done Comments CT Colonography 1961 FIT DNA 1961 FIT 1961 Sigmoidoscopy 1960 HIV screen 1979 Hepatitis C Screening 1979 Lipid Screening 1979 Tetanus/Diphtheria/Pertussis Vaccines (1 - Tdap) 03/20/2005 03/19/2005 Zoster vaccine (1 of 2) 2011 Advance Directive 2016 Covid-19 Vaccine ( - season) 2023 Influenza (Flu) vaccine (1 o f 1 - Influenza standard series) 10/16/2023 02/14/2009, 11/14/2008 Colonoscopy 11/18/2030 11/18/2020, 06/2020, 11/18/2020 Colorectal Cancer Screening 11/18/2030 Sigmoidoscopy (10 year) with FIT yearly 11/18/2030 11/18/2020, 11/18/2020, 11/18/2020 Procedures Procedure Name Priority Date/Time Associated Diagnosis Comments COLONOSCOPY Routine 11/18/2020 8:25 AM EDT from Last 3 Months or Most Recently Relevant to Health Maintenance Results * COLONOSCOPY (11/18/2020 8:25 AM EDT) [facility] Signature COLONOSCOPY [facility] Endoscopy Procedure Date: 11/18/2020 8:25 AM ? Patient Name: Edwin Levy ? Date of : 1960 ? Age: 60 ? Order #: [id number] ? Instrument Name: [id number] ? Procedure: ? Colonoscopy Indications: ? Clinically significant diarrhea of ? unexplained origin Providers: ? Carrol Fontaine MD, Penny ? ALEJA Willis, Lelia Serrano Referring : ?Ha Anand MD Requesting Provider: Avtar Betancourt Medicines: ? Monitored Anesthesia Care Complications: ? No immediate complications. Procedure: ? The procedure, indications, benefits, ? risks and alternatives were explained ? to the patient. Specifically ? discussed were potential ? complications including, but not ? limited to, bleeding, perforation, ? infection, missing a cancer, and ? adverse medication reactions. The ? patient was placed in the left ? lateral decubitus position, and a ? digital rectal exam was performed. ? The Colonoscope was inserted in the ? anus and under direct visualization, ? advanced to the cecum, identified by ? appendiceal orifice and ileocecal ? valve. Careful inspection was made as ? the colonoscope was withdrawn. The ? colonoscopy was performed without ? difficulty. The patient tolerated the ? procedure well. The quality of the ? bowel preparation was evaluated using ? the BBPS ([place] Bowel Preparation ? Scale) with scores of: Right Colon = ? 2, Transverse Colon = 2 and Left ? Colon = 2. The total BBPS score ? equals 6. The quality of the bowel ? preparation was good. Scope ? withdrawal time was 8 minutes. ? Findings: ? The sigmoid colon, descending colon, transverse ? colon, ascending colon and cecum appeared normal. ? Biopsies for histology were taken with a cold forceps ? from the right colon and left colon for evaluation of ? microscopic colitis. ? A localized area of mildly erythematous mucosa was ? found in the rectum. Biopsies were taken with a cold ? forceps for histology. ? Moderate Sedation: ? Not applicable - See Anesthesia documentation Impression: ?- Rectal erythema, likely clinically ? insignificant otherwise normal exam. ? Biopsies taken. Recommendation: ?- Await pathology results. ? - Discharge home ambulatory. ? - Follow-up with Avtar Betancourt APRN ? as planned. ? Attending Participation: ? I personally performed the entire procedure. ? Carrol Fontaine MD 11/18/2020 9:11:31 AM Number of Addenda: 0 Note Initiated On: 11/18/2020 8:25 AM PROVATION 11/18/2020 8:25 AM EDT Ha Anand MD GENERAL SURGICAL ORDERABLES PROVATION from Last 3 Months or Most Recently Relevant to Health Maintenance Advance Directives Documents on File Type Date Recorded Patient Benzene Washer Operator Expl anation Personal Benzene Washer Operator 08/02/2019 11:19 AM KD * Full Code (Latest Code Status on File) Date Activated Date Inactivated Comments 08/30/2019 3:03 PM 08/30/2019 8:17 PM Question Answer Comments Does patient have capacity to make decision: Yes Care Teams Area Coordinator Relationship Specialty Start Date End Date Ha Anand MD [address] [place] [address] PCP - General Family Medicine 09/25/18
--- OUTSIDE RECORDS SUMMARY | 2023-11-30 16:08 | XMS_ITS | Encounter Summary ---
Author Organization [facility] Address [facility] [place] [address] Care Team Providers Care Picture Framer Name Role Phone Ha Anand MD Primary Care Provider [phone] Reason for Visit * Consultation (Urgent) - Closed Specialty Diagnoses / Procedures Referred By Contac t Referred To Contact Gastroenterology Diagnoses Dysphagia, unspecified DYSPHAGIA Ha Anand MD [address] [place] [address] [facility] [address] [place] [address] Referral ID Status Reason Start Date Expiration Date V isits Requested Visits Authorized [id number] Closed Consult, Test & Treat Connection Center PCP Updated and/or Approved 04/07/2020 04/07/2021 6 6 Encounter Details Date Type Department Care Team (Latest Contact Info) Description 04/22/2020 11:00 AM EST TH Visit (TeleHealth) [place] [address] Avtar Betancourt, AUXILIARY POWER EQUIPMENT OPERATOR [facility] [place] [address] Diarrhea, unspecified type; Family history of colon [...] on file documented as of this encounter Patient Instructions * Patient Instructions* Avtar Betancourt, JANET - 04/22/2020 11:00 AM EST Dear Edwin, It was nice to meet you today. I have listed the recommendations we discussed below. -Labs -Stool studies -Upper endoscopy and colonoscopy with extended prep Therapeutics: -Prilosec 40mg daily. - discussed at length with patient that ideally he would use prilosec for theshortest time possible, but this may be limited by the need for his disease control. Discussed thatwe do not have manager intermediate data to correlate with single center studies to corroborate risks of dementia or renal failure. After extensive discussion of benefits/risks, patient chose to continue therapy. Patient should try to wean or come off of PPI every 6 months in collaboration with the PCP (can try alternating days, minimizing dose, and stopping completely based on pt preference) to see if symptoms can improve over time (which might enable stopping PPI). -Continue to work with PCP and dietitian regarding glycemic control and weight loss -PCP can consider referral to medical weight loss program or weight and wellness center at [facility] [place] handout -Discontinue NSAID -Discontinue crystal light -Begin Metamucil (make sure it is free of sugar and artificial sweetener): 1tsp daily for one week,then 2tsp daily for one week, then 3tsp (1TBSP) daily. May increase slowly up to 2 TBSP daily. Titrate according to what works best for you.This may cause bloating initially but this will improve with continued use. If this supplement causes too much bloating you may try Citrucel. -Follow-up with me in 6 months when testing is complete GERD (Gastroesophageal reflux disease) LIFESTYLE CHANGES -Weight loss (if appropriate) -Stop smoking if you smoke -Avoid trigger foods like: fatty foods, spicy foods, fried foods, chocolate, coffee, peppermint, carbonated beverages -Eat smaller more frequent meals -Avoid lying down for 2-3 hours after eating a meal or drinking acidic beverages -Elevate HOB 6-8 inches using cinder blocks or a wedge under the mattress -Wear loose fitting clothing documented in this encounter Progress Notes * Avtar Betancourt APRN - 04/22/2020 11:00 AM EST Images from the original note were not included. [facility] TELEMEDICINE PROGRAM Chief Complaint: Edwin Levy is a 60 y.o. patient referred for consultation by Dr. Anand for diarrhea. History of Present Illness: 60 y.o. male with past medical history significant for diabetes, hyperlipidemia, obesity, obstructive sleep apnea, palpitations, alcohol abuse (not currently), chronic rhinitis, depression, diverticulitis, former smoker, cholecystectomy (1999) Edwin states that he has always had GI issues. Lately things are worse. Whenever he eats or drinks within a 1/2hr after eating he has lower abdominal cramping and urge to defecate. Has occurred for years but worse, daily. Abdominal cramping 4/10 relieved after BM. Variable bowel pattern. Watery stool or pudding consistency, 3-6 BM daily (large first BM followed by smaller). Only formed 1-2 times a week. Stable. Denies going a few days without BM. Dairy products cause formed. Has had formed followed by loose. Endorses fecal urgency. Denies fecal incontinence,nocturnal BM, bloody stool, melena, rectal tenesmus, straining, prolonged toilet time. Darlington 6 and 7. Has seen mucus. Denies oily stool. Abdominal bloating/distention. Has improved after cutting out carbohydrates. Borborygmi after eating, increased bloating. Relieved with BM Heartburn is completely controlled on prilosec. 20 years. Denies dysphagia and odynophagia. Denies nausea and vomiting. Denies upper abdominal pain. Has lost 10lbs, this has been intentional. Denies fevers, night sweats, chills. 1.5 years ago had LLQ pain. Went to ED and had CT that revealed diverticulitis. Treated with antibiotics. Began metformin 1 year ago Had EGD 30 years ago, normal. Lifestyle NSAID: Ibuprofen (hasn't taken in a while) 1-2 times per week Caffeine/Soda/Artificial Sugar: 1 Coffee daily. Diet pepsi once every 2 weeks. 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 Medications: Outpatient Medications Prior to Visit Medication Sig Dispense Refill ??? Rybelsus 3 mg Tablet ??? acetaminophen (Tylenol) 500 mg Tablet Take 1,000 mg by mouth every 6 hours as needed for Pain. ??? metFORMIN (GLUCOPHAGE) 1,000 mg Tablet Take 1,000 mg by mouth 2 times daily. ??? ibuprofen (ADVIL;MOTRIN) 600 mg Tablet Take 1 tablet by mouth every 8 hours as needed for Pain.30 tablet 3 ??? terbinafine (LAMISIL) 250 mg Tablet 0 ??? gabapentin (NEURONTIN) 300 mg Capsule 1 ??? ammonium lactate (LAC-HYDRIN) 12 % Lotion [...] (DESYREL) 100 mg tablet 50MG, PO, QHS ??? oxyCODONE (Roxicodone) 5 mg Tablet Take 1-2 tablets by mouth every 4 hours as needed for Pain (Take 1-2 tabs (5-10 mg) for moderate-severe pain.). 20 tablet 0 ??? fluticasone propionate (FLONASE) 50 mcg/actuation Conesus, Suspension as needed. ??? ONE TOUCH DELICA 33 gauge Misc 3 ??? ONETOUCH ULTRA2 METER Misc 0 ??? ONETOUCH ULTRA BLUE TEST STRIP Strip 3 ??? amoxicillin (AMOXIL) 500 mg Capsule 0 No facility-administered medications prior to visit. Allergies: has No Known Allergies. Past Medical History: has a past medical history of Alcohol abuse, Depression, Diabetes, Diverticulitis, Former smoker, Hyperlipidemia, FOUZIA (obstructive sleep apnea), and s/p Right Extensor SubsheathReconstruction for Subluxing [facility] - 08/30/2019 Dr. Dorantes (08/30/2019). Past Surgical History: has a past surgical history that includes Wrist Arthroscop, Excis Triang Cart (35803) (Right, 12/21/2018); Excis Synov Wrist, Extens Tendon ([id number]) (Right, 12/21/2018); Excis Synov Wrist, Extens Tendon ([id number]) (Right, 08/30/2019); Reforearm Ext Tend Sheath, Graft ([id number]) (Right, 08/30/2019); Cardiac catheterization; and Cholecystectomy. Family History: family history includes Celiac Disease in his sister; Colorectal Cancer (age of onset: 81) in his paternal grandmother; Diabetes in his maternal grandfather and maternal grandmother. denies family history of IBD in mother father or other family members Social History: reports that he quit smoking about 3 years ago. His smoking use included cigarettes. He has never used smokeless tobacco. He reports previous alcohol use. He reports previous drug use. Physical exam: Constitutional: well appearing, no apparent distress Eyes: conjunctiva clear without icterus, pallor, or injection ENT: Nose without external redness or drainage. Mouth with normal dentition; moist mucous membranes CV: No lower extremity peripheral edema or signs of cyanosis Respiratory: Breathing comfortably and speaking in full sentences without evident tachypnea or signs of respiratory distress GI: Abdomen non-distended and non-tender to self-palpation Skin: No visible rashes Psych: Appropriate affect. Intact thought and speech Neuro: Alert and oriented. Moving upper extremities appropriately Questionnaire: GI New Clinic Responses 04/22/2020 In general, health is: Good Physical health 3 Mental health 3 Poor physical and mental health kept from usual activities 15 CDC Healthy Day Score 6 FBDSI Score 21 (Mild illness) Days absent from work 0 Days worked shorter hours 0 Days less productive Yes Typical hours scheduled to work 0 Hours worked per week 0 IBS Severity Score 310 (Severe IBS) VSI Score 25 (Within normal range) GAD7 Total Score 12 (Moderate Anxiety) PHQ-9 Total Score 5 (Mild Depression) Minutes to fall asleep 15 # of hours of sleep per night 8 MICHAELA Score 3 (No clinically significant insomnia) Overall relief from GI symptoms No Laboratory studies, imaging, and procedures (in summary of my review of prior records): -07/2013 colonoscopy: Somewhat limited but negative exam Assessment/Plan: Mr. Levy is a 60 y.o. patient with past medical history significant for diabetes, hyperlipidemia, obesity, obstructive sleep apnea, palpitations, alcohol abuse (not currently), chronic rhinitis, depression, diverticulitis, former smoker, cholecystectomy (1999) #Diarrhea #Abdominal cramping #Bloating and distention #History of diverticulitis #Heartburn (well controlled on Prilosec) #Family history of colon cancer (paternal grandmother age 81) #Family history of celiac disease (sister) Edwin states that he has had GI issues his whole life. Lately his symptoms have been worsening. Most bothersome symptom are diarrhea Darlington type and VII, 3- 6 BM daily (large first BM followed by smaller). Has formed stool 1-2 times a week. This has been his bowel pattern for many years. Also endorses abdominal cramping with the urge to defecate, relieved after BM, has occurred for years but worse lately. Endorses fecal urgency. Denies fecal incontinence, nocturnal BM, bloody stool, melena, rectal tenesmus, straining, prolonged toilet time, oily stool. Has seen mucus in his stool in the past. Strong gastrocolic reflex, usually urge to defecate begins half an hour after eating. Family history of colon cancer in paternal grandmother diagnosed at age 81. Sister recently diagnosed with celiac disease. Abdominal bloating and distention and borborygmi occur after eating. This has improved after cutting out carbohydrates. Relieved with BM. Approximately 1.5 years ago had LLQ pain, CT performed in the ED revealed diverticulitis, treated with antibiotics. Will investigate for structural causes of symptoms with EGD/colonoscopy, extended prep due to limited exam in 2013. Will investigate with stool studies to rule out infectious cause of diarrhea. Will investigate thyroid contributing with thyroid panel. We discussed that the main treatment for Peter symptoms will be optimizing glycemic control and continuing to work on weight loss, PCP can considerreferral to medical weight loss program or weight and wellness center at [facility]. We discussed general measures Peter can take in the meantime to assist with symptoms including discontinuing NSAID use,discontinuing Crystal light, and beginning Metamucil as tolerated. Briefly discussed functional bowel disorders today. We discussed that complete symptom relief may not be a fully achievable goal for this chronic condition, but that improvement in quality of life, healthy days at work and family functions, and also general symptom improvement may be more reasonable goals. We discussed that treatments should be tried individually and for periods of at least 4-8 weeks to truly assess symptom response. I did my bestto answer questions to the fullest ability. We discussed that recommended treatments should be tried individually for at least three months at a time to truly assess for a meaningful response, or as long as tolerated, before changing therapy. Recommendations: Diagnostics: -Thyroid panel -EGD/Colonoscopy with anesthesia (extended prep) for bloating, distention, abdominal cramping, diarrhea, family history of colon cancer, family history of celiac disease. Please obtain biopsies to rule out celiac disease and microscopic colitis -C. Diff, Giardia/Crypto -Consider anorectal manometry Therapeutics: -Prilosec 40mg daily. - discussed at length with patient that ideally he would use prilosec for theshortest time possible, but this may be limited by the need for his disease control. Discussed thatwe do not have manager intermediate data to correlate with single center studies to corroborate risks of dementia or renal failure. After extensive discussion of benefits/risks, patient chose to continue therapy. Patient should try to wean or come off of PPI every 6 months in collaboration with the PCP (can try alternating days, minimizing dose, and stopping completely based on pt preference) to see if symptoms can improve over time (which might enable stopping PPI). -Continue to work with PCP and dietitian regarding glycemic control and weight loss -PCP can consider referral to medical weight loss program or weight and wellness center at [facility] [place]GER[place] handout -Discontinue NSAID -Discontinue crystal light -Begin Metamucil (make sure it is free of sugar and artificial sweetener): 1tsp daily for one week,then 2tsp daily for one week, then 3tsp (1TBSP) daily. May increase slowly up to 2 TBSP daily. Titrate according to what works best for you.This may cause bloating initially but this will improve with continued use. If this supplement causes too much bloating you may try Citrucel. RTC in 6 months with me when testing is complete to further consolidate the GI care plan for the patient's local team. Due to the consultative nature of our practice, the patient should continue to work with Dr. Anand as the primary point of contact for urgent issues, medication refills and adjustments as needed for continuity of care purposes in between visits to our center based on the recommendations above. TIME SPENT WITH PATIENT Time spent reviewing records prior to this encounter on day of appointment: 1 minutes Time spent during encounter with patient including counselin minutes Time spent documenting encounter after office visit: 16 minutes Approximate total time devoted to this single encounter: 63 minutes Avtar Betancourt APRN [facility] [place] [address] documented in this encounter Plan of Treatment Scheduled Orders Name Type Priority Associated Diagnoses Orde r Schedule ENDOSCOPY CASE REQUEST: EGD, UPPER GI ENDOSCOPY, COLONOSCOPY, DIAGNOSTIC Procedures Routine Diarrhea, unspecified type Family history of colon cancer Family history of celiac disease Abdominal cramping Abdominal bloating Abdominal distention History of diverticulitis of colon History of heartburn Ordered: 04/22/2020 documented as of this encounter Results * T3, free (04/23/2020 10:57 AM EST) Free T3 3.1 2.0 - 4.4 pg/mL [facility] Blood specimen (specimen) 04/23/2020 10:57 AM EST 04/23/2020 11:35 AM EST Narrative Resulting Agency Comment Spec In Lab Avtar Betancourt APRN CHEMISTRY ORDERABLE S [facility] [place] [address] * T4 Total (04/23/2020 10:57 AM EST) T4 Total 6.8 4.6 - 7.9 mcg/dL [facility] Comment: Reference Range: Females: First Trimester: 6.2-13.3 mcg/dL Second Trimester: 7.0-14.7 mcg/dL Third Trimester: 7.0-14.7 mcg/dL Blood specimen (specimen) 04/23/2020 10:57 AM EST 04/23/2020 11:35 AM EST Narrative Resulting Agency Comment Spec In Lab Avtar Betancourt AUXILIARY POWER EQUIPMENT OPERATOR CHEMISTRY ORDERABLE S Performing Organization Address City/[facility]/ZIP Co de Phone Number [facility] [place] [address] * T3 Total (04/23/2020 10:57 AM EST) T3 Total 116 75 - 170 ng/dL [facility] Blood specimen (specimen) 04/23/2020 10:57 AM EST 04/23/2020 11:35 AM EST Narrative Resulting Agency Comment Spec In Lab Avtar Betancourt AUXILIARY POWER EQUIPMENT OPERATOR CHEMISTRY ORDERABLE S Performing Organization Address [facility] Co de Phone Number [facility] [place] [address] * TSH [place] (04/23/2020 10:57 AM EST) Thyroid Stimulating Hormone 2.08 0.27 - 4.20 mcIU/mL [facility] Blood specimen (specimen) 04/23/2020 10:57 AM EST 04/23/2020 11:35 AM EST Narrative Resulting Agency Comment Spec In Lab Avtar Betancourt AUXILIARY POWER EQUIPMENT OPERATOR CHEMISTRY ORDERABLE S Performing Organization Address City/[facility] Co de Phone Number [facility] [place] [address] documented in this encounter Visit Diagnoses Diagnosis [...] system documented in this encounter Care Teams Picture Framer Relationship Specialty Start Date End Date Ha Anand MD [address] [place] [address] PCP - General Family Medicine 09/25/18 documented as of this encounter
--- OUTSIDE RECORDS SUMMARY | 2023-11-30 16:08 | XMS_ITS | Encounter Summary ---
Author Organization [facility] [place] [address] Care Team Providers Care Senior Product Designer Name Role Phone Ha Anand MD Primary Care Provider [phone] Encounter Details Date Type Department Care Team (Late st Contact Info) Description 04/28/2020 Telephone [place] [phone] Erica Gamboa Social History Tobacco Use Types Packs/Day Years [...] * Telephone Encounter - Erica Gamboa - 04/28/2020 3:49 PM EDT Left message for patient to contact the office. Please ask the patient if he would like to have hislab and stool studies done here or elsewhere. Please fax if he says elsewhere. Orderis in for EGD/[place] documented in this encounter Plan of Treatment Not on file documented as of this encounter Visit Diagnoses Not on filedocumented in this encounter Care Teams Senior Product Designer Relationship Specialty Start Date End Date Ha Anand MD [address] [place] [address] PCP - General Family Medicine 09/25/18 documented as of this encounter
--- OUTSIDE RECORDS SUMMARY | 2023-11-30 16:08 | XMS_ITS | Encounter Summary ---
Author Organization [facility] [place] [address] Care Team Providers Care Grape Grower Name Role Phone Ha Anand MD Primary Care Provider [phone] Reason for Visit * Reason Onset Date Comments Reminder Appointment 01/13/2021 Encounter Details Date Type Department Care Team (Late st Contact Info) Description 01/13/2021 Telephone [place] [address] Karen Simpson CCMA Reminder Appointment Social History [...] Telephone Encounter - Karen Simpson LNA - 01/13/2021 8:39 AM EST Called patient to review medications and allergies for their upcoming gastroenterology Type of Appointment: Telehealth appointment. Reach Patient during MA Check: No, Left Message Notes for the provider: Notes for the nurse: documented in this encounter Plan of Treatment Not on file documented as of this encounter Visit Diagnoses Not on filedocumented in this encounter Care Teams Grape Grower Relationship Specialty Start Date End Date Ha Anand MD [address] [place] [address] PCP - General Family Medicine 09/25/18 documented as of this encounter
--- OUTSIDE RECORDS SUMMARY | 2023-11-30 16:08 | XMS_ITS | Encounter Summary ---
Author Organization [facility] [place] [address] Care Team Providers Care Prenatal Teacher Name Role Phone Ha Anand MD Primary Care Provider [phone] Encounter Details Date Type Department Care Team (Late st Contact Info) Description 03/03/2021 Ancillary Procedure Radiology Library at [facility] [place] [id number] Ha Anand MD [address] [place] [address] Social History Tobacco Use Types Packs/Day Years [...] Diagnosis Comments FILM LIBRARY STORAGE ONLY DX ANKLE Routine 03/03/2021 12:00 AM EST documented in this encounter Results * Film Library- Storage Only DX Ankle (03/03/2021 12:00 AM EST) Narrative [facility] - 04/13/2021 4:19 PM EST This exam is auto-finalizing. It's purpose is for storage only. Ha Anand MD IM FILM LIBRARY ORDERABLES [place], [place] documented in this encounter Visit Diagnoses Not on filedocumented in this encounter Care Teams Prenatal Teacher Relationship Specialty Start Date End Date aH Anand MD [address] [place] [address] PCP - General Family Medicine 09/25/18 documented as of this encounter
--- OUTSIDE RECORDS SUMMARY | 2023-11-30 16:08 | XMS_ITS | Encounter Summary ---
Author Organization [facility] [place] [address] Care Team Providers Care Mental Retardation Aide Name Role Phone Ha Anand MD Primary Care Provider [phone] Encounter Details Date Type Department Care Team (Late st Contact Info) Description 05/19/2020 Telephone Gastroenterology at [facility] [place] [phone] Esmer Grover Social History Tobacco Use Types Packs/Day Years [...] encounter Miscellaneous Notes * Telephone Encounter - Esmer Grover - 05/19/2020 10:57 AM EDT Edwin Levy [id number] Diagnosis/Indication: bloating, distention, abdominal cramping, diarrhea, family history of colon cancer, family history of celiac disease. 1. Have you ever had a/an Upper Endoscopy & Colonoscopy before? Yes: Date @ [facility] =5 years colo& 25 years EHD If yes, did you have any problems with the procedure? No What type of sedation was used: Other: unsure 2. Do you take any blood thinners or have you been diagnosed with a bleeding disorder that increases your risk of bleeding with procedures? No 3. Do you have a Pacemaker or Defibrillator device? No 4. Are you a diabetic? Yes: Controlled by diet or medication? Both 5. Do you have any Allergies to Eggs, Latex or Medications? No 6. Do you take any Oral Iron Supplements (Including multi-vitamins)? No 7. Do you have a history of three or more abdominal surgeries? Yes hernia 8. Have you had a problem with sedation or anesthesia? Yes nausea 9. Do you use a c-pap machine or oxygen tank? C-Pap 10. Do you take prescription narcotic pain medications, including suboxone or methodone? No 11. Do you have a preference regarding the gender of your provider? No Preference 12. Is there any other information you would like to us to note for the provider and nursing team who will perform your case? No 13. Say to patient: You must have a responsible constitution party who will drive you to your procedure, stay oncampus for the entire duration of your procedure, and drive you home from your procedure? *Please Verify the height and weight, and adjust if height and/or weight have changed* Estimated body mass index is 50.21 kg/m?? as calculated from the following: Height as of 04/23/20: 180.3 cm (5' 11). Weight as of 04/23/20: 163.3 kg (360 lb). Age:60 y.o. documented in this encounter Plan of Treatment Not on file documented as of this encounter Visit Diagnoses Not on filedocumented in this encounter Care Teams Mental Retardation Aide Relationship Specialty Start Date End Date Ha Anand MD [address] [place] [address] PCP - General Family Medicine 09/25/18 documented as of this encounter
--- OUTSIDE RECORDS SUMMARY | 2023-11-30 16:08 | XMS_ITS | Encounter Summary ---
Author Organization [facility] [place] [address] Care Team Providers Care Edge Stitcher Name Role Phone Ha Anand MD Primary Care Provider [phone] Encounter Details Date Type Department Care Team (Late st Contact Info) Description 04/02/2021 [place] [phone] Manjula Hurd Social History Tobacco Use Types Packs/Day Years [...] * Telephone Encounter - Manjula Hurd - 04/02/2021 4:15 PM EST Left 2nd message. Looking to schedule an follow-up appointment with Rose. documented in this encounter Plan of Treatment Not on file documented as of this encounter Visit Diagnoses Not on filedocumented in this encounter Care Teams Edge Stitcher Relationship Specialty Start Date End Date Ha Anand MD [address] [place] [address] PCP - General Family Medicine 09/25/18 documented as of this encounter
--- OUTSIDE RECORDS SUMMARY | 2023-11-30 16:08 | XMS_ITS | Encounter Summary ---
[place] [address] Care Team Providers Care Blind Lacer Name Role Phone Ha Anand MD Primary Care Provider [phone] Reason for Referral * Consultation (Routine) - Closed Specialty Diagnoses / Procedures Referred By Contac t Referred To Contact Orthopaedics Diagnoses Arthralgia of right ankle Arthrosis of midfoot, right Bilat ankle/foot pain (Right Worse) Procedures DR. MCKEON OR Owen Sullivan MD [address] [place] [address] [facility] [address] [place] [id number] Referral ID Status Reason Start Date Expiration Date V isits Requested Visits Authorized [id number] Closed Consult, Test & Treat PCP Updated and/or Approved 04/21/2021 04/21/2022 6 6 Encounter Details Date Type Department Care Team (Latest Contact Info) Description 04/21/2021 Transcribe Orders eD Incoming Referrals [phone] Owen Amaya MD [address] [place] [address] Arthralgia of right ankle; Arthrosis of midfoot, right Social History Tobacco Use Types Packs/Day Years [...] as of this encounter Plan of Treatment Scheduled Referrals Name Type Priority Associated Diagnoses Order Schedule Referral to Orthopaedics Outpatient Referral Routine Arthralgia of right ankle Arthrosis of midfoot, right Ordered: 04/21/2021 documented as of this encounter Visit Diagnoses Diagnosis Arthralgia of right ankle Pain in joint, ankle and foot Arthrosis of midfoot, right documented in this encounter Care Teams Blind Lacer Relationship Specialty Start Date End Date Ha Anand MD [address] [place] [address] PCP - General Family Medicine 09/25/18 documented as of this encounter
--- OUTSIDE RECORDS SUMMARY | 2023-11-30 16:08 | XMS_ITS | Encounter Summary ---
Author Organization [facility] [place] [address] Care Team Providers Care Clerical Assistant Name Role Phone Ha Anand MD Primary Care Provider [phone] Encounter Details Date Type Department Care Team (Late st Contact Info) Description 12/13/2022 Ancillary Procedure Radiology Library at [facility] [place] [phone] Ha Anand MD [address] [place] [address] Social History Tobacco Use Types Packs/Day Years [...] Diagnosis Comments FILM LIBRARY STORAGE ONLY MR SHOULDER Routine 12/13/2022 12:00 AM EDT documented in this encounter Results * Film Library- Storage Only MR Shoulder (12/13/2022 12:00 AM EDT) Narrative [facility] [place] - 02/03/2023 8:11 PM EST This exam is auto-finalizing. It's purpose is for storage only. Ha Anand MD IMG FILM LIBRARY ORDERABLES Performing Organization Address City/State/[facility] Co de Phone Number [place], [place] documented in this encounter Visit Diagnoses Not on filedocumented in this encounter Care Teams Clerical Assistant Relationship Specialty Start Date End Date Ha Anand MD [address] [place] [address] PCP - General Family Medicine 09/25/18 documented as of this encounter
--- OUTSIDE RECORDS SUMMARY | 2023-11-30 16:08 | XMS_ITS | Encounter Summary ---
Author Organization [facility] [place] [address] Care Team Providers Care Thermal Cutting Machine Operator Name Role Phone Ha Anand MD Primary Care Provider [phone] Reason for Visit * Reason Comments Follow Up Fracture Subluxation of right extensor carpi ulnaris tendon, subsequent encounter Encounter Details Date Type Department Care Team (Late st Contact Info) Description 10/31/2019 10:00 AM EDT Office [place] [phone] Subluxation of right extensor carpi ulnaris tendon, subsequent encounter Social History Tobacco Use Types Packs/Day [...] as of this encounter Progress Notes * César Roberts - 10/31/2019 10:00 AM EDT Edwin Levy presents to the clinic for a cast off per Dr. Dorantes. The cast was intact upon arrival. The patient was explained how the cast saw works and the cast was removed. The patient tolerated this procedure well. The patient's skin was intact.The patient was then sent to x-ray. documented in this encounter Plan of Treatment Not on file documented as of this encounter Visit Diagnoses Diagnosis Subluxation of right extensor carpi ulnaris tendon, subsequent encounter documented in this encounter Care Teams Thermal Cutting Machine Operator Relationship Specialty Start Date End Date Ha Anand MD [address] [place] [address] PCP - General Family Medicine 09/25/18 documented as of this encounter
--- OUTSIDE RECORDS SUMMARY | 2023-11-30 16:08 | XMS_ITS | Encounter Summary ---
Author Organization Formerly [facility], Later [facility] Address [facility] [place] [address] Care Team Providers Care [employer] Name Role Phone Ha Anand MD Primary Care Provider [phone] Encounter Details Date Type Department Care Team (Latest Contact Info) Description 11/18/2020 7:06 AM EDT - 11/18/2020 9:52 AM EDT Hospital [place] [address] Carrol Fontaine MD [facility] [place] [address] Diarrhea; Family history of colon cancer; Family history of celiac disease; Abdominal cramping; Abdominal bloating; Abdominal distention; History of diverticulitis of colon; History of heartburn Discharge Disposition: Home Social History Tobacco Use Types Packs/Day Years [...] Mass Index 42.45 11/18/2020 7:41 AM EDT documented in this encounter Discharge Instructions * Discharge Instructions* Patsy Stauffer, RN - 11/18/2020 9:15 AM EDT Upper GI Endoscopy: What to Expect at Home Your Recovery You will be able to go home after your doctor or nurse checks to make sure you are not having any problems. You may have to stay overnight if you had treatment during the test. You may have a sore throat fora day or two after the test. This care sheet gives you a general idea about what to expect after the test. How can you care for yourself at home? Activity Rest when you feel tired. ?? You can do your normal activities when it feels okay to do so. Diet ?? Follow your doctor's directions for eating. ?? Unless your doctor has told you not to, drink plenty of fluids. This helps to replace the fluidsthat were lost during the prep. ?? Do not drink alcohol. Medicines ?? Your doctor will tell you if and when you can restart your medicines. He or she will also give you instructions about taking any new medicines. ?? If you take blood thinners, such as warfarin (Coumadin), clopidogrel (Plavix), or aspirin, be sure to talk to your doctor. He or she will tell you if and when to start taking those medicines again. Make sure that you understand exactly what your doctor wants you to do. ?? If polyps were removed or a biopsy was done during the test, your doctor may tell you not to take aspirin or other anti-inflammatory medicines for a few days. These include ibuprofen (Advil, Motrin) and naproxen (Aleve). ?? If you have a sore throat the day after the procedure, use an zaxs-der-iozgwcq spray to numb your throat. Sucking on throat lozenges and gargling with warm salt water may also help relieve your symptoms. Other instructions ?? For your safety, do not drive or operate machinery until the medicine wears off and you can think clearly. Your doctor may tell you not to drive or operate machinery until the day after your test. ?? Do not sign legal documents or make major decisions until the medicine wears off and you can think clearly. The anesthesia can make it hard for you to fully understand what you are agreeing to. Additional Information for Sedation Patients For patients who received sedation: ?? You may have received medications before and/or during your procedure which effects your judgement and reaction time. ?? Do not drive, operate machinery, drink alcoholic beverages or make important decisions for 24 hours. ?? Be careful on stairs as you may be unsteady on your feet. ?? You may eat a regular diet as tolerated. ?? Do not smoke if you are alone. ?? IV site: Slight redness or tenderness is normal, you can use a warm compress if you would like. If tenderness and/or redness increase or if foul drainage occurs, please contact your Doctor. Please call [phone] before 8pm Mon-Fri with problems, questions or concerns. If you call after 8pm or on weekends, call the Hospital at [phone] and ask to speak to the Counterintelligence Analyst photovoltaic subcontractor and the block out machine operator will contact that person for you. When should you call for help? Call [phone] anytime you think you may need emergency care. For example, call if: ?? You passed out (lost consciousness). ?? You pass maroon or bloody stools. ?? You have trouble breathing. Call your doctor now or seek immediate medical care if: ?? You have pain that does not get better after you take pain medicine. ?? You are sick to your stomach or cannot drink fluids. ?? You have new or worse belly pain. ?? You have blood in your stools. ?? You have a fever. ?? You cannot pass stools or gas. Watch closely for changes in your health, and be sure to contact your doctor if you have any problems. Where can you learn more? [facility] View your After Visit Summary and more online at [email or web address] If you would like to provide feedback about your hospital experience, please call the Office of Patient and Family Relations at . If you have received this After Visit Summary in error, please immediately return it in person to the department, or notify the - Privacy Office by calling toll free at between the hours of 8AM and 5PM to arrange for our retrieval of the documents at no cost to you. Content Version: 12.2 ?? [phone] careersmore. Care instructions adapted under license by [facility]. If you have questions about a medical condition or this instruction, always ask your healthcare professional. [employer] disclaims any warranty or liability for your use of this information. Colonoscopy: What to Expect at Home Your Recovery Your doctor will talk to you about when you will need your next colonoscopy. Your doctor can help you decide how often you need to be checked. This will depend on the results of your test and your risk for colorectal cancer. After the test, you may be bloated or have gas pains. You may need to pass gas. If a biopsy was done or a polyp was removed, you may have streaks of blood in your stool (feces) for a few days. Problems such as heavy rectal bleeding may not occur until several weeks after the test. This isn't common. But it can happen after polyps are removed. This care sheet gives you a general idea about how long it will take for you to recover. But each person recovers at a different pace. Follow the steps below to get better as quickly as possible. How can you care for yourself at home? Activity Rest when you feel tired. ?? You can do your normal activities when it feels okay to do so. Diet ?? Follow your doctor's directions for eating. ?? Unless your doctor has told you not to, drink plenty of fluids. This helps to replace the fluidsthat were lost during the colon prep. ?? Do not drink alcohol. Medicines ?? Your doctor will tell you if and when you can restart your medicines. He or she will also give you instructions about taking any new medicines. ?? If you take blood thinners, such as warfarin (Coumadin), clopidogrel (Plavix), or aspirin, be sure to talk to your doctor. He or she will tell you if and when to start taking those medicines again. Make sure that you understand exactly what your doctor wants you to do. ?? If polyps were removed or a biopsy was done during the test, your doctor may tell you not to take aspirin or other anti-inflammatory medicines for a few days. These include ibuprofen (Advil, Motrin) and naproxen (Aleve). Other instructions ?? For your safety, do not drive or operate machinery until the medicine wears off and you can think clearly. Your doctor may tell you not to drive or operate machinery until the day after your test. ?? Do not sign legal documents or make major decisions until the medicine wears off and you can think clearly. The anesthesia can make it hard for you to fully understand what you are agreeing to. Additional Information for Sedation Patients For patients who received sedation: ?? You may have received medications before and/or during your procedure which effects your judgement and reaction time. ?? Do not drive, operate machinery, drink alcoholic beverages or make important decisions for 24 hours. ?? Be careful on stairs as you may be unsteady on your feet. ?? You may eat a regular diet as tolerated. ?? Do not smoke if you are alone. ?? IV site: Slight redness or tenderness is normal, you can use a warm compress if you would like. If tenderness and/or redness increase or if foul drainage occurs, please contact your Doctor. Please call [phone] before 8pm Mon-Fri with problems, questions or concerns. If you call after 8pm or on weekends, call the Hospital at [phone] and ask to speak to the Counterintelligence Analyst photovoltaic subcontractor and the block out machine operator will contact that person for you. When should you call for help? Call [phone] anytime you think you may need emergency care. For example, call if: ?? You passed out (lost consciousness). ?? You pass maroon or bloody stools. ?? You have trouble breathing. Call your doctor now or seek immediate medical care if: ?? You have pain that does not get better after you take pain medicine. ?? You are sick to your stomach or cannot drink fluids. ?? You have new or worse belly pain. ?? You have blood in your stools. ?? You have a fever. ?? You cannot pass stools or gas. Watch closely for changes in your health, and be sure to contact your doctor if you have any problems. Where can you learn more? [facility] View your After Visit Summary and more online at [email or web address] If you would like to provide feedback about your hospital experience, please call the Office of Patient and Family Relations at . If you have received this After Visit Summary in error, please immediately return it in person to the department, or notify the [facility] Privacy Office by calling toll free at between the hours of 8AM and 5PM to arrange for our retrieval of the documents at no cost to you. Content Version: 12.2 ?? [phone] careersmore. Care instructions adapted under license by [facility]. If you have questions about a medical condition or this instruction, always ask your healthcare professional. [employer]more disclaims any warranty or liability for your use of this information. documented in this encounter Medications at Time of Discharge Medication Sig Dispensed Refills Start Date End Date cyclobenzaprine (Flexeril) 10 mg Tablet Bedtime 01/23/2020 furosemide (Lasix) 20 mg Tablet PRN 03/10/2016 losartan (Cozaar) 50 mg Tablet Daily 04/01/2020 methocarbamoL (Robaxin) 500 mg Tablet Q6H 05/09/2019 Rybelsus 3 mg Tablet 02/22/2020 acetaminophen (Tylenol) 500 mg Tablet Take 1,000 mg by mouth every 6 hours as needed for Pain. metFORMIN (GLUCOPHAGE) 1,000 mg Tablet Take 1,000 mg by mouth 2 times daily. 01/30/2019 ibuprofen (ADVIL;MOTRIN) 600 mg Tablet Take 1 tablet by mouth every 8 hours as needed for Pain. 30 tablet 3 12/21/2018 ONE TOUCH DELICA 33 gauge Misc 3 09/27/2018 terbinafine (LAMISIL) 250 mg Tablet 0 08/15/2018 gabapentin (NEURONTIN) 300 mg Capsule 1 08/31/2018 ONETOUCH ULTRA2 METER Misc 0 09/27/2018 ONETOUCH ULTRA BLUE TEST STRIP Strip 3 09/27/2018 amoxicillin (AMOXIL) 500 mg Capsule 0 08/15/2018 ammonium lactate (LAC-HYDRIN) 12 % Lotion 2 09/28/2018 PROVENTIL HFA 90 mcg/actuation HFA Aerosol Inhaler 4 08/15/2018 buPROPion (WELLBUTRIN SR OR ZYBAN) 150 mg Tablet Sustained Release TAKE ONE TABLET BY MOUTH TWICE A DAY 11 01/06/2016 omeprazole (PRILOSEC) 40 mg Capsule, Delayed Release(E.C.) TAKE ONE CAPSULE BY MOUTH EVERY DAY 11 01/06/2016 sildenafil (VIAGRA) 100 mg tablet 100MG, PO, PRN 10/06/2009 traZODone (DESYREL) 100 mg tablet 50MG, PO, QHS 10/06/2009 documented as of this encounter H&P Notes * Carrol Fontaine MD - 11/18/2020 8:16 AM EDT Gastroenterology and Hepatology Pre-Procedure History and Physical Exam Procedure: EGD: Colonoscopy: Indication: Diarrhea PROBLEM LIST Patient Active Problem List Diagnosis Code ??? CIS - Diabetes ??? CIS - Entered not Verified ??? CIS - Hyperlipidemia ??? CIS - Obesity ??? CIS - obstructive sleep apnea ??? CIS - palpitations ??? s/p Right wrist arthroscopy with debridement of central TFCC tear and release of the EPL right wrist 12/21/[address] Dorantes M25.531 ??? Subluxation of right extensor carpi ulnaris tendon S63.091A ??? s/p Right Extensor Subsheath Reconstruction for Subluxing ECU - 08/30/2019 Dr. Dorantes S63.093A ??? Right lateral epicondylitis M77.11 ??? Diarrhea R19.7 ??? Family history of colon cancer Z80.0 ??? Family history of celiac disease Z83.79 ??? Abdominal cramping R10.9 ??? Abdominal bloating R14.0 ??? Abdominal distention R14.0 ??? History of diverticulitis of colon Z87.19 ??? History of heartburn Z87.898 MEDICATIONS No current facility-administered medications on file prior to encounter. Current Outpatient Medications on File Prior to Encounter Medication Sig Dispense Refill ??? Rybelsus 3 mg Tablet ??? metFORMIN (GLUCOPHAGE) 1,000 mg Tablet Take 1,000 mg by mouth 2 times daily. ??? ibuprofen (ADVIL;MOTRIN) 600 mg Tablet Take 1 tablet by mouth every 8 hours as needed for Pain.30 tablet 3 ??? gabapentin (NEURONTIN) 300 mg Capsule 1 ??? buPROPion (WELLBUTRIN SR OR ZYBAN) 150 mg Tablet Sustained Release TAKE ONE TABLET BY MOUTH TWICE A DAY 11 ??? omeprazole (PRILOSEC) 40 mg Capsule, Delayed Release(E.C.) TAKE ONE CAPSULE BY MOUTH EVERY DAY 11 ??? traZODone (DESYREL) 100 mg tablet 50MG, PO, QHS ??? acetaminophen (Tylenol) 500 mg Tablet Take 1,000 mg by mouth every 6 hours as needed for Pain. ??? ONE TOUCH DELICA 33 gauge Misc 3 ??? terbinafine (LAMISIL) 250 mg Tablet 0 ??? ONETOUCH ULTRA2 METER Misc 0 ??? ONETOUCH ULTRA BLUE TEST STRIP Strip 3 ??? amoxicillin (AMOXIL) 500 mg Capsule 0 ??? ammonium lactate (LAC-HYDRIN) 12 % Lotion 2 ??? PROVENTIL HFA 90 mcg/actuation HFA Aerosol Inhaler 4 ??? sildenafil (VIAGRA) 100 mg tablet 100MG, PO, PRN PHYSICAL EXAM: GEN: Alert, cooperative, pleasant and in NAD HEENT: Airway examined, oropharyngeal clear without lesions Mallampati Score: see anesthesia note Neck: Supple, no lymphadenopathy or masses LUNGS: Clear to auscultation HEART: Regular rate and rhythm, normal S1, S2 ABDOMEN: Normal bowel sounds, soft, non tender, non distended EXT: No clubbing, cyanosis or edenoma NEURO: No focal deficits RECENT LABS No results found for this or any previous visit (from the past 24 hour(s)). ASSESSMENT AND PLAN Edwin Estelita Levy is a 60 y.o. y/o who presents for endoscopy. Risks and benefits of the procedureexplained to the patient. We discussed in depth possible risks include reaction to anesthesia, bleeding, infection, perforation, bruising of other organs in the body, and/or other unforseen complication. All of the patients questions were answered. Patient wishes to proceed and consent was signed. Proceed with the planned endoscopic procedure. ASA grade: see anesthesia note Sedation Plan: anesthesia Carrol Fontaine MD Gastroenterology attending Pager [phone] documented in this encounter Plan of Treatment Not on file documented as of this encounter Procedures Procedure Name Priority Date/Time Associated Diagnosis Comments SPECIMEN TO PATHOLOGY Routine 11/18/2020 9:02 AM EDT SURGICAL PATHOLOGY REPORT Routine 11/18/2020 8:47 AM EDT SPECIMEN TO PATHOLOGY Routine 11/18/2020 8:47 AM EDT SPECIMEN TO PATHOLOGY Routine 11/18/2020 8:47 AM EDT Colonoscopy, Biopsy ([id number]) 11/18/2020 8:30 AM EDT Diarrhea, unspecified type Family history of colon cancer Family history of celiac disease Abdominal cramping Abdominal bloating Abdominal distention History of diverticulitis of colon History of heartburn Upper Gi Endoscopy, Biopsy ([id number]) 11/18/2020 8:30 AM EDT Diarrhea, unspecified type Family history of colon cancer Family history of celiac disease Abdominal cramping Abdominal bloating Abdominal distention History of diverticulitis of colon History of heartburn COLONOSCOPY, DIAGNOSTIC (WRVU 3.26) 11/18/2020 8:30 AM EDT Diarrhea, unspecified type Family history of colon cancer Family history of celiac disease Abdominal cramping Abdominal bloating Abdominal distention History of diverticulitis of colon History of heartburn EGD, UPPER GI ENDOSCOPY (WRVU 2.09) 11/18/2020 8:30 AM EDT Diarrhea, unspecified type Family history of colon cancer Family history of celiac disease Abdominal cramping Abdominal bloating Abdominal distention History of diverticulitis of colon History of heartburn COLONOSCOPY Routine 11/18/2020 8:25 AM EDT UPPER GI ENDOSCOPY Routine 11/18/2020 8: 25 AM EDT documented in this encounter Results * Specimen to Pathology (11/18/2020 9:02 AM EDT) AP Specimen 11/18/2020 9:02 AM EDT 11/18/2020 9:02 AM EDT Narrative [facility] - 11/18/2020 9:02 AM EDT Specimen requisition ordered. ??Separate Pathology report to follow Carrol Fontaine MD PATHOLOGY/CYTOLOG Y ORDERABLES [facility] [place] [address] * Surgical Pathology Report (11/18/2020 8:47 AM EDT) Final Diagnosis [id number] ? Location: 4T; EA12; A The signing pathologist has (i) examined the relevant preparation(s) for the specimen(s) and (ii) rendered or confirmed the diagnosis(es). . ?Surgical Pathology DIAGNOSIS A - Duodenum ro celiac, biopsy (Multiple): - ??Duodenal mucosa within normal limits, including preserved villous architecture. B - Colon random, biopsy (Multiple): - ??Moderately active colitis, patchy. - ??There is no evidence of dysplasia. C - Rectum, biopsy (Multiple): - ??Moderately active chronic colitis. - ??There is no evidence of dysplasia. Electronically signed by: ?Jessica PALUMBO PhD, [place] Verified: ??11/21/2020 11:03 ??Pathologist Performed at: ??-[facility] [place], [place], [place] DISCUSSION B & C - The differential diagnosis includes chronic infection, and incipient inflammatory bowel disease (IBD). Clinical correlation is recommended. SPECIMEN(S) SUBMITTED A - Duodenum ro celiac, biopsy (Multiple) B - Colon random, biopsy (Multiple) C - Rectum, biopsy (Multiple) CLINICAL INFORMATION Diarrhea SPECIMEN PROCESSING A - Labeled/Fixative : Duodenum R/O celiac, formalin. Quantity/Size: Two, averaging 0.4 cm. Tissue Description: Soft, hinkle-pink tissues. Sections/Process ing: Submitted en toto ??in 1 cassette labeled A1. B - Labeled/Fixative : Colon random, formalin. Quantity/Size: Multiple, 0.2-0.3 cm. Tissue Description: Soft, hinkle-pink tissues. Sections/Process ing: Submitted en toto ??in 2 cassettes labeled B1-B2. C - Labeled/Fixative : Rectum, formalin. Quantity/Size: Four, 0.2-0.3 cm. Tissue Description: Soft, hinkle tissues. Sections/Process ing: Submitted en toto ??in 1 cassette labeled C1. ??yojana 11/21/2020 11:03 AM EDT [facility] GI Biopsy 11/18/2020 8:47 AM EDT 11/18/2020 8:47 AM EDT GI Biopsy 11/18/2020 8:47 AM EDT 11/18/2020 8:47 AM EDT GI Biopsy 11/18/2020 8:47 AM EDT 11/18/2020 8:47 AM EDT Carrol Fontaine MD PATHOLOGY/CYTOLOG Y ORDERABLES [facility] [place] [address] * Specimen to Pathology (11/18/2020 8:47 AM EDT) AP Specimen 11/18/2020 8:47 AM EDT 11/18/2020 8:47 AM EDT Narrative [facility] - 11/18/2020 8:47 AM EDT Specimen requisition ordered. ??Separate Pathology report to follow Carrol Fontaine MD PATHOLOGY/CYTOLOG Y ORDERABLES Performing Organization Address City/[facility]/ZIP Co de Phone Number [facility] [place] [address] * Specimen to Pathology (11/18/2020 8:47 AM EDT) AP Specimen 11/18/2020 8:47 AM EDT 11/18/2020 8:47 AM EDT Narrative [facility] - 11/18/2020 8:47 AM EDT Specimen requisition ordered. ??Separate Pathology report to follow Carrol Fontaine MD PATHOLOGY/CYTOLOG Y ORDERABLES Performing Organization Address [facility]/State/ZIP Co de Phone Number [facility] [place] [address] * COLONOSCOPY (11/18/2020 8:25 AM EDT) COLONOSCOPY [facility] Endoscopy Procedure Date: 11/18/2020 8:25 AM ? Patient Name: Edwin Levy ? Date of : 1960 ? Age: 60 ? Order #: [id number] ? Instrument Name: [id number] ? Procedure: ? Colonoscopy Indications: ? Clinically significant diarrhea of ? unexplained origin Providers: ? Carrol Fontaine MD, Penny ? ALEJA Willis, Lelia Serrano Referring MD: ?Ha Anand MD Requesting Provider: Avtar Betancourt [...] preparation was evaluated using ? the BBPS ([place] Bowel Preparation ? Scale) with scores of: [...] Ha Anand MD GENERAL SURGICAL ORDERABLES [employer] * UPPER GI ENDOSCOPY (11/18/2020 8:25 AM EDT) UPPER GI ENDOSCOPY [facility] Endoscopy Procedure Date: 11/18/2020 8:25 AM ? Patient Name: Edwin Levy ? N: [id number] ? Date of : 1960 ? Age: 60 ? Order #: [id number] ? Instrument Name: [id number] ? Procedure: ? Upper GI endoscopy Indications: ? Diarrhea Providers: ? Carrol Fontaine MD, Penny ? ALEJA Willis, Lelia Serrano Referring MD: ?Ha Anand MD Requesting Provider: Avtar Betancourt Medicines: ? Monitored Anesthesia Care Complications: ? No immediate complications. Procedure: ? The procedure, indications, benefits, ? risks and alternatives were explained ? to the patient. Specifically ? discussed were potential ? complications including, but not ? limited to, bleeding, perforation, ? infection, missing a cancer, and ? adverse medication reactions. The ? Endoscope was introduced through the ? mouth, and advanced to the second ? part of duodenum. The patient ? tolerated the procedure well. The ? upper GI endoscopy was accomplished ? without difficulty. The patient ? tolerated the procedure well. ? Findings: ? The Z-line was regular and was found 45 cm from the ? incisors. ? The examined esophagus was normal. ? The entire examined stomach was normal. ? The examined duodenum was normal with normal ? appearing villi. Biopsies for histology were taken ? with a cold forceps for evaluation of celiac disease. ? Moderate Sedation: ? Not applicable - See Anesthesia documentation Impression: ?- Normal EGD. Duodenal biopsies ? obtained. Recommendation: ?- Await pathology results. ? - Perform a colonoscopy today. ? Attending Participation: ? I personally performed the entire procedure. ? Carrol Fontaine MD 11/18/2020 8:44:11 AM Number of Addenda: 0 Note Initiated On: 11/18/2020 8:25 AM [employer] 11/18/2020 8:25 AM EDT Ha Anand MD GENERAL SURGICAL ORDERABLES [employer] documented in this encounter Visit Diagnoses Diagnosis Diarrhea Family history of colon cancer Family history [...] of digestive system documented in this encounter Admitting Diagnoses Diagnosis Diarrhea Family history of colon cancer Family history [...] of digestive system documented in this encounter Administered Medications Inactive Administered Medications - up to 3 most recent administrations Medication Order MAR Action Action Date Dose Rate Site lactated ringers infusion 100 mL/hr, Intravenous, CONTINUOUS, Starting on Tue11/18/20 at 0800, Until Tue11/18/20 at 0915, Endoscopy (Day of Procedure) Rate/Dose Change 11/18/2020 9:04 AM EDT 100 mL/hr New Bag 11/18/2020 7:52 AM EDT 100 mL/hr 100 mL/hr documented in this encounter Active and Recently Administered Medications Times are shown in EDT. Continuous Medication Order 11/16/2020 11/17/2020 11/18/2020 lactated ringers infusion (CANCELED) 100 mL/hr, Intravenous, CONTINUOUS, Starting on Tue11/18/20 at 0800, Until Tue11/18/20 at 0915, Endoscopy (Day of Procedure) 0752 (New Bag - Prov ider: Rm Vences RN)0904 (Rate/Dose Change - Provider: Donna Rodriguez CRNA) documented in this encounter Care Teams [employer] Relationship Specialty Start Date End Date Ha Anand MD [address] [place] [address] PCP - General Family Medicine 09/25/18 documented as of this encounter
--- OUTSIDE RECORDS SUMMARY | 2023-11-30 16:08 | XMS_ITS | Encounter Summary ---
Author Organization [facility] Address [facility] [place] [address] Care Team Providers Care Funeral Location Manager Name Role Phone Ha Anand MD Primary Care Provider [phone] Reason for Referral * Rehabilitation (Routine) - Closed Specialty Diagnoses / Procedures Referred By Contac t Referred To Contact Diagnoses Pain in right wrist Pain in right wrist Procedures Evaluate and Treat Aby Diez PA [facility] [place] [address] Referral ID Status Reason Start Date Expiration Date V isits Requested Visits Authorized [id number] Closed Evaluate and Treat 04/23/2020 04/23/2021 1 1 Reason for Visit * Reason Comments Follow-up R ECU tendon subluxa tion repair DOS: 08/30/19 Encounter Details Date Type Department Care Team (Late st Contact Info) Description 04/23/2020 10:15 AM EST Office Visit [place] [address] Ferdinand Dorantes MD [facility] [place] [address] s/p Right wrist arthroscopy with debridement of [...] Sign Reading Time Taken Comments Blood Pressure 139/65 04/23/2020 9:47 AM EST Pulse 65 04/23/2020 9:47 AM EST Temperature - - Respiratory Rate - - Oxygen Saturation - - Inhaled Oxygen Concentration - - Weight 163.3 kg (360 lb) 04/23/2020 9:47 AM EST reported Height 180.3 cm (5' 11) 04/23/2020 9:47 AM EST reported Body Mass Index 50.21 04/23/2020 9:47 AM EST documented in this encounter Progress Notes * Aby Diez PA - 04/23/2020 10:15 AM EST PATIENT NAME: Edwin Levy AGE: 60 y.o. MR#: [id number] DATE OF VISIT: 04/23/2020 SURGERY: Right 6th extensor subsheath reconstruction DOS 08/30/19 STAFF: Dr. Dorantes CHIEF COMPLAINT: 8 months s/p right ECU subsheath reconstruction HISTORY OF PRESENT ILLNESS: Mr. Leyv is a right hand dominant 60 y.o. male who comes into clinic today for evaluation of the right wrist. 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 He denies any pain while performing his ADLs. He takes Tylenol and Ibuprofen PRN with adequate relief. No numbness or tingling. The patient remains out of work. The patient reports continuing to go to hand therapy twice weekly with continued improvement. Medications and Allergies were reviewed in eD-H PAST MEDICAL HX: Past Medical History: Diagnosis Date ??? Alcohol abuse ??? Depression ??? Diabetes ??? Diverticulitis ??? Former smoker ??? Hyperlipidemia ??? FUOZIA (obstructive sleep apnea) ??? s/p Right Extensor Subsheath Reconstruction for Subluxing ECU - 08/30/2019 Dr. Dorantes 08/30/2019 PAST SURGICAL HX: Past Surgical History: Procedure Laterality Date ??? CARDIAC CATHERIZATION ??? CHOLECYSTECTOMY ??? PRO EXCIS SYNOV WRIST, EXTENS TENDON Right 12/21/2018 SYNOVECTOMY, EXTENSOR SHEATH, WRIST, SINGLE COMPARTMENT (WRVU 4.51) performed by Ferdinand Dorantes MD at [facility] MAIN OR ??? PRO EXCIS SYNOV WRIST, EXTENS TENDON Right 08/30/2019 SYNOVECTOMY, EXTENSOR SHEATH, WRIST, SINGLE COMPARTMENT (WRVU 4.51) performed by Ferdinand Dorantes MD at [facility] MAIN OR ??? PRO REFOREARM EXT TEND SHEATH, GRAFT Right 08/30/2019 REPAIR, TENDON SHEATH , FOREARM &,OR WRIST, EXTENSOR, W/ FREE GRAFT (WRVU 8.96) performed by Ferdinand Dorantes MD at [facility] MAIN OR ??? PRO WRIST ARTHROSCOP, EXCIS TRIANG CART Right 12/21/2018 ARTHROSCOPY WRIST, REPAIR TFCC, DEBRIDMENT (WRVU 6.89) performed by Ferdinand Dorantes MD at [facility] MAIN OR FAMILY HX: Family History Problem Relation Age of Onset ??? Diabetes Maternal Grandmother ??? Diabetes Maternal Grandfather ??? Celiac Disease Sister ??? Colorectal Cancer Paternal Grandmother 81 ??? Inflammatory Bowel Disease Neg Hx ??? Esophageal Cancer Neg Hx SOCIAL HX: Social History Occupational History ??? Not on file Tobacco Use ??? Smoking status: Former Smoker Types: Cigarettes Quit date: 07/03/2016 Years since quittin.8 ??? Smokeless tobacco: Never Used Substance and Sexual Activity ??? Alcohol use: Not Currently Comment: monthly ??? Drug use: Not Currently ??? Sexual activity: Not on file ROS: Constitutional: Denies fevers, chills Respiratory: Denies shortness of breath, cough Cardiac: Denies chest pain, palpitations GI: denies abdominal pain, nausea, vomiting Skin: Denies new rashes or lesions Neuro: no numbness, tingling Musculoskeletal: as above in HPI General Health, Prior Treatments, PreExisting Condition, Health Habits, About You 02/27/2020 PROMIS-10 General Health Good PROMIS-10 Quality of Life Good PROMIS-10 Physical Health Fair PROMIS-10 Mental Health Good PROMIS-10 Social Activity Good PROMIS-10 Everyday Activities Mostly PROMIS-10 Pain 3 PROMIS-10 Fatigue Mild PROMIS-10 Social Roles Good PROMIS-10 Anxious or Depressed Rarely PROMIS PHYSICAL SCORE (range 16-68) 44.9 PROMIS MENTAL SCORE (range 21-68) 45.8 Treatments Tried - Alzheimers or dementia - Cirrohosis or liver disease - HIV/AIDS - Pain in more than one joint in legs - Back or neck pain - Heart attack - Heart failure - Unclog/bypass leg arteries - Stroke, blood clot, TIA - Asthma - Emphysema, chronic bronchities, or COPD - Stomach ulcers/peptic ulcer disease - Diabetes - Diabetes caused problems with kidneys - Diabetes caused problems with eyes - Poor kidney function - Rheumatic condtions - Cancer - Weight (lbs) - Height (feet) - Height (Inches) - BMI - Ever used tobacco products - Tobacco frequency - WHO - Tobacco Advice - Ever used alcoholic beverages - Alcohol frequency - WHO - Alcohol Advice - Live Alone - Marital situation - Schooling - Combined Household Income - # People Supported - Portuguese, , - Race - Health Literacy - Currently working - Current job situation - Employment status before injury Currently working Returned to previous employment No Spending time in inpatient rehab facility No Rate overall condition today 4 PHYSICAL EXAM: Mr. Levy is a 60 y.o. male General appearance: in no acute distress, alert, cooperative Psych: cooperative with exam, appropriate Head: normocephalic, atraumatic EENT: EOMI grossly intact Neck: supple, trachea midline Cardiac: regular rate and rhythm by peripheral pulse Lungs: non-labored respirations Musculoskeletal: RUE ??? Inspection: Well healed incision without erythema, edema, ecchymosis, abrasions. ??? Palpation: Mildly TTP over ECU insertion. Crepitus over ECU tendon with forearm rotation although no subluxation. ??? ROM: Full pronation, supination to 50 degrees. Full ROM digits 1-5. Wrist extension to 45 degrees and flexion to neutral. ??? Neurovascular: SGILT R/M/U/Ax nerve distributions; AIN/PIN/U nerves fire; 2+ radial pulse ASSESSMENT: 8 months s/p right ECU subsheath reconstruction, continued improvement PLAN: - The patient will continue with OT as long as he continues to notice improvement. - Social work consulted for work comp and vocational rehab recommendations. - The patient was referred for vocational rehab and MMI evaluation. - Work comp paperwork completed today. - He will return for follow up PRN - The patient understands to contact us if they have any other questions or concerns. Dr. Dorantes also evaluated and spoke with the patient at today's visit. Aby Diez PA-C Department of Orthopaedics [facility] Pager: [phone] documented in this encounter Plan of Treatment Scheduled Referrals Name Type Priority Associated Diagnoses Orde r Schedule Referral to PT/OT for Functional Capacity Evaluation Outpatient Referral Routine s/p Right wrist arthroscopy with debridement of central TFCC tear and release of the EPL right wrist 12/21/[address] Dorantes Ordered: 04/23/2020 documented as of this encounter Visit Diagnoses Diagnosis s/p Right wrist arthroscopy with debridement of central TFCC tear and release of the EPL right wrist 12/21/[address] Dorantes Pain in joint, forearm documented in this encounter Care Teams Funeral Location Manager Relationship Specialty Start Date End Date Ha Anand MD [address] [place] [address] PCP - General Family Medicine 09/25/18 documented as of this encounter
--- OUTSIDE RECORDS SUMMARY | 2023-11-30 16:08 | XMS_ITS | Encounter Summary ---
Author Organization [facility] Address [facility] [place] [address] Care Team Providers Care Mechanical Maintenance Name Role Phone Ha Anand MD Primary Care Provider [phone] Encounter Details Date Type Department Care Team (Late st Contact Info) Description 11/18/2020 8:30 AM EDT - 11/18/2020 9:30 AM EDT Surgery [place] [address] Carrol Fontaine MD [facility] [place] [address] EGD, UPPER GI ENDOSCOPY (WRVU 2.09) Social History Tobacco Use Types Packs/Day Years [...] Sign Reading Time Taken Comments Blood Pressure 160/134 11/18/2020 9:30 AM EDT Pulse 59 11/18/2020 7:41 AM EDT Temperature 36.8 ??C (98.3 ??F) 11/18/2020 7:41 AM ED T Respiratory Rate 16 11/18/2020 9:30 AM EDT Oxygen Saturation 96% 11/18/2020 9:30 AM EDT Inhaled Oxygen Concentration - - Weight 142 kg (313 lb) 11/18/2020 7:41 AM EDT Height 182.9 cm (6') 11/18/2020 7:41 AM EDT Body Mass Index 42.45 11/18/2020 7:41 AM EDT documented in this encounter Discharge Instructions * Discharge Instructions* Patsy Stauffer RN - 11/18/2020 9:15 AM EDT Upper [...] the day after the procedure, use an [id number] spray to numb your throat. Sucking on [...] occurs, please contact your Doctor. Please call [phone] before 8pm Mon-Fri with problems, questions or concerns. If you call after 8pm or on weekends, call the Hospital at [phone] and ask to speak to the Internet Network Specialist rn oncology research and the filter machine operator will contact that person for you. When should you call for help? Call [phone] anytime you think you may need emergency [...] any problems. Where can you learn more? [facility] View your After Visit Summary and more online at [email or web address] If you would like to provide feedback about your hospital experience, please call the Office of Patient and Family Relations at . If you have received this After Visit Summary in error, please immediately return it in person to the department, or notify the [facility] Privacy Office by calling toll free at between the hours of 8AM and 5PM to arrange for our retrieval of the documents at no cost to you. Content Version: 12.2 ?? 0177-8004 [employer]. Care instructions adapted under license by [facility]. If you have questions about a medical condition or this instruction, always ask your healthcare professional. [employer] disclaims any warranty or liability for your [...] occurs, please contact your Doctor. Please call [phone] before 8pm Mon-Fri with problems, questions or concerns. If you call after 8pm or on weekends, call the Hospital at [phone] and ask to speak to the Internet Network Specialist rn oncology research and the filter machine operator will contact that person for you. When should you call for help? Call [phone] anytime you think you may need emergency [...] any problems. Where can you learn more? [email or web address] View your After Visit Summary and more online at [email or web address] If you would like to provide feedback about your hospital experience, please call the Office of Patient and Family Relations at . If you have received this After Visit Summary in error, please immediately return it in person to the department, or notify the [facility] Privacy Office by calling toll free at between the hours of 8AM and 5PM to arrange for our retrieval of the documents at no cost to you. Content Version: 12.2 ?? 2134-6128 [employer]. Care instructions adapted under license by [facility]. If you have questions about a medical condition or this instruction, always ask your healthcare professional. [employer] disclaims any warranty or liability for your [...] past 24 hour(s)). ASSESSMENT AND PLAN Edwin Levy is a 60 y.o. y/o who [...] anesthesia Carrol Fontaine MD Gastroenterology attending Pager [phone] documented in this encounter Plan of Treatment Not on file documented as of this encounter Procedures Procedure Name Priority Date/Time Associated Diagnosis Comments SPECIMEN TO PATHOLOGY Routine 11/18/2020 9:02 AM EDT SURGICAL PATHOLOGY REPORT Routine 11/18/2020 8:47 AM EDT SPECIMEN TO PATHOLOGY Routine 11/18/2020 8:47 AM EDT SPECIMEN TO PATHOLOGY Routine 11/18/2020 8:47 AM EDT Colonoscopy, Biopsy ([id number]) 11/18/2020 8:30 AM EDT Diarrhea, unspecified type Family history of colon cancer Family history of celiac disease Abdominal cramping Abdominal bloating Abdominal distention History of diverticulitis of colon History of heartburn Upper Gi Endoscopy, Biopsy ([id number]) 11/18/2020 8:30 AM EDT Diarrhea, unspecified type [...] AM EDT 11/18/2020 9:02 AM EDT Narrative [facility] - 11/18/2020 9:02 AM EDT Specimen requisition ordered. ??Separate Pathology report to follow Carrol Fontaine MD PATHOLOGY/CYTOLOG Y ORDERABLES [facility] [place] [address] * Surgical Pathology Report (11/18/2020 8:47 AM EDT) Final Diagnosis [id number] ? Location: 4T; EA12; A The signing [...] Danuta Verified: ??11/21/2020 11:03 ??Pathologist Performed at: ??-[facility] Dept. of Pathology, [place], [place] DISCUSSION B & C - The [...] labeled C1. ??yojana 11/21/2020 11:03 AM EDT [facility] GI Biopsy 11/18/2020 8:47 AM EDT 11/18/2020 8:47 AM EDT GI Biopsy 11/18/2020 8:47 AM EDT 11/18/2020 8:47 AM EDT GI Biopsy 11/18/2020 8:47 AM EDT 11/18/2020 8:47 AM EDT Carrol Fontaine MD PATHOLOGY/CYTOLOG Y ORDERABLES [facility] [place] [address] * Specimen to Pathology (11/18/2020 8:47 AM EDT) AP Specimen 11/18/2020 8:47 AM EDT 11/18/2020 8:47 AM EDT Narrative [facility] - 11/18/2020 8:47 AM EDT Specimen requisition ordered. ??Separate Pathology report to follow Carrol Fontaine MD PATHOLOGY/CYTOLOG Y ORDERABLES [facility] [place] [address] * Specimen to Pathology (11/18/2020 8:47 AM EDT) AP Specimen 11/18/2020 8:47 AM EDT 11/18/2020 8:47 AM EDT Narrative [facility] - 11/18/2020 8:47 AM EDT Specimen requisition ordered. ??Separate Pathology report to follow Carrol Fontaine MD PATHOLOGY/CYTOLOG Y ORDERABLES Performing Organization Address [facility]/State/ZIP Co de Phone Number [facility] [place] [address] * COLONOSCOPY (11/18/2020 8:25 AM EDT) COLONOSCOPY [facility] Procedure Date: 11/18/2020 8:25 AM ? Patient Name: Edwin Levy ? N: [id number] ? Date of : 1960 ? Age: 60 ? Order #: [id number] ? Instrument Name: [id number] ? Procedure: ? Colonoscopy Indications: ? Clinically significant diarrhea of ? unexplained origin Providers: ? Carrol Fontaine MD, Penny ? Lazaro, ALEJA, Lelia Serrano Referring MD: ?Ha Anand MD [...] preparation was evaluated using ? the BBPS ([place] Bowel Preparation ? Scale) with scores of: [...] (11/18/2020 8:25 AM EDT) UPPER GI ENDOSCOPY [facility] Procedure Date: 11/18/2020 8:25 AM ? Patient Name: Edwin Levy ? Date of : 1960 ? Age: 60 ? Order #: [id number] ? Instrument Name: [id number] ? Procedure: ? Upper GI endoscopy Indications: ? Diarrhea Providers: ? Carrol Fontaine MD, Penny ? Lazaro, ALEJA, Lelia Valles MD: ?Ha Anand MD Requesting Provider: Avtar [...] history of other diseases of digestive system Diarrhea, unspecified type Family history of colon [...] infusion 100 mL/hr, Intravenous, CONTINUOUS, Starting on 11/18/20 at 0800, Until 11/18/20 at 0915, Endoscopy (Day of Procedure) Rate/Dose Change 11/18/2020 9:04 AM EDT 100 mL/hr New Bag 11/18/2020 7:52 AM EDT 100 mL/hr 100 mL/hr documented in this encounter Active and Recently Administered Medications Times are shown in EDT. Continuous Medication Order 11/16/2020 11/17/2020 11/18/2020 lactated ringers infusion (CANCELED) 100 mL/hr, Intravenous, CONTINUOUS, Starting on 11/18/20 at 0800, Until 11/18/20 at 0915, Endoscopy (Day of Procedure) 0752 (New Bag - Prov ider: Rm Vences RN)0904 (Rate/Dose Change - Provider: Donna Rodriguez CRNA) documented in this encounter Care Teams Mechanical Maintenance Relationship Specialty Start Date End Date Ha Anand MD [address] [place] [address] PCP - General Family Medicine 09/25/18 documented as of this encounter
--- OUTSIDE RECORDS SUMMARY | 2023-11-30 16:08 | XMS_ITS | Encounter Summary ---
Author Organization [facility] Address [facility] [place] [address] Care Team Providers Care Hides Inspector Name Role Phone Ha Anand MD Primary Care Provider [phone] Reason for Visit * Reason Onset Date Comments Appointment 05/15/2021 Encounter Details Date Type Department Care Team (Late st Contact Info) Description 05/15/2021 Telephone [place] [address] Janny Hidalgo MD [facility] DR OR[place]OPA[place] [address] Appointment Social History Tobacco Use Types Packs/Day [...] encounter Miscellaneous Notes * Telephone Encounter - Ezekiel Cerna - 05/15/2021 4:21 PM EDT LM#1 Left message for Edwin Levy Sr. to call back to discuss some new patient questions before his upcoming appt with Dr. Hidalgo on 05/20/21. Asked that he let us know the best time to call him back for questions. He may also follow-up via My message documented in this encounter Plan of Treatment Not on file documented as of this encounter Visit Diagnoses Not on filedocumented in this encounter Care Teams Hides Inspector Relationship Specialty Start Date End Date Ha Anand MD [address] [place] [address] PCP - General Family Medicine 09/25/18 documented as of this encounter
--- OUTSIDE RECORDS SUMMARY | 2023-11-30 16:09 | XMS_ITS | Encounter Summary ---
Author Organization [facility] Address [facility] [place] [address] Care Team Providers Care Talent Solutions Manager Name Role Phone Ha Anand MD Primary Care Provider [phone] [phone] Encounter Details Date Type Department Care Team (Latest Contact Info) Description 08/01/2019 2:36 PM EDT - 08/01/2019 11:59 PM EDT Hospital En[place] [address] Ferdinand Dorantes MD [facility] [place] [address] Wrist pain, right; s/p Right wrist arthroscopy with debridement of central TFCC tear and release of the EPL right wrist 12/21/[address] Dorantes Discharge Disposition: Home Social History Tobacco Use [...] on file documented as of this encounter Medications at Time of Discharge Medication Sig Dispensed Refills Start Date End Date furosemide (Lasix) 20 mg Tablet PRN 03/10/2016 methocarbamoL (Robaxin) 500 mg Tablet Q6H 05/09/2019 metFORMIN (GLUCOPHAGE) 1,000 mg Tablet Take 1,000 [...] 100 mg tablet 50MG, PO, QHS 10/06/2009 oxyCODONE (Roxicodone) 5 mg Tablet Take 1-2 tablets by mouth every 4 hours as needed for Pain (Take 1-2 tabs (5-10 mg) for moderate-severe pain.). 20 tablet 08/30/2019 04/23/2020 senna-docusate (Pericolace) 8.6-50 mg Tablet Take 1 tablet by mouth daily as needed for Constipation. 15 tablet 08/30/2019 09/11/2019 fluticasone propionate (FLONASE) 50 mcg/actuation Arnold, Suspension as needed. 02/08/2019 04/23/2020 metFORMIN (GLUCOPHAGE) 500 mg Tablet 1,000 mg. 3 08/15/2018 08/29/2019 documented as of this encounter Plan of Treatment Not on file documented as of this encounter Procedures Procedure Name Priority Date/Time Associated Diagnosis Comments US EXTREMITY NON VASCULAR LIMITED ANATOMIC SPECIFIC RIGHT Routine 08/01/2019 3:21 PM EDT Wrist pain, right s/p Right wrist arthroscopy with debridement of central TFCC tear and release of the EPL right wrist 12/21/[address] Dorantes documented in this encounter Results * US Extremity Non Vascular Limited Right (08/01/2019 3:21 PM EDT) Anatomical Region Laterality Modality Ultrasound Impressions 08/06/2019 9:10 AM EDT 1. ??Subluxation of the right ECU on supination. 2. ??Mild right ECU tendinopathy but no tear. I discussed the result(s) with Dr. Dorantes on 08/01/2019 3:55 PM and verified that (s)he understood these results. Thank you for letting us participate in the care of this patient. For questions regarding this report, please contact the number below. ? Narrative 08/06/2019 9:10 AM EDT EXAMINATION: US EXTREMITY NON VASCULAR LIMITED RIGHT CLINICAL HISTORY: right wrist pain TECHNIQUE: The right extensor carpi ulnaris was examined using a high frequency transducer. Color doppler images were acquired. We also obtained images of the left wrist. Dynamic imaging during supination and pronation of both wrists were acquired. ?? FINDINGS: Right extensor carpi ulnaris [ECU]-is heterogeneous and equivocally larger than the asymptomatic left tendon representing tendinopathy. No tear or split seen. There is trace peritendinous fluid. The tendon subluxed/snapped on supination and reduced on pronation. The sheath is not optimally seen. Left ECU No subluxation seen. Normal appearance of tendon. Procedure Note Radha Qiu MD - 08/06/2019 EXAMINATION: US EXTREMITY NON VASCULAR LIMITED RIGHT CLINICAL HISTORY: right wrist pain TECHNIQUE: The right extensor carpi ulnaris was examined using a high frequencytransducer. Color doppler images were acquired. We also obtained images of the leftwrist. Dynamic imaging during supination and pronation of both wrists wereacquired. FINDINGS: Right extensor carpi ulnaris [ECU]-is heterogeneous and equivocally largerthan the asymptomatic left tendon representing tendinopathy. No tear or splitseen. There is trace peritendinous fluid. The tendon subluxed/snapped on supination and reduced on pronation. Thesheath is not optimally seen. Left ECU No subluxation seen. Normal appearance of tendon. IMPRESSION 1. Subluxation of the right ECU on supination. 2. Mild right ECU tendinopathy but no tear. I discussed the result(s) with Dr. Dorantes on 08/01/2019 3:55 PM andverified that (s)he understood these results. Thank you for letting us participate in the care of this patient. Forquestions regarding this report, please contact the number below. Ferdinand Dorantes MD IMG US GEN ORDERABLE S documented in this encounter Visit Diagnoses Diagnosis Wrist pain, right Pain in joint, forearm s/p Right wrist arthroscopy with debridement of central TFCC tear and release of the EPL right wrist 12/21/[address] Dorantes Pain in joint, forearm documented in this encounter Care Teams Talent Solutions Manager Relationship Specialty Start Date End Date Ha Anand MD [address] [place] [address] PCP - General Family Medicine 09/25/18 documented as of this encounter
--- OUTSIDE RECORDS SUMMARY | 2023-11-30 16:09 | XMS_ITS | Encounter Summary ---
Author Organization [facility] Address [facility] [place] [address] Care Team Providers Care Airplane Gastank Liner Assembler Name Role Phone Ha Anand MD Primary Care Provider [phone] Reason for Visit * Occupational Therapy (Routine) - Closed Specialty Diagnoses / Procedures Referred By Contac t Referred To Contact Occupational Therapy Diagnoses Wrist pain, right Ferdinand Dorantes MD [facility] [address] [place] [address] [facility] [address] [place] [address] Referral ID Status Reason Start Date Expiration Date V isits Requested Visits Authorized [id number] Closed Evaluate and Treat 01/03/2019 01/03/2020 1 1 Encounter Details Date Type Department Care Team (Late st Contact Info) Description 01/03/2019 10:30 AM EST Office Visit Occupational Therapy at [facility] [address] [place] [address] Domonique Almanzar, OT s/p Right wrist arthroscopy with debridement of [...] Miscellaneous Notes * Initial Evaluation - Domonique Almanzar, OT - 01/03/2019 10:30 AM EST OCCUPATIONAL THERAPY ORTHOTIC EVALUATION Certification Period: 01/03/2019 Referral Source: Dr. Jose E West MD Follow-up: 6 weeks from today Total Treatment time: 15 Minutes Timed Code Treatment Time: 15 minutes OCCUPATIONAL PROFILE: Edwin Levy is a 58 y.o. year old Right hand dominant male who underwent debridement of RIGHT TFCC central tear, release of third dorsal compartment. Edwin Levy is referred to Occupational Therapy for evaluation and treatment to include fabrication of a custom orthosis. Patient presents today alone. Date of onset of symptoms: Ongoing Date of surgery: 12/21/2018 Pertinent History and/or Co-morbidities: 1. s/p Right wrist arthroscopy with debridement of central TFCC tear and release of the EPL right wrist 12/21/[address] Dorantes Occupation: [employer] Vocational status: off work Avocational Activities: Time with family OCCUPATIONAL PERFORMANCE DEFICITS: Edwin Levy is limited with current performance due to pain, swelling and limited mobility/range of motion. Global Mental Function: With gross screening of patient???s global mental functions, patient demonstrates orientation to person, place, time, and situation. Patient???s affect/behavior is appropriateand cooperative today. Patient Specific Functional Scale (PSFS) (unable to perform 0/10 - Able to perform without difficulty 10/10) Activity At Evaluation 1.) Knife skills 0 2.) Meal prep 3 3.) Dressing 8 4.) Driving 8 Average Score: 4.75 Pain: (Assessed using the Visual Analog Pain Scale) At Rest: 2/10 With Activity: 4/10 Treatment Today: Orthosis - Wrist-Hand Orthotic, W/O [employer] Fit [employer] Adj ([id number]) Educated patient in etiology and biomechanics as related to patient's symptoms Fabricated volar wrist cock up orthosis Instructed in orthosis wear and care Range of Motion Exercises: wrist flexion/extension, forearm sup/pron, tendon glides, fingertip/thumb opposition. Edwin Levy was provided with exercises today which can be found in the scanneddocuments section of the chart. CLINICAL DECISION MAKING: Edwin Levy has a well fitting orthosis post therapy. Edwin Levy is able to independently verbalize and demonstrate the recommended home program following instructions today. Edwin Levy has good potential for gains with therapy/home program use. Patient knows to call with any questions or concerns. Edwin Levy lives a considerable distance from this clinic; continued therapy will be arranged a at clinic closer to home. Short Term Goals (to be met by [...] to provide support and protection to the joint, Provide positive feedback and encouragement to improve emotional and mental well-being and f/u PRN. (X) Edwin Levy participated in the evaluation, collaborated on treatment goals, and agrees to the treatment plan. documented in this encounter Plan of Treatment Scheduled Referrals Name Type Priority Associated Diagnoses Order Schedule Referral to Occupational Therapy Outpatient Referral Routine Wrist pain, right Ordered: 01/03/2019 documented as of this encounter Visit Diagnoses Diagnosis s/p Right wrist arthroscopy with debridement of central TFCC tear and release of the EPL right wrist 12/21/[address] Dorantes Pain in joint, forearm documented in this encounter Care Teams Airplane Gastank Liner Assembler Relationship Specialty Start Date End Date Ha Anand MD [address] [place] [address] PCP - General Family Medicine 09/25/18 documented as of this encounter
--- OUTSIDE RECORDS SUMMARY | 2023-11-30 16:09 | XMS_ITS | Encounter Summary ---
Author Organization [facility] Address [facility] [place] [address] Care Team Providers Care Photoengraving Proofer Apprentice Name Role Phone Ha Anand MD Primary Care Provider [phone] Reason for Visit * Reason Comments Post Op R ECU tendon subluxa tion repair DOS 08/30/19 Encounter Details Date Type Department Care Team (Late st Contact Info) Description 09/11/2019 11:30 AM EDT [place] [address] Yenni Dorantes MD [facility] [place] [address] Subluxation of right extensor carpi ulnaris tendon, [...] Sign Reading Time Taken Comments Blood Pressure 142/81 09/11/2019 11:04 AM EDT Pulse 75 09/11/2019 11:04 AM EDT Temperature 37.8 ??C (100 ??F) 09/11/2019 11:04 AM ED T Respiratory Rate - - Oxygen Saturation - - Inhaled Oxygen Concentration - - Weight 163.3 kg (360 lb) 09/11/2019 11:04 AM EDT reported Height 180.3 cm (5' 11) 09/11/2019 11:04 AM EDT reported Body Mass Index 50.21 09/11/2019 11:04 AM EDT documented in this encounter Progress Notes * Yenni Dorantes MD - 09/11/2019 11:30 AM EDT I examined Edwin Levy and I agree with Dr. Villatoro's note. YENNI DORANTES MD * Ruddy Villatoro MD - 09/11/2019 11:30 AM EDT Orthopedic hand surgery postoperative follow-up note Edwin Levy Date of encounter: 09/11/2019 59-year-old male who underwent right sixth extensor compartment sub-sheath reconstruction now approximately 2 weeks ago. He presents for his first postoperative follow-up appointment. He notes that he has been doing quite well since date of surgery. He has been in a cast. He has been elevating consi stently. He has been taking Tylenol on an as-needed basis for pain control. He denies any fever chills. He denies any numbness or tingling to his right hand. This is his dominant hand but he has beenable to get by without use of it. He really is quite pleased with his postoperative course thus far. On exam his incision is well appearing. The wound edges are approximated nicely. There is no surrounding erythema. No drainage. Distally his sensation is intact light touch in the radial median and ulnar nerve distributions. He has motor intact to AIN/PIN/IO function. He has brisk capillary refill and a warm and well-perfused hand. Edwin is a 59-year-old male seen today for his first postoperative follow-up. He recently underwentsixth extensor compartment reconstruction on the right side for an injury sustained at work. He is doing well postoperatively. His sutures were removed in the office today. He was transitioned out ofthe splint and into a [place] cast. He was positioned in pronation, radial deviation, and slight fl exion so as to take tension off the repair and minimize any risk of ECU subluxation. We will plan to see him back in approximately 6 weeks for reevaluation. Edwin is in agreement with the above plan.All questions were answered. Ruddy Villatoro MD Orthopedic surgery PGY 3 documented in this encounter Plan of Treatment Not on file documented as of this encounter Visit Diagnoses Diagnosis Subluxation of right extensor carpi ulnaris tendon, subsequent encounter documented in this encounter Care Teams Photoengraving Proofer Apprentice Relationship Specialty Start Date End Date Ha Anand MD [address] [place] [address] PCP - General Family Medicine 09/25/18 documented as of this encounter
--- OUTSIDE RECORDS SUMMARY | 2023-11-30 16:09 | XMS_ITS | Encounter Summary ---
Author Organization [facility] Address [facility] [place] [address] Care Team Providers Care Tobacco Stemmer Machine Name Role Phone Ha Anand MD Primary Care Provider [phone] Encounter Details Date Type Department Care Team (Latest Contact Info) Description 06/20/2019 12:41 PM EDT - 06/20/2019 11:59 PM EDT Hospital Encounter XRay at [address] [place] [address] Ferdinand Dorantes MD [facility] [place] [address] s/p Right wrist arthroscopy with debridement of [...] 100 mg tablet 50MG, PO, QHS 10/06/2009 fluticasone propionate (FLONASE) 50 mcg/actuation [place], Suspension as needed. 02/08/2019 04/23/2020 metFORMIN (GLUCOPHAGE) 500 mg Tablet 1,000 mg. 3 08/15/2018 08/29/2019 documented as of this encounter Plan of Treatment Not on file documented as of this encounter Procedures Procedure Name Priority Date/Time Associated Diagnosis Comments XR WRIST 3 VIEWS RIGHT Routine 06/20/2019 12:50 PM EDT s/p Right wrist arthroscopy with debridement of central TFCC tear and release of the EPL right wrist 12/21/[address] Dorantes documented in this encounter Results * XR Wrist 3 Views Right (06/20/2019 12:50 PM EDT) Anatomical Region Laterality Modality Right Digital Radiogra phy Impressions 06/20/2019 12:53 PM EDT No fracture or dislocation. Thank you for letting us participate in the care of this patient. For questions regarding this report, please contact the number below. ? Narrative 06/20/2019 12:53 PM EDT EXAMINATION: XR WRIST 3 VIEWS RIGHT CLINICAL HISTORY: R wrist pain s/p TFCC repair TECHNIQUE: 3 views RIGHT wrist COMPARISON: March 2018 radiographs and October 2018 MRI FINDINGS: Cystic change within the mid scaphoid is similar compared to prior MRI. No fracture or dislocation. Alignment is intact. Cartilage spaces are preserved. Mild degenerative change at the thumb MCP joint and the first CMC. Procedure Note Sha Cohn MD - 06/20/2019 EXAMINATION: XR WRIST 3 VIEWS RIGHT CLINICAL HISTORY: R wrist pain s/p TFCC repair TECHNIQUE: 3 views RIGHT wrist COMPARISON: March 2018 radiographs and October 2018 MRI FINDINGS: Cystic change within the mid scaphoid is similar compared to prior MRI.No fracture or dislocation. Alignment is intact. Cartilage spaces arepreserved. Mild degenerative change at the thumb MCP joint and the first CMC. IMPRESSION No fracture or dislocation. Thank you for letting us participate in the care of this patient. Forquestions regarding this report, please contact the number below. Electronically signed by: Sha Cohn [facility] ([phone]),at 06/20/2019 12:53 PM Ferdinand Dorantes MD IMG DX ORDERABLES documented in this encounter Visit Diagnoses Diagnosis s/p Right wrist arthroscopy with debridement of central TFCC tear and release of the EPL right wrist 12/21/[address] Dorantes Pain in joint, forearm documented in this encounter Care Teams Tobacco Stemmer Machine Relationship Specialty Start Date End Date Ha Anand MD [address] [address] [address] [place] [address] PCP - General Family Medicine 09/25/18 documented as of this encounter
--- OUTSIDE RECORDS SUMMARY | 2023-11-30 16:09 | XMS_ITS | Encounter Summary ---
Author Organization [facility] Address [facility] [place] [address] Care Team Providers Care Change Management Director Name Role Phone Ha Anand MD Primary Care Provider [phone] Reason for Visit * Reason Comments Follow-up 12/21/18 R wrist TFCC repair/debridement and release of EPL - discuss MRI Encounter Details Date Type Department Care Team (Late st Contact Info) Description 07/18/2019 4:00 PM EDT Office [place] [address] Ferdinand Dorantes MD [facility] [place] [address] Wrist pain, right; s/p Right wrist arthroscopy [...] Reading Time Taken Comments Blood Pressure 157/85 07/18/2019 4:18 PM EDT Pulse 70 07/18/2019 4:18 PM EDT Temperature - - Respiratory Rate - - Oxygen Saturation - - Inhaled Oxygen Concentration - - Weight 163.3 kg (360 lb) 07/18/2019 4:18 PM EDT reported Height 180.3 cm (5' 11) 07/18/2019 4:18 PM EDT reported Body Mass Index 50.21 07/18/2019 4:18 PM EDT documented in this encounter Progress Notes * Ferdinand Dorantes MD - 07/18/2019 4:00 PM EDT Edwin Levy returns following an MRI of his right wrist. 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 He describes his pain is directly over the ulnargroove of his right wrist. He had his ECU sheath injected with steroid and lidocaine by Dr. Amaya in the past without any relief of his pain. He notes that at rest, the pain is typically a 1 out of 10 but when he uses his right hand it flares up it is very uncomfortable. Exam reveals no alison swelling about his right wrist. He has point tenderness over the ulnar groove. I cannot elicit clear dislocation of his extensor carpi ulnaris tendon with wrist range of motion or with provocative maneuvers. He does not have significant radiocarpal pain today nor pain over theextensor pollicis longus tendon. His TFCC and DRUJ are stable. He is not particularly tender over the pisiform with compression. His MRI done today shows postsurgical changes in the TFCC. There is narrowing of the radiocarpal joint space. There is no active synovitis. Subchondral cystic changes are seen in multiple carpal bones. His ECU tendon may be slightly subluxed in the ulnar groove but this certainly could be positional also. There does not appear to be significant tendinosis of the ECU tendon. I discussed these findings with him. Although I think there may not be a fix for this pain it may be worthwhile to finalize this evaluation with a dynamic ultrasound to rule out extensor carpi ulnaris tendon instability. We will schedule this to be done with a follow-up visit with me on the same day. He reports that he is not able to work because of his wrist pain and therefore has not been released to work yet. If no solution for this pain can be worked out, he may benefit from vocational retraining. documented in this encounter Plan of Treatment Not on file documented as of this encounter Results * US Extremity Non [...] with Dr. Dorantes Pain in joint, forearm Wrist pain, right Pain in joint, forearm s/p Right wrist arthroscopy with debridement of central TFCC tear and release of the EPL right wrist 12/21/[address] Dorantes Pain in joint, forearm documented in this encounter Care Teams Change Management Director Relationship Specialty Start Date End Date Ha Anand MD [address] [place] [address] PCP - General Family Medicine 09/25/18 documented as of this encounter
--- OUTSIDE RECORDS SUMMARY | 2023-11-30 16:09 | XMS_ITS | Encounter Summary ---
Author Organization [facility] Address [facility] [place] [address] Care Team Providers Care Apprentice Photographer Name Role Phone Ha Anand MD Primary Care Provider [phone] Reason for Visit * Auth/Cert Specialty Diagnoses / Procedures Referred By Giuseppe t Referred To Contact Diagnoses ECU instability Procedures PRO EXCIS SYNOV WRIST, EXTENS TENDON PRO REFOREARM EXT TEND SHEATH, GRAFT SYNOVECTOMY, EXTENSOR SHEATH, WRIST, SINGLE COMPARTMENT (WRVU 4.51) REPAIR, TENDON SHEATH , FOREARM &,OR WRIST, EXTENSOR, W/ FREE GRAFT (WRVU 8.96) Referral ID Status Reason Start Date Expiration Date Visits Re quested Visits Authorized [id number] 1 1 Encounter Details Date Type Department Care Team (Latest Contact Info) Description 08/30/2019 12:53 PM EDT - 08/30/2019 6:12 PM EDT Hospital Encounter [place] [address] Yenni Dorantes MD [facility] [place] [address] Wrist pain, right; Pain in right wrist Discharge Disposition: Home Social History Tobacco Use [...] Sign Reading Time Taken Comments Blood Pressure 164/77 08/30/2019 5:54 PM EDT Pulse 69 08/30/2019 2:45 PM EDT Temperature 36.8 ??C (98.2 ??F) 08/30/2019 1:13 PM ED T Respiratory Rate 16 08/30/2019 5:54 PM EDT Oxygen Saturation 93% 08/30/2019 6:00 PM EDT Inhaled Oxygen Concentration - - Weight 163.3 kg (360 lb) 08/30/2019 1:13 PM EDT Height 180.3 cm (5' 11) 08/30/2019 1:13 PM EDT Body Mass Index 50.21 08/30/2019 1:13 PM EDT documented in this encounter Discharge Instructions * Discharge Instructions* Mere Mason RN - 08/30/2019 5:38 PM EDT SAME DAY PROGRAM POST-OPERATIVE INSTRUCTIONS NERVE BLOCK PATIENTS What to expect after a nerve block Nerve blocks affect many types of nerves. The affected nerves control movement, pain, and normal sensation. This causes feelings such as ? Weakness ? Numbness ? Tingling ? Heaviness ? A feeling that your arm or leg has ???fallen asleep?? A nerve block can last for 24-48 hours, depending on the medications used. Usually the weakness wears off first, and then you will feel a numb/tingly sensation. Finally, the pain may come back. This can happen in any order. If you had a shoulder block, you may have other symptoms such as: ??? Mild shortness of breath ??? A hoarse voice ??? Blurry vision ??? Unequal pupils ??? Drooping of your face on the same side as the nerve block These are common and expected side effects of this type of nerve block. Symptoms usually go away within 12 hours. If these symptoms do not go away, please call the Anesthesiology Department at . If you have severe or prolonged shortness of breath, please go to the nearest emergency room. If you continue to feel the effects of the nerve block for longer than 48 hours, please call the Anesthesiology Department at . PAIN MEDICATION If needed, your surgeon will give you a prescription for pain medication. Start taking this medication before the nerve block wears off. Nerve blocks sometimes wear off during the night. It is a goodidea to take your pain medicine as prescribed before going to sleep so you won???t wake up with pain. The idea is to have pain medication in your body before the nerve block wears off. To help prevent nausea, eat something before taking the pain medication. Once a nerve block starts to wear off, it is usually completely gone within 60 minutes. It is important to have pain medicine in your system before the block wears off completely. Helpful tips to protect the part of your body that is numb After a nerve block, you cannot feel pain, pressure, or extremes in temperature. Because your arm or leg is numb, it is more at risk for injury. For example, you could burn your arm or leg without knowing it. Here are some hints to help protect your limb while it is numb. ??? While you are awake, try to change positions of your arm or leg often. This will help you avoidputting too much pressure on the limb for long periods of time. ??? While sleeping, pad the blocked limb with pillows to avoid placing too much pressure on the limb. ??? If you have a cast or a tight dressing, check the color of your fingers/toes every couple of hours. Call your doctor if any look discolored. ??? If you had a shoulder, arm or hand nerve block, you may go home with a sling. The sling will help to keep your arm in the ideal position. Wear the sling at all times until feelings returns. If you do not have a sling, watch the position of the blocked arm to make sure it is in a safe location. ??? Ask your family or support people to help with the above hints. Questions? Please call the Anesthesiology Department at with concerns or questions. After hours, call the hospital packing tractor machine operator at and ask for the anesthesiologist power electronics engineer. * Patient Instructions* Mack Wyatt MD - 08/30/2019 5:05 PM EDT Orthopaedic Hand Surgery Same Day Discharge Instructions: General Activities ?? Diet: Start light and progress as tolerated. No alcoholic beverages on the day of surgery or while taking narcotics. If taking narcotics, make sure you are getting plenty of fluids and fiber. ?? In general, care should be taken the first several days following surgery to limit strenuous activity. You want to avoid any activities that you may lose your balance, slip, trip, fall or re-injure your surgery. ?? You may shower tomorrow. Cover your dressing/cast with a plastic bag to keep it dry. ?? No driving while taking narcotic medications or wearing a device (splint, cast, sling, brace) that limits joint mobility. When you feel you can safely control your vehicle and respond to unpredictable situations you may resume driving. Hand Use ?? Decreased sensation for several hours following surgery is often from the local anesthesia used during the procedure. This will resolve on its own. ?? If a regional anesthetic was used, wear your sling until you regain full function of your limb, and keep a close eye on the positioning of your arm and hand. When you have regained function and sensation you may then remove the sling. ?? Do not use your operative hand for any lifting, pushing or pulling. You may move your elbow and shoulder as tolerated. ?? Gentle exercises with any exposed fingers are encouraged and gently opening and closing the digits will keep the joints flexible. Specific activities and exercises will be discussed at your first postoperative visit. Ice and elevation ?? Some swelling is expected after surgery. Ice and elevation are the best remedies to reduce swelling and pain. Keep your hand properly elevated above the level of the heart i.e., fingers above palm, palm above the wrist, wrist above the elbow. Use pillows to increase elevation. ?? Intermittently apply ice to the outside of the dressing for 20 minutes 6-8 times a day. You will want to ice and elevate for 5-7 days after surgery or as long as it hurts. ?? Do not rely on a sling as it does not sufficiently elevate your hand. For proper elevation whilewalking around place your surgical hand on your opposite shoulder. Dressing/ Wound: ?? The post-op dressing, splint or cast is a very important part of your treatment. If you have anyquestions please call us for clarification. If your dressing becomes wet or damaged please call theoffice. ?? No creams, lotions or ointments on your incision. Keep steri-strips in place. They will fall offon their own ?? Keep your dressing clean and DRY until your follow-up appointment. Do not change your dressing. ?? A plaster splint has been applied --do not remove it or stick objects in it (i.e. coat hangers, pencils). Please keep it dry, bag it for showers and keep out of running water. If it becomes wet you must call the office. Pain Management ?? Most patients only require narcotics for a short period of time. Ice and elevation is an effective and important modality to use in conjunction with your oral pain medication. In a day or two you may be ready to start decreasing the amount of pain medication your taking. Pain medication is to betaken on an ???as needed?if needed?? basis. Remember to start with the least amount and evaluate its effectiveness. ?? You should not drink alcoholic beverages while on pain medication. ?? If tolerated, please take Tylenol three times a day in conjunction with the narcotic as they complement each other. Once pain is better controlled, you may simply take extra strength Tylenol, one to two tablets every six hours as needed. Do not exceed 3,000 mg in 24 hours. ?? The most common side effects of narcotic pain medications are nausea and constipation. A stool softener, Senna, has been prescribed for you. To decrease nausea always take pain medication with food. If you are experiencing vomiting, please call us right away. To minimize constipation, drink plenty of fluids, eat a high fiber diet with plenty of fruits and vegetables, and take a stool softener or laxative as needed. ?? You may take an anti-inflammatory medication such as Ibuprofen/Advil/Motrin or Naproxen/Aleve. Refer to the medication bottles for daily allowance and dosing. Discontinue if it causes stomach upset. Contact Information: During clinic hours M-F 8-4:30 please call [phone] If it is after 5:00PM on a weekday or a weekend and it is of an urgent nature please call [phone] and ask for the on-call orthopaedic resident. Call if: 1. You have a fever greater than 101 F or experience chills 2. Increased drainage from incision 3. Redness or extreme swelling around incision 4. Increased pain or change in pain that is not controlled with elevation, ice and your pain medication. 5. Any questions concerns related to surgery Future Appointments Date Time Provider Department Center 09/12/2019 11:20 AM Hailey Powell PA [facility] documented in this encounter Medications at Time [...] 08/30/2019 09/11/2019 fluticasone propionate (FLONASE) 50 mcg/actuation [place], Suspension as needed. 02/08/2019 04/23/2020 documented as of this encounter Progress Notes * Mere Mason RN - 08/30/2019 6:12 PM EDT Pt with RUE dressing CDI, extremities warm and pink, cap refill <3 sec, numbness present. Tolerating food and fluids without difficulty and ambulated to void without difficulty. AVS reviewed with patient and , all questions answered. VSS. * Kali Reyes MD - 08/30/2019 6:12 PM EDT Regional Anesthesia Post-Procedure Progress Note I attempted to contact the patient via telephone on 09/05/2019 regarding resolution of nerve block. I was unable to reach the patient. I will follow-up again to ensure resolution of block. If there are any questions or concerns regarding the nerve block, do not hesitate to contact the regional anesthesia team Kali Reyes MD Regional Anesthesia Service Pager [phone] * Owen Aguilar - 08/30/2019 6:12 PM EDT Regional Anesthesia Post-Procedure Assessment Spoke to patient via telephone. Peripheral nerve block resolved appropriately. No residual weakness/numbness/decreased sensation. No sign of infection at injection site. Tolerating POs appropriately.Patient very satisfied with nerve block. Owen Aguilar MD Regional/Acute Pain Anesthesia Fellow, PGY5 Pager #[phone] documented in this encounter H&P Notes * Mack Wyatt MD - 08/30/2019 3:02 PM EDT 24-Hour Pre-Operative H&P Update Edwin Levy 1960 [id number] Patient seen in pre-op holding area today. There are no clinically significant changes to the patient's health since the original H&P. Patient denies any recent fevers or chills. General: Comfortable appearing male reclined on stretcher in NAD, alert and oriented, answering questions appropriately. CV: Regular rate and rhythm. No M/R/G. Resp: Normal respiratory effort on room air. Lungs CTAB. The patient is ready to proceed with the planned surgical procedure today. Surgical consent form reviewed. Operative extremity marked. All questions sought and answered. Mack Wyatt MD Orthopaedic Surgery PGY5 * Yenni Dorantes MD - 08/29/2019 9:47 PM EDT Patient Name: Edwin Levy Patient Age: 59 y.o. 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 This was confirmed by dynamic ultrasound. It has failed to respond to corticosteroid injection and other conservative measures. He was brought to the operating room for reconstruction of his right sixth extensor compartment. Summary of procedure: After general and block anesthesia were performed, and 3 g of intravenous cefazolin were administered, the patient's right upper extremity was prepped with a Hibiclens scrub giulia ChloraPrep. His right upper extremity was draped in the usual sterile fashion. A preoperative timeout was performed as per [facility] [place]. His right arm was then exsanguinated with an Esmarch bandage and a brachial tourniquet was inflated to 230 mmHg. An incision was made over the dorsum of his right distal forearm biased slightly ulnar to the midline. Subcutaneous spreading was performed and hemostasis was achieved with electrocautery. Great carewas taken to avoid injury to subcutaneous nerves as well as to longitudinal draining veins. A transverse central ulnarly based flap of the extensor retinaculum was sharply raised from the septum between the second and third extensor compartments out to the septum between the fifth and sixth extensor compartments. This was done with blunt and sharp dissection with care being taken to avoid injury to the extensor tendons. The sixth extensor compartment was then incised along its ulnar edge and itwas mobilized from its compartment. There was found to be a complete sub-sheath rupture with scarring present within the sixth extensor compartment. The ECU tendon was mildly thickened and it had some superficial fraying which was sharply debrided. Greater than 90% of the ECU tendon remained intact. Tubularization of the tendon was not deemed to be necessary. Synovium was sharply debrided from around the extensor carpi ulnaris tendon. The ulnarly based synovial flap was then passed under the extensor carpi ulnaris tendon with the synovial side being in contact with the tendon. It was set to the proper tension and then provisionally sutured to the septum between the fifth and sixth extensor compartments. This allowed for correction of the subluxation of the extensor carpi ulnaris tendon. The wrist was then brought through flexion and extension while the wrist was in radial and then in ulnar deviation in both supination and pronation. The extensor carpi ulnaris tendon appeared to glide well through the newly created sheath and it did not appear to be compressed at all. Additional sutures of 3-0 FiberWire were then used to s ecure the sheath. The site was now copiously irrigated. The skin was closed in layers using 4-0 undyed Vicryl and 4-0 nylon. The surgical site was injected with 10 cc of 1% lidocaine with epinephrine. Sterile bulky soft dressings were then applied and the tourniquet was released with a total tourniquet time of 51 minutes. All digits rapidly became pink and warm brisk capillary refill. The patient's right arm was then placed in a sugar tong splint with the wrist in radial deviation and neutral flexion, and with the forearm in pronation. He was then extubated and transferred to the recovery room in stable condition. There was no measurable blood loss. IV fluid replacement was 200 cc of crystalloid. He tolerated the procedure well without apparent complications. He will be placed into a Meyers Chuck cast for an additional 6 weeks after the sutures are removed withthe wrist in radial deviation and the forearm in pronation. Attestation: Case Date: 08/30/2019 I was present and I participated during the entire procedure (does not need to include opening and closing). 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 Condition: doing well without problems Attestation: Case Date: 08/30/2019 I was present and I participated during the entire procedure (does not need to include opening and closing). (Please see the Surgical Encounter Summary for any Implant and Specimen details pertinent to this patient.) documented in this encounter Plan of Treatment Not on file documented as of this encounter Procedures Procedure Name Priority Date/Time Associated Diagnosis Comments POCT GLUCOSE Routine 08/30/2019 5:04 PM EDT Reforearm Ext Tend Sheath, Graft ([id number]) 08/30/2019 3:17 PM EDT Wrist pain, right Pain in right wrist Excis Synov Wrist, Extens Tendon ([id number]) 08/30/2019 3:17 PM EDT Wrist pain, right Pain in right wrist POCT GLUCOSE Routine 08/30/2019 1:17 PM EDT REPAIR, TENDON SHEATH , FOREARM &,OR WRIST, EXTENSOR, W/ FREE GRAFT Routine 08/30/2019 6:55 AM EDT Wrist pain, right Pain in right wrist documented in this encounter Results * POCT Glucose (08/30/2019 5:04 PM EDT) Glucose, POC 131 65 - 199 mg/dL [facility] Comment: Supplemental ranges: <140 mg/dL before meals <180 mg/dL all other times of the day Blood specimen (specimen) 08/30/2019 5:04 PM EDT 08/30/2019 5:04 PM EDT Yenni Dorantes MD POINT OF CARE TEST O RDERABLES [facility] [place] [address] * POCT Glucose (08/30/2019 1:17 PM EDT) Glucose, POC 130 65 - 199 mg/dL [facility] Comment: Supplemental ranges: <140 mg/dL before meals <180 mg/dL all other times of the day Blood specimen (specimen) 08/30/2019 1:17 PM EDT 08/30/2019 1:17 PM EDT Yenni Dorantes MD POINT OF CARE TEST O RDERAIAM [facility] [place] [address] documented in this encounter Visit Diagnoses Diagnosis s/p Right Extensor Subsheath Reconstruction for Subluxing ECU - 08/30/2019 Dr. Dorantes- Primary Closed dislocation of other part of wrist Wrist pain, right Pain in joint, forearm Pain in right wrist Pain in joint, forearm documented in this encounter Administered Medications Inactive Administered Medications - up to 3 most recent administrations Medication Order MAR Action Action Date Dose Rate Site acetaminophen (Tylenol) tablet 1,000 mg 1,000 mg, Oral, ONCE, 1 dose, On Shaista 08/30/19 at 1330, Administer with SIP of H2O only., Day of Surgery (Day of Procedure), Routine Given 08/30/2019 1:28 PM EDT 1,000 mg fentaNYL 50 mcg/mL multi-dose injection 12.5-25 mcg, Intravenous, EVERY 5 MIN PRN, Starting on Shaista 08/30/19 at 1309, Until Shaista 08/30/19 at 1826, Pain, Give 12.5 mcg every 5 minutes PRN for mild to moderate pain (1-5) Give 25 mcg every 5 minutes PRN for moderate to severe pain (6-10). Hold for respiratory rate less than 10 per minute. Maximum dose 250 mcg over one hour. If ordered with hydromorphone or morphine, give hydromorphone or morphine first and use fentanyl for breakthrough pain., Day of Surgery (Day of Procedure), Routine Given 08/30/2019 3:27 PM EDT 50 mcg Given 08/30/2019 2:01 PM EDT 100 mcg lactated ringers infusion 1,000 mL, at 100 mL/hr, Intravenous, CONTINUOUS, Starting on Shaista 08/30/19 at 1330, Until Shaista 08/30/19 at 1826, Day of Surgery (Day of Procedure) New Bag 08/30/2019 3:18 PM EDT New Bag 08/30/2019 1:21 PM EDT 1,000 mLs 100 mL/hr lidocaine (XYLOCAINE) 10 mg/mL (1 %) injection 3 mg 3 mg (0.3 mL), Subcutaneous, ONCE PRN, 1 dose, Starting on Shaista 08/30/19 at 1309, Until Shaista 08/30/19 at 1322, for discomfort with PIV insertion, Day of Surgery (Day of Procedure), Routine Given 08/30/2019 1:22 PM EDT 3 mg midazolam (PF) (VERSED) injection 1 mg 1 mg, Intravenous, EVERY 5 MIN PRN, Starting on Shaista 08/30/19 at 1323, Until Shaista 08/30/19 at 1826, Sleep, or prior to injection of local anesthetic, Hold for delirium/agitation. (Maximum dose 5 mg)., Day of Surgery (Day of Procedure), Routine Given 08/30/2019 2:00 PM EDT 2 mg naloxone (NARCAN) injection 0.04 mg 0.04 mg, Intravenous, EVERY 5 MIN PRN, Starting on Shaista 08/30/19 at 1309, Until Shaista 08/30/19 at 1826, Opioid Reversal, for respiratory rate less than 6 or unresponsive., May repeat every 5 minutes to increase respiratory rate. DO NOT exceed 0.12 mg total dose. Notify anesthesia immediately if administered., Day of Surgery (Day of Procedure), Routine ondansetron (ZOFRAN) injection 4 mg 4 mg, Intravenous, EVERY 30 MIN PRN, Starting on Shaista 08/30/19 at 1309, Until Shaista 08/30/19 at 1826, Nausea, May repeat 4 mg once in 30 minutes. If multiple antiemetics ordered, use ondansetron first and if ineffective use prochlorperazine second and if ineffective use promethazine, Day of Surgery (Day of Procedure) oxyCODONE (Roxicodone) tablet 10 mg 10 mg, Oral, EVERY 4 HOURS PRN, Starting on Shaista 08/30/19 at 1708, Until Shaista 08/30/19 at 1826, Pain, moderate pain (4-6), For moderate pain (4-6). Do not exceed 15 mg in 4 hours. If pain not relieved, call provider., PACU Recovery, Routine oxyCODONE (Roxicodone) tablet 15 mg 15 mg, Oral, EVERY 4 HOURS PRN, Starting on Shaista 08/30/19 at 1708, Until Shaista 08/30/19 at 1826, Pain, severe pain, PACU Recovery, Routine oxyCODONE (Roxicodone) tablet 5 mg 5 mg, Oral, EVERY 4 HOURS PRN, Starting on Shaista 08/30/19 at 1708, Until Shaista 08/30/19 at 1826, Pain, mild pain (1-3), For mild pain (1-3). Do not exceed 15 mg in 4 hours. If pain not relieved, call provider, PACU Recovery, Routine promethazine (PHENERGAN) injection 12.5 mg 12.5 mg, Intravenous, EVERY 30 MIN PRN, Nausea, Starting on Shaista 08/30/19 at 1309, 2 doses, Until Shaista 08/30/19 at 1826, VESICANT - Dilute with a minimum of 10 mL saline. LARGE VEIN only. Inject over 10 minutes into the farthest port of a running IV infusion. Remain with the patient and STOP infusion immediately if patient reports burning. Avoid extravasation. If multiple antiemetics are ordered, use ondansetron first and if ineffective use prochlorperazine second and if ineffective use promethazine., Day of Surgery (Day of Procedure) sodium chloride 0.9 % (flush) flush 5-20 mL 5-20 mL, Intravenous, EVERY 1 MIN PRN, Starting on Shaista 08/30/19 at 1309, Until Shaista 08/30/19 at 1826, flush, Flush pertains to all indwelling lines. Flush per protocol found in the job aid using the link provided on this medication record., Day of Surgery (Day of Procedure), Routine documented in this encounter Active and Recently Administered Medications Times are shown in EDT. Scheduled Medication Order 08/28/2019 08/29/2019 08/30/2019 acetaminophen (Tylenol) tablet 1,000 mg (COMPLETED) 1,000 mg, Oral, ONCE, 1 dose, On Shaista 08/30/19 at 1330, Administer with SIP of H2O only., Day of Surgery (Day of Procedure), Routine 1328 (Given - Provid er: Abdias Mccrary RN) ceFAZolin (Ancef) 2g in dextrose 5% 100 mL (COMPLETED) 2 g, Intravenous, EVERY 3 HOURS, 1 dose, First dose on Shaista 08/30/19 at 1330, Administer over 30 Minutes, Redose after 3 hours., Intra-Operative (Intra-Procedure), Indication for (Active or Suspected): Prophylaxis 1532 (Given - Provid er: Demarco Cunningham DO) Continuous Medication Order 08/28/2019 08/29/2019 08/30/2019 lactated ringers infusion 1,000 mL, at 100 mL/hr, Intravenous, CONTINUOUS, Starting on Shaista 08/30/19 at 1330, Until Shaista 08/30/19 at 1826, Day of Surgery (Day of Procedure) 1321 (New Bag - Prov ider: Abdias Mccrary RN)1518 (New Bag - Provider: Demarco Cunningham DO)1655 (Anesthesia Volume Adjustment - Provider: Kristen Pratt MD)1656 (Stopped - Provider: Kristen Pratt MD) PRN Medication Order 08/28/2019 08/29/2019 08/30/2019 fentaNYL 50 mcg/mL multi-dose injection 12.5-25 mcg, Intravenous, EVERY 5 MIN PRN, Starting on Shaista 08/30/19 at 1309, Until Shaista 08/30/19 at 1826, Pain, Give 12.5 mcg every 5 minutes PRN for mild to moderate pain (1-5) Give 25 mcg every 5 minutes PRN for moderate to severe pain (6-10). Hold for respiratory rate less than 10 per minute. Maximum dose 250 mcg over one hour. If ordered with hydromorphone or morphine, give hydromorphone or morphine first and use fentanyl for breakthrough pain., Day of Surgery (Day of Procedure), Routine 1401 (Given - Provid er: Abdias Mccrary RN)1527 (Given - Provider: Demarco Cunningham DO) lidocaine (XYLOCAINE) 10 mg/mL (1 %) injection 3 mg (COMPLETED) 3 mg (0.3 mL), Subcutaneous, ONCE PRN, 1 dose, Starting on Shaista 08/30/19 at 1309, Until Shaista 08/30/19 at 1322, for discomfort with PIV insertion, Day of Surgery (Day of Procedure), Routine 1322 (Given - Provid er: Abdias Mccrary RN) lidocaine-EPINEPHrine 1 %-1:100,000 injection (CANCELED) ONCE PRN, Starting on Shaista 08/30/19 at 1639, Until Shaista 7 at 2017, Intra-Operative (Intra-Procedure), Routine 1639 (Given - Provid er: Yenni Dorantes MD) midazolam (PF) (VERSED) injection 1 mg 1 mg, Intravenous, EVERY 5 MIN PRN, Starting on Shaista 7 at 1323, Until Shaista 720 at 1826, Sleep, or prior to injection of local anesthetic, Hold for delirium/agitation. (Maximum dose 5 mg)., Day of Surgery (Day of Procedure), Routine 1400 (Given - Provid er: Abdias Mccrary RN) naloxone (NARCAN) injection 0.04 mg 0.04 mg, Intravenous, EVERY 5 MIN PRN, Starting on Shaista 08/30/19 at 1309, Until Shaista 7 at 1826, Opioid Reversal, for respiratory rate less than 6 or unresponsive., May repeat every 5 minutes to increase respiratory rate. DO NOT exceed 0.12 mg total dose. Notify anesthesia immediately if administered., Day of Surgery (Day of Procedure), Routine ondansetron (ZOFRAN) injection 4 mg 4 mg, Intravenous, EVERY 30 MIN PRN, Starting on Shaista 08/30/19 at 1309, Until Shaista 7/20 at 1826, Nausea, May repeat 4 mg once in 30 minutes. If multiple antiemetics ordered, use ondansetron first and if ineffective use prochlorperazine second and if ineffective use promethazine, Day of Surgery (Day of Procedure) oxyCODONE (Roxicodone) tablet 10 mg(Linked Group 1) 10 mg, Oral, EVERY 4 HOURS PRN, Starting on Shaista 08/30/19 at 1708, Until Shaista 720 at 1826, Pain, moderate pain (4-6), For moderate pain (4-6). Do not exceed 15 mg in 4 hours. If pain not relieved, call provider., PACU Recovery, Routine oxyCODONE (Roxicodone) tablet 15 mg(Linked Group 1) 15 mg, Oral, EVERY 4 HOURS PRN, Starting on Shaista 08/30/19 at 1708, Until Shaista 7 at 1826, Pain, severe pain, PACU Recovery, Routine oxyCODONE (Roxicodone) tablet 5 mg(Linked Group 1) 5 mg, Oral, EVERY 4 HOURS PRN, Starting on Shaista 08/30/19 at 1708, Until Shaista 08/30/19 at 1826, Pain, mild pain (1-3), For mild pain (1-3). Do not exceed 15 mg in 4 hours. If pain not relieved, call provider, PACU Recovery, Routine promethazine (PHENERGAN) injection 12.5 mg 12.5 mg, Intravenous, EVERY 30 MIN PRN, Nausea, Starting on Shaista 08/30/19 at 1309, 2 doses, Until Shaista 08/30/19 at 1826, VESICANT - Dilute with a minimum of 10 mL saline. LARGE VEIN only. Inject over 10 minutes into the farthest port of a running IV infusion. Remain with the patient and STOP infusion immediately if patient reports burning. Avoid extravasation. If multiple antiemetics are ordered, use ondansetron first and if ineffective use prochlorperazine second and if ineffective use promethazine., Day of Surgery (Day of Procedure) sodium chloride 0.9 % (flush) flush 5-20 mL 5-20 mL, Intravenous, EVERY 1 MIN PRN, Starting on Shaista 08/30/19 at 1309, Until Shaista 08/30/19 at 1826, flush, Flush pertains to all indwelling lines. Flush per protocol found in the job aid using the link provided on this medication record., Day of Surgery (Day of Procedure), Routine Linked Groups Order Group 1: oxyCODONE (Roxicodone) tablet 5 mgJump to med 5 mg, Oral, EVERY 4 HOURS PRN, Starting on Shaista 08/30/19 at 1708, Until Shaista 08/30/19 at 1826, Pain, mild pain (1-3), For mild pain (1-3). Do not exceed 15 mg in 4 hours. If pain not relieved, call provider, PACU Recovery, Routine Or oxyCODONE (Roxicodone) tablet 10 mgJump to med 10 mg, Oral, EVERY 4 HOURS PRN, Starting on Shaista 08/30/19 at 1708, Until Shaista 08/30/19 at 1826, Pain, moderate pain (4-6), For moderate pain (4-6). Do not exceed 15 mg in 4 hours. If pain not relieved, call provider., PACU Recovery, Routine Or oxyCODONE (Roxicodone) tablet 15 mgJump to med 15 mg, Oral, EVERY 4 HOURS PRN, Starting on Shaista 08/30/19 at 1708, Until Shaista 08/30/19 at 1826, Pain, severe pain, PACU Recovery, Routine documented in this encounter Care Teams Apprentice Photographer Relationship Specialty Start Date End Date Ha Anand MD [address] [place] [address] PCP - General Family Medicine 09/25/18 documented as of this encounter
--- OUTSIDE RECORDS SUMMARY | 2023-11-30 16:09 | XMS_ITS | Encounter Summary ---
Author [facility] [address] Care Team Providers Care Venetian Blind Washer Name Role Phone Ha Anand MD Primary Care Provider [phone] Reason for Referral * Diagnostic Test (Routine) - Closed Specialty Diagnoses / Procedures Referred By Contac t Referred To Contact Radiology Diagnoses Pain in right wrist Pain in left wrist Procedures MRI Wrist wo Contrast Right (Generic) Martha You PA [facility] [place] [address] [place] [address] Referral ID Status Reason Start Date Expiration Date V isits Requested Visits Authorized [id number] Closed Specialty Service Requested 06/20/2019 12/20/2020 1 1 Reason for Visit * Reason Comments Follow Up Surgery R wrist TFCC repair/ debride/scope WC 10/09/17 DOS: 12/21/18 - increased pain Encounter Details Date Type Department Care Team (Late st Contact Info) Description 06/20/2019 2:30 PM EDT Office [place] [phone] Ferdinand Dorantes MD [facility] [place] [address] s/p Right wrist arthroscopy with debridement of central TFCC tear and release of the EPL right wrist 12/21/[address] 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 He had been following up postoperatively with Dr. Amaya up at [place], but returns today with complaint of continued ulnar-sidedwrist pain. Patient states he received [address] Amaya which apparently was steroid injections for the DRUJ as well as the ECU tendon. He states he had relief for 1 to 2 days otherwise they were not very effective. He was sent back to work for 4 hours/day x 2 weeks but felt it difficult in terms of with skiing or lifting heavy baking pans out of the oven. He denies any paresthesias. PMH / PSH / MED / ALL: As documented and reviewed in eD-H PEx: On examination, skin is warm, dry, and intact. He has well muscled wrist and hand. He has tenderness to palpation over the ulnar styloid, the fovea, and the pisotriquetral joint. Portal incisions arewell-healed. There is minimal swelling. Wrist extends approximately 60 degrees, flexes to 45 degrees radial deviation to 10 degrees, and ulnar deviation to 30 degrees. He has pain with wrist extension and ulnar deviation. FDP/FDS/FPL/APL, extensors, intrinsics are intact. Pinch and grasp are strong. Sensation intact LT to the radial/median/ulnar nerve distributions. RP is 2+, serous wrist. IMAGING: Plain XR done today were reviewed and compared to outside films of March 20, 2018. No noted for acute fractures or dislocations. Alignment of the wrist is anatomic. There is mild subchondral sclerosis at the distal radiocarpal joint, mild joint space narrowing at the DRUJ. Mild first CMC joint narrowing as seen on the oblique view. IMPRESSION: Ulnar-sided left wrist pain Partial TFCC tear PLAN: Patient was seen and examined with Dr. Dorantes. XR were reviewed with the patient. I think would beadvantageous if we obtain MRI at this time to evaluate the ECU as well as the pisotriquetral joint.We also discussed casting for 1 month to see if this will be helpful. We will see him back in 1 month for cast off, MRI same day, and then follow-up in Dr. Dorantes clinic. Worker's Compensation paperwork is been filled out per his request. He is in agreement with this plan and all of their questions were answered. Above note was dictated with [employer] voice-recognition software. Martha You PA-C 06/20/2019 2:36 PM documented in this encounter Plan of Treatment Not on file documented as of this encounter Results * MRI Wrist wo Contrast Right (Generic) (07/18/2019 2:47 PM EDT) Anatomical Region Laterality Modality Wrist Right Magnetic Resonan ce Impressions 07/18/2019 4:32 PM EDT Expected postsurgical changes of central TFCC debridement. Similar degenerative change at multiple carpal bones and the first CMC. Similar small wrist joint effusion and small distal radial ulnar joint effusion with synovitis that appears resolved or significantly decreased. Increase in signal within the extensor pollicis longus tendon, differential includes tendinosis and postsurgical changes from release. Small amount of scar tissue at the flexor and axial and, correlate with prior carpal tunnel release. Thank you for letting us participate in the care of this patient. For questions regarding this report, please contact the number below. ? Narrative 07/18/2019 4:32 PM EDT EXAMINATION: MRI WRIST WO CONTRAST RIGHT (GENERIC) CLINICAL HISTORY: S/p wrist arthroscopy for TFCC debridement. ??Continued ulnar-sided pain. ??Please evaluate ECU tendon, pisotriquetral joint TECHNIQUE: MRI of the right wrist was performed without venous contrast. COMPARISON: Radiographs right wrist 06/20/2019. MRI of the right wrist 10/26/2018 FINDINGS: Bones: No fracture or bone marrow edema. Similar cystic change throughout the carpal bones. There is osteophyte at the first CMC joint with mild radial subluxation, similar to prior. The pisotriquetral joint is normally aligned. Small wrist joint effusion and small distal radial ulnar joint effusion. The degree of synovitis appears decreased and resolved. Tendons: Similar positioning of extensor carpi ulnaris. No tear of this tendon. Increase in intermediate signal within the extensor pollicis longus tendon at the level of Burton's tubercle and the second extensor compartment. No significant fluid within the tendon sheath. Normal appearance of the flexor tendons. Ligaments Scapholunate: Intact Lunotriquetral: Intact TFCC: 5 mm wide defect of the central disc TFCC, which has increased in size compared to prior, with smooth margins and tiny amount of scar in situ. Similar degeneration of the proximal and distal lamina. Small distal radial ulnar joint fluid. Carpal tunnel: Normal appearance of the median nerve. Scar tissue at the flexor retinaculum Guyon's canal: Normal Procedure Note Sha Cohn MD - 07/18/2019 EXAMINATION: MRI WRIST WO CONTRAST RIGHT (GENERIC) CLINICAL HISTORY: S/p wrist arthroscopy for TFCC debridement. Continued ulnar-sided pain. Please evaluate ECU tendon, pisotriquetral joint TECHNIQUE: MRI of the right wrist was performed without venous contrast. COMPARISON: Radiographs right wrist 06/20/2019. MRI of the right wrist 10/26/2018 FINDINGS: Bones: No fracture or bone marrow edema. Similar cystic change throughoutthe carpal bones. There is osteophyte at the first CMC joint with mildradial subluxation, similar to prior. The pisotriquetral joint is normallyaligned. Small wrist joint effusion and small distal radial ulnar joint effusion.The degree of synovitis appears decreased and resolved. Tendons: Similar positioning of extensor carpi ulnaris. No tear of thistendon. Increase in intermediate signal within the extensor pollicis longus tendonat the level of Burton's tubercle and the second extensor compartment. No significant fluid within the tendon sheath. Normal appearance of theflexor tendons. Ligaments Scapholunate: Intact Lunotriquetral: Intact TFCC: 5 mm wide defect of the central disc TFCC, which has increased insize compared to prior, with smooth margins and tiny amount of scar in situ.Similar degeneration of the proximal and distal lamina. Small distal radial ulnarjoint fluid. Carpal tunnel: Normal appearance of the median nerve. Scar tissue at theflexor retinaculum Guyon's canal: Normal IMPRESSION Expected postsurgical changes of central TFCC debridement. Similar degenerative change at multiple carpal bones and the first CMC. Similar small wrist joint effusion and small distal radial ulnar jointeffusion with synovitis that appears resolved or significantly decreased. Increase in signal within the extensor pollicis longus tendon,differential includes tendinosis and postsurgical changes from release. Small amount of scar tissue at the flexor and axial and, correlate withprior carpal tunnel release. Thank you for letting us participate in the care of this patient. Forquestions regarding this report, please contact the number below. Electronically signed by: Sha Cohn [facility] ([phone]),at 07/18/2019 4:32 PM Ferdinand Dorantes MD IMG MRI ORDERABLES documented in this encounter Visit Diagnoses Diagnosis s/p Right wrist arthroscopy with debridement of central TFCC tear and release of the EPL right wrist 12/21/[address] Dorantes Pain in joint, forearm Pain in left wrist Pain in joint, forearm s/p Right wrist arthroscopy with debridement of central TFCC tear and release of the EPL right wrist 12/21/[address] Dorantes Pain in joint, forearm Pain in left wrist Pain in joint, forearm documented in this encounter Care Teams Venetian Blind Washer Relationship Specialty Start Date End Date Ha Anand MD [address] [place] [address] PCP - General Family Medicine 09/25/18 documented as of this encounter
--- OUTSIDE RECORDS SUMMARY | 2023-11-30 16:09 | XMS_ITS | Encounter Summary ---
Author Organization [facility] Address [facility] [place] [address] Care Team Providers Care Director Of Sleep Name Role Phone Ha Anand MD Primary Care Provider [phone] Reason for Referral * Occupational Therapy (Routine) - Closed Specialty Diagnoses / Procedures Referred By Contac t Referred To Contact Occupational Therapy Diagnoses Wrist pain, right Yenni Dorantes MD [facility] [place] [address] [facility] [address] [place] [address] Referral ID Status Reason Start Date Expiration Date V isits Requested Visits Authorized [id number] Closed Evaluate and Treat 01/03/2019 01/03/2020 1 1 Reason for Visit * Reason Comments Follow Up Surgery R Wrist TFCC Repair/ debride/scope DOS 12/21/18 WC DOI 10/09/17 Encounter Details Date Type Department Care Team (Late st Contact Info) Description 01/03/2019 10:15 AM EST Office [place] [phone] Yenni Dorantes MD [facility] [place] [address] Wrist pain, right; s/p Right wrist arthroscopy [...] Sign Reading Time Taken Comments Blood Pressure 137/74 01/03/2019 8:42 AM EST Pulse 71 01/03/2019 8:42 AM EST Temperature 36.7 ??C (98 ??F) 01/03/2019 8:42 AM EST Respiratory Rate - - Oxygen Saturation - - Inhaled Oxygen Concentration - - Weight 164.7 kg (363 lb) 01/03/2019 8:42 AM EST reported Height 182.9 cm (6') 01/03/2019 8:42 AM EST repo rted Body Mass Index 49.23 01/03/2019 8:42 AM EST documented in this encounter Progress Notes * Amanda Mg MD - 01/03/2019 10:15 AM EST Chief complaint: ~2 week follow-up Procedure: Right wrist arthroscopy with debridement of central TFCC tear(IA) and release of the third extensor compartment right wrist 12/21/18 History of present illness: Edwin Levy is a 58 y.o. year-old male who returns to clinic today and reports he has been doing well. He is taking only Tylenol for pain and notes minimal pain in general. He denies and fevers, chills, CP or abnormal drainage. Has been in a splint since surgery and reports no issues. 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 Of note, the patient lives an [place] a half away and is interested in doing OT and follow up closer to home, perhaps with Dr. Amaya who has seen him for other issues in the past. Past Medical history: Patient Active Problem List Diagnosis Date Noted ??? s/p Right wrist arthroscopy with debridement of central TFCC tear and release of the EPL right wrist 12/21/[address] Dorantes 10/09/2018 ??? CIS - Entered not Verified 05/28/2009 ??? CIS - Diabetes ??? CIS - Hyperlipidemia ??? CIS - Obesity ??? CIS - obstructive sleep apnea ??? CIS - palpitations Medications: ??? ibuprofen (ADVIL;MOTRIN) 600 mg Tablet ??? metFORMIN (GLUCOPHAGE) 500 mg Tablet ??? ONE TOUCH DELICA 33 gauge Misc ??? terbinafine (LAMISIL) 250 mg Tablet ??? gabapentin (NEURONTIN) 300 mg Capsule ??? ONETOUCH ULTRA2 METER Misc ??? ONETOUCH ULTRA BLUE TEST STRIP Strip ??? amoxicillin (AMOXIL) 500 mg Capsule ??? ammonium lactate (LAC-HYDRIN) 12 % Lotion ??? PROVENTIL HFA 90 mcg/actuation HFA Aerosol Inhaler ??? buPROPion (WELLBUTRIN SR OR ZYBAN) 150 mg Tablet Sustained Release ??? omeprazole (PRILOSEC) 40 mg Capsule, Delayed Release(E.C.) ??? sildenafil (VIAGRA) 100 mg tablet ??? traZODone (DESYREL) 100 mg tablet Allergies: No Known Allergies Social history: Social History Tobacco Use ??? Smoking status: Former Smoker Types: Cigarettes Last attempt to quit: 07/03/2016 Years since quittin.5 ??? Smokeless tobacco: Never Used Substance Use Topics ??? Alcohol use: Not Currently Comment: monthly Questionnaire Responses: [facility] Surgical Postop Visit 01/03/2019 PROMIS-10 General Health Good PROMIS-10 Quality of Life Good PROMIS-10 Physical Health Good PROMIS-10 Mental Health Good PROMIS-10 Social Activity Good PROMIS-10 Everyday Activities Moderately PROMIS-10 Pain 2 PROMIS-10 Fatigue Mild PROMIS-10 Social Roles Fair PROMIS-10 Anxious or Depressed Rarely PROMIS PHYSICAL HEALTH SCORE 44.9 PROMIS MENTAL HEALTH SCORE 45.8 Problems with surgical incision/wound after surgery No Gone to ER since knee surgery No Admitted to hospital since recent ortho surgery No Additional surgery on same body part No Satisfaction with Treatment Satisfied Choose Same Treatment Again Probably yes No flowsheet data found. No flowsheet data found. Vital signs: Temp: [36.7 ??C (98 ??F)] Physical Exam: General: NAD, well-appearing Right wrist/hand exam: Skin is intact. There is mild edema about the wrist. No erythema or drainage from the incisions. Sutures in place. Sensation intact to light touch throughout hand in m/r/u distributions. Intact sensation at dorsal thumb. Motor intact to FPL/EPL. Wrist ROM not tested on exam. Intact flexion and extension of all digits. Cap refill <3 seconds. Assessment/Plan: 58 y.o. year-old male who is about 2 weeks s/p the above procedure. Progressing well post-operatively. Incision healing well. The sutures were removed in clinic today. Patient was placed into a removable wrist splint and we will have him start protected wrist range of motion. He was seen by out OT in clinic today and was provided with referral for OT to work on protected progressive ROM. Follow up: 6 weeks. Can be done at [facility] or with Dr. Amaya closer to home. Can discuss return to work as a chef de cuisine at that time. This plan was discussed with the patient and they are in agreement. All of the patient's questions were answered. The above dictation was made with voice recogonition software Amanda Mg MD [facility] Orthopaedic Surgery Orthopaedic Surgery PGY-3 * Yenni Dorantes MD - 01/03/2019 10:15 AM EST I examined Edwin Levy and I agree with Dr. Mg's note. He has had an uneventful couple of weeks since his right wrist arthroscopy for central TFCC debridement. 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 His thumb motion is also improved and he has left wrist pain since release of his third extensor compartment. I do not believe he is ever going to be completely asymptomatic but it is my hope that he can return to some work activity in the future. He is out of work for at least 6 weeks. He will be sent to hand therapy for splint and protected range of motion exercise program. He would prefer to have follow-up care with Dr. Amaya because he reports it t o 3-1/2-hour round trip for him to come and see me. I am comfortable with this if Dr. Amaya is willing to participate. Otherwise he should see me back in approximately 6 weeks. YENNI DORANTES MD documented in this encounter Plan of Treatment Scheduled Referrals Name Type Priority Associated Diagnoses Order Schedule Referral to Occupational Therapy Outpatient Referral Routine Wrist pain, right Ordered: 01/03/2019 documented as of this encounter Visit Diagnoses Diagnosis Wrist pain, right Pain in joint, forearm s/p Right wrist arthroscopy with debridement of central TFCC tear and release of the EPL right wrist 12/21/[address] Dorantes Pain in joint, forearm documented in this encounter Care Teams Director Of Sleep Relationship Specialty Start Date End Date Ha Anand MD [address] [place] [address] PCP - General Family Medicine 09/25/18 documented as of this encounter
--- OUTSIDE RECORDS SUMMARY | 2023-11-30 16:09 | XMS_ITS | Encounter Summary ---
Author Organization [facility] Address [facility] [place] [address] Care Team Providers Care Joggle Press Operator Name Role Phone Shea Jones MD Primary Care Provider [phone] Encounter Details Date Type Department Care Team (Late st Contact Info) Description 08/28/2018 Ancillary Procedure Radiology Library at [facility] [id number] Ferdinand Dorantes MD [facility] [place] [address] Social History Tobacco Use Types Packs/Day Years Used Date Smoking Tobacco: Never Assessed Sex and Gender Information Value Date Recorded Sex Assigned at Male 04/21/2020 10:42 AM EST Gender Identity Male 04/21/2020 10:42 AM EST Sexual Orientation Not on file documented as of this encounter Plan of Treatment Not on file documented as of this encounter Procedures Procedure Name Priority Date/Time Associated Diagnosis Comments FILM LIBRARY STORAGE ONLY DX WRIST Routine 08/28/2018 12:00 AM EDT documented in this encounter Results * Film Library- Storage Only DX Wrist (08/28/2018 12:00 AM EDT) Narrative RADHA - 09/22/2018 11:55 AM EDT This exam is auto-finalizing. It's purpose is for storage only. Ferdinand Dorantes MD IMG FILM LIBRARY ORD ERABLES [place], [place] documented in this encounter Visit Diagnoses Not on filedocumented in this encounter Care Teams Joggle Press Operator Relationship Specialty Start Date End Date Shea Jones MD [address] [place] [address] PCP - General General Internal Medicine 01/20/1509/14 documented as of this encounter
--- OUTSIDE RECORDS SUMMARY | 2023-11-30 16:09 | XMS_ITS | Encounter Summary ---
[facility] [place] [place] [address] Care Team Providers Care Traveling Missionary Name Role Phone Ha Anand MD Primary Care Provider [phone] Encounter Details Date Type Department Care Team (Late st Contact Info) Description 10/19/2019 2:00 PM EDT Notes [place] [phone] Social History Tobacco Use Types Packs/Day Years [...] as of this encounter Progress Notes * Gayatri Ferrell - 10/19/2019 2:00 PM EDT Patient attended the intro session on 10/19/2019 and the enrollment packet was mailed on 10/23/2019 documented in this encounter Plan of Treatment Not on file documented as of this encounter Visit Diagnoses Not on filedocumented in this encounter Care Teams Traveling Missionary Relationship Specialty Start Date End Date Ha Anand MD [address] [place] [address] PCP - General Family Medicine 09/25/18 documented as of this encounter
--- OUTSIDE RECORDS SUMMARY | 2023-11-30 16:09 | XMS_ITS | Encounter Summary ---
[place] [address] Care Team Providers Care Meter Record Clerk Name Role Phone Ha Anand MD Primary Care Provider [phone] Encounter Details Date Type Department Care Team (Late st Contact Info) Description 12/20/2018 Telephone [place] [phone] Soraya Benton Social History Tobacco Use Types Packs/Day Years Used Date Smoking Tobacco: Former Cigarettes Smokeless Tobacco: Never Alcohol Use Standard Drinks/Week Comments Not Currently 0 (1 standard drink = 0.6 oz pur e alcohol) monthly Sex and Gender Information Value Date Recorded Sex Assigned at Male 04/21/2020 10:42 AM EST Gender Identity Male 04/21/2020 10:42 AM EST Sexual Orientation Not on file documented as of this encounter Miscellaneous Notes * Telephone Encounter - Soraya Benton - 12/22/2018 9:59 AM EST DATE OF INJURY - 08.09.18 DATE OF SERVICE - 12.21.18 TYPE OF PROCEDURE - ARTHROSCOPY / SYNOVECTOMY PROCEDURE / DX CODE(S) - M25.531 CPT CODE(S) - 28910 & 07114 DOCTOR - YENNI BROWN DOCTOR'S NPI - [id number] PLACE OF BUSINESS - [facility] W/C INSURANCE - [employer] ID / CLAIM # - [id number] EFF DATE - 08.09.18 ADJUSTOR'S NAME - OLIVIA BUSBY PHONE # - [phone] EXT. [phone] FAX # - CALLED [employer] [place], LEFT 2nd MSG FOR OLIVIA BUSBY. * Telephone Encounter - Soraya Benton - 12/20/2018 9:52 AM EST DATE OF INJURY - 08.09.18 DATE OF SERVICE - 12.21.18 TYPE OF PROCEDURE - ARTHROSCOPY / SYNOVECTOMY PROCEDURE / DX CODE(S) - M25.531 CPT CODE(S) - 61691 & 32122 DOCTOR - YENNI BROWN DOCTOR'S NPI - [id number] PLACE OF BUSINESS - [facility] W/C INSURANCE - [employer] ID / CLAIM # - [id number] EFF DATE - 08.09.18 ADJUSTOR'S NAME - OLIVIA BUSBY PHONE # - [phone] EXT. [phone] FAX # - CALLED [facility] [place], LEFT MSG FOR OLIVIA BUSBY. documented in this encounter Plan of Treatment Not on file documented as of this encounter Visit Diagnoses Not on filedocumented in this encounter Care Teams Meter Record Clerk Relationship Specialty Start Date End Date Ha Anand MD [address] [place] [address] PCP - General Family Medicine 09/25/18 documented as of this encounter
--- OUTSIDE RECORDS SUMMARY | 2023-11-30 16:09 | XMS_ITS | Encounter Summary ---
Author Organization [facility] Address [facility] [place] [address] Care Team Providers Care Catering Barista Name Role Phone Ha Anand MD Primary Care Provider [phone] Reason for Visit * Auth/Cert Specialty Diagnoses / Procedures Referred By Giuseppe t Referred To Contact Diagnoses right TFCC repair and third extensore compartment release vs debridement Procedures PRO WRIST ARTHROSCOP, EXCIS TRIANG CART PRO EXCIS SYNOV WRIST, EXTENS TENDON ARTHROSCOPY WRIST, REPAIR TFCC, DEBRIDMENT (WRVU 6.89) SYNOVECTOMY, EXTENSOR SHEATH, WRIST, SINGLE COMPARTMENT (WRVU 4.51) Referral ID Status Reason Start Date Expiration Date Visits Re quested Visits Authorized [id number] 1 1 Encounter Details Date Type Department Care Team (Latest Contact Info) Description 12/21/2018 5:34 AM EST - 12/21/2018 1:14 PM EST Hospital [place] [address] Yenni Dorantes MD [facility] [place] [address] Pain in right wrist Discharge Disposition: Home [...] Sign Reading Time Taken Comments Blood Pressure 142/80 12/21/2018 1:10 PM EST Pulse 69 12/21/2018 11:37 AM EST Temperature 37.1 ??C (98.8 ??F) 12/21/2018 11:[address] Respiratory Rate 23 12/21/2018 9:51 AM EST Oxygen Saturation 97% 12/21/2018 1:10 PM EST Inhaled Oxygen Concentration - - Weight 165 kg (363 lb 12.1 oz) 12/21/2018 6:04 A M EST Height 182.9 cm (6') 12/21/2018 6:04 AM EST Body Mass Index 49.33 12/21/2018 6:04 AM EST documented in this encounter Discharge Instructions * Patient Instructions* Yaneli Sam MD - 12/21/2018 11:29 AM EST Orthopaedic Hand Surgery Same Day Discharge Instructions: [...] appointment. Do not change your dressing. ?? If a plaster splint or a cast has been applied --do not remove it or stick objects in it (i.e. coat hangers, pencils). Please keep it dry, bag it for showers and keep out of running water. If it becomes wet you must call the office. Pain Management ?? You may take the oxycodone every 4 hours as needed for pain for the first 2 days. After this youshould take the tramadol every 6 hours for two days. You should not require narcotics after this. Most patients only require narcotics for a short period of time. Ice and elevation is an effective and important modality to use in conjunction with your oral pain medication. In a day or two you may be ready to start decreasing the amount of pain medication your taking. Pain medication is to be taken on an ???as needed?if needed?? basis. Remember [...] narcotic pain medications are nausea and constipation. To decrease nausea always take pain medication with food. If you are experiencing vomiting, please call us right away. To minimize constipation, drink plenty of fluids, eat a high fiber diet with plenty of fruits and vegetables, and take a stool softener or laxative as needed. ?? In 48 hours, you may take an anti-inflammatory medication such as Ibuprofen/Advil/Motrin or Naproxen/Aleve. Refer to the medication bottles for daily allowance and dosing. Discontinue if it causesstomach upset. Contact Information: During clinic hours M-F 8-4:30 please call [phone] If it is after 5:00PM on a weekday or a weekend and it is of an urgent nature please call [phone] and ask for the on-call orthopaedic resident. [...] Future Appointments Date Time Provider Department Center 01/03/2019 10:15 AM Yenni Dorantes MD [facility] ORTH 3A [facility] documented in this encounter Medications at Time of Discharge Medication Sig Dispensed Refills Start Date End Date furosemide (Lasix) 20 mg Tablet PRN 03/10/2016 ibuprofen (ADVIL;MOTRIN) 600 mg Tablet Take 1 [...] 100 mg tablet 50MG, PO, QHS 10/06/2009 traMADol (ULTRAM) 50 mg Tablet Take 1 tablet by mouth every 6 hours as needed for Pain for up to 1 day. 8 tablet 12/23/2018 12/24/2018 oxyCODONE (ROXICODONE) 5 mg Tablet Take 1 tablet by mouth every 4 hours as needed for up to 2 days. 8 tablet 12/21/2018 12/23/2018 aspirin 81 mg Tablet, Delayed Release (E.C.) Take 1 tablet by mouth daily. 30 tablet 3 12/26/2018 01/03/2019 metFORMIN (GLUCOPHAGE) 500 mg Tablet 1,000 mg. 3 08/15/2018 08/29/2019 LORazepam (ATIVAN) 0.5 mg tablet 0.5MG = 1 Tablet(s), PO, Q6H PRN 10/06/2009 01/03/2019 fluticasone (FLONASE) 50 mcg/Actuation nasal spray 50 MC-2 [place](s), Nasal, Once daily 10/06/2009 01/03/2019 documented as of this encounter Progress Notes * Eunice Jameson - 12/21/2018 1:14 PM EST Attempted to speak to patient via home telephone number to ensure nerve block resolved appropriately. No answer. Will try again later this week. * Eunice Jameson - 12/21/2018 1:14 PM EST Attempted to speak to patient via home telephone number to ensure nerve block resolved appropriately. No answer. Will try again later this week. documented in this encounter H&P Notes * Yenni Dorantes MD - 12/21/2018 7:18 AM EST I interviewed and examined Edwin Levy. There have been no apparent interval changes in his health status since the most recent history and physical was done. YENNI DORANTES MD Source Note - Yenni Dorantes MD - 12/20/2018 9:35 PM EST Patient Name: Edwin Levy Patient Age: 58 y.o. Birthdate: 1960 Admit date: (Not on file) Attending Physician: Yenni Dorantes MD See scanned document for pre-procedural H&P completed on 12/13/18. * Yenni Dorantes MD - 12/20/2018 9:35 PM EST Patient Name: Edwin Levy Patient Age: 58 y.o. Birthdate: 1960 Admit date: (Not on file) Attending Physician: Yenni Dorantes MD See scanned document for pre-procedural H&P completed on 12/13/18. 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 He has had chronic wrist pain despite conservative treatment. His MRI did show a central TFCC tear as well as attenuation of the extensor pollicis longus tendon. He had pain both ulnarly and radially in his right wrist which was chronic. This led to a limited ability to use his right hand. Because of pain that was refractory to nonoperative management, he was brought to the operating room today where he underwent right wrist arthroscopy. 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 This was treated with right central TFCC debridement as well as irrigation of his radiocarpal and midcarpal joints. I also released the third extensor compartment. He was found to have an area of indentation of his extensor pollicis longus tendon consistent with stenosing tendinitis. 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 His right upper extremity was draped in the usual sterile fashion. A preoperative timeout was performed as per [facility] protocol. His right arm was then elevated in the traction tower using sterile nylon finger traps. With all of his bony prominences were well-padded as was his ulnar nerve. 10 pounds of traction was applied through his wrist and maintained throughout the procedure. Topographic landmarks are drawn over the dorsum of his right wrist to estrella out the arthroscopy portal sites. His right arm was then exsanguinated with an Esmarch bandage and a brachial tourniquet was inflated to 250 mmHg. I first injected normal saline solution into the 3-4 arthroscopy portal site. An incision was then made over the 3-4 portal site down through dermis and subcutaneous spreading was performed with a hemostat. Using spreading with a hemostat, I was able to develop the portal into the 3-4 portal site of the radiocarpal joint. The wrist arthroscope was inserted into the radiocarpal joint at this point. An outflow needle was placed in the 6R portal site without difficulty. The wrist was first visually surveyed with the arthroscope. There was found to be some attenuation of the long radiolunate ligament but the radioscaphocapitate and short radiolunate ligaments were ingood condition. There was found to be thinning of the articular cartilage of the radioscaphoid joint and to a lesser extent the radiolunate joint. The scapholunate intrinsic ligament was intact. There was cartilage covering the articular surfaces although it appeared to be significantly thinned. Onthe ulnar side of the wrist there was found to be synovitis in the prestyloid recess. There was found to be a large central TFCC tear. The outflow needle was removed from the wrist and a probe was inserted into the 6R portal site. The TFCC was palpated and found to be mechanically stable. At the ulnocarpal ligaments were intact as were all of the palmar radiocarpal ligaments. The shaver was then inserted into the 6R portal site. I used the shaver to trim the torn edges of the central TFCC tear while leaving the palmar and dorsal marginal ligaments intact. I also debrided a small synovial accumulation from within the prestyloid recess. The arthroscopic ablator was then inserted into the wrist joint at the 6R portal site and it was used to balance the edges of the torn central portion of the TFCC. I was able to see the ulnar head through the hole in the TFCC and therewas not found to be significant chondromalacia nor were there any obvious synovitis or loose bodiescoming from deep to the TFCC. The shaver was reinserted into the radiocarpal joint and the radiocarpal joint was copiously irrigated. The instrumentation was then removed from the radiocarpal joint. The radial midcarpal portal was then identified with a hypodermic needle and it was insufflated with normal saline solution. The incision was made at this site down through dermis and the radial midcarpal portal was established with a hemostat. The arthroscope was inserted into the midcarpal joint.There was found to be thinning of the articular cartilage throughout the midcarpal joint. There wasno significant synovitis. There was no evidence of instability at the scapholunate nor lunatotriquetral intervals with a negative drive-through sign. A hypodermic needle was inserted into the ulnar midcarpal portal site and the joint was irrigated in this fashion. All instrumentation was then withdrawn. The patient's right arm was then removed from the traction tower. The 3-4 portal incision site was then extended proximally with the scalpel down through dermis and subcutaneous spreading was performed. The EPL tendon was identified at the distal edge of the third extensor compartment. The third extensor compartment was exposed with blunt dissection with care being taken to avoid injury to the radial sensory nerve branches. The third extensor compartment was incised until the muscle belly of the extensor pollicis longus tendon was exposed. There did appear to be an area of indentation in the extensor pollicis longus tendon within the third extensor compartment. The tendon did not appear to be frayed and there was no synovitis in the third extensor compartment. The EPL tendon was completely free at this point. The incision sites were now irrigated. They were all closed with 4-0 nylon suture. The incision sites were injected with a total of 8 cc of 1% lidocaine with epinephrine. Sterile soft dressings were now applied. The tourniquet was released with a tourniquet time of 44 minutes. All digits rapidly became pink and warm with brisk capillary refill. A palmar plaster wrist splint was applied. His right arm was placed in a sling. He was extubated and transferred to the recovery room in stable condition. There was no measurable blood loss. IV fluid replacement was 700 cc of crystalloid. He tolerated the procedures well without apparent complications. At the time of suture removal, he will be placed into a removable brace and will start protected wrist range of motion. Attestation: Case Date: 12/21/2018 I was present and I participated during the entire procedure (does not need to include opening and closing). 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 Output: Estimated Blood Loss: * No values recorded between 12/21/2018 10:32 AM and 12/21/2018 11:20 AM * Urine Output:: (no urine output recorded) Other Output: (no other output recorded) Drains: None Specimens removed during surgery: None Disposition: awakened from anesthesia, extubated and taken to the recovery room in a stable condition, having suffered no apparent untoward event. Condition: doing well without problems Attestation: Case Date: 12/21/2018 I was present and I participated during the entire procedure (does not need to include opening and closing). (Please see the Surgical Encounter Summary for any Implant and Specimen details pertinent to this patient.) documented in this encounter Plan of Treatment Not on file documented as of this encounter Procedures Procedure Name Priority Date/Time Associated Diagnosis Comments POCT GLUCOSE Routine 12/21/2018 10:41 AM EST Excis Synov Wrist, Extens Tendon (47587) 12/21/2018 10:00 AM EST Pain in right wrist Wrist Arthroscop, Excis Triang Cart ([id number]) 12/21/2018 10:00 AM EST Pain in right wrist POCT GLUCOSE Routine 12/21/2018 6:15 AM EST SYNOVECTOMY, EXTENSOR SHEATH, WRIST, SINGLE COMPARTMENT Routine 12/21/2018 5:58 AM EST Pain in right wrist documented in this encounter Results * POCT Glucose (12/21/2018 10:41 AM EST) Glucose, POC 151 65 - 199 mg/dL [facility] Comment: Supplemental ranges: <140 mg/dL before meals <180 mg/dL all other times of the day Blood specimen (specimen) 12/21/2018 10:41 AM EST 12/21/2018 10:41 AM EST Yenni Dorantes MD POINT OF CARE TEST O JAYCE Performing Organization Address City/[facility]/ZIP Co de Phone Number [facility] [place] [place] [address] * POCT Glucose (12/21/2018 6:15 AM EST) Glucose, POC 171 65 - 199 mg/dL [facility] Comment: Supplemental ranges: <140 mg/dL before meals <180 mg/dL all other times of the day Blood specimen (specimen) 12/21/2018 6:15 AM EST 12/21/2018 6:15 AM EST Yenni Dorantes MD POINT OF CARE TEST O JAYCE [facility] [place] [address] documented in this encounter Visit Diagnoses Diagnosis Pain in right wrist Pain in joint, forearm documented in this encounter Administered Medications Inactive Administered Medications - up to 3 most recent administrations Medication Order MAR Action Action Date Dose Rate Site acetaminophen (TYLENOL) tablet 1,000 mg 1,000 mg, Oral, ONCE, 1 dose, On Shaista 12/21/18 at 0615, Administer with SIP of H2O only., Day of Surgery (Day of Procedure), Routine Given 12/21/2018 6:16 AM EST 1,000 mg acetaminophen (TYLENOL) tablet 1,000 mg 1,000 mg, Oral, EVERY 6 HOURS SCHEDULED, First dose on Shaista 12/21/18 at 0715, Until Discontinued, Maximum dose of acetaminophen is 4000 mg from all sources in 24 hours., Routine Given 12/21/2018 12:00 PM EST 1,000 mg lactated ringers infusion 1,000 mL, at 100 mL/hr, Intravenous, CONTINUOUS, Starting on Shaista 12/21/18 at 0615, Until Shaista 12/21/18 at 1316, Day of Surgery (Day of Procedure) New Bag 12/21/2018 6:22 AM EST 1,000 mLs 100 mL/hr lidocaine (XYLOCAINE) 10 mg/mL (1 %) injection 3 mg 3 mg (0.3 mL), Subcutaneous, ONCE PRN, 1 dose, Starting on Shaista 12/21/18 at 0559, Until Shaista 12/21/18 at 0616, for discomfort with PIV insertion, Day of Surgery (Day of Procedure), Routine Given 12/21/2018 6:16 AM EST 3 mg midazolam (PF) (VERSED) injection 1 mg 1 mg, Intravenous, EVERY 5 MIN PRN, Starting on Shaista 12/21/18 at 0703, Until Shaista 12/21/18 at 1000, Sleep, or prior to injection of local anesthetic, Hold for delirium/agitation. (Maximum dose 5 mg)., Day of Surgery (Day of Procedure), Routine Given 12/21/2018 9:47 AM EST 1 mg documented in this encounter Active and Recently Administered Medications Times are shown in EST. Scheduled Medication Order 12/19/2018 12/20/2018 12/21/2018 acetaminophen (TYLENOL) tablet 1,000 mg (COMPLETED) 1,000 mg, Oral, ONCE, 1 dose, On Shaista 12/21/18 at 0615, Administer with SIP of H2O only., Day of Surgery (Day of Procedure), Routine 0616 (Given - Provid er: Constance Turcios RN) acetaminophen (TYLENOL) tablet 1,000 mg 1,000 mg, Oral, EVERY 6 HOURS SCHEDULED, First dose on Shaista 12/21/18 at 0715, Until Discontinued, Maximum dose of acetaminophen is 4000 mg from all sources in 24 hours., Routine 0715 (Due)1200 (Give n - Provider: Zehra Norris RN) ceFAZolin (ANCEF) 2g in dextrose 5% 100 mL (COMPLETED) 2 g, Intravenous, ONCE, 1 dose, On Shaista 12/21/18 at 0715, Administer over 30 Minutes, Day of Surgery (Day of Procedure), Indication for (Active or Suspected): Prophylaxis 1000 (Given - Provid er: Anil Brody CRNA) Continuous Medication Order 12/19/2018 12/20/2018 12/21/2018 lactated ringers infusion (CANCELED) 1,000 mL, at 100 mL/hr, Intravenous, CONTINUOUS, Starting on Shaista 12/21/18 at 0615, Until Shaista 12/21/18 at 1316, Day of Surgery (Day of Procedure) 0622 (New Bag - Prov ider: Constance Turcios RN) PRN Medication Order 12/19/2018 12/20/2018 12/21/2018 lidocaine (XYLOCAINE) 10 mg/mL (1 %) injection 3 mg (COMPLETED) 3 mg (0.3 mL), Subcutaneous, ONCE PRN, 1 dose, Starting on Shaista 12/21/18 at 0559, Until Shaista 12/21/18 at 0616, for discomfort with PIV insertion, Day of Surgery (Day of Procedure), Routine 0616 (Given - Provid er: Constance Turcios RN) lidocaine-EPINEPHrine 1 %-1:100,000 injection (CANCELED) ONCE PRN, Starting on Shaista 12/21/18 at 1124, Until Shaista 12/21/18 at 1517, Intra-Operative (Intra-Procedure), Routine 1124 (Given - Provid er: Yenni Dorantes MD - Comment: right wrist intraoperative injection) midazolam (PF) (VERSED) injection 1 mg (CANCELED) 1 mg, Intravenous, EVERY 5 MIN PRN, Starting on Shaista 12/21/18 at 0703, Until Shaista 12/21/18 at 1000, Sleep, or prior to injection of local anesthetic, Hold for delirium/agitation. (Maximum dose 5 mg)., Day of Surgery (Day of Procedure), Routine 0947 (Given - Provid er: Moshe Flores RN) documented in this encounter Care Teams Catering Barista Relationship Specialty Start Date End Date Ha Anand MD [address] [place] [address] PCP - General Family Medicine 09/25/18 documented as of this encounter
--- OUTSIDE RECORDS SUMMARY | 2023-11-30 16:09 | XMS_ITS | Encounter Summary ---
Author Organization [facility] Address [facility] [place] [address] Care Team Providers Care Business Records Manager Name Role Phone Ha Anand MD Primary Care Provider [phone] Encounter Details Date Type Department Care Team (Late st Contact Info) Description 10/23/2018 Orders [place] [address] Ferdinand Dorantes MD [facility] [place] [address] Social History Tobacco Use Types Packs/Day Years [...] on filedocumented in this encounter Care Teams Business Records Manager Relationship Specialty Start Date End Date Ha Anand MD [address] [place] [address] [address] [place] [address] PCP - General Family Medicine 09/25/18 documented as of this encounter
--- OUTSIDE RECORDS SUMMARY | 2023-11-30 16:09 | XMS_ITS | Encounter Summary ---
[place] [address] Care Team Providers Care Barrel Endshaker Adjuster Name Role Phone Ha Anand MD Primary Care Provider [phone] [phone] Reason for Visit * Reason Comments Follow Up Surgery follow up visit dos 12/21/18 right wrist TFCC repair/debride/scope wc doi10/09/17 Encounter Details Date Type Department Care Team (Late st Contact Info) Description 02/16/2019 11:40 AM EST Office [place] [address] Farhan Carrasco PA [address] [place] [address] s/p Right wrist arthroscopy with debridement of [...] Sign Reading Time Taken Comments Blood Pressure 137/80 02/16/2019 11:18 AM EST Pulse 80 02/16/2019 11:18 AM EST Temperature - - Respiratory Rate - - Oxygen Saturation - - Inhaled Oxygen Concentration - - Weight - - Height - - Body Mass Index - - documented in this encounter Progress Notes * Farhan Carrasco PA - 02/16/2019 11:40 AM EST PATIENT NAME: Edwin Levy AGE: 58 y.o. MR#: [id number] DATE OF VISIT: 02/16/2019 DATE OF SURGERY: 01/02/19 SURGERY DESCRIPTION: Right wrist arthroscopy with debridement of central TFCC tear(IA) and release of the third extensorcompartment right wrist SURGEON: Dr. Arias CHIEF COMPLAINT: 6 weeks S/P above procedure HISTORY OF PRESENT ILLNESS: Mr. Levy is a 58 y.o. male who presents 6 weeks s/p the above procedures for office follow up. The patient states that his thumb pain has gotten better since the surgery. He continues to report some dorsal sided wrist pain over the incision which he feels is related to scar tissue and he has been attending occupational therapy for scar management. The patient states to have continued ulnar-sided wrist pain that is worse with supination and pronation specifically over the ulnar bone. 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 This is related to a workerscomp claim from chronic overuse. Mr. Levy denies fever. PHYSICAL EXAM: Mr. Levy is a 58 y.o. male who is alert, appears stated age and cooperative. Inspection: Surgical incision appears to be well-healed without evidence of infection. ROM/Strength: Wrist flexion-20 degrees Wrist extension-35 degrees He is able to flex and extend all digits. Neurovascular: Sensation and motor function are intact along the median radial and ulnar nerves. His hand is well-perfused, distal radial pulse 2+. DIAGNOSTIC STUDIES: No new studies ASSESSMENT: Mr. Levy presents 6 weeks status post a right wrist arthroscopy for debridement of the TFCC and third extensor compartment release. He does have some persistent pain over the dorsalaspect of his wrist which is he feels is related to scar tissue and ulnar-sided wrist pain. On examthere is no evidence of infection his DRUJ feels stable although he does have point tenderness overthe ulnar aspect of his wrist. We discussed that there could be some persistent tenosynovitis of his ECU tendon which may be treated with further occupational therapy. He does feel as though his thumb pain is gotten better. At this time he does not feel as though he is able to return to work due topain when handling a knife and lifting heavy pots and pans. We will keep him out of work for an additional 6 weeks until he follows up with Dr. Amaya as it is closer to home for him. This was stated on his Worker's Comp. paperwork at today's visit. It may be reasonable to perform a functional capacity evaluation at his next follow-up appointment as he will be roughly 3 months out from surgery. PLAN: The patient understands to contact us if he has any other questions or concerns. The patient will follow up on an as needed basis. The above documentation was completed using [employer] voice recognition software. documented in this encounter Plan of Treatment Not on file documented as of this encounter Visit Diagnoses Diagnosis s/p Right wrist arthroscopy with debridement of central TFCC tear and release of the EPL right wrist 12/21/[address] Dorantes Pain in joint, forearm documented in this encounter Care Teams Barrel Endshaker Adjuster Relationship Specialty Start Date End Date Ha Anand MD [address] [place] [address] PCP - General Family Medicine 09/25/18 documented as of this encounter
--- OUTSIDE RECORDS SUMMARY | 2023-11-30 16:09 | XMS_ITS | Encounter Summary ---
Author Organization [facility] Address [facility] [place] [address] Care Team Providers Care Privacy Attorney Name Role Phone Ha Anand MD Primary Care Provider [phone] Reason for Visit * Auth/Cert Specialty Diagnoses [...] Expiration Date Visits Re quested Visits Authorized [id number] 1 1 Encounter Details Date Type Department Care Team (Late st Contact Info) Description 08/30/2019 3:08 PM EDT - 08/30/2019 5:08 PM EDT Surgery [place] [id number] Yenni Dorantes MD [facility] [address] [place] [address] SYNOVECTOMY, EXTENSOR SHEATH, WRIST, SINGLE COMPARTMENT (WRVU 4.51) Social History Tobacco Use Types Packs/Day Years [...] Sign Reading Time Taken Comments Blood Pressure 146/91 08/30/2019 5:00 PM EDT Pulse 69 08/30/2019 2:45 PM EDT Temperature 36.8 ??C (98.2 ??F) 08/30/2019 1:13 PM ED T Respiratory Rate 18 08/30/2019 5:00 PM EDT Oxygen Saturation 96% 08/30/2019 5:00 PM EDT Inhaled Oxygen Concentration - - [...] or questions. After hours, call the hospital set off press operator at and ask for the anesthesiologist contact and service clerks supervisor. * Patient Instructions* Mack Wyatt MD - [...] During clinic hours M-F 8-4:30 please call [phone] If it is after 5:00PM on a weekday or a weekend and it is of an urgent nature please call [phone] and ask for the on-call orthopaedic resident. [...] Center 09/12/2019 11:20 AM Hailey Powell PA [facility] documented in this encounter Medications at Time [...] 08/30/2019 09/11/2019 fluticasone propionate (FLONASE) 50 mcg/actuation Elizabeth, Suspension as needed. 02/08/2019 04/23/2020 documented as [...] Kali Reyes MD [facility] Anesthesia Service Pager [phone] * Owen Aguilar - 08/30/2019 6:12 PM EDT Regional Anesthesia Post-Procedure Assessment Spoke to patient via telephone. Peripheral nerve block resolved appropriately. No residual weakness/numbness/decreased sensation. No sign of infection at injection site. Tolerating POs appropriately.Patient very satisfied with nerve block. Owen Aguilar MD Regional/Acute Pain Anesthesia Fellow, PGY5 Pager #[phone] documented in this encounter H&P Notes * Mack Wyatt MD - 08/30/2019 3:02 PM EDT 24-Hour Pre-Operative H&P Update Edwin Levy [id number] Patient seen in pre-op holding area today. [...] Dorantes MD - 08/30/2019 5:06 PM EDT [facility] Operative Note Patient Name: Edwin Levy : [id number] MR#: [id number] Case Date: 08/30/2019 Surgeon: Surgeon(s) and Role: [...] A preoperative timeout was performed as per [facility] protocol. His right arm was then exsanguinated [...] complications. He will be placed into a [place] cast for an additional 6 weeks after [...] Operative Note Patient Name: Edwin Levy : [id number] MR#: [id number] Case Date: 08/30/2019 Surgeon: Surgeon(s) and Role: [...] PM EDT Reforearm Ext Tend Sheath, Graft ([id number]) 08/30/2019 3:17 PM EDT Wrist pain, right Pain in right wrist Excis Synov Wrist, Extens Tendon ([id number]) 08/30/2019 3:17 PM EDT Wrist pain, right Pain in right wrist POCT GLUCOSE Routine 08/30/2019 1:17 PM EDT REPAIR, TENDON SHEATH , FOREARM &,OR WRIST, EXTENSOR, W/ FREE GRAFT Routine 08/30/2019 6:55 AM EDT Wrist pain, right Pain in right wrist documented in this encounter Results * POCT Glucose (08/30/2019 5:04 PM EDT) Glucose, POC 131 65 - 199 mg/dL [facility] Comment: Supplemental ranges: <140 mg/dL before meals <180 mg/dL all other times of the day Blood specimen (specimen) 08/30/2019 5:04 PM EDT 08/30/2019 5:04 PM EDT Yenni Dorantes MD POINT OF CARE TEST O RDERABLES [facility] [place] [address] * POCT Glucose (08/30/2019 1:17 PM EDT) Glucose, POC 130 65 - 199 mg/dL [facility] Comment: Supplemental ranges: <140 mg/dL before meals <180 mg/dL all other times of the day Blood specimen (specimen) 08/30/2019 1:17 PM EDT 08/30/2019 1:17 PM EDT Yenni Dorantes MD POINT OF CARE TEST O RDERABLES [facility] [place] [address] documented in this encounter Visit Diagnoses Diagnosis s/p Right Extensor Subsheath Reconstruction for Subluxing ECU - 08/30/2019 Dr. Dorantes- Primary Closed dislocation of other part of wrist Wrist pain, right Pain in joint, forearm Pain in right wrist Pain in joint, forearm Wrist pain, right [...] Given 08/30/2019 1:22 PM EDT 3 mg lidocaine-EPINEPHrine 1 %-1:100,000 injection ONCE PRN, Starting on Shaista 08/30/19 at 1639, Until Shaista 08/30/19 at 2017, Intra-Operative (Intra-Procedure), Routine Given 08/30/2019 4:39 PM EDT 10 mLs 19- Surgical Site midazolam (PF) (VERSED) injection 1 mg 1 [...] at 1309, Until Shaista 7 at 1826, Pain, Give 12.5 mcg every [...] ONCE PRN, 1 dose, Starting on Shaista 7/16/20 at 1309, Until Shaista 7/16/20 at 1322, for discomfort with PIV insertion, Day of Surgery (Day of Procedure), Routine 1322 (Given - Provid er: Abdias Mccrary RN) lidocaine-EPINEPHrine 1 %-1:100,000 injection (CANCELED) ONCE PRN, Starting on Shaista 720 at 1639, Until Shaista 720 at 2017, Intra-Operative (Intra-Procedure), Routine 1639 (Given - Provid er: Yenni Dorantes MD) midazolam (PF) (VERSED) injection 1 mg 1 mg, Intravenous, EVERY 5 MIN PRN, Starting on Shaista 7/20 at 1323, Until Shaista 720 at 1826, Sleep, or prior to injection of local anesthetic, Hold for delirium/agitation. (Maximum dose 5 mg)., Day of Surgery (Day of Procedure), Routine 1400 (Given - Provid er: Abdias Mccrary RN) naloxone (NARCAN) injection 0.04 mg 0.04 mg, Intravenous, EVERY 5 MIN PRN, Starting on Shaista 7/20 at 1309, Until Shaista 7/16/20 at 1826, Opioid Reversal, for respiratory rate less than 6 or unresponsive., May repeat every 5 minutes to increase respiratory rate. DO NOT exceed 0.12 mg total dose. Notify anesthesia immediately if administered., Day of Surgery (Day of Procedure), Routine ondansetron (ZOFRAN) injection 4 mg 4 mg, Intravenous, EVERY 30 MIN PRN, Starting on Shaista 716/20 at 1309, Until Shaista 716/20 at 1826, Nausea, May repeat 4 mg [...] Routine documented in this encounter Care Teams Privacy Attorney Relationship Specialty Start Date End Date Ha Anand MD [address] [place] [address] PCP - General Family Medicine 09/25/18 documented as of this encounter
--- OUTSIDE RECORDS SUMMARY | 2023-11-30 16:09 | XMS_ITS | Encounter Summary ---
Author Organization [facility] [place] [address] Care Team Providers Care Peoplesoft Fscm Developer Name Role Phone Shea Jones MD Primary Care Provider [phone] Encounter Details Date Type Department Care Team (Late st Contact Info) Description 09/15/2018 Ancillary Procedure Radiology Library at [facility] [place] [phone] Owen Amaya MD [address] [place] [address] Social History Tobacco Use Types Packs/Day Years [...] Diagnosis Comments FILM LIBRARY STORAGE ONLY MR WRIST Routine 09/15/2018 12:00 AM EDT documented in this encounter Results * Film Library- Storage Only MR Wrist (09/15/2018 12:00 AM EDT) Narrative RADHA - 09/27/2018 9:02 PM EDT This exam is auto-finalizing. It's purpose is for storage only. Owen Amaya MD G FILM LIBRARY ORD ERABLES [place], [place] documented in this encounter Visit Diagnoses Not on filedocumented in this encounter Care Teams Peoplesoft Fscm Developer Relationship Specialty Start Date End Date Shea Jones MD [address] [place] [address] PCP - General General Internal Medicine 01/20/1509/14 documented as of this encounter
--- OUTSIDE RECORDS SUMMARY | 2023-11-30 16:09 | XMS_ITS | Encounter Summary ---
Author Organization [facility] Address [facility] [place] [address] Care Team Providers Care Garment Fitter Name Role Phone Ha Anand MD Primary Care Provider [phone] Encounter Details Date Type Department Care Team (Late st Contact Info) Description 06/18/2019 Orders [place] [address] Ferdinand Dorantes MD [facility] [place] [address] s/p Right wrist arthroscopy with debridement of [...] documented as of this encounter Results * XR Wrist 3 [...] number below. Electronically signed by: Sha Cohn [facility] ([phone]),at 06/20/2019 12:53 PM Ferdinand Dorantes MD IMG DX ORDERABLES documented in this encounter Visit Diagnoses Diagnosis s/p Right wrist arthroscopy with debridement of central TFCC tear and release of the EPL right wrist 12/21/[address] Dorantes Pain in joint, forearm s/p Right wrist arthroscopy with debridement of central TFCC tear and release of the EPL right wrist 12/21/[address] Dorantes Pain in joint, forearm documented in this encounter Care Teams Garment Fitter Relationship Specialty Start Date End Date Ha Anand MD [address] [facility] [place] [address] PCP - General Family Medicine 09/25/18 documented as of this encounter
--- OUTSIDE RECORDS SUMMARY | 2023-11-30 16:09 | XMS_ITS | Encounter Summary ---
Author Organization [facility] [place] [address] Care Team Providers Care Bearing Grinder Name Role Phone Ha Anand MD Primary Care Provider [phone] Reason for Visit * Occupational Therapy (Routine) - Specialty Diagnoses / Procedures Referred By Contac t Referred To Contact Occupational Therapy Diagnoses Wrist pain, right Farhan Carrasco PA [address] [place] [address] Luther Shafer, OT [facility] PHYSICAL MEDICINE & [place] [address] Referral ID Status Reason Start Date Expiration Date V isits Requested Visits Authorized [id number] Evaluate and Treat 10/09/2018 10/09/2019 12 12 Encounter Details Date Type Department Care Team (Late st Contact Info) Description 10/09/2018 9:15 AM EDT Office Visit Occupational Therapy at [facility] [address] [place] [address] Luther Shafer, OT [facility] PHYSICAL MEDICINE & [place] [address] Pain in right wrist Social History Tobacco Use Types Packs/Day [...] encounter Miscellaneous Notes * Initial Evaluation - Luther Shafer, OT - 10/09/2018 9:15 AM EDT OCCUPATIONAL THERAPY ORTHOTIC EVALUATION Referral Source: Ferdinand Dorantes MD, Farhan West MD Follow-up: 4 weeks Total Treatment time: 26 Minutes Timed Code Treatment Time: 26 minutes OCCUPATIONAL PROFILE: Edwin Levy is a 58 y.o. year old Right hand dominant male who has a history of right wrist pain over the past several months. He was seen for injection of his first dorsal compartment 03.20.18, and carpal tunnel release 07.04.18. He has continued pain. Edwin Levy is referred to Occupational Therapy for evaluation and treatment to include fabrication of a custom orthosis. Patient presents today accompanied by . Date of onset of symptoms: Chronic Date of surgery: CTR 07.04.18 Pertinent History and/or Co-morbidities: 1. 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 Global Mental Function: With gross screening of patient???s global mental functions, patient demonstrates orientation to person, place, time, and situation. Patient???s affect/behavior is appropriateand cooperative today. Patient Specific Functional Scale (PSFS) (unable to perform 0/10 - Able to perform without difficulty 10/10) Activity At Evaluation 1.) Cooking 7 2.) Home management 7 3.) Bathing/hygiene 9 4.) Dressing 8 Average Score: 7.8 Pain: (Assessed using the Visual Analog Pain Scale) At Rest: 3/10 With Activity: 5/10 Treatment Today: Orthosis - Wrist-Hand Orthotic, W/O Jts[employer] Incs Fit & Adj ([id number]) Educated patient in etiology and biomechanics as related to patient's symptoms Fabricated a custom right wrist cock-up orthosis Instructed in orthosis wear and care, for tasks and at night as tolerated Range of Motion Exercises, active wrist and finger motion, soft tissue gliding hourly CLINICAL DECISION MAKING: Edwin Levy has a well fitting orthosis post therapy. Edwin Levy is able to independently verbalize and demonstrate the recommended home program following instructions today. Edwin Levy has fair potential for gains with therapy/home program use. [...] demonstration in therapy. Goal Status: Meets PLAN: Orthosis to provide support and protection to the joint, recheck with MD if symptoms persist. (X) Edwin Levy participated in the evaluation, collaborated on treatment goals, and agrees to the treatment plan. documented in this encounter Plan of Treatment Scheduled Referrals Name Type Priority Associated Diagnoses Order Schedule Referral to Occupational Therapy Outpatient Referral Routine Wrist pain, right Ordered: 10/09/2018 documented as of this encounter Visit Diagnoses Diagnosis Pain in right wrist Pain in joint, forearm documented in this encounter Care Teams Bearing Grinder Relationship Specialty Start Date End Date Ha Anand MD [address] [place] [address] PCP - General Family Medicine 09/25/18 documented as of this encounter
--- OUTSIDE RECORDS SUMMARY | 2023-11-30 16:09 | XMS_ITS | Encounter Summary ---
Author Organization [facility] Address [facility] [place] [address] Care Team Providers Care Rattling Machine Tender Name Role Phone Ha Anand MD Primary Care Provider [phone] Reason for Referral * Occupational Therapy (Routine) - Specialty Diagnoses / Procedures Referred By Contac t Referred To Contact Diagnoses Pain in right wrist Ferdinand Dorantes MD [facility] [place] [address] Referral ID Status Reason Start Date Expiration Date V isits Requested Visits Authorized [id number] Evaluate and Treat 10/31/2019 04/28/2020 12 12 * Occupational Therapy (Routine) - Specialty Diagnoses / Procedures Referred By Contac t Referred To Contact Orthopaedics Diagnoses Pain in right wrist Ferdinand Dorantes MD [facility] [place] [address] Domonique Almanzar, OT Referral ID Status Reason Start Date Expiration Date V isits Requested Visits Authorized [id number] Evaluate and Treat 10/31/2019 10/30/2020 12 12 Reason for Visit * Reason Comments Follow-up Cast Off/NXR Righ t ECU tendon subluxation repair 08/30/19 Encounter Details Date Type Department Care Team (Late st Contact Info) Description 10/31/2019 10:15 AM EDT Office [place] [address] Ferdinand Dorantes MD [facility] [place] [address] Subluxation of right extensor carpi ulnaris tendon, subsequent encounter; Subluxation of right extensor carpi ulnaris tendon, [...] Sign Reading Time Taken Comments Blood Pressure 150/84 10/31/2019 9:54 AM EDT Pulse 66 10/31/2019 9:54 AM EDT Temperature - - Respiratory Rate - - Oxygen Saturation - - Inhaled Oxygen Concentration - - Weight 163.3 kg (360 lb) 10/31/2019 9:54 AM EDT reported Height 180.3 cm (5' 11) 10/31/2019 9:54 AM EDT reported Body Mass Index 50.21 10/31/2019 9:54 AM EDT documented in this encounter Progress Notes * Ferdinand Dorantes MD - 10/31/2019 10:15 AM EDT Edwin Levy presents for evaluation of his right wrist following right sixth extensor compartment reconstruction. He has been in a [place] cast and he is having no pain. The cast was removed. His right hand is examined. His wrist is not particularly swollen. His incisions have healed in a very benign fashion. He does have some limited elbow extension and he lacks about 10 degrees of terminal elbow extension. His DRUJ is stable to piano ledesma testing. His right hand is well-perfused. Overall he seems to be progressing reasonably well. He will be converted to a removable brace and will work on gentle wrist range of motion. He will avoid supination and extreme extension of his wrist. I would like to see him back in approximately 2 months after which we would consider strengthening program. He is not yet released to return to work. documented in this encounter Plan of Treatment Scheduled Referrals Name Type Priority Associated Diagnoses Orde r Schedule Referral to Occupational Therapy Outpatient Referral Routine s/p Right wrist arthroscopy with debridement of central TFCC tear and release of the EPL right wrist 12/21/[address] Dorantes Ordered: 10/31/2019 Referral to Occupational Therapy Outpatient Referral Routine s/p Right wrist arthroscopy with debridement of central TFCC tear and release of the EPL right wrist 12/21/[address] Dorantes Ordered: 10/31/2019 documented as of this encounter Visit Diagnoses Diagnosis Subluxation of right extensor carpi ulnaris tendon, subsequent encounter Subluxation of right extensor carpi ulnaris tendon, sequela s/p Right wrist arthroscopy with debridement of central TFCC tear and release of the EPL right wrist 12/21/[address] Dorantes Pain in joint, forearm documented in this encounter Care Teams Rattling Machine Tender Relationship Specialty Start Date End Date Ha Anand MD [address] [place] [address] PCP - General Family Medicine 09/25/18 documented as of this encounter
--- OUTSIDE RECORDS SUMMARY | 2023-11-30 16:09 | XMS_ITS | Encounter Summary ---
Author Organization [facility] [place] [address] Care Team Providers Care Pumper Gauger Name Role Phone Ha Anand MD Primary Care Provider [phone] [phone] Reason for Referral * Diagnostic Test (Routine) - Closed Specialty Diagnoses / Procedures Referred By Contac t Referred To Contact Radiology Diagnoses Pain in right wrist Pain in left wrist Procedures MRI Wrist wo Contrast Right (Generic) Martha You PA [facility] [place] [address] [place] [address] Referral ID Status Reason Start Date Expiration Date V isits Requested Visits Authorized [id number] Closed Specialty Service Requested 06/20/2019 12/20/2020 1 1 Reason for Visit * Diagnostic Test (Routine) - Closed Specialty Diagnoses / Procedures Referred By Contac t Referred To Contact Radiology Diagnoses Pain in right wrist Pain in left wrist Procedures MRI Wrist wo Contrast Right (Generic) Martha You PA [facility] [place] [address] [place] [address] Referral ID Status Reason Start Date Expiration Date V isits Requested Visits Authorized [id number] Closed Specialty Service Requested 06/20/2019 12/20/2020 1 1 Encounter Details Date Type Department Care Team (Latest Contact Info) Description 07/18/2019 1:13 PM EDT - 07/18/2019 11:59 PM EDT Hospital [place] [address] Ferdinand Doarntes MD [facility] [place] [address] s/p Right wrist arthroscopy with debridement of central TFCC tear and release of the EPL right wrist 12/21/[address] Dorantes ; Pain in left wrist Discharge Disposition: Home Social History Tobacco [...] QHS 10/06/2009 fluticasone propionate (FLONASE) 50 mcg/actuation [place], Suspension as needed. 02/08/2019 04/23/2020 metFORMIN (GLUCOPHAGE) 500 mg Tablet 1,000 mg. 3 08/15/2018 08/29/2019 documented as of this encounter Plan of Treatment Not on file documented as of this encounter Procedures Procedure Name Priority Date/Time Associated Diagnosis Comments MRI WRIST RIGHT WO CONTRAST Routine 07/18/2019 2:47 PM EDT s/p Right wrist arthroscopy with debridement of central TFCC tear and release of the EPL right wrist 12/21/[address] Dorantes Pain in left wrist documented in this encounter Results * MRI Wrist wo [...] Electronically signed by: Sha Cohn [facility] ([phone]),at 07/18/2019 4:32 PM Ferdinand Dorantes MD IMG MRI ORDERABLES documented in this encounter Visit Diagnoses Diagnosis s/p Right wrist arthroscopy with debridement of central TFCC tear and release of the EPL right wrist 12/21/[address] Dorantes Pain in joint, forearm Pain in left wrist Pain in joint, forearm documented in this encounter Care Teams Pumper Gauger Relationship Specialty Start Date End Date Ha Anand MD [address] [facility] [address] [place] [address] PCP - General Family Medicine 09/25/18 documented as of this encounter
--- OUTSIDE RECORDS SUMMARY | 2023-11-30 16:09 | XMS_ITS | Encounter Summary ---
Author Organization [facility]ly [facility], [facility]–1983 Address [facility] [place] [address] Care Team Providers Care Linoleum Mechanic Name Role Phone Ha Anand MD Primary Care Provider [phone] [phone] Reason for Visit * Reason Comments Follow Up Surgery Follow up after US Encounter Details Date Type Department Care Team (Late st Contact Info) Description 08/01/2019 4:10 PM EDT [place] [address] Ferdinand Dorantes MD [facility] [place] [address] Wrist pain, right; s/p Right wrist arthroscopy with debridement of central TFCC tear and release of the EPL right wrist 12/21/[address] Dorantes ; Subluxation of right extensor carpi ulnaris tendon, [...] Sign Reading Time Taken Comments Blood Pressure 149/82 08/01/2019 3:38 PM EDT Pulse 70 08/01/2019 3:38 PM EDT Temperature - - Respiratory Rate - - Oxygen Saturation - - Inhaled Oxygen Concentration - - Weight 163.3 kg (360 lb) 08/01/2019 3:38 PM EDT copied Height 180.3 cm (5' 11) 08/01/2019 3:38 PM EDT copied Body Mass Index 50.21 08/01/2019 3:38 PM EDT documented in this encounter Progress Notes * Ferdinand Dorantes MD - 08/01/2019 4:10 PM EDT Edwin Levy returns following a dynamic ultrasound of his right wrist. I reviewed the findings with Dr. Radha Qiu of radiology. This did demonstrate the presence of sub-sheath instability in his sixth extensor compartment of his right wrist with a comparative difference when compared to the left side. His exam does elicit fairly severe tenderness over the sixth extensor compartment. I cannot document dislocation of the ECU tendon but with forearm rotation and wrist motion he does have dramatic exacerbation of his pain. Because of his chronicity of this problem I did offer him consideration of sixth extensor compartment reconstruction. I described the surgery to him. He is aware of potential risks including persistent pain, wrist deafness, recurrent instability, damage to his tattoo, infection, and nerve injury. He is also aware that he will require postoperative immobilization for a significant period of time depending on operative findings. He is not yet ready to return to work. I do believe that this is a sequelae of his work injury and that it is been extremely difficult to diagnose up to this point. 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 * Rebecca Arredondo RN - 08/01/2019 4:10 PM EDT Pre Op Nursing Assessment and Teaching Patient educated on importance of staying healthy and maintaining skin integrity, especially of affected arm pre-op. Patient will inform us of any skin rashes, breaks in skin or illnesses prior to surgery. Discussed practicing ADL???s with non-operative arm. Discussed no ASA or NSAIDS 7 days prior to surgery. May take Tylenol if needed. General post op guidelines discussed including hydration, nutrition, constipation, dressing changes, ice. A review of typically prescribed post op pain medication and suggestions for taking and tapering them in a methodical fashion was undertaken. Hibiclens soap instructions given Questions solicited and answered. Pt knows to call with any additional questions or concerns, Patient advised to read post-op instructions from day of surgery for specific recommendations aftersurgery. documented in this encounter Plan of Treatment Not on file documented as of this encounter Procedures Procedure Name Priority Date/Time Associated Diagnosis Comments SYNOVECTOMY, EXTENSOR SHEATH, WRIST, SINGLE COMPARTMENT Routine 08/01/2019 4:14 PM EDT Wrist pain, right s/p Right wrist arthroscopy with debridement of central TFCC tear and release of the EPL right wrist 12/21/[address] Dorantes documented in this encounter Visit Diagnoses Diagnosis Wrist pain, right Pain in joint, forearm s/p Right wrist arthroscopy with debridement of central TFCC tear and release of the EPL right wrist 12/21/[address] Dorantes Pain in joint, forearm Subluxation of right extensor carpi ulnaris tendon, sequela documented in this encounter Care Teams Linoleum Mechanic Relationship Specialty Start Date End Date Ha Anand MD [address] [place] [address] PCP - General Family Medicine 09/25/18 documented as of this encounter
--- OUTSIDE RECORDS SUMMARY | 2023-11-30 16:09 | XMS_ITS | Encounter Summary ---
Author Organization [facility] [place] [address] Care Team Providers Care Machine Ceramic Coater Name Role Phone Ha Anand MD Primary Care Provider [phone] [phone] Reason for Referral * Diagnostic Test (Routine) - Closed Specialty Diagnoses / Procedures Referred By Contac t Referred To Contact Radiology Diagnoses Wrist pain, right Procedures MRI Wrist wo Contrast Right (Generic) Farhan Carrasco PA [address] [place] [address] [place] [address] Referral ID Status Reason Start Date Expiration Date V isits Requested Visits Authorized [id number] Closed Specialty Service Requested 10/23/2018 10/23/2019 1 1 Reason for Visit * Reason Comments Follow-up right wrist pain- te ndon tear Encounter Details Date Type Department Care Team (Late st Contact Info) Description 10/23/2018 8:00 AM EDT Office [place] [address] Ferdinand Dorantes MD [facility] [place] [address] Wrist pain, right Social History Tobacco Use Types Packs/Day [...] Sign Reading Time Taken Comments Blood Pressure 171/83 10/23/2018 8:10 AM EDT Pulse 69 10/23/2018 8:10 AM EDT Temperature - - Respiratory Rate - - Oxygen Saturation - - Inhaled Oxygen Concentration - - Weight 163.7 kg (361 lb) 10/23/2018 8:10 AM EDT weighed Height 177.8 cm (5' 10) 10/23/2018 8:10 AM EDT Body Mass Index 51.8 10/23/2018 8:10 AM EDT documented in this encounter Progress Notes * Farhan Carrasco PA - 10/23/2018 8:00 AM EDT PATIENT NAME: Edwin Levy AGE: 58 y.o. MR#: [id number] DATE OF VISIT: 10/23/2018 DATE OF INJURY/ONSET: 08/09/2018 STAFF: Dr. Dorantes CHIEF COMPLAINT: follow up right wrist pain HISTORY OF PRESENT ILLNESS: Mr. Levy is a 58 y.o. year old male who comes into clinic today for follow up regarding his right wrist, which he injured while at work on 08/09/2018. The patient didundergo a cortisone injection roughly 1 months ago under fluoroscopy and states to have gotten 2 to3 weeks of moderate pain relief. He also was seen by occupational therapy and provided a custom fitt ing splint which he does state helps however he is unable to wear at work as it is too cumbersome. Patient states that it is gotten significantly more painful and swelling over the past couple of weeks to the point he is unable to move his wrist. He is having extreme difficulty with strength as well with holding a knife. The patient continues to deny any numbness or tingling. PHYSICAL EXAM: Mr. Levy is a 58 y.o. male who is alert, appears stated age and cooperative. Inspection: There is a mild amount of swelling over the dorsal aspect of his wrist and into his right index and long finger that is not erythematous or warm to touch. Palpation: He has point tenderness over the DRUJ as well as proximally up the dorsal aspect of the forearm. ROM/Strength: Patient is able to perform active wrist flexion and extension as well as radial and ulnar deviation. Orthopedic testing: Piano ledesma-negative Neurovascular: Sensation and motor function are intact along the median, radial and nerve roots. His hand is well-perfused, distal radial pulse 2+. DIAGNOSTIC STUDIES: Previous MRI from 09/15/2018 was again reviewed with the patient and demonstratesa central tear of the TFCC. SURVEY RESPONSES: [facility] Non-surgical Followup Visit 10/23/2018 PROMIS-10 General Health Good PROMIS-10 Quality of Life Very Good PROMIS-10 Physical Health Good PROMIS-10 Mental Health Good PROMIS-10 Social Activity Good PROMIS-10 Everyday Activities Moderately PROMIS-10 Pain 5 PROMIS-10 Fatigue Moderate PROMIS-10 Social Roles Fair PROMIS-10 Anxious or Depressed Sometimes PROMIS PHYSICAL SCORE (range 16-68) 39.8 PROMIS MENTAL SCORE (range 21-68) 45.8 Treatments Tried Heat and ice therapy, Brace, Acetaminophen (e.g. Tylenol), Over the counter anti-inflammatory drugs (e.g Advil, Aspirin, Aleve), Narcotics/opiods (Percocet, codeine, hydrocodone), Injection of steroids or cortisone Satisfaction with Treatment Somewhat dissatisfied Choose Same Treatment Again Completely uncertain ASSESSMENT: Mr. 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 He did have an intra- articular cortisone injection which providedhim moderate relief for 2 to 3 weeks after. Also he has a custom fitting wrist splint which does take away some of his pain but he is unable to wear it at work due to it being too cumbersome. At thistime it was recommended a repeat MRI be obtained to evaluate further for possible tendinopathy versus other intra-articular pathology. At this time he is able to continue to work as was stated on hisworkers comp paperwork. If an intra-articular source of pathology is found on the new MRI it may bereasonable to proceed with a wrist arthroscopy. PLAN: He will return for follow up after the MRI is completed. The patient understands to contact us if they have any other questions or concerns. I saw Mr. Levy with Dr. Dorantes who agrees with this plan. The above documentation was completed using [employer] voice recognition software. documented in this encounter Plan of Treatment Not on file documented as of this encounter Results * MRI Wrist wo Contrast Right (Generic) (10/26/2018 12:07 PM EDT) Anatomical Region Laterality Modality Wrist Right Magnetic Resonan ce Narrative 10/26/2018 1:07 PM EDT EXAMINATION: MRI WRIST WO CONTRAST RIGHT (GENERIC) CLINICAL HISTORY: Please evaluate for tendinopathy and other intraarticular pathology, as the per ordering provider COMPARISON: None TECHNIQUE: Noncontrast MRI of the Right wrist was performed. Findings Intrinsic ligaments Scapholunate ligament: no tear. Normal scapholunate interval. Lunotriquetral ligament: no tear Triangular fibrocartilage: 3 mm central perforation near the radial insertion. The ulnar insertion is not interrupted. The surrounding the volar and dorsal radial ulnar ligaments are not interrupted. Extensor compartment Extensor carpi radialis brevis longus- round and thick tendon that remains hypointense. Findings represent chronic tendinopathy. Tiny rim of bright peritendinous T2 signal represents fluid or synovitis. Extensor pollicis longus tendon-it is irregular and poorly defined Burton tubercle representing tendinopathy and/or tear, series 5 image 27-30. Flexor compartment Carpal tunnel: ??No mass lesion Median nerve: ??Normal signal and size. Flexor retinaculum: ??No interruption. Flexor tendons: ??No interruption no peritendinous fluid Guyon canal: ??Normal appearance. Articulations Distal radioulnar joint: congruent. A joint effusion contains hypointense material and debris represents synovitis. Radio-carpal joint: []Diffuse thinning of the scaphoid cartilage. There is a small effusion. The joint fluid contains hypointense debris represents synovitis. Thumb carpometacarpal joint: Subchondral bright T2 signal, cartilage loss and osteophyte formation. Scaphotrapezotrapezoidal joint: Grossly normal Pisiform-triquetral joint: Small osteophytes. The fluid in the pisotriquetral recess also contains heterogeneous intermediate signal resembling debris. Bones: No fracture seen. Multiple well-circumscribed bright T2 focus in carpal bones represent any combinations of bones cyst, ganglion and/or synovial herniation. Muscles: Pronator quadratus muscle-bright T2 signal in muscle represents reactive change, muscle strain and or myositis. Impression 1. ??Synovitis of Radiocarpal, distal radial ulna and pisotriquetral joints 2. ??Central perforation of TFC 3. ??Osteoarthropathy at scattered sites 4. ??Extensor carpi radialis brevis longus tendinopathy 5. ??Extensor pollicis longus partial tear of tendon Thank you for letting us participate in the care of this patient. For questions regarding this report, please contact the number below. ? Procedure Note Radha Qiu MD - 10/26/2018 EXAMINATION: MRI WRIST WO CONTRAST RIGHT (GENERIC) CLINICAL HISTORY: Please evaluate for tendinopathy and otherintraarticular pathology, as the per ordering provider COMPARISON: None TECHNIQUE: Noncontrast MRI of the Right wrist was performed. Findings Intrinsic ligaments Scapholunate ligament: no tear. Normal scapholunate interval. Lunotriquetral ligament: no tear Triangular fibrocartilage: 3 mm central perforation near the radialinsertion. The ulnar insertion is not interrupted. The surrounding the volar anddorsal radial ulnar ligaments are not interrupted. Extensor compartment Extensor carpi radialis brevis longus- round and thick tendon thatremains hypointense. Findings represent chronic tendinopathy. Tiny rim of bright peritendinous T2 signal represents fluid or synovitis. Extensor pollicis longus tendon-it is irregular and poorly definedLister tubercle representing tendinopathy and/or tear, series 5 image 27-30. Flexor compartment Carpal tunnel: No mass lesion Median nerve: Normal signal and size. Flexor retinaculum: No interruption. Flexor tendons: No interruption no peritendinous fluid Guyon canal: Normal appearance. Articulations Distal radioulnar joint: congruent. A joint effusion containshypointense material and debris represents synovitis. Radio-carpal joint: []Diffuse thinning of the scaphoid cartilage. There gem small effusion. The joint fluid contains hypointense debris represents synovitis. Thumb carpometacarpal joint: Subchondral bright T2 signal, cartilage lossand osteophyte formation. Scaphotrapezotrapezoidal joint: Grossly normal Pisiform-triquetral joint: Small osteophytes. The fluid in thepisotriquetral recess also contains heterogeneous intermediate signal resemblingdebris. Bones: No fracture seen. Multiple well-circumscribed bright T2 focus in carpalbones represent any combinations of bones cyst, ganglion and/or synovialherniation. Muscles: Pronator quadratus muscle-bright T2 signal in muscle represents reactivechange, muscle strain and or myositis. Impression 1. Synovitis of Radiocarpal, distal radial ulna and pisotriquetraljoints 2. Central perforation of TFC 3. Osteoarthropathy at scattered sites 4. Extensor carpi radialis brevis longus tendinopathy 5. Extensor pollicis longus partial tear of tendon Thank you for letting us participate in the care of this patient. Forquestions regarding this report, please contact the number below. Ferdinand Dorantes MD IMG MRI ORDERABLES documented in this encounter Visit Diagnoses Diagnosis Wrist pain, right Pain in joint, forearm Wrist pain, right Pain in joint, forearm documented in this encounter Care Teams Machine Ceramic Coater Relationship Specialty Start Date End Date Ha Anand MD [address] [place] [address] PCP - General Family Medicine 09/25/18 documented as of this encounter
--- OUTSIDE RECORDS SUMMARY | 2023-11-30 16:09 | XMS_ITS | Encounter Summary ---
Author [facility] [place] [address] Care Team Providers Care Cardiology Rn Name Role Phone Ha Anand MD Primary Care Provider [phone] Encounter Details Date Type Department Care Team (Late st Contact Info) Description 12/29/2018 11:59 PM EST [place]esthesia [place] [id number] Rody Monsivais MD [facility] [place] [address] Anesthesia Record Procedure Summary Procedure Name Responsible Anesthesiologist Anesthesia Start Time Anesthesia Stop Time Peripheral nerve block follow-up Events No events on file. Meds * Agents No agents on file. * Blood No blood administrations on file. Lines, Drains, and Airways No LDAs on file. documented in this encounter Social History Tobacco [...] as of this encounter Progress Notes * Rody Monsivais - 12/29/2018 2:44 PM EST Spoke to patient via telephone. Peripheral nerve block resolved appropriately. No residual weakness/numbness/decreased sensation. No sign of infection at injection site. Tolerating POs appropriately.Patient very satisfied with nerve block. Rody Monsivais MD 12/29/2018 documented in this encounter Plan of Treatment Not on file documented as of this encounter Visit Diagnoses Not on filedocumented in this encounter Care Teams Cardiology Rn Relationship Specialty Start Date End Date Ha Anand MD [address] [place] [address] PCP - General Family Medicine 09/25/18 documented as of this encounter
--- OUTSIDE RECORDS SUMMARY | 2023-11-30 16:09 | XMS_ITS | Encounter Summary ---
[facility] [place] [id number] Care Team Providers Care Rn Iv Therapy Name Role Phone Ha Anand MD Primary Care Provider [phone] [phone] Reason for Referral * Occupational Therapy (Routine) - Specialty Diagnoses / Procedures Referred By Contac t Referred To Contact Occupational Therapy Diagnoses Wrist pain, right Farhan Carrasco PA [address] [place] [address] Luther Shafer, OT [facility] PHYSICAL MEDICINE & REHABILITAT [place] [id number] Referral ID Status Reason Start Date Expiration Date V isits Requested Visits Authorized [id number] Evaluate and Treat 10/09/2018 10/09/2019 12 12 Reason for Visit * Reason Comments Right Wrist Pain * Consultation (Routine) - Closed Specialty Diagnoses / Procedures Referred By Contac t Referred To Contact Orthopaedics Diagnoses RIGHT WRIST PAIN, TENDON TEAR-DISCUSS [id number] Owen Amaya MD [address] [place] [address] [facility] [place] [address] Referral ID Status Reason Start Date Expiration Date V isits Requested Visits Authorized [id number] Closed Consult, Test & Treat Connection Center 09/25/2018 09/25/2019 1 1 Encounter Details Date Type Department Care Team (Late st Contact Info) Description 10/09/2018 10:15 AM EDT Office Visit Orthopaedics at [facility] [place] [address] [facility] [place] [address] Wrist pain, right Social History Tobacco Use [...] Sign Reading Time Taken Comments Blood Pressure 154/79 10/09/2018 10:35 AM EDT Pulse 61 10/09/2018 10:35 AM EDT Temperature - - Respiratory Rate - - Oxygen Saturation - - Inhaled Oxygen Concentration - - Weight 161 kg (355 lb) 10/09/2018 10:35 AM EDT p t reported Height 177.8 cm (5' 10) 10/09/2018 10:35 AM EDT pt reported Body Mass Index 50.94 10/09/2018 10:35 AM EDT documented in this encounter Progress Notes * Farhan Carrasco PA - 10/09/2018 10:15 AM EDT PATIENT NAME: Edwin Levy AGE: 58 y.o. MR#: [id number] DATE OF VISIT: 10/09/2018 DATE OF INJURY/ONSET: 08/09/2018 STAFF: Dr. Dorantes CHIEF COMPLAINT: Right wrist pain HISTORY OF PRESENT ILLNESS: Mr. Levy is a right hand dominant 58 y.o. 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 His PMH is significant for diabetes, HLP, and FOUZIA. He had pain and swelling and an MRI was obtained to significant for a radial sided TFCC tear. The patient recently underwent bilateral carpal tunnel release done by Dr. Amaya in June of this year with good relief of symptoms. Since the injury he has had diffuse wrist pain that is elicited with radial deviation and extension as well as supination and pronation. He has been wearing a brace which does provide moderate relief in conjunction with taking ibuprofen. He also underwent a fluoroscopy guided cortisone injection 2 weeks ago which provided some pain relief although he feels it is alreadywearing off. He does not report numbness or tingling and denies fevers or chills. Medications and Allergies were reviewed in eD-[facility] PAST MEDICAL HX: History reviewed. No pertinent past medical history. PAST SURGICAL HX: History reviewed. No pertinent surgical history. SOCIAL HX: Social History Occupational History ??? Not on file Tobacco Use ??? Smoking status: Former Smoker Types: Cigarettes ??? Smokeless tobacco: Never Used Substance and Sexual Activity ??? Alcohol use: Not Currently Comment: monthly ??? Drug use: Not Currently ??? 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 General Health, Prior Treatments, PreExisting Condition, Health Habits, About You 10/09/2018 PROMIS-10 General Health Good PROMIS-10 Quality of Life Good PROMIS-10 Physical Health Good PROMIS-10 Mental Health Good PROMIS-10 Social Activity Good PROMIS-10 Everyday Activities Mostly PROMIS-10 Pain 4 PROMIS-10 Fatigue Moderate PROMIS-10 Social Roles Very Good PROMIS-10 Anxious or Depressed Sometimes PROMIS PHYSICAL SCORE (range 16-68) 42.3 PROMIS MENTAL SCORE (range 21-68) 43.5 Treatments Tried Brace, Acetaminophen (e.g. Tylenol), Over the counter anti- inflammatory drugs (e.gAdvil, Aspirin, Aleve), Narcotics/opiods (Percocet, codeine, hydrocodone), Injection of steroids orcortisone Alzheimers or dementia No Cirrohosis or liver disease No HIV/AIDS No Pain in more than one joint in legs Yes Back or neck pain Yes Heart attack No Heart failure No Unclog/bypass leg arteries No Stroke, blood clot, TIA No Asthma No Emphysema, chronic bronchities, or COPD No Stomach ulcers/peptic ulcer disease No Diabetes Yes Diabetes caused problems with kidneys No Diabetes caused problems with eyes No Poor kidney function No Rheumatic condtions No Cancer No Weight (lbs) 355 Height (feet) 5 feet Height (Inches) 10 BMI 50.93 Ever used tobacco products Yes Tobacco frequency Never WHO - Tobacco Advice 0 (You are at low risk of health and other problems from your current pattern of use.) Ever used alcoholic beverages Yes Alcohol frequency Monthly WHO - Alcohol Advice 3 (You are at low risk of health and other problems from your current pattern of use.) Live Alone No Marital situation Schooling High school graduate or GED Combined Household Income $75,000 or more # People Supported 4 Kenyan, , No, not Kenyan// Race White Health Literacy Quite a bit Currently working Yes Current job situation Full-time PHYSICAL EXAM: Mr. Levy is a 58 y.o. male who is alert, appears stated age and cooperative. Inspection: There is no obvious swelling ,erythema, or warmth present over the right wrist. Previous scar from carpal tunnel surgery is well healed. Palpation: He has TTP globally over the wrist, but most pronounced at the radial styloid. ROM/Strength: Patient is able to perform wrist flexion and extension as well as radial and ulnar deviation, with pain elicited with ulnar deviation and extension. Orthopedic testing: Piano ledesma- negative Ling-negative Neurovascular: Sensation and motor function are in tact along the median, radial, and ulnar nerve roots. His hand is well perfused, distal radial pulse 2+. DIAGNOSTIC STUDIES: Previous MRI was personally reviewed with the patient and demonstrates an effusion along the carpal tunnel after having surgery as well as numerous cysts. There is also evidence of a radial sided TFCC ligament tear. All flexor and extensor tendons are intact. ASSESSMENT: Mr. 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 He is here for further recommendation by Dr. Amaya and being found to have a TFCC ligament tear on MRI. He has been treating this conservatively with a brace with mild relief and did have a cortisone injection 2 weeks ago which he feels is no longer providing pain relief. He has the option of continuing conservative management and to allow for more time for the cortisone injection to take effect. Also it may be reasonable to repeat the MRI to evaluate further for the type of tear. We did also address having the option of doing a wrist arthroscopy for possible debridement or liga ment repair. The patient was agreeable to see occupational therapy today for a custom fitted wrist splint which he should wear while working to provide further support. His workers comp paperwork wasfilled out at today's visit. PLAN: He will return for follow up in 2 to 3 weeks for reevaluation. The patient understands to contact us if they have any other questions or concerns. I saw Mr. Levy with Dr. Dorantes who agrees with this plan. The above documentation was completed using [employer] voice recognition software. documented in this encounter Plan of Treatment Scheduled Referrals Name Type Priority Associated Diagnoses Order Schedule Referral to Occupational Therapy Outpatient Referral Routine Wrist pain, right Ordered: 10/09/2018 documented as of this encounter Visit Diagnoses Diagnosis Wrist pain, right Pain in joint, forearm documented in this encounter Care Teams Rn Iv Therapy Relationship Specialty Start Date End Date Ha Anand MD [address] [facility] [address] [place] [address] PCP - General Family Medicine 09/25/18 documented as of this encounter
--- OUTSIDE RECORDS SUMMARY | 2023-11-30 16:09 | XMS_ITS | Encounter Summary ---
[place] [address] Care Team Providers Care Technical Manager Name Role Phone Ha Anand MD Primary Care Provider [phone] Reason for Referral * Diagnostic Test (Routine) - Closed Specialty Diagnoses / Procedures Referred By Contac t Referred To Contact Radiology Diagnoses Wrist pain, right Procedures MRI Wrist wo Contrast Right (Generic) Farhan Carrasco PA [address] [place] [address] [place] [address] Referral ID Status Reason Start Date Expiration Date V isits Requested Visits Authorized [id number] Closed Specialty Service Requested 10/23/2018 10/23/2019 1 1 Reason for Visit * Diagnostic Test (Routine) - Closed Specialty Diagnoses / Procedures Referred By Contac t Referred To Contact Radiology Diagnoses Wrist pain, right Procedures MRI Wrist wo Contrast Right (Generic) Farhan Carrasco PA [address] [place] [address] [place] [address] Referral ID Status Reason Start Date Expiration Date V isits Requested Visits Authorized [id number] Closed Specialty Service Requested 10/23/2018 10/23/2019 1 1 Encounter Details Date Type Department Care Team (Latest Contact Info) Description 10/26/2018 9:21 AM EDT - 10/26/2018 11:59 PM EDT Hospital Encounter MRI at [facility] [place] [address] Ferdinand Dorantes MD [facility] [place]OP[place] [address] Wrist pain, right Discharge Disposition: Home Social History Tobacco Use [...] furosemide (Lasix) 20 mg Tablet PRN 03/10/2016 ONE TOUCH DELICA 33 gauge Misc 3 09/27/2018 terbinafine (LAMISIL) 250 mg Tablet 0 08/15/2018 gabapentin (NEURONTIN) 300 mg Capsule 1 08/31/2018 GetShopAppTOUCH ULTRA2 METER Misc 0 09/27/2018 VimessaUCH ULTRA BLUE TEST STRIP Strip 3 09/27/2018 [...] 100 mg tablet 50MG, PO, QHS 10/06/2009 metFORMIN (GLUCOPHAGE) 500 mg Tablet 1,000 mg. 3 08/15/2018 08/29/2019 ibuprofen (ADVIL;MOTRIN) 600 mg Tablet 3 06/27/2018 12/21/2018 LORazepam (ATIVAN) 0.5 mg tablet 0.5MG = 1 Tablet(s), PO, Q6H PRN 10/06/2009 01/03/2019 fluticasone (FLONASE) 50 mcg/Actuation nasal spray 50 MC-2 Manquin(s), Nasal, Once daily 10/06/2009 01/03/2019 aspirin 81 mg EC tablet 10/06/200908/2018 documented as of this encounter Plan of Treatment Not on file documented as of this encounter Procedures Procedure Name Priority Date/Time Associated Diagnosis Comments MRI WRIST RIGHT WO CONTRAST Routine 10/26/2018 12:07 PM EDT Wrist pain, right documented in this encounter Results * MRI [...] forearm documented in this encounter Care Teams Technical Manager Relationship Specialty Start Date End Date Ha Anand MD [address] [facility] 1 [place] [address] PCP - General Family Medicine 09/25/18 documented as of this encounter
--- OUTSIDE RECORDS SUMMARY | 2023-11-30 16:09 | XMS_ITS | Encounter Summary ---
Author [facility] [address] Care Team Providers Care Digital Advertising Analyst Name Role Phone Ha Anand MD Primary Care Provider [phone] [phone] Reason for Visit * Reason Comments Follow Up Fracture s/p Right wrist arth roscopy with debridement of central TFCC tear and release of the EPL right wrist 12/21/[address] Dorantes Encounter Details Date Type Department Care Team (Late st Contact Info) Description 06/20/2019 2:45 PM EDT Office [place] [id number] Wrist pain, right Social History Tobacco Use [...] this encounter Progress Notes * César Roberts A - 06/20/2019 2:45 PM EDT Edwin Levy presents to the cast room for a cast on per Dr. Dorantes. The patient's skin is intact. The patient is going into a well padded fiberglass radial deviated short arm cast cast on [facility] side. The patient tolerated the procedure well. The patient was given instructions for cast care and was given instruction to call the clinic with any questions or concerns documented in this encounter Plan of Treatment Not on file documented as of this encounter Visit Diagnoses Diagnosis Wrist pain, right Pain in joint, forearm documented in this encounter Care Teams Digital Advertising Analyst Relationship Specialty Start Date End Date Ha Anand MD [address] [place] [address] PCP - General Family Medicine 09/25/18 documented as of this encounter
--- OUTSIDE RECORDS SUMMARY | 2023-11-30 16:09 | XMS_ITS | Encounter Summary ---
Author Organization [facility] Address [facility] [place] [address] Care Team Providers Care Consulting Systems Engineer Name Role Phone Ha Anand MD Primary Care Provider [phone] [phone] Reason for Visit * Reason Onset Date Comments Other 07/19/2019 Encounter Details Date Type Department Care Team (Late st Contact Info) Description 07/19/2019 Telephone [place] [address] Ferdinand Dorantes MD [facility] [address] ORTHOPAEDIC [place] [address] Other Social History Tobacco Use Types Packs/Day Years [...] encounter Miscellaneous Notes * Telephone Encounter - Maryan Owens - 07/19/2019 2:18 PM EDT Left non detailed message for PT to call [phone] OPT 2 regarding below message: Maryan Cunningham---I should have kept you on the phone. [facility] for whom a unilateral wrist ultrasound was ordered. I read your note that [facility] has said they cannot perform the ultrasound there. I???m just letting you know that this MSK ultrasound has been protocolled, and it is ready to schedule here are [facility]. That is, if the patient will agree to come here for the exam? . Thanks, mauri saul * Telephone Encounter - Maryan Owens - 07/19/2019 8:10 AM EDT Received a call from [facility] imaging this morning regarding the ultra sound order for right wrist, nonvascular. She stated that they do not do those types of ultra sounds at that facility. Do you want me to f/u with PT to find out where else to send this or was this planned to have done here in [place]? I do see 2 orders for the same thing. Please advise. documented in this encounter Plan of Treatment Not on file documented as of this encounter Visit Diagnoses Not on filedocumented in this encounter Care Teams Consulting Systems Engineer Relationship Specialty Start Date End Date Ha Anand MD [address] [place] [address] PCP - General Family Medicine 09/25/18 documented as of this encounter
--- OUTSIDE RECORDS SUMMARY | 2023-11-30 16:09 | XMS_ITS | Encounter Summary ---
Author Organization [facility] [place] [address] Care Team Providers Care Bookkeeping Clerks Supervisor Name Role Phone Ha Anand MD Primary Care Provider [phone] [phone] Reason for Visit * Reason Comments Follow-up R wrist pain, tendon tear-discuss surgery - W/C DOI: summer DOS: CTR 07/04/18 Encounter Details Date Type Department Care Team (Late st Contact Info) Description 11/13/2018 2:00 PM EDT Office [place] [address] Ferdinand Dorantes MD [facility] [place] [address] Pain in right wrist Social History Tobacco [...] Sign Reading Time Taken Comments Blood Pressure 147/79 11/13/2018 2:02 PM EDT Pulse 71 11/13/2018 2:02 PM EDT Temperature - - Respiratory Rate - - Oxygen Saturation - - Inhaled Oxygen Concentration - - Weight - - Height - - Body Mass Index - - documented in this encounter Progress Notes * Ferdinand Dorantes MD - 11/13/2018 2:00 PM EDT Edwin Levy was seen with ERICKA Dueñas for right wrist pain. Today he describes pain over the third extensor compartment, the first extensor compartment, and over the ulnar side of the wrist. He reports that all of his pain started after jamming his wrist while working. The MRI done today does suggest the presence of a central TFCC tear as well as poor visualization of the EPL tendon which may be associated with some EPL tendon degeneration. He is clinically tender directly ulnar to Burton's tubercle but he does appear to have an intact EPL function. Additionally he does have tenderness over the first extensor compartment of his right wrist but the MRI does not show significant pathology at that interval. He does have evidence osteoarthropathy at scattered sites as well as wrist generalized synovitis but not suggestive of an erosive arthropathy. His TFCC is not unstable with stress testing but he is very tender to palpation over his ulnar headof his right wrist. His hand is well perfused and sensate. His EPL tendon is functioning, but he has significant pain over the 3rd extensor compartment. Assessment: Probable central TFCC tear right wrist as well as EPL tendinopathy which are some of the reasons for his wrist pain. He may also have additional inflammation and arthropathy in his wrist which may cause persistence of wrist pain despite treatment of these issues. Release of his third extensor compartment was discussed with him but he is aware that he may still have pain at this site after the surgery. He is aware that bowstringing of the EPL tendon will likely ensue. I do not see clinical evidence to reconstruct his EPL tendon at this point. He wishes to have this done. I also recommended right wrist arthroscopy with debridement or repair of his TFCC. The open TFCC repair might be necessitated although this is unlikely. I did tell him if I see other processes which require salvage wrist surgery such as fusion or partial bone removal then I would not do that at thecurrent time. I did tell him that I am concerned that despite surgical intervention that he may have persistence of right wrist pain that may not be helped at all by his arthroscopy. He is aware of other risks including infection, nerve injury, stiffness, bleeding, and chronic pain. We will schedule this to be done at a time is convenient for him. I do believe that the injury he had while working likely precipitated his current onset of pain. * Farhan Carrasco PA - 11/13/2018 2:00 PM EDT PATIENT NAME: Edwin Levy AGE: 58 y.o. MR#: [id number] DATE OF VISIT: 11/13/2018 DATE OF INJURY/ONSET: 08/09/2018 STAFF: DR. Dorantes CHIEF COMPLAINT: follow up right wrist pain HISTORY OF PRESENT ILLNESS: Mr. Levy is a 58 y.o. year old male who comes into clinic today for follow up regarding the right wrist. The patient did undergo a cortisone injection roughly 2 months ago under fluoroscopy and states to have gotten 2 to 3 weeks of moderate pain relief. He also wasseen by occupational therapy and provided a custom fitting splint which he does state helps howeverhe is unable to wear at work as it is too cumbersome. Patient states his pain has stayed about the same over the past 3 weeks since we last saw him. He has continued dorsal sided pain made worse withsupination and pronation as well as radial deviation. He is having extreme difficulty with strengthas well with holding a knife. The patient continues to deny any numbness or tingling. ?? PHYSICAL EXAM: Mr. Levy is a 58 y.o. male who is alert, appears stated age and cooperative. ?? Inspection: There is a mild amount of swelling over the dorsal aspect of his wrist and into his right index and long finger that is not erythematous or warm to touch. ?? Palpation: He has point tenderness over the DRUJ as well as over the third extensor compartment. ?? ROM/Strength: Patient is able to perform active wrist flexion and extension as well as radial and ulnar deviation. His pain is elicited with radial deviation and extension. Patient is able to performfull extension of his thumb indicating EPL is in tact. ?? Orthopedic testing: Piano ledesma-negative ?? Neurovascular: Sensation and motor function are intact along the median, radial and nerve roots. His hand is well-perfused, distal radial pulse 2+. ?? DIAGNOSTIC STUDIES: MRI from 10/26/2018 was personally reviewed with the patient and demonstrates a central TFCC tear along the partial tearing of his EPL tendon along with ECRB tendinopathy. There isalso diffuse osteoarthropathy. SURVEY RESPONSES: [facility] Non-surgical Followup Visit 11/13/2018 PROMIS-10 General Health Good PROMIS-10 Quality of Life Good PROMIS-10 Physical Health Good PROMIS-10 Mental Health Good PROMIS-10 Social Activity Good PROMIS-10 Everyday Activities Mostly PROMIS-10 Pain 5 PROMIS-10 Fatigue Mild PROMIS-10 Social Roles Fair PROMIS-10 Anxious or Depressed Rarely PROMIS PHYSICAL SCORE (range 16-68) 44.9 PROMIS MENTAL SCORE (range 21-68) 45.8 Treatments Tried Heat and ice therapy, Brace, Acetaminophen (e.g. Tylenol), Over the counter anti-inflammatory drugs (e.g Advil, Aspirin, Aleve), Narcotics/opiods (Percocet, codeine, hydrocodone), Injection of steroids or cortisone Satisfaction with Treatment Somewhat dissatisfied Choose Same Treatment Again Probably no ASSESSMENT: Mr. Levy presents for follow up of right wrist pain for the past 3 months after an injury he sustained at work. He has gotten moderate relief of symptoms with a cortisone injection,but this only lasted a few weeks. The patient has had persistent dorsal-sided wrist pain and point tenderness over a central TFCC tear that is demonstrated on his recent MRI. This was also significant for ECRB tendinopathy and partial tearing of his EPL. On exam he has full extension of his left thumb indicating the EPL is intact. He did have some pain increased with wrist extension and radial deviation which may stress the ECRB. We discussed doing a wrist arthroscopy and possible open incisionfor TFCC debridement versus repair. Simultaneously we could release the third extensor compartment to help take compression off of his ECRB. 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 Consent was obtained and pre-and postop education was provided. A preoperative history and physical exam should be completed by his primary care provider. PLAN: Right wrist arthroscopy. He will return for follow up post-op. The patient understands to contact us if they have any other questions or concerns. I saw Mr. Levy with Dr. Dorantes who agrees with this plan. The above documentation was completed using [employer] voice recognition software. documented in this encounter Plan of Treatment Not on file documented as of this encounter Procedures Procedure Name Priority Date/Time Associated Diagnosis Comments ARTHROSCOPY WRIST, REPAIR TFCC, DEBRIDMENT Routine 11/13/2018 3:05 PM EDT Pain in right wrist documented in this encounter Visit Diagnoses Diagnosis Pain in right wrist Pain in joint, forearm documented in this encounter Care Teams Bookkeeping Clerks Supervisor Relationship Specialty Start Date End Date Ha Anand MD [address] [place] [address] PCP - General Family Medicine 09/25/18 documented as of this encounter
--- OUTSIDE RECORDS SUMMARY | 2023-11-30 16:09 | XMS_ITS | Encounter Summary ---
[facility] Organization [facility] [place] [address] Care Team Providers Care V Belt Inspector Name Role Phone Ha Anand MD Primary Care Provider [phone] Reason for Visit * Reason Onset Date Comments Questions 10/10/2018 right wrist/hand brace Encounter Details Date Type Department Care Team (Late st Contact Info) Description 10/10/2018 Telephone [place] [phone] Roula Villarreal RN Questions (right wrist/hand brace) Social History Tobacco Use Types Packs/Day Years [...] encounter Miscellaneous Notes * Telephone Encounter - Roula Villarreal RN - 10/10/2018 3:54 PM EDT I called patient regarding ERICKA Gomez suggestion to wrap affected hand/wrist with an MELANIE bandage during work and to wear the rigid brace after work. * Telephone Encounter - Roula Villarreal RN - 10/10/2018 12:54 PM EDT Patient had an New Patient evaluation with Dr. Dorantes on 10/09/18. Patient was given a brace to wear on right hand/wrist. 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 Patient asking if there is an alternative to wearing the brace, if there is a different brace he could use or just wrap hand/wrist while working. Message routed to Upper Extremity team. documented in this encounter Plan of Treatment Not on file documented as of this encounter Visit Diagnoses Not on filedocumented in this encounter Care Teams V Belt Inspector Relationship Specialty Start Date End Date Ha Anand MD [address] [place] [address] PCP - General Family Medicine 09/25/18 documented as of this encounter
--- OUTSIDE RECORDS SUMMARY | 2023-11-30 16:09 | XMS_ITS | Encounter Summary ---
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 Villatoro/Dr. Dorantes. The patient's skin is intact. The patient is placed in a well padded fiberglass long arm meunster cast onthe right side. The patient tolerated the procedure well. Details on icing, elevation and proper cast care was discussed with the patient. A cast bag was provided to the patient. The patient was given instruction to call the clinic with any questions or concerns. 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
--- OUTSIDE RECORDS SUMMARY | 2023-11-30 16:09 | XMS_ITS | Encounter Summary ---
Author Organization [facility] [place] [address] Care Team Providers Care Records Associate Name Role Phone Ha Anand MD Primary Care Provider [phone] Reason for Visit * Reason Comments Follow-up s/p Right wrist arth roscopy with debridement of central TFCC tear and release of the EPL right wrist 12/21/[address] Dorantes Encounter Details Date Type Department Care Team (Late st Contact Info) Description 07/18/2019 1:15 PM EDT Office [place] [phone] s/p Right wrist arthroscopy with debridement of [...] as of this encounter Progress Notes * Arely Ng - 07/18/2019 1:15 PM EDT Edwin Levy presents to the clinic for a cast off per Ferdinand Dorantes MD. The cast was intact upon arrival. The patient was explained how the cast saw works and the cast was removed. The patienttolerated this procedure well. The patient's skin was intact. The patient was then sent to MRI. documented in this encounter Plan of Treatment Not on file documented as of this encounter Visit Diagnoses Diagnosis s/p Right wrist arthroscopy with debridement of central TFCC tear and release of the EPL right wrist 12/21/[address] Dorantes Pain in joint, forearm documented in this encounter Care Teams Records Associate Relationship Specialty Start Date End Date Ha Anand MD [address] [place] [address] PCP - General Family Medicine 09/25/18 documented as of this encounter
--- OUTSIDE RECORDS SUMMARY | 2023-11-30 16:09 | XMS_ITS | Encounter Summary ---
Author Organization [facility]ly [facility] [place] [address] Care Team Providers Care Cleaning Supervisor Name Role Phone Ha nAand MD Primary Care Provider [phone] Reason for Visit * Auth/Cert Specialty Diagnoses [...] Expiration Date Visits Re quested Visits Authorized [id number] 1 1 Encounter Details Date Type Department Care Team (Late st Contact Info) Description 08/30/2019 3:18 PM EDT Anesthesia Event [place] [address] Demarco Cunningham DO [facility] [place] [address] Abad Iglesias MD [facility] [place] [address] Anesthesia Record Procedure Summary Procedure Name Responsible Anesthesiologist Anesthesia Start Time Anesthesia Stop Time SYNOVECTOMY, EXTENSOR SHEATH, WRIST, SINGLE COMPARTMENT (WRVU 4.51) (Right: Wrist) Demarco Cunningham DO 08/30/19 1518 08/30/19 1701 Events Date Time Event Comment 08/30/2019 1518 AN Verify 1518 Start 1518 An Start Data 1524 1528 An Induction 1530 An Intubation 1538 Anesthesia Ready 1543 An Tourn Inflated 1545 Procedure Start 1648 Extubation/LMA Out 1656 an stop data 1700 Recovery or ICU Handoff Yesi ent care was transferred to the destination unit staff after review of the patient's medical history, current anesthetic/surgical status and plan, according to the Provider Handoff Checklist. 1701 Stop Meds Name Total BUpivacaine 0.5% 35 mL Propofol 300 mg Propofol INF 767.51 mg Midazolam 1 mg Ondansetron 8 mg fentaNYL 50 mcg/mL multi-dose injection 50 mcg ceFAZolin (Ancef) 2g in dextrose 5% 100 mL 3 g lactated ringers infusion 200 mL * Agents Name O2 Air N2O Sevoflurane (et) * Blood No blood administrations on file. Lines, Drains, and Airways Type Details Placement Removal Incision 12/21/18; 1032; hand ; 10/12/21 (LDA cleanup utility RA#[id number]); 1715 (LDA cleanup utility RA#[id number]) 12/21/18 1032 by Osman Velásquez RN 10/12/21 1715 by Thea Gasca (RETIRED) Peripheral IV Line - Single Lumen 08/30/19; 1320; metacarpal vein (top of hand), left; [id number] catheter system; 18 gauge; Pam Mccrary RN; distraction, intradermal injection; 0; no longer indicated; 08/30/19; 1805 08/30/19 1320 by Abdias Mccrary RN 08/30/19 1805 by Mere Mason RN Supraglottic Mask Ventilation: No t Attempted (0); LMA Type: Unique; LMA Size: 5; Inserted by: Terence; Removal Date: 08/30/19; Removal Time: 1648 08/30/19 1535 by Demarco Cunningham DO 08/30/19 1648 by Demarco Cunningham DO Incision 08/30/19; 1559; wris t; 10/12/21 (LDA cleanup utility RA#[id number]); 1715 (LDA cleanup utility RA#[id number]) 08/30/19 1559 by Kevin Garibay RN 10/12/21 1715 by Thea Gasca documented in this encounter Social History Tobacco [...] OR Notes * Anesthesia Postprocedure Evaluation - Demarco Cunningham DO - 08/31/2019 12:05 PM EDT Department of Anesthesiology Post-procedure Note Patient: Edwin Levy Procedure Summary Date: 08/30/19 Room / Location: [facility] OR [facility] MAIN OR Anesthesia Start: 8 Anesthesia Stop: 1700 Procedures: SYNOVECTOMY, EXTENSOR SHEATH, WRIST, SINGLE COMPARTMENT (WRVU 4.51) (Right Wrist) REPAIR, TENDON SHEATH , FOREARM &,OR WRIST, EXTENSOR, W/ FREE GRAFT (WRVU 8.96) (Right Arm Lower) Diagnosis: Wrist pain, right Pain in right wrist (ECU instability) Surgeon: Ferdinand Dorantes MD Responsible Provider: Demarco Cunningham DO Anesthesia Type: general ASA Status: 3 All Anesthesia Providers: Anesthesiologist: Demarco Cunningham DO Discovery Manager: Kristen Pratt MD Vitals Value Taken Time BP 164/77 08/30/2019 5:54 PM Temp Pulse Resp 16 08/30/2019 5:54 PM SpO2 93 % 08/30/2019 6:00 PM Pain Level 0 08/30/2019 5:22 PM Patient Location: PACU/[facility] Level of Consciousness: Awake and Alert Pain Management: Satisfactory Analgesia PONV: None Cardiovascular Status: At Baseline and Hemodynamically Stable Respiratory Status: At Baseline and Room Air Postoperative Fluid Status: Intravascular EUvolemia Possible Anesthetic Complications: NONE apparent at time of evaluation Final Primary Anesthesia Type: General (The anesthetic type performed was the same as planned.) Comments: Demarco Cunningham DO * Anesthesia Procedure Notes - Owen Aguilar - 08/30/2019 2:12 PM EDT Associated Order(s): Anesthesia Block Anesthesia Block Performed by: Owen Aguilar MD Authorized by: Abad Iglesias MD Start Time: 08/30/2019 2:00 PM End Time: 08/30/2019 2:11 PM Patient Location: Block Room The patient was greeted; the risks and benefits of the procedure were reviewed. Indication: Primary Anesthetic Block Type: Axillary plexus block Laterality: Right Position: Sitting Prep: Chlorhexidine and mask, cap, sterile gloves, hand hygeine [id number]-[id number] 21 10 cm Ultrasound Guided: YES and in-plane. Ultrasound Image(s) were saved. Ultrasound guidance was used to identify the targeted neuronal structure. Ultrasound was also used to identify needle position and to identify tissue (bone, muscle, and blood vessels) to prevent inadvertent intraneural or intravascular needle placement and injection. The spread of local anesthetic was confirmed with live ultrasound imaging. Single-Shot: Single-shot BUpivacaine 0.5%, 35 mL no complications Fellow:: Owen Aguilar MD Attending Physician:: Abad Iglesias MD Target structures and local anesthetic spread visualized under US guidance. No blood aspirated, no pain on injection, no paresthesias. Image was saved to database. * Anesthesia Preprocedure Evaluation - Demarco Cunningham DO - 08/29/2019 6:20 PM EDT Pre-Anesthesia Evaluation for: Edwin Levy a 59 y.o. male. Procedure(s): SYNOVECTOMY, EXTENSOR SHEATH, WRIST, SINGLE COMPARTMENT (WRVU 4.51) REPAIR, TENDON SHEATH , FOREARM &,OR WRIST, EXTENSOR, W/ FREE GRAFT (WRVU 8.96) Patient Active Problem List Diagnosis ??? 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 s/p Right wrist arthroscopy with debridement of central TFCC tear and release of the EPL right wrist 12/21/[address] Dorantes ??? CIS - Entered not Verified ??? CIS - Diabetes ??? CIS - Hyperlipidemia ??? CIS - Obesity ??? CIS - obstructive sleep apnea ??? CIS - palpitations History reviewed. No pertinent past medical history. Past Surgical History: Procedure Laterality Date ??? PRO EXCIS SYNOV WRIST, EXTENS TENDON Right 12/21/2018 SYNOVECTOMY, EXTENSOR SHEATH, WRIST, SINGLE COMPARTMENT (WRVU 4.51) performed by Ferdinand Dorantes MD at [facility] MAIN OR ??? PRO WRIST ARTHROSCOP, EXCIS TRIANG CART Right 12/21/2018 ARTHROSCOPY WRIST, REPAIR TFCC, DEBRIDMENT (WRVU 6.89) performed by Ferdinand Dorantes MD at [facility] MAIN OR Social History Tobacco Use ??? Smoking status: Former Smoker Types: Cigarettes Last attempt to quit: 07/03/2016 Years since quittin.1 ??? Smokeless tobacco: Never Used Substance Use Topics ??? Alcohol use: Not Currently Comment: monthly Social History Substance and Sexual Activity Drug Use Not Currently No Known Allergies Medications: MAR and/or home medications have been reviewed. Physical Exam: There were no vitals filed for this visit. There is no height or weight on file to calculate BMI. Airway Assessment: Mallampati: I TM distance: >3 FB Neck ROM: full Cardiovascular Assessment: cardiovascular exam normal Pulmonary Assessment: pulmonary exam normal Dental Assessment: - normal exam Misc Assessment: Anesthesia Plan: ASA 3 general, with a(n) intravenous induction 59 y.o. male with ECU instability scheduled for extensor sheath synovectomy. Medical History: DM, HLD, morbid obesity, FOUZIA Surgical History: Previous right wrist arthroscopy Social: former smoker, quit in 2017 Anesthetic History: No known anesthesia complications previously. Previous difficult mask, grade 2 view with Mac 4 Allergies reviewed Labs reviewed NPO Status: --->8h Anesthetic Plan: GA w/ ETT/LMA Standard ASA monitoring PIV access Axillary Block Kristen Pratt MD 08/29/2019 Region - Other Informed Consent: Anesthetic plan and risks discussed with patient. Use of blood products discussed with patient who consented to blood products. Plan discussed with attending. PAT Clinic Note documented in this encounter Miscellaneous Notes * Addendum Note - Owen Aguilar - 09/11/2019 2:05 PM EDT Addendum created 09/11/19 1405 by Owen Aguilar MD Clinical Note Signed * Addendum Note - Kali Reyes MD - 09/05/2019 3:00 PM EDT Addendum created 09/05/19 1500 by Kali Reyes MD Clinical Note Signed documented in this encounter Plan of Treatment Not on file documented as of this encounter Procedures Procedure Name Priority Date/Time Associated Diagnosis Comments ANESTHESIA BLOCK Routine 08/30/2019 2:12 PM EDT documented in this encounter Results * Anesthesia Block (08/30/2019 2:12 PM EDT) Narrative Abad Iglesias MD - 08/30/2019 2:12 PM EDT Owen Aguilar MD ? 08/30/2019 ??2:14 PM Anesthesia Block Performed by: Owen Aguilar MD Authorized by: Abad Iglesias MD Start Time: ??08/30/2019 2:00 PM End Time: ??08/30/2019 2:11 PM Patient Location: ??Block Room The patient was greeted; the risks and benefits of the procedure were reviewed. ?? Indication: ??Primary Anesthetic Block Type: ??Axillary plexus block Laterality: ??Right Position: ??Sitting Prep: ??Chlorhexidine and mask, cap, sterile gloves, hand hygeine [id number] 21 10 cm Ultrasound Guided: ??YES and in-plane. ??Ultrasound Image(s) were saved. Ultrasound guidance was used to identify the targeted neuronal structure. Ultrasound was also used to identify needle position and to identify tissue (bone, muscle, and blood vessels) to prevent inadvertent intraneural or intravascular needle placement and injection. The spread of local anesthetic was confirmed with live ultrasound imaging. ?? Single-Shot: ??Single-shot BUpivacaine 0.5%, 35 mL no complications ?? Fellow:: ??Owen Aguilar MD Attending Physician:: ??Abad Iglesias MD Target structures and local anesthetic spread visualized under US guidance. No blood aspirated, no pain on injection, no paresthesias. Image was saved to database. Abad Iglesias MD SALES MANAGER [employer] [facility] [employer] documented in this encounter Visit Diagnoses Not on filedocumented in this encounter Administered Medications Inactive Administered Medications - up to 3 most recent administrations Medication Order MAR Action Action Date Dose Rate Site BUpivacaine (PF) (MARCAINE) 0.5 % (5 mg/mL) injection Starting on Shaista 08/30/19 at 1412, Until Shaista 08/30/19 at 1412, Anesthesia Intra-op, Routine Given 08/30/2019 2:12 PM EDT 35 mLs ceFAZolin (Ancef) 2g in dextrose 5% 100 mL 2 g, Intravenous, EVERY 3 HOURS, 1 dose, First dose on Shaista 08/30/19 at 1330, Administer over 30 Minutes, Redose after 3 hours., Intra-Operative (Intra-Procedure), Indication for (Active or Suspected): Prophylaxis Given 08/30/2019 3:32 PM EDT 3 g fentaNYL 50 mcg/mL multi-dose injection 12.5-25 mcg, [...] 1:21 PM EDT 1,000 mLs 100 mL/hr midazolam (PF) (VERSED) multi-dose injection Intravenous, PRN, Starting on Shaista 08/30/19 at 1521, Until Shaista 08/30/19 at 1739, Anesthesia Intra-op, Routine Given 08/30/2019 3:21 PM EDT 1 mg ondansetron (ZOFRAN) injection Intravenous, PRN, Starting on Shaista 08/30/19 at 1618, Until Shaista 08/30/19 at 1739, Anesthesia Intra-op, Routine Given 08/30/2019 4:18 PM EDT 8 mg propofol (DIPRIVAN) 10 mg/mL bolus injection (Anesthesia) Intravenous, PRN, Starting on Shaista 08/30/19 at 1523, Until Shaista 08/30/19 at 1739, Anesthesia Intra-op Given 08/30/2019 3:30 PM EDT 50 mg Given 08/30/2019 3:25 PM EDT 50 mg Given 08/30/2019 3:23 PM EDT 200 mg propofol (DIPRIVAN) infusion Intravenous, CONTINUOUS PRN, Starting on Shaista 08/30/19 at 1527, Until Shaista 08/30/19 at 1739, Anesthesia Intra-op, Routine New Bag 08/30/2019 3:27 PM EDT 50 mcg/kg/min 49 mL/hr documented in this encounter Care Teams Cleaning Supervisor Relationship Specialty Start Date End Date Ha Anand MD [address] [place] [address] PCP - General Family Medicine 09/25/18 documented as of this encounter
--- OUTSIDE RECORDS SUMMARY | 2023-11-30 16:09 | XMS_ITS | Encounter Summary ---
Author Organization [facility] Address [facility] [place] [address] Care Team Providers Care Silk Spotter Name Role Phone Ha Anand MD Primary Care Provider [phone] Reason for Visit * Auth/Cert Specialty Diagnoses [...] Expiration Date Visits Re quested Visits Authorized [id number] 1 1 Encounter Details Date Type Department Care Team (Late st Contact Info) Description 12/21/2018 10:00 AM EST Anesthesia [place] [address] Owen Pringle MD [facility] [place] [address] Idalmis Rivas MD [facility] [place] [address] Anesthesia Record Procedure Summary Procedure Name Responsible Anesthesiologist Anesthesia Start Time Anesthesia Stop Time ARTHROSCOPY WRIST, REPAIR TFCC, DEBRIDMENT (WRVU 6.89) (Right: Wrist) Owen Pringle MD 12/21/18 1000 12/21/18 1137 Events Date Time Event Comment 12/21/2018 0712 1000 AN Verify 1000 Start 1000 An Start Data 1000 Anesthesia Ready 1006 An Induction 1010 An Intubation 1031 An Tourn Inflated 1101 Break/Relief In Owen Stallworth MD 1115 An Tourn Deflated 1126 Extubation/LMA Out 1130 an stop data 1137 Recovery or ICU Handoff Yesi ent care was transferred to the destination unit staff after review of the patient's medical history, current anesthetic/surgical status and plan, according to the Provider Handoff Checklist. 1137 Stop Meds Name Total fentaNYL 100 mcg IV Lidocaine 100 mg Propofol 350 mg PHENYLephrine 320 mcg ePHEDrine 10 mg Ondansetron 4 mg ROpivacaine 0.5% 25 mL Succinylcholine 200 mg ceFAZolin (ANCEF) 2g in dextrose 5% 100 mL 3 g Lactated Ringers 700 mL * Agents Name O2 Air N2O Sevoflurane (et) * Blood No blood administrations on file. Lines, Drains, and Airways Type Details Placement Removal (RETIRED) Peripheral IV Line - Single Lumen 12/21/18; 618; metacarpal vein (top of hand), left; [id number] catheter system; 18 gauge, 1 in length; Constance Turcios RN; distraction, intradermal injection, tolerated well; 0; 12/21/18; 1300 12/21/18 0619 by Constance Turcios RN 12/21/18 1300 by Zehra Norris RN ETT Mask Ventilation: Difficult (3); ETT Type: Cuffed, Oral; ETT Size: 8 mm; Mac Blade: 4; Notes: Asleep, Pre-O2, Cricoid Pressure, Stylette; Attempts: 1; Laryngoscopy Grade: 2; Secured at Teeth: 24 cm; Inserted by: Edward TAYLOR; Removal Date: 12/21/18; Removal Time: 1126 12/21/18 1005 by Anil Brody, PHYSICAL SECURITY SPECIALIST 12/21/18 1126 by Owen Pringle MD Incision 12/21/18; 1032; hand ; 10/12/21 (LDA cleanup utility RA#[id number]); 171 (LDA cleanup utility RA#[id number]) 12/21/18 1032 by Osman Velásquez RN 10/12/21 1715 by Thea Gasca documented [...] OR Notes * Anesthesia Postprocedure Evaluation - Owen Pringle MD - 12/21/2018 11:38 AM EST Department of Anesthesiology Post-procedure Note Patient: Edwin Levy Procedure Summary Date: 12/21/18 Room / Location: [facility] MAIN OR Anesthesia Start: 1000 Anesthesia Stop: 1137 Procedures: ARTHROSCOPY WRIST, REPAIR TFCC, DEBRIDMENT (WRVU 6.89) (Right Wrist) SYNOVECTOMY, EXTENSOR SHEATH, WRIST, SINGLE COMPARTMENT (WRVU 4.51) (Right Wrist) Diagnosis: Pain in right wrist (right TFCC repair and third extensore compartment release vs debridement) Surgeon: Ferdinand Dorantes MD Responsible Provider: Owen Pringle MD Anesthesia Type: general ASA Status: 3 All Anesthesia Providers: Anesthesiologist: Owen Pringle MD PHYSICAL SECURITY SPECIALIST: Anil Brody CRNA Student Nurse Technology Infusion Specialist: Edward Charles RN Vitals Value Taken Time BP Temp Pulse Resp SpO2 Pain Level Patient Location: PACU/[facility] Level of Consciousness: Conscious but Sleepy Pain Management: Satisfactory Analgesia PONV: None Cardiovascular Status: At Baseline and Hemodynamically Stable Respiratory Status: Stable Respiratory Status, Supplemental O2 (NC or FM) and Nasal airway Postoperative Fluid Status: Possible Anesthetic Complications: NONE apparent at time of evaluation Final Primary Anesthesia Type: General (The anesthetic type performed was the same as planned.) Comments: * Anesthesia Procedure Notes - Eunice Jameson - 12/21/2018 10:01 AM EST Associated Order(s): Anesthesia Block Anesthesia Block Date/Time: 12/21/2018 9:55 AM Performed by: Eunice Jameson MD Authorized by: Idalmis Rivas MD Start Time: 12/21/2018 9:45 AM End Time: 12/21/2018 9:55 AM Patient Location: Block Room The patient was greeted; the risks and benefits of the procedure were reviewed. Indication: Post-op Pain Control Post-op pain management at the request of surgeon. Block Type: Supraclavicular nerve block Laterality: Right Position: Supine Prep: Mask, cap, sterile gloves, hand hygeine, patient draped and chlorhexidine Skin Anesthetic: Lidocaine 1% dose: 5 [id number]-ltapt 22 5 cm Ultrasound Guided: YES and in-plane. Ultrasound Image(s) were saved. Ultrasound guidance was used to identify the targeted neuronal structure. Ultrasound was also used to identify needle position and to identify tissue (bone, muscle, and blood vessels) to prevent inadvertent intraneural or intravascular needle placement and injection. The spread of local anesthetic was confirmed with live ultrasound imaging. Single-Shot: Single-shot ROpivacaine 0.5%, 25 mL no complications Resident/PHYSICAL SECURITY SPECIALIST:: Gerson Paiz MD Attending Physician:: Idalmis Rivas MD Performed under sterile technique with light sedation. Negative aspirations every 5 cc. Patient tolerated procedure without issue. * Anesthesia Preprocedure Evaluation - Owen Pringle MD - 12/20/2018 3:31 PM EST Pre-Anesthesia Evaluation for: Edwin Capone Scarletjefferson a 58 y.o. male. Procedure(s): ARTHROSCOPY WRIST, REPAIR TFCC, DEBRIDMENT (WRVU 6.89) SYNOVECTOMY, EXTENSOR SHEATH, WRIST, SINGLE COMPARTMENT (WRVU 4.51) Patient Active Problem List Diagnosis ??? Pain in right wrist ??? CIS - Entered not Verified ??? CIS - Diabetes ??? CIS - Hyperlipidemia ??? CIS - Obesity ??? CIS - obstructive sleep apnea ??? CIS - palpitations No past medical history on file. No past surgical history on file. Social History Tobacco Use ??? Smoking status: Former Smoker Types: Cigarettes ??? Smokeless tobacco: Never Used Substance Use Topics ??? Alcohol use: Not Currently Comment: monthly Social History Substance and Sexual Activity Drug Use Not Currently No Known Allergies Medications: MAR and/or home medications have been reviewed. Physical Exam: There were no vitals filed for this visit. There is no height or weight on file to calculate BMI. Airway Assessment: Mallampati: II TM distance: >3 FB Neck ROM: full Cardiovascular Assessment: Rate: normal Pulmonary Assessment: (+) decreased breath sounds Dental Assessment: - normal exam Misc Assessment: IV access: Peripheral line Anesthesia Plan: ASA 3 general, with a(n) intravenous induction 58 y.o. male with pain in right wrist scheduled for RIGHT wrist arthroscopy, tendon repair and all related procedures. Medical History: BMI 49, NIDDM, HLD, FOUZIA, COPD (former smoker) Surgical History: None in our system Anesthetic History: None in our system. Denies complications. Allergies reviewed - NKA Anesthetic Plan: GA w/ ETT, supra vs infraclavicular nerve block for post-op pain control Standard ASA monitoring Eunice Jameson MD 12/20/2018 Patient seen and evaluated. Risks and benefits discussed. Appropriately NPO. No recent URI. Owen Pringle MD Region - Other Informed Consent: Anesthetic plan and risks discussed with patient. Plan discussed with PHYSICAL SECURITY SPECIALIST and attending. PAT Clinic Note documented in this encounter Miscellaneous Notes * Addendum Note - Eunice Jamesno - 12/27/2018 1:11 PM EST Addendum created 12/27/18 1311 by Eunice Jameson MD Sign clinical note * Addendum Note - Eunice Jameson - 12/26/2018 11:10 AM EST Addendum created 12/26/18 1110 by Eunice Jameson MD Sign clinical note documented in this encounter Plan of Treatment Not on file documented as of this encounter Procedures Procedure Name Priority Date/Time Associated Diagnosis Comments ANESTHESIA BLOCK Routine 12/21/2018 10:0 1 AM EST documented in this encounter Results * Anesthesia Block (12/21/2018 10:01 AM EST) Narrative Idalmis Rivas MD - 12/21/2018 10:01 AM EST Eunice Jameson MD ? 12/21/2018 10:03 AM Anesthesia Block Date/Time: 12/21/2018 9:55 AM Performed by: Eunice Jameson MD Authorized by: Idalmis Rivas MD Start Time: ??12/21/2018 9:45 AM End Time: ??12/21/2018 9:55 AM Patient Location: ??Block Room The patient was greeted; the risks and benefits of the procedure were reviewed. ?? Indication: ??Post-op Pain Control Post-op pain management at the request of surgeon. ?? Block Type: ??Supraclavicular nerve block Laterality: ??Right Position: ??Supine Prep: ??Mask, cap, sterile gloves, hand hygeine, patient draped and chlorhexidine Skin Anesthetic: ??Lidocaine 1% dose: ??5 F-raxhs-yngyp 22 5 cm Ultrasound Guided: ??YES and in-plane. ??Ultrasound Image(s) were saved. Ultrasound guidance was used to identify the targeted neuronal structure. Ultrasound was also used to identify needle position and to identify tissue (bone, muscle, and blood vessels) to prevent inadvertent intraneural or intravascular needle placement and injection. The spread of local anesthetic was confirmed with live ultrasound imaging. ?? Single-Shot: ??Single-shot ROpivacaine 0.5%, 25 mL no complications ?? Resident/PHYSICAL SECURITY SPECIALIST:: ??Gerson Paiz MD Attending Physician:: ??Idalmis Rivas MD Performed under sterile technique with light sedation. Negative aspirations every 5 cc. Patient tolerated procedure without issue. Idalmis Rivas MD SOLAR PROJECT COORDINATION SPECIALIST [facility] documented in this encounter Visit Diagnoses Not on filedocumented in this encounter Administered Medications Inactive Administered Medications - up to 3 most recent administrations Medication Order MAR Action Action Date Dose Rate Site ceFAZolin (ANCEF) 2g in dextrose 5% 100 mL 2 g, Intravenous, ONCE, 1 dose, On Shaista 12/21/18 at 0715, Administer over 30 Minutes, Day of Surgery (Day of Procedure), Indication for (Active or Suspected): Prophylaxis Given 12/21/2018 10:00 AM EST 3 g ePHEDrine 5 mg/mL multi-dose injection PRN, Starting on Shaista 12/21/18 at 1100, Until Shaista 12/21/18 at 1137, Anesthesia Intra-op, Routine Given 12/21/2018 11:03 AM EST 5 mg Given 12/21/2018 11:00 AM EST 5 mg fentaNYL 50 mcg/mL multi-dose injection PRN, Starting on Shaista 12/21/18 at 1002, Until Shaista 12/21/18 at 1137, Anesthesia Intra-op, Routine Given 12/21/2018 10:02 AM EST 100 mcg lactated ringers infusion CONTINUOUS PRN, Starting on Shaista 12/21/18 at 0957, Until Shaista 12/21/18 at 1137, Anesthesia Intra-op New Bag 12/21/2018 9:57 AM EST lidocaine (PF) (XYLOCAINE) 100 mg/5 mL (2 %) injection PRN, Starting on Shaista 12/21/18 at 1003, Until Shaista 12/21/18 at 1137, Anesthesia Intra-op, Routine Given 12/21/2018 10:03 AM EST 100 mg ondansetron (ZOFRAN) injection PRN, Starting on Shaista 12/21/18 at 1113, Until Shaista 12/21/18 at 1137, Anesthesia Intra-op, Routine Given 12/21/2018 11:13 AM EST 4 mg PHENYLephrine in NS (PF) (KASHIF-SYNEPHRINE) 0.8 mg/10 mL (80 mcg/mL) multi-dose injection Syrg PRN, Starting on Shaista 12/21/18 at 1045, Until Shaista 12/21/18 at 1137, Anesthesia Intra-op, Routine Given 12/21/2018 11:03 AM EST 80 mcg Given 12/21/2018 10:52 AM EST 160 mcg Given 12/21/2018 10:45 AM EST 80 mcg propofol (DIPRIVAN) 10 mg/mL bolus injection (Anesthesia) PRN, Starting on Shaista 12/21/18 at 1007, Until Shaista 12/21/18 at 1137, Anesthesia Intra-op Given 12/21/2018 11:21 AM EST 10 mg Given 12/21/2018 11:16 AM EST 20 mg Given 12/21/2018 11:13 AM EST 20 mg ROpivacaine (PF) (NAROPIN) 5 mg/mL (0.5 %) injection Perineural, Starting on Shaista 12/21/18 at 0955, Until Shaista 12/21/18 at 0955, Anesthesia Intra-op, Routine Given 12/21/2018 9:55 AM EST 25 mLs succinylcholine chloride (Quelicin) injection PRN, Starting on Shaista 12/21/18 at 1007, Until Shaista 12/21/18 at 1137, Anesthesia Intra-op, Routine Given 12/21/2018 10:07 AM EST 200 mg documented in this encounter Care Teams Silk Spotter Relationship Specialty Start Date End Date Ha Anand MD [address] [place] [address] PCP - General Family Medicine 09/25/18 documented as of this encounter
--- OUTSIDE RECORDS SUMMARY | 2023-11-30 16:09 | XMS_ITS | Encounter Summary ---
Author Organization [facility] Address [facility] [place] [address] Care Team Providers Care Thread Clipper Name Role Phone Ha Anand MD Primary Care Provider [phone] Reason for Visit * Auth/Cert Specialty Diagnoses / Procedures Referred By Giuseppe nicholas Referred To Contact Diagnoses right TFCC repair and third extensore compartment release vs debridement Procedures PRO WRIST ARTHROSCOP, EXCIS TRIANG CART PRO EXCIS SYNOV WRIST, EXTENS TENDON ARTHROSCOPY WRIST, REPAIR TFCC, DEBRIDMENT (WRVU 6.89) SYNOVECTOMY, EXTENSOR SHEATH, WRIST, SINGLE COMPARTMENT (WRVU 4.51) Referral ID Status Reason Start Date Expiration Date Visits Re quested Visits Authorized [id number] 1 1 Encounter Details Date Type Department Care Team (Late st Contact Info) Description 12/21/2018 8:43 AM EST - 12/21/2018 11:43 AM EST Surgery [place] [address] Yenni Dorantes MD [facility] [place] [address] ARTHROSCOPY WRIST, REPAIR TFCC, DEBRIDMENT (WRVU 6.89) Social History Tobacco Use Types Packs/Day Years [...] Sign Reading Time Taken Comments Blood Pressure 139/86 12/21/2018 11:37 AM EST Pulse 69 12/21/2018 11:37 AM EST Temperature 37.1 ??C (98.8 ??F) 12/21/2018 11:[address] Respiratory Rate 23 12/21/2018 9:51 AM EST Oxygen Saturation 94% 12/21/2018 11:37 AM EST Inhaled Oxygen Concentration - - Weight [...] During clinic hours M-F 8-4:30 please call [phone] If it is after 5:00PM on a weekday or a weekend and it is of an urgent nature please call [phone] and ask for the on-call orthopaedic resident. [...] Center 01/03/2019 10:15 AM Yenni Dorantes MD [facility] ORTH 3A [facility] documented in this encounter Medications at Time [...] (FLONASE) 50 mcg/Actuation nasal spray 50 MC-2 [place](s), Nasal, Once daily 10/06/2009 01/03/2019 documented as [...] Dorantes MD - 12/21/2018 11:51 AM EST [facility] Operative Note Patient Name: Edwin Levy : [id number] MR#: [id number] Case Date: 12/21/2018 Surgeon: Surgeon(s) and Role: [...] 58-year-old male who has been treated by al for chronic right wrist pain that was [...] A preoperative timeout was performed as per [facility] protocol. His right arm was then elevated [...] Operative Note Patient Name: Edwin Levy : [id number] MR#: [id number] Case Date: 12/21/2018 Surgeon: Surgeon(s) and Role: [...] AM EST Excis Synov Wrist, Extens Tendon (40904) 12/21/2018 10:00 AM EST Pain in right wrist Wrist Arthroscop, Excis Triang Cart ([id number]) 12/21/2018 10:00 AM EST Pain in right wrist POCT GLUCOSE Routine 12/21/2018 6:15 AM EST SYNOVECTOMY, EXTENSOR SHEATH, WRIST, SINGLE COMPARTMENT Routine 12/21/2018 5:58 AM EST Pain in right wrist documented in this encounter Results * POCT Glucose (12/21/2018 10:41 AM EST) Glucose, POC 151 65 - 199 mg/dL [facility] Comment: Supplemental ranges: <140 mg/dL before meals <180 mg/dL all other times of the day Blood specimen (specimen) 12/21/2018 10:41 AM EST 12/21/2018 10:41 AM EST Yenni Dorantes MD POINT OF CARE TEST O RDERAIAM Performing Organization Address City/[facility]/ZIP Co de Phone Number [facility] [place] [address] * POCT Glucose (12/21/2018 6:15 AM EST) Glucose, POC 171 65 - 199 mg/dL [facility] Comment: Supplemental ranges: <140 mg/dL before meals <180 mg/dL all other times of the day Blood specimen (specimen) 12/21/2018 6:15 AM EST 12/21/2018 6:15 AM EST Yenni Dorantes MD POINT OF CARE TEST O RDERAIAM Performing Organization Address City/[facility]/ZIP Co de Phone Number [facility] [place] [address] documented in this encounter Visit Diagnoses Diagnosis Pain in right wrist Pain in joint, forearm Pain in right [...] Given 12/21/2018 6:16 AM EST 3 mg lidocaine-EPINEPHrine 1 %-1:100,000 injection ONCE PRN, Starting on Shaista 12/21/18 at 1124, Until Shaista 12/21/18 at 1517, Intra-Operative (Intra-Procedure), Routine Given 12/21/2018 11:24 AM EST 8 mLs 19- Surgical Site midazolam (PF) (VERSED) [...] on Shaista 12/21/18 at 1124, Until Shaista 11/7/19 at 1517, Intra-Operative (Intra-Procedure), Routine 1124 (Given [...] RN) documented in this encounter Care Teams Thread Clipper Relationship Specialty Start Date End Date Ha Anand MD [address] [place], [place] [address]Y [address] [address] PCP - General Family Medicine 09/25/18 documented as of this encounter
--- OUTSIDE RECORDS SUMMARY | 2023-11-30 16:10 | XMS_ITS | Encounter Summary ---
Author Organization [facility] Address [address] [place] [address] Care Team Providers Care Home Fire Alarm Installer Name Role Phone Unavailable Primary Care Provider Unavailabl e Encounter Details Date Type Department Care Team (Late st Contact Info) Description 11/09/2001 14:51 EDT Hospital Encounter [facility] - Other [address] [place] [address] Hardik Mckeon MD [address] [place] [address] [place] [address] Unknown, Provider, Discharge Disposition: Auto Discharge Social History Tobacco Use Types Packs/Day Years Used Date Smoking Tobacco: Never Assessed Sex and Gender Information Value Date Recorded Sex Assigned at Not on file Gender Identity Not on file Sexual Orientation Not on file documented as of this encounter Discharge Disposition Disposition Code Departure Means Destination Auto Discharge documented in this encounter Plan of Treatment Not on file documented as of this encounter Procedures Procedure Name Priority Date/Time Associated Diagnosis Comments L SPINE 2-3 VIEWS Routine 11/09/2001 14: 14 EDT documented in this encounter Results * L SPINE 2-3 VIEWS (11/09/2001 14:14 EDT) Anatomical Region Laterality Modality Other 11/09/2001 14:1 4 EDT Narrative 11/11/2008 2:25 EDT LBP WITH BILATERAL LEG PAIN. R/O SPONDYLOLISIS. DOI: . 9-26-02 AP, LATERAL EXTENSION AND LATERAL FLEXION VIEWS OF THE LUMBAR SPINE (1410 hrs): COMPARISON: 03-29-00. FINDINGS: The patient has had an L-4 laminectomy. There is mild to moderate multi-level degenerative disc disease with vacuum phenomenon at L1-2, L2-3 and L3-4. Lumbar spine is in good alignment. IMPRESSION: Multi-level, mild to moderate degenerative disc disease. Spine is in good alignment. D: 11-22-01 T: 11-23-01 /am Procedure Note Pedro Perez MD / Kristofer Watt, PT - 11/11/2008 LBP WITH BILATERAL LEG PAIN. R/O SPONDYLOLISIS. DOI: . 9--02 AP, LATERAL EXTENSION AND LATERAL FLEXION VIEWS OF THE LUMBAR SPINE (1410 hrs): COMPARISON: 03-29-00. FINDINGS: The patient has had an L-4 laminectomy. There is mild to moderate multi-level degenerative disc disease with vacuum phenomenon at L1-2, L2-3 and L3-4. Lumbar spine is in good alignment. IMPRESSION: Multi-level, mild to moderate degenerative disc disease. Spine is in good alignment. D: 11-22-01 T: 11-23-01 /am Hardik Mckeon MD IMG DIAGNOSTIC I MAGING ORDERABLES documented in this encounter Visit Diagnoses Not on filedocumented in this encounter
--- OUTSIDE RECORDS SUMMARY | 2023-11-30 16:10 | XMS_ITS | Referral Summary ---
Author Organization [facility] Address [address] [place] [address] Care Team Providers Care Airconditioning Plant Operator Name Role Phone Shea Jones MD Primary Care Provider [phone] Social History Tobacco Use Types Packs/Day Years Used Date Smoking Tobacco: Never Assessed Sex and Gender Information Value Date Recorded Sex Assigned at Not on file Gender Identity Not on file Sexual Orientation Not on file Plan of Treatment Not on file Care Teams Airconditioning Plant Operator Relationship Specialty Start Date End Date Shea Jones MD [address] [place] [address] [place] [address] PCP - General 07/09/11
--- OUTSIDE RECORDS SUMMARY | 2023-11-30 16:10 | XMS_ITS | Encounter Summary ---
Author Organization [facility] Address [address] [place] [address] Care Team Providers Care Rotary Adjuster Name Role Phone Unknown, Provider Primary Care Provider [phone] Encounter Details Date Type Department Care Team (Late st Contact Info) Description 07/20/2001 Results Only [facility] [address] [place] [address] Rm Alex, DO [address] [facility] [address] [id number] Social History Tobacco Use Types Packs/Day Years Used Date Smoking Tobacco: Never Assessed Sex and Gender Information Value Date Recorded Sex Assigned at Not on file Gender Identity Not on file Sexual Orientation Not on file documented as of this encounter Plan of Treatment Not on file documented as of this encounter Procedures Procedure Name Priority Date/Time Associated Diagnosis Comments SURGICAL PATHOLOGY Routine 07/20/2001 0:00 EDT documented in this encounter Results * SURGICAL PATHOLOGY (07/20/2001 0:00 EDT) Pathology Report: SURGICAL PATHOLOGY REPORT Reports generated via electronic interface contain original data; however they are lacking the format of the original report. Caution should be taken when reading/interpreti ng unformatted reports. Name: ? GABRIEL DO ? Accession #: ? [id number] ? : ? 1960 (Age: 41) ??M ? Collect Date: ? 07/20/2001 ? Location: ? [facility] ? Receive Date: ? 07/21/2001 ? Provider: RM ALEX DO Copy to: SIMRAN HEARN CARPET INSTALLATION SPECIALIST ? Final Pathologic Diagnosis: ? Gallbladder, cholecystectomy: 1. ?Chronic cholecystitis. Document reviewed and electronically signed by: Adelita Koch MD Report ??Date: 07/25/2001 21:00 By the signature above, the attending physician certifies that he/she has personally conducted a gross and/or microscopic examination of the described specimens and rendered or confirmed the above diagnosis. Specimen(s) Received: ? Gallbladder Clinical History: ? Acalculous cholecystitis Gross Description: ? Received in formalin labelled [place] and gallbladder is the product of a previously opened cholecystectomy measuring 7.4 cm in length, 2.8 cm in diameter, and is surfaced by a hinkle glistening serosa. ??Upon sectioning, the mucosa is hinkle-brown, smooth to velvety, and the underlying wall averages 0.2 cm in thickness. ??No bile nor choleliths are grossly identified. ??The cystic duct measures 0.4 cm in length, 0.3 cm in diameter, and is not grossly patent. ??The cystic duct node is not grossly identified. ??Three business center representative sections including the cystic duct margin are submitted in one cassette. ??(Nazario Nicole)/radhames End of Report BRENDAN GIBBS 07/20/2001 07/21/2001 8:4 0 EDT Rm Alex DO PATHOLOGY ORDER AUBREE BRENDAN GIBBS [address] [place] [address] documented in this encounter Visit Diagnoses Not on filedocumented in this encounter Care Teams Rotary Adjuster Relationship Specialty Start Date End Date Unknown, Provider, PCP - General 11/20/08 07/08/11 documented as of this encounter
--- OUTSIDE RECORDS SUMMARY | 2023-11-30 16:10 | XMS_ITS | Encounter Summary ---
Author Organization [facility]ly [facility] Address [facility] [place] [address] Care Team Providers Care Power Shovel Operator Helper Name Role Phone Ha Anand MD Primary Care Provider [phone] Encounter Details Date Type Department Care Team (Late st Contact Info) Description 09/16/2009 Orders Only Dermatology at [address] [place] [address] Rowdy Jack MD [facility] [place] [address] Social History Tobacco Use Types Packs/Day Years [...] Priority Date/Time Associated Diagnosis Comments SURGICAL PATHOLOGY REPORT Routine 09/16/2009 4:36 PM EDT documented in this encounter Results * Surgical Pathology Report (09/16/2009 4:36 PM EDT) Surgical Pathology Report [id number] ? Location: 4M The signing pathologist has (i) examined the relevant preparation(s) for the specimen(s) and (ii) rendered or confirmed the diagnosis(es). . ?Pathology Surgical Pathology Final Report Clinical Information Specimen Submitted: A - Skin, Supratip of nose, Shave: Clinical History: Bleeds readily 1+ years Clinical Diagnosis: Angiofibroma Gross Description Labeled/Fixative: ? Labeled with the patient's name and medical ?record number, formalin. Qty/Size/Weight: ?Single papule, 0.4 cm, with a slightly domed, ?pale hinkle-pink skin surface. Sections/Processing : ??Bisected. ??(T1) ??aje/PPS Microscopic Description Slides reviewed, microscopic description not recorded. Diagnosis Skin of supratip of nose, shave biopsy: Angiofibroma, (fibrous papule). Small focus of ??junctional nevus. CR-0 Dictated by: ? Abdias Slater MD ? Dermatopathology Fellow As the attending physician, I attest that I examined the histologic slides, and confirm Dr. Abdias Slater's diagnosis. 09/17/09 GLW 09/17/09 Verified by: ? Za Shafer MD ?Dermatopathologis t ?(Electronic Signature) The attending pathologist whose signature appears on this report has reviewed all diagnostic slides and has edited the gross and/or microscopic portion of the report in rendering the final pathologic diagnosis. MAGDALENO MARTINEZ 09/16/2009 4:36 PM EDT Rowdy Jack MD PATHOLOGY/CYTOLOGY ORDERABLES MAGDALENO MARTINEZ documented in this encounter Visit Diagnoses Not on filedocumented in this encounter Care Teams Power Shovel Operator Helper Relationship Specialty Start Date End Date Ha Anand MD [address] [place] [address] PCP - General Family Medicine 09/25/18 documented as of this encounter
--- OUTSIDE RECORDS SUMMARY | 2023-11-30 16:10 | XMS_ITS | Encounter Summary ---
[place] [address] Care Team Providers Care Resident Medical Officer Name Role Phone Shea Jones MD Primary Care Provider [phone] Encounter Details Date Type Department Care Team (Late st Contact Info) Description 04/08/2015 Orders Only Sleep [facility] at [address] [place] [address] Soraya Manning, BACKWINDER [facility] [place] [address] Social History Tobacco Use Types Packs/Day Years Used Date Smoking Tobacco: Never Assessed Sex and Gender Information Value Date Recorded Sex Assigned at Male 04/21/2020 10:42 AM EST Gender Identity Male 04/21/2020 10:42 AM EST Sexual Orientation Not on file documented as of this encounter Progress Notes * Soraya Manning, BACKWINDER - 04/08/2015 10:34 AM EST Polysomnogram Order Form Room # Technologist Assignment: To be read by on PSG Patient Information: Date of Study: Name: Edwin eLvy (55 y.o. male) : 1960 Ht Readings from Last 1 Encounters: 04/08/15 185.4 cm (6' 1) Wt Readings from Last 1 Encounters: 04/08/15 149.914 kg (330 lb 8 oz) Normal Sleep Hours: 10p-5a Arrival Time: Physical/Mobility Limitations: No Cognitive Limitations: No Requires Male Tech: No Requires Female Tech: No Requires 1:1 Care: No Requires Parent/Caregiver: No Home Oxygen Useage: No At Home, Sleeps in a: Bed PSG Indications: Worsening FOUZIA with new daytime sleepiness, unrefreshed sleep, frequent nocturnal awakenings, weight gain, worsening RLS Other Medical Conditions: Obesity, DMII, palpitations, LE edema PSG Orders Type of Study: Bilevel titration Additional Data Required: na Special Instructions: Uses FFM with chin strap at home *Initiate CPAP/BPAP/oxygen per previously determined protocols unless otherwise specified. documented in this encounter Plan of Treatment Not on file documented as of this encounter Visit Diagnoses Not on filedocumented in this encounter Care Teams Resident Medical Officer Relationship Specialty Start Date End Date Shea Jones MD [address] [place] [address] PCP - General General Internal Medicine 01/20/1509/14 documented as of this encounter
--- OUTSIDE RECORDS SUMMARY | 2023-11-30 16:10 | XMS_ITS | Encounter Summary ---
Author Organization [facility] Address [address] [place] [address] Care Team Providers Care Professor Criminal Justice Name Role Phone Unknown, Provider Primary Care Provider Encounter Details Date Type Department Care Team (Late st Contact Info) Description 06/29/2000 Results Only [facility] [place] conversion [address] [place] [address] Rm Alex, DO [address] [facility] [address] [id number] Social History Tobacco Use Types Packs/Day Years Used Date Smoking Tobacco: Never Assessed Sex and Gender Information Value Date Recorded Sex Assigned at Not on file Gender Identity Not on file Sexual Orientation Not on file documented as of this encounter Plan of Treatment Not on file documented as of this encounter Procedures Procedure Name Priority Date/Time Associated Diagnosis Comments SURGICAL PATHOLOGY Routine 06/29/2000 0:00 EDT documented in this encounter Results * SURGICAL PATHOLOGY (06/29/2000 0:00 EDT) Pathology Report: SURGICAL PATHOLOGY REPORT Reports generated via electronic interface contain original data; however they are lacking the format of the original report. Caution should be taken when reading/interpreti ng unformatted reports. Name: ? GABRIEL DO ? Accession #: ? [id number] ? : ? 1960 (Age: 40) ??M ? Collect Date: ? 06/29/2000 ? Location: ? [facility] ? Receive Date: ? 06/29/2000 ? Provider: RM ALEX DO Copy to: SIMRAN HEARN VICE PRESIDENT OF INSTRUCTION ? Final Pathologic Diagnosis: A. ?Stomach, antrum, biopsy: 1. ?Chemical gastropathy. ??See comment. B. ?Esophagus, distal, biopsy: 1. ?Reactive changes consistent with reflux. Comment: ? A Pierre stain is performed and is negative for Helicobacter pylori. ??(Dr. Ramon)/[facility] Document reviewed and electronically signed by: Jonathan Camara, [facility] Report ??Date: 07/01/2000 15:17 By the signature above, the attending physician certifies that he/she has personally conducted a gross and/or microscopic examination of the described specimens and rendered or confirmed the above diagnosis. Specimen(s) Received: A. ?Bx antrum B. ?Bx distal esophagus Clinical History: ? Not listed Gross Description: ? Received in Hollande' s fixative labelled [place] and bx antrum are two fragments of biopsy tissue, each of which measure approximately 0.3 cm in maximum dimension. ??Both are submitted intact as (A). Received in Hollande' s fixative labelled Chernovetz and bx distal esophagus are three fragments of biopsy tissue ranging in maximum dimension from 0.2 to less than 0.1 cm. ??All three are submitted intact as (B). ??(Dr. Dominguez)/n End of Report [facility] 06/29/2000 06/29/2000 15: 27 EDT Rm Alex DO PATHOLOGY ORDER AUBREE BRENDAN [facility] [address] [place] [address] documented in this encounter Visit Diagnoses Not on filedocumented in this encounter Care Teams Professor Criminal Justice Relationship Specialty Start Date End Date Unknown, Provider, PCP - General 11/20/08 07/08/11 documented as of this encounter
--- OUTSIDE RECORDS SUMMARY | 2023-11-30 16:10 | XMS_ITS | Encounter Summary ---
Author Organization [facility] [address] Care Team Providers Care Unit Clerk Name Role Phone Shea Castillo MD Primary Care Provider [phone] Encounter Details Date Type Department Care Team (Late st Contact Info) Description 04/13/2010 1:05 PM EST [place] [address] Breann Villalobos MD [facility] [place] [address] Social History Tobacco Use Types Packs/Day Years [...] on filedocumented in this encounter Care Teams Unit Clerk Relationship Specialty Start Date End Date Shea Castillo MD [address] [place] [address] PCP - General 01/06/10 01/19/15 documented as of this encounter
--- OUTSIDE RECORDS SUMMARY | 2023-11-30 16:10 | XMS_ITS | Encounter Summary ---
Author Organization [facility] [place] [address] Care Team Providers Care Presales Senior Specialist Name Role Phone Shea Jones MD Primary Care Provider [phone] Encounter Details Date Type Department Care Team (Late st Contact Info) Description 01/27/2016 8:30 AM EST Office Visit Sleep Center at [facility] [address] [place] [address] Soraya Manning APRN [facility] [place] [address] FOUZIA treated with BiPAP Social History Tobacco Use Types Packs/Day Years Used Date Smoking Tobacco: Never Assessed Sex and Gender Information Value Date Recorded Sex Assigned at Male 04/21/2020 10:42 AM EST Gender Identity Male 04/21/2020 10:42 AM EST Sexual Orientation Not on file documented as of this encounter Last Filed Vital Signs Vital Sign Reading Time Taken Comments Blood Pressure 164/90 01/27/2016 8:47 AM EST Pulse 75 01/27/2016 8:47 AM EST Temperature - - Respiratory Rate - - Oxygen Saturation 97% 01/27/2016 8:47 AM EST Inhaled Oxygen Concentration - - Weight 167.9 kg (370 lb 3.2 oz) 01/27/2016 8:47 AM EST Height 180.3 cm (5' 11) 01/27/2016 8:47 AM EST Body Mass Index 51.63 01/27/2016 8:47 AM EST documented in this encounter Patient Instructions * Patient Instructions* Soraya Manning APRN - 01/27/2016 8:30 AM EST Recommendations: --Order to [facility] for new BiPAP machine and mask refit for different FFM; give [facility] a call if patient doesn't hear from them in a week --For dry mouth, try over the counter Biotene --Will reassess RLS symptoms at next visit with new machine, hopefully controlled leak --Printed handouts given to patient on proper mask fit, parts cleaning/maintenance, supply replacement intervals --Driving safety discussed, recommend patient not drive if drowsy, if drowsy while driving, kiln puller and nap. --Pad a Cheek mask liner recommended --Follow-up: RTC 3 months with [place] to check compliance on new machine and mask leak documented in this encounter Progress Notes * Soraya Manning APRN - 01/27/2016 8:30 AM EST Sleep Medicine Follow-Up Note HPI: Mr. Edwin Levy is a 55 y.o. male seen for follow-up of obstructive sleep apnea. Patient presents today for follow-up in PAP clinic. Patient also has RLS and stretching his legs in the evening helps. RLS also bothers him during the day and he describes them as jumpy. Patient just had back surgery and has chronic lower back pain. Had rotator cuff in R arm surgery repair about 5 weeksago. He had a fracture in his left foot on his way to the shoulder surgery. Sleep Study: Titration 04/30/15 ) Auto BIPAP set at a pressure range of 12-25 cm with a min pressure support of 3 cm and maximum pressure support of 6 cm. Max 25 cm. Alternately fixed BIPAP of 21/15 could be used if he were to stayon his sides. 2) Mask refit 3) Follow-up with PCP in regards to cardiac ectopy 4) Follow-up with ROBERTO Manning in 8 weeks in regards to outcome with PAP, RLS and sleep issues Weight: 335.6lbs Treatment: BPAP Device: BiPAP Auto M, 700M Pressure: autoBPAP 12-25cm, PS 3-6, Max 25 Pressure Intolerance: none Interface/Mask: FFM with forehead piece, for a couple of weeks Difficulty tolerating mask interface: more comfortable than Simplus, his first FFM Chin Strap: none Humidity on? (ask if ResMed device): yes, works fine for him HCC: [facility] Insurance: [place] BC[place] Snoring: no Dry Mouth/Throat: sometimes Difficulty Breathing Through Nose/Mouth Breathing: no Symptoms Improved?: [place]: 11 today Nocturnal sleep quality improved: most of the time Daytime symptoms improved (Daytime sleepiness/fatigue): sometimes, between 12-3p after lunch; doesn't eat a lot anymore at lunch past few weeks because he started a diet Naps: Not usually, even if he's tired, otherwise he can be up half the night Involuntary Dozing: Yes, if sitting down and watching TV, but rarely sits Sleepiness or Drowsiness when driving: on occasion, a little sleepy driving down today, opened the window; no close calls or accidents Sleep Pattern: Bedtime: 9-10p Rise time: 4:30-5a weekdays, on weekends, maybe until 7-8a if he's jono Awakenings: A couple of times ROS: Constitutional: Weight change: Yes, increased, but he is dieting ENT: Nasal Obstruction: none : Nocturia: no Card Data Download: Date Range: 10/29/15-01/26/16 Pressure: autoBPAP Avg 90% IPAP 15.2 Avg 90% EPAP 12.8 Residual AHI: 3.0 (HI 1.7/OAI 1.3) Avg Vibratory Snore Index: 5.5 Avg % Night in Large Leak: 1 hr 57 mins Avg Leak: 76, Avg 90% leak: 104.5, Avg max leak: 119.7 (daily summaries show spikes in 40s-50s plus large leak) Average Usage (Days Used/Hours): 7 hours 51 mins # Days of usage: 89/90 % Days used > 4 hours: 99% Physical Exam: BP 164/90 Pulse 75 Ht 180.3 cm (5' 11) Wt (!) 167.9 kg (370 lb 3.2 oz) SpO2 97% BMI 51.63 kg/m2 General: pleasant 55 y.o. male, no distress; weight is up 35 pounds since his April 2015 titration Respirations: Even and not labored at rest DERM: Skin Irritation: no Psych: Judgement and Insight: intact Assessment Mr. Edwin Levy is a 55 y.o. male seen for obstructive sleep apnea. The data download reveals the AHI, VSI appear to be controlled but the average leak and large leak are very high.Patient's BPAP machine is old, over 5 years, and may not be working correctly. Order to [facility] for newBPAP machine. Also patient has a different FFM, but it is still not very comfortable and would like to try a different FFM or else make sure his current mask is the right size. Patient is having occasional dry mouth, likely due to mask leak and possibly machine not working correctly. Order to [facility] includes mask refit. Suggested patient call [facility] in a week if he hasn't heard from them. Patient is doing well with the current pressure and reports ongoing benefit with his sleep quality. He is experiencing some sleepiness between 12-3p, after lunch, and he believes it's likely due to the two surgeries he's had recently and also due to the holidays. Humidifier/Heater function/rational and settings were reviewed with the patient along with supply replacement. Printed handouts given to patient on proper mask fit, parts cleaning/maintenance, supply replacement intervals. Patient also has RLS and stretching his legs in the evening helps. RLS also bothers him during the day and he describes them as jumpy. He used to be on gabapentin, though he is not taking it now. Reports it didn't help much but he may not have been on an adequate dose. Recommend we follow up withhis RLS symptoms once patient has a new machine, mask, leak is controlled, as he may have some respite from pressures going to him instead of out machine and/or mask. Recommendations: --Order to [facility] for new BiPAP machine and mask refit for different FFM; give [facility] a call if patient doesn't hear from them in a week --For dry mouth, try over the counter Biotene --Will reassess RLS symptoms at next visit with new machine, revisit high leak --Printed handouts given to patient on proper mask fit, parts cleaning/maintenance, supply replacement intervals --Driving safety discussed, recommend patient not drive if drowsy, if drowsy while driving, kiln puller and nap. --Pad a Cheek mask liner recommended --Follow-up: RTC 3 months with [place] to check compliance on new machine and mask leak The patient indicates understanding of these issues and agrees with the plan. Soraya Manning APRN documented in this encounter Plan of Treatment Not on file documented as of this encounter Visit Diagnoses Diagnosis FOUZIA treated with BiPAP documented in this encounter Care Teams Presales Senior Specialist Relationship Specialty Start Date End Date Shea Jones MD [address] [place] [address] PCP - General General Internal Medicine 01/20/1509/14 documented as of this encounter
--- OUTSIDE RECORDS SUMMARY | 2023-11-30 16:10 | XMS_ITS | Encounter Summary ---
Author Organization [facility] Address [address] [place] [address] Care Team Providers Care A R Specialist Name Role Phone Unavailable Primary Care Provider Unavailabl e Encounter Details Date Type Department Care Team (Late st Contact Info) Description 05/17/2000 14:16 EDT Hospital Encounter [facility] [place] conversion [address] [place] [address] Omari Nieto MD [address] [place] [phone] Social History Tobacco Use Types Packs/Day Years [...]
--- OUTSIDE RECORDS SUMMARY | 2023-11-30 16:10 | XMS_ITS | Encounter Summary ---
Author Organization [facility] Address [facility] [place] [address] Care Team Providers Care Proofsheet Corrector Name Role Phone Shea Jones MD Primary Care Provider [phone] Encounter Details Date Type Department Care Team (Late st Contact Info) Description 03/20/2018 Ancillary Procedure Radiology Library at [facility] [place] [id number] Ferdinand Dorantes MD [facility] [place] [address] Social History Tobacco Use Types Packs/Day Years [...] FILM LIBRARY STORAGE ONLY DX WRIST Routine 03/20/2018 12:00 AM EST documented in this encounter Results * Film Library- Storage Only DX Wrist (03/20/2018 12:00 AM EST) Narrative RADHA - 09/22/2018 11:54 AM EDT This exam is auto-finalizing. It's purpose is for storage only. Ferdinand Dorantes MD IMG FILM LIBRARY ORD ERABLES [place], [place] documented in this encounter Visit Diagnoses Not on filedocumented in this encounter Care Teams Proofsheet Corrector Relationship Specialty Start Date End Date Shea Jones MD [address] [place] [address] PCP - General General Internal Medicine 01/20/1509/14 documented as of this encounter
--- OUTSIDE RECORDS SUMMARY | 2023-11-30 16:10 | XMS_ITS | Encounter Summary ---
Author Organization [facility] Address [address] [place] [address] Care Team Providers Care Geography Faculty Member Name Role Phone Unavailable Primary Care Provider Unavailabl e Encounter Details Date Type Department Care Team (Late st Contact Info) Description 05/14/2008 Before PRISM Converted Visit ([place]) [facility] [place] conversion [address] [place] [address] Rm Alex, DO [address] [facility] [address] [place], [place] [id number] Social History Tobacco Use Types Packs/Day Years Used Date Smoking Tobacco: Never Assessed Sex and Gender Information Value Date Recorded Sex Assigned at Not on file Gender Identity Not on file Sexual Orientation Not on file documented as of this encounter Plan of Treatment Not on file documented as of this encounter Procedures Procedure Name Priority Date/Time Associated Diagnosis Comments SURGICAL PATHOLOGY Routine 05/14/2008 0:00 EDT documented in this encounter Results * SURGICAL PATHOLOGY (05/14/2008 0:00 EDT) Pathology Report: SURGICAL PATHOLOGY REPORT ? Reports generated via electronic interface contain original data; ? however they are lacking the format of the original report. ? Caution should be taken when reading/interpreti ng unformatted reports. ? Name: ? HI, GABRIEL ? Accession #: ? [id number] ? : ? 1960 (Age: 48) ??M ? Collect Date: ? 05/14/2008 ? Location: ? [facility] ? Receive Date: ? 05/14/2008 ? Provider: RM ALEX DO ? Copy to: INDIRA SNOWDEN MD ? Final Pathologic Diagnosis: ? A. ?Colon, ascending, biopsy: ? 1. ?No pathologic features. ? B. ?Colon, hepatic flexure, biopsy: ? 1. ?No pathologic features. ? C. ?Colon, transverse, biopsy: ? 1. ?No pathologic features. ? D. ?Colon, descending, biopsy: ? 1. ?No pathologic features. ? E. ?Colon, sigmoid, biopsy: ? 1. ?No pathologic features. ? F. ?Rectum, biopsy: ? 1. ?No pathologic features. ? Document reviewed and electronically signed by: ? Afshin Paniagua MD ? Report ??Date: 05/16/2008 15:37 ? By the signature above, the attending physician certifies that he/she has ? personally conducted a gross and/or microscopic examination of the described ? specimens and rendered or confirmed the above diagnosis. ? Specimen(s) Received: ? A. ?Bx ascending colon (#1) ? B. ? Bx hepatic flexure (#2) ? C. ? Bx transverse colon (#3) ? D. ? Bx descending colon (#4) ? E. ? Bx sigmoid (#5) ? F. ? Bx rectum (#6) ? Clinical History: ? Diarrhea x1 year ? Gross Description: ? Received in Hollande's fixative labelled Gabriel Levy and #1 ??bx ?? ascending colon are two biopsies measuring 0.4 x 0.2 x 0.1 cm each. ??The ? specimens are submitted intact as (A). ? Received in Holabirde's fixative labelled Gabriel Levy and #2 ??bx hepatic flexure are two biopsies measuring 0.3 x 0.2 x 0.1 cm and 0.6 x 0.3 x 0.1 cm. ?? The specimens are submitted intact as (B). ? Received in [facility]'s fixative labelled Gabriel Levy and #3 ??bx ? transverse colon are two biopsies measuring 0.3 x 0.3 x 0.2 cm and 0.5 x 0.3 x 0.2 cm. ??The specimens are submitted intact as (C). ? Received in [facility]'s fixative labelled Gabriel Leyv and #4 ??bx ? descending colon are two biopsies measuring 0.4 x 0.2 x 0.1 cm and 0.5 x 0.3 x 0.1 cm. ??The specimens are submitted intact as (D). ? Received in [facility]'s fixative labelled Gabriel Levy and #5 ??bx ? sigmoid are two biopsies measuring 0.5 x 0.3 x 0.1 cm and 0.7 x 0.2 x 0.2 cm. ?? The specimens are submitted intact as (E). ? Received in [facility]'s fixative labelled Hi Gabriel and #5 ??rectum ?? are three biopsies which vary in size from 0.2 x 0.2 x 0.1 cm up to 0.7 x 0.2 x 0.1 cm. ??The specimens are submitted intact as (F). ??(Lilibeth Stark/maddy ? NOTE: ??The specimen container does say #5 instead of #6. ? End of Report ? [facility] 05/14/2008 05/14/2008 8:5 7 EDT Rm Alex DO PATHOLOGY ORDER AUBREE [facility] [address] [place] [address] documented in this encounter Visit Diagnoses Not on filedocumented in this encounter
--- OUTSIDE RECORDS SUMMARY | 2023-11-30 16:10 | XMS_ITS | Encounter Summary ---
Author Organization [facility] [place] [address] Care Team Providers Care Wood Buffer Name Role Phone Shea Castillo MD Primary Care Provider [phone] Encounter Details Date Type Department Care Team (Late st Contact Info) Description 03/24/2010 3:30 PM EST Office Visit [address] [address] Pedro Busch MD [facility] [place] [address] Social History Tobacco Use Types Packs/Day Years [...] on filedocumented in this encounter Care Teams Wood Buffer Relationship Specialty Start Date End Date Shea Castillo MD [address] [place] [address] PCP - General 01/06/10 01/19/15 documented as of this encounter
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
--- OUTSIDE RECORDS SUMMARY | 2023-11-30 16:10 | XMS_ITS | Encounter Summary ---
Author Organization [facility] Address [facility] [place] [address] Care Team Providers Care Casting Operator Helper Name Role Phone Shea Jones MD Primary Care Provider [phone] Encounter Details Date Type Department Care Team (Late st Contact Info) Description 05/09/2015 Telephone [facility] [address] [place] [address] Gagan Henson MD [facility] [place] [address] Social History Tobacco Use Types Packs/Day Years Used Date Smoking Tobacco: Never Assessed Sex and Gender Information Value Date Recorded Sex Assigned at Male 04/21/2020 10:42 AM EST Gender Identity Male 04/21/2020 10:42 AM EST Sexual Orientation Not on file documented as of this encounter Miscellaneous Notes * Telephone Encounter - Gagan Henson MD - 05/09/2015 3:47 PM EDT Spoke with patient. He reports he often starts out sleeping on his back then rolls to his side. Equipment at home old - mask leaks and is two years old. Simplus FFM medium used on the study much better than current mask he reports but leak not ideal on my review. He continues to lose weight. Plan: Sleep on sides if he can New equipment including a better fitting ffm Auto BIPAP 12-25 cm with min PS 3 cm, max PS 6 cm Followup with PCP RE ECG findings HCC KMP in J documented in this encounter Plan of Treatment Not on file documented as of this encounter Visit Diagnoses Diagnosis FOUZIA (obstructive sleep apnea) Obstructive sleep apnea (adult) (pediatric) documented in this encounter Care Teams Casting Operator Helper Relationship Specialty Start Date End Date Shea Jones MD [address] [place] [id number] PCP - General General Internal Medicine 01/20/1509/14 documented as of this encounter
--- OUTSIDE RECORDS SUMMARY | 2023-11-30 16:10 | XMS_ITS | Encounter Summary ---
Author Organization [facility] Address [facility] [place] [address] Care Team Providers Care Corporate Driver Name Role Phone Shea Castillo MD Primary Care Provider [phone] Reason for Visit * Reason Comments Palpitations Encounter Details Date Type Department Care Team (Late st Contact Info) Description 03/26/2011 1:15 PM EST Office Visit [address] [address] Pedro Busch MD [facility] [place] [address] SVT (supraventricular tachycardia) (Primary Dx) Social History Tobacco Use Types Packs/Day Years Used Date Smoking Tobacco: Never Assessed Sex and Gender Information Value Date Recorded Sex Assigned at Male 04/21/2020 10:42 AM EST Gender Identity Male 04/21/2020 10:42 AM EST Sexual Orientation Not on file documented as of this encounter Progress Notes * Mildred Quiles - 04/06/2011 10:16 AM EST * Pedro Busch - 03/26/2011 1:32 PM EST Subjective: Patient ID: Edwin Levy is a 51 y.o. male. HPI ROS Objective: Physical Exam Assessment and Plan: No problem-specific visit notes found for this encounter. Scanned note documented in this encounter Plan of Treatment Not on file documented as of this encounter Visit Diagnoses Diagnosis SVT (supraventricular tachycardia)- Primary Other specified cardiac dysrhythmias documented in this encounter Care Teams Corporate Driver Relationship Specialty Start Date End Date Shea Castillo MD [address] [id number] PCP - General 01/06/10 01/19/15 documented as of this encounter
--- OUTSIDE RECORDS SUMMARY | 2023-11-30 16:10 | XMS_ITS | Encounter Summary ---
Author Organization [facility] Address [address] [place] [address] Care Team Providers Care Facility Worker Name Role Phone Unavailable Primary Care Provider Unavailabl e Encounter Details Date Type Department Care Team (Late st Contact Info) Description 03/29/2000 6:25 EST - 03/30/2000 11:[address] [facility] General Surgery Unit [address] [place], [place] [address] Hardik Mckeon MD [address] [place] [address] [place] [address] Discharge Disposition: Home or Self Care Social History Tobacco Use Types Packs/Day Years Used Date Smoking Tobacco: Never Assessed Sex and Gender Information Value Date Recorded Sex Assigned at Not on file Gender Identity Not on file Sexual Orientation Not on file documented as of this encounter Discharge Disposition Disposition Code Departure Means Destination Home or Self Care documented in this encounter Plan of Treatment Not on file documented as of this encounter Procedures Procedure Name Priority Date/Time Associated Diagnosis Comments L SPINE 1 VIEW Routine 03/29/2000 8:20 EST documented in this encounter Results * L SPINE 1 VIEW (03/29/2000 8:20 EST) Anatomical Region Laterality Modality Other 03/29/2000 8:20 EST Narrative 12/24/2008 19:46 EST CHECK LEVEL SPINAL STENOSIS-LUMBAR LUMBAR SPINE, SINGLE LATERAL VIEW, 03/29/00 COMPARISON: 07/28/98 Prone cross-table lateral view. A metallic surgical clamp is present with its tip superimposed over the spinous process of the L3 vertebral body. Two Ray-Anette sponges are also present at the instrument tip. /[facility] Procedure Note Mikel Leon MD - 12/24/2008 CHECK LEVEL SPINAL STENOSIS-LUMBAR LUMBAR SPINE, SINGLE LATERAL VIEW, 03/29/00 COMPARISON: 07/28/98 Prone cross-table lateral view. A metallic surgical clamp is present with its tip superimposed over the spinous process of the L3 vertebral body. Two Ray-Anette sponges are also present at the instrument tip. /[facility] Hardik Mckeon MD IMG DIAGNOSTIC I MAGING ORDERABLES documented in this encounter Visit Diagnoses Not on filedocumented in this encounter
--- OUTSIDE RECORDS SUMMARY | 2023-11-30 16:10 | XMS_ITS | Encounter Summary ---
Author Organization [facility] [place] [address] Care Team Providers Care Cd Technician Name Role Phone Shea Castillo MD Primary Care Provider [phone] Reason for Visit * Reason Comments Obstructive Sleep Apnea Encounter Details Date Type Department Care Team (Late st Contact Info) Description 08/10/2010 3:35 PM EDT Office [place] [address] Breann Villalobos MD [facility] [place] [address] FOUZIA (obstructive sleep apnea) (Primary Dx) Social History Tobacco Use Types Packs/Day Years Used Date Smoking Tobacco: Never Assessed Sex and Gender Information Value Date Recorded Sex Assigned at Male 04/21/2020 10:42 AM EST Gender Identity Male 04/21/2020 10:42 AM EST Sexual Orientation Not on file documented as of this encounter Last Filed Vital Signs Vital Sign Reading Time Taken Comments Blood Pressure - - Pulse - - Temperature - - Respiratory Rate - - Oxygen Saturation - - Inhaled Oxygen Concentration - - Weight 124.3 kg (274 lb) 08/10/2010 5:37 PM EDT Height - - Body Mass Index - - documented in this encounter Progress Notes * Breann Villalobos MD - 08/10/2010 5:43 PM EDT Sleep Medicine Follow-Up Note HPI: Mr. Edwin Levy is a 50 y.o. male seen at for follow-up regarding obstructive sleep apnea. He was last seen in February, adjustments were made to his machine to lower his pressures in thesetting of weight loss. A mask refit was recommended. A full facemask was chosen, leaks are ongoing however. It tends to leak on the sides after hitting the pillow. He carries a neatly trimmed goatee. He has had ongoing weight loss success from 282 to 274 today fully clothed. He wants to lose 20 lbs in the next 2 months. His BIPAP use has been superb,however, he has dropped about an hour of sleep nightly coincident with his girlfriend returning from [place]. He admits to getting to bed later and having an early rise time. He sleeps in on weekends. He takes trazadone and nyquil at night currently to help with sleep. Occasional snoring is noted by his girlfriend, but leaks are noted to be very high. Treatment: BIPAP Pressure: auto 12-20 Interface: FFM Fit: Poor Chin strap: no Patient perceived outcome: Helps with sleep but still having problems. Ongoing Snoring: maybe Mouth Breathing: no Dry Mouth: no Nocturnal Gasping: no ROS: ENT: Nasal Obstruction: yes CONSTITUTIONAL: Weight: more success with weight loss Daytime Symptoms: [place]: 05/07 Alert, no complaints Compliance Card Data: Date Range: 04/13 - 08/09 [place]-20 Residual AHI: 1.8 Vibratory Snore Index: minimal % Night in Large Leak: 2 hrs nightly Average usage days used: 7 hr 3 min, 50 min less than before % Days used: 100% Patient Active Problem List Diagnoses Code ??? CIS - Diabetes ??? CIS - Entered not Verified ??? CIS - Hyperlipidemia ??? CIS - Obesity ??? CIS - obstructive sleep apnea ??? CIS - palpitations Current outpatient prescriptions ordered prior to encounter Medication Sig Dispense Refill ??? esomeprazole (NEXIUM) 40 mg capsule 40MG, PO, Once daily ??? sildenafil (VIAGRA) 100 mg tablet 100MG, PO, PRN ??? traZODone (DESYREL) 100 mg tablet 50MG, PO, QHS ??? LORazepam (ATIVAN) 0.5 mg tablet 0.5MG = 1 Tablet(s), PO, Q6H PRN ??? fluticasone (FLONASE) 50 mcg/Actuation nasal spray 50 MC-2 [place](s), Nasal, Once daily ??? aspirin 81 mg EC tablet No Known Allergies PE: General: Alert, plethoric Weight: 274 Pul: Respirations: NAD Assessment: Mr. Edwin Levy is a 50 y.o. male who is seen for follow-up of obstructive sleepapnea. Overall, his is doing well with auto bipap but leaks are very problematic. Given his weight loss, I would recommend dropping his pressure to 8-20cm, flex =3, and checking on his mask fit (new cushion, cinch up more tightly?) No changes in trazodone is suggested. Increasing his sleep times, however, may help him feel more rested on some day, although his daytime function appears to be good.Consider repeat PSG when at his goal weight. Diagnostic Codes: FOUZIA 327.23 Time spent face to face: 25min Time spent devoted to counseling and discussion: 15min Reccomendations: 1) AUTO bipap at 8-20, mask refit or cinch up mask more tightly 2) Follow-up 3.5 mo 3) Consider repeat sleep testing at next follow up? The patient indicates understanding of these issues and agrees with the plan. Breann Villalobos MD documented in this encounter Plan of Treatment Not on file documented as of this encounter Visit Diagnoses Diagnosis FOUZIA (obstructive sleep apnea)- Primary Obstructive sleep apnea (adult) (pediatric) documented in this encounter Care Teams Cd Technician Relationship Specialty Start Date End Date Shea Castillo MD [address] [place] [address] PCP - General 01/06/10 01/19/15 documented as of this encounter
--- OUTSIDE RECORDS SUMMARY | 2023-11-30 16:10 | XMS_ITS | Encounter Summary ---
Author Organization [facility] Address [address] [place] [address] Care Team Providers Care Chisel Grinder Name Role Phone Unavailable Primary Care Provider Unavailabl e Encounter Details Date Type Department Care Team (Late st Contact Info) Description 03/25/2003 15:56 EST Hospital Encounter [facility] - Other [address] [place] [address] Hardik Mckeon MD [address] [place] [phone] Discharge Disposition: Auto Discharge Social History Tobacco [...] Diagnosis Comments L SPINE 2-3 VIEWS Routine 03/25/2003 14: 35 EST documented in this encounter Results * L SPINE 2-3 VIEWS (03/25/2003 14:35 EST) Anatomical Region Laterality Modality Other 03/25/2003 14:3 5 EST Narrative 10/14/2008 4:56 EDT INCREASED BACK PAIN. ??S/P L3-5 DECOMPRESSION AND DISCECTOMY 03/29/00. R/O DDD. DOI: 02/26/03. LUMBAR SPINE 3 VIEWS, 03/25/03 FINDINGS: In comparison to the prior radiographs dated 11/09/01, the AP as well as lateral flexion and extension views show no significant change. There are laminectomy changes seen centered at L4. There is extensive degenerative disk disease with vacuum disks, especially at L1-2, L2-3, and L3-4. There is no subluxation or sign of abnormal motion. /[facility] Procedure Note Bill Bradley MD - 10/14/2008 INCREASED BACK PAIN. S/P L3-5 DECOMPRESSION AND DISCECTOMY 03/29/00. R/O DDD. DOI: 02/26/03. LUMBAR SPINE 3 VIEWS, 03/25/03 FINDINGS: In comparison to the prior radiographs dated 11/09/01, the AP as well as lateral flexion and extension views show no significant change. There are laminectomy changes seen centered at L4. There is extensive degenerative disk disease with vacuum disks, especially at L1-2, L2-3, and L3-4. There is no subluxation or sign of abnormal motion. /[facility] Hardik Mckeon MD IMG DIAGNOSTIC I MAGING ORDERABLES documented in this encounter Visit Diagnoses Not on filedocumented in this encounter
--- OUTSIDE RECORDS SUMMARY | 2023-11-30 16:10 | XMS_ITS | Clinical Summary ---
Author Organization [facility] Address [address] [place] [address] Care Team Providers Care Pit Operator Name Role Phone Shea Jones MD Primary Care Provider Social History Tobacco Use Types Packs/Day Years Used Date Smoking Tobacco: Never Assessed Sex and Gender Information Value Date Recorded Sex Assigned at Not on file Gender Identity Not on file Sexual Orientation Not on file Plan of Treatment Health Maintenance Due Date Last Done Comments Hepatitis C Screen 1960 RSV Immunization ( o r 60+ Years) (1 - 1-dose 60+ series) 2021 COVID-19 Vaccine (2022-24 season) 2022 Care Teams Pit Operator Relationship Specialty Start Date End Date Shea Jones MD [address] [place] [address] [place] [address] PCP - General 07/09/11
--- OUTSIDE RECORDS SUMMARY | 2023-11-30 16:10 | XMS_ITS | Encounter Summary ---
Author Organization [facility] Address [facility] [place] [address] Care Team Providers Care Recycling Or Rubbish Collector Name Role Phone Indira James MD Primary Care Provider [phone] Encounter Details Date Type Department Care Team (Late st Contact Info) Description 04/30/2015 8:30 PM EDT Procedure visit [facility] [address] [place] [address] Gagan Henson MD [facility] [place] [address] FOUZIA (obstructive sleep apnea) Social History Tobacco Use Types Packs/Day Years Used Date Smoking Tobacco: Never Assessed Sex and Gender Information Value Date Recorded Sex Assigned at Male 04/21/2020 10:42 AM EST Gender Identity Male 04/21/2020 10:42 AM EST Sexual Orientation Not on file documented as of this encounter Last Filed Vital Signs Vital Sign Reading Time Taken Comments Blood Pressure 139/82 04/30/2015 8:00 PM EDT Pulse 72 04/30/2015 8:00 PM EDT Temperature - - Respiratory Rate 20 04/30/2015 8:00 PM EDT Oxygen Saturation - - Inhaled Oxygen Concentration - - Weight 152.4 kg (336 lb) 04/30/2015 8:00 PM EDT Height 177.8 cm (5' 10) 04/30/2015 8:00 PM EDT Body Mass Index 48.21 04/30/2015 8:00 PM EDT documented in this encounter Progress Notes * Gagan Henson MD - 05/09/2015 10:02 AM EDT Images from the original note were not included. REPORT OF POSITIVE PRESSURE TITRATION IDENTIFYING INFORMATION Edwin Levy : 1960 REFERRING PHYSICIAN: INDIRA JAMES MD PRIMARY CARE PHYSICIAN: INDIRA JAMES MD History Of Present Illness: Edwin Levy is a 55 y.o. male who presents for a polysomnogram. Polysomnography: The patient's sleep was evaluated for one night at the [facility]. Sleep was monitored in accordance with recommended AASM guidelines. The recording also included oral/nasal airflow, chest and abdominal respiratory effort, nasal pressure, single channel EKG, intercostalEMG, bilateral tibialis EMG, and oxygen saturation (by pulse oximeter). Type of Positive Pressure Utilized: BIPAP Comment: - Sleep/EEG: The patient had a 12 Hz alpha rhythm when awake with eyes closed. NREM and REM sleep were noted. REM percentage was 21% which is normal. - Respiratory: BIPAP was titrated from a pressure of 8/4 cm to 24/17 cm. Supine NREM: all pressures ineffective in controlling the hypopneas and obstructive apneas including the highest tested of 24/17. Side NREM: ongoing hypopneas at 14/10, 15/10, 16/10, and 16/11. Pressures of 19/12, 21/15 and 24/17appeared effective side NREM with saturations in the mid to high 90% range. Side REM: The only two pressures tested in REM sleep side were 21/15 and 24/17 and both appeared connie effective. At 21/15 side REM the saturation hovered around 96%. Supine REM: no pressures tested REM supine Interfaces: Simplus FFM size medium used for the entire study. At a pressure of 19/12 side NREM actual leak was 50-70 lpm with an expected leak of 39-49 lpm. Leak values were elevated even at effective pressures. - EKG: Normal sinus rhythm with occasional multifocal wide complex ectopy. See 10 second sample: Ventricular bigemeny noted at epoch 410. This 10 second clip is an example: - EMG: PLMI was 72. - Study Conditions: Head of the bed: flat with two pillows Supplemental oxygen: room air - Subjective: The post sleep study questionnaire indicated the following: ...how did you sleep last night: slightly better ..how well rested and alert do you feel right now: better Assessment: Mr. Edwin Levy is a 55 y.o. male whose polysomnogram reveals an effective BIPAPpressure of 21/15 cm of water on his side in NREM and REM sleep. No pressure was effective supine NREM including the highest pressure tested of 24/17. No pressure was tested in REM supine. The Simplus FFM size medium used was not an ideal fit in that leak values were elevated. Frequent PLMS were also noted which is potentially consistent with his history of RLS. Occasional multifocal wide complex ectopy noted. Some short runs of ventricular bigemeny also notedand are of unclear significance. Recommendations: 1) Auto BIPAP set at a pressure range of 12-25 cm with a min pressure support of 3 cm and maximum pressure support of 6 cm. Max 25 cm. Alternately fixed BIPAP of 21/15 could be used if he were to stay on his sides. 2) Mask refit 3) Follow-up with PCP in regards to cardiac ectopy 4) Follow-up with ROBERTO Manning in 8 weeks in regards to outcome with PAP, RLS and sleep issues Disposition: The patient will be contacted by phone to discuss the study results. I am waiting to discuss the test results with the patient before I prescribe the PAP. Messages left at home and mobile number asking him to call me back on 05/09/15. [facility] CPAP/BILEVEL REPORT Patient Name: Edwin Levy Study Type: BILEVEL Sex: Male Study Date: 04/30/2015 Date of : 1960 Hospital #: [id number] Age: 55 Referring Physician: Height: 5'10 Sleep Specialist: Weight: 335.6 Recording Tech: EDEL DUMONT B.M.I: 48.2 Scoring Tech: EDEL FIGUEROA SCORING TECHNOLOGIST COMMENTS: ECG: NSR Ectopy: PVC???s Description of study: CPAP/Bilevel Therapeutic Polysomnography was performed utilizing frontal, central & occipital EEG, EOG, submentalis EMG, oronasal thermocouple, nasal pressure, ECG, thoracicand abdominal inductance plethysmography, right and left anterior tibialis EMG, snore sensor, and pulse oximetry according to AASM established guidelines. Therapeutic Analysis Sleep Architecture Therapeutic Start Time Lights Off: 22:17:08 Total Number of Stage Shifts: 152 Therapeutic End Time Lights On: 06:01:09 Number of Transitions to Stage 1: 56 Total Recording Time 464.0 minutes Total Number of Awakenings: 33 Total Sleep Time (TST): 427.5 minutes Number of REM Periods: 5 Sleep Efficiency: 92.1% REM Latency: 108.0 minutes Sleep Onset: 4.0 minutes REM Latency (minus Wake time): 96.5 minutes Stage Results Time (min.) % TST Latency (min.) Wake (after sleep onset): 32.5 - - N1: 84.5 19.8 0.0 N2: 255.0 59.6 37.5 N3: 0.0 0.0 - REM: 88.0 20.6 108.0 Spontaneous Arousals* Total NREM REM Count: 62 59 3 Index (events/hr): 8.7 10.4 2.0 * (EEG Arousal activity not associated with Respiratory or PLM events). Respiratory Events Apneas Central Apnea Obstructive Apnea Mixed Apnea Count: 8 85 1 Index (events/hr.): 1.1 11.9 0.1 Mean Duration (sec.): 13 13 24 Longest Event (sec.): 17.2 23.4 23.9 REM Count: 0 0 0 NREM Count: 8 85 1 REM Index: 0.0 0.0 0.0 NREM Index 1.4 15.0 0.2 Supine Index 3.3 33.6 0.4 Non-supine Index 0.0 0.8 0.0 Hypopneas and RERAs Hypopnea 4% desat Hypopnea 3% or arousal RERA Count: 30 187 0 Index (events/hr.): 4.2 26.2 0.0 Mean Duration (sec.): 28.5 20.6 0 Longest Event (sec.): 56.7 62.3 0 REM Count: 1 1 0 NREM Count: 29 186 0 REM Index: 0.7 0.7 0.0 NREM Index: 5.1 32.9 0.0 Supine Count: 20 142 0 Non-Supine Count: 10 45 0 Supine Index: 8.3 59.0 0.0 Non-supine Index: 2.1 9.5 0.0 Apneas & Hypopneas (by Body-Position) Total Supine Non-Supine Count: 312 252 60 Index (events/hr): 43.8 104.6 12.7 * Results include all hypopneas and apneas. Apneas & Hypopneas (by Body-Position) Total Supine Non-Supine Count: 124 110 14 Index (events/hr): 17.4 45.7 3.0 *Results include only hypopneas with desaturations >= 4% and apneas. RDI (by Body-Position) Total Supine Non-Supine Count: 312 252 60 Index (events/hr): 43.8 104.6 12.7 * Results include all hypopneas, apneas and RERAs. Mark Thornton Breathing (% of TST) 0.0 Body Position by Time Non-Supine Supine Sleep (in minutes) 283.0 144.5 REM (in minutes) 88.0 0.0 NREM (in minutes) 195.0 144.5 Periodic Limb Movements(by Sleep Stages) Total PLMs PLMs w/ Arousals Count Index Count Index Total Sleep: 513 72.0 32 4.5 REM: 100 68.2 1 0.7 NREM: 413 73.0 31 5.5 Wake (after Lights Off): 0 0.0 0 0.0 Oxygen Saturation NREM REM TST Mean SaO2%: 96 96 96 Min. SaO2%: 87 93 87 % Time of SaO2 in range Awake NREM REM Total Sleep 90 - 100%: 98 99 100 99 80 - 89%: 0 0 0 0 70 - 79%: 0 0 0 0 60 - 69%: 0 0 0 0 50 - 59%: 0 0 0 0 < 50%: 0 0 0 0 Total Time (min) SaO2 < 90%: 0.2 0.8 0.0 0.8 Total Time (min) SaO2 < 89%: 0.1 0.3 0.0 0.3 Total Time (min) SaO2 < 88%: 0.0 0.1 0.0 0.1 Heart Rate NREM REM TST Mean HR (bpm): 64 60 63 Min. HR (bpm): 44 45 44 Max. HR (bpm): 81 81 81 A. Titration Analysis Chart (Duration) Pressure Level (cm H2O) Time in Minutes TST REM NREM Supine Non-Supine REM Supine 8/4/0 0 0 0 0 0 0 10/4/0 3 0 3 3 0 0 10/6/0 4 0 4 4 0 0 12/6/0 6 0 6 6 0 0 12/8/0 5 0 5 5 0 0 14/8/0 3 0 3 3 0 0 14/10/0 9 0 9 3 6 0 15/10/0 8 0 8 0 8 0 16/10/0 47 0 47 0 47 0 16/11/0 24 7 17 8 15 0 18/11/0 5 0 5 5 0 0 18/12/0 6 0 6 6 0 0 19/12/0 39 1 38 5 34 0 19/13/0 6 0 6 6 0 0 19/15/0 8 0 8 8 0 0 21/15/0 74 46 28 16 58 0 23/15/0 4 0 4 4 0 0 23/17/0 10 0 10 10 0 0 24/17/0 155 34 121 42 113 0 B. Titration Analysis Chart (Oxygen Saturation) Pressure Level Mean SaO2% Min SaO2% 8/4/0 96 94 10/4/0 96 93 10/6/0 96 94 12/6/0 96 92 12/8/0 96 93 14/8/0 96 93 14/10/0 95 92 15/10/0 95 92 16/10/0 95 89 16/11/0 96 89 18/11/0 96 87 18/12/0 97 93 19/12/0 96 91 19/13/0 96 93 19/15/0 97 94 21/15/0 96 93 23/15/0 96 93 23/17/0 97 95 24/17/0 97 93 C. Titration Analysis Chart (Respiratory) Pressure Level Respiratory (number) Time in Minutes Respiratory (index) cm H2O Central Apneas Obstructive Apneas Mixed Apneas Hypopnea (4%) Hypopneas (3% or Arousal) RERA AHI* NREM AHI REM AHI RDI Supine AHI* NonSupine AHI 8/4/0 0 2 0 - 0 0 184.6 184.6 0.0 189.5 184.6 0.0 10/4/0 0 3 0 - 3 0 120.0 120.0 0.0 120.0 120.0 0.0 10/6/0 0 2 0 1 7 0 111.2 111.2 0.0 110.8 111.2 0.0 12/6/0 1 10 0 1 5 0 144.8 144.8 0.0 144.8 144.8 0.0 12/8/0 0 12 0 - 0 0 134.6 134.6 0.0 134.6 134.6 0.0 14/8/0 0 8 0 1 3 0 155.8 155.8 0.0 155.8 155.8 0.0 14/10/0 0 10 0 - 8 0 110.0 110.0 0.0 110.0 159.3 79.3 15/10/0 0 0 0 2 8 0 55.4 55.4 0.0 55.4 0.0 55.4 16/10/0 0 2 0 7 25 0 34.1 34.1 0.0 34.1 0.0 34.1 16/11/0 1 3 0 2 16 0 49.6 69.7 0.0 49.6 126.9 3.9 18/11/0 2 2 0 3 11 0 158.8 158.8 0.0 158.8 158.8 0.0 18/12/0 2 3 1 2 8 0 132.6 132.6 0.0 132.6 132.6 0.0 19/12/0 0 5 0 2 13 0 27.3 28.0 0.0 27.3 119.6 13.9 19/13/0 0 1 0 2 11 0 102.3 102.3 0.0 102.1 102.3 0.0 19/15/0 0 3 0 - 13 0 109.9 109.9 0.0 109.9 109.9 0.0 21/15/0 0 5 0 3 25 0 23.5 57.8 2.6 23.5 93.5 4.1 23/15/0 0 1 0 1 5 0 80.3 80.3 0.0 80.3 80.3 0.0 23/17/0 0 2 0 1 15 0 89.0 89.0 0.0 89.0 89.0 0.0 24/17/0 2 11 0 2 46 0 22.4 28.6 0.0 22.4 76.2 2.1 *Includes all hypopneas and apneas Includes all hypopneas, apneas and RERAs CPAP/BILEVEL TREATMENT REPORT CPAP/Bilevel PLM Body Position documented in this encounter Plan of Treatment Not on file documented as of this encounter Visit Diagnoses Diagnosis FOUZIA (obstructive sleep apnea) Obstructive sleep apnea (adult) (pediatric) documented in this encounter Care Teams Recycling Or Rubbish Collector Relationship Specialty Start Date End Date Indira James MD [address] [place] [address] PCP - General General Internal Medicine 01/20/1509/14 documented as of this encounter
--- OUTSIDE RECORDS SUMMARY | 2023-11-30 16:10 | XMS_ITS | Encounter Summary ---
Author Organization [facility] Address [address] [place] [address] Care Team Providers Care Technical Service Engineer Name Role Phone Unavailable Primary Care Provider Unavailabl e Encounter Details Date Type Department Care Team (Latest Contact Info) Description 04/21/2000 14:37 EST - 05/14/2000 11:59 EST Hospital Encounter [facility] - [facility] [address] [place] [address] Omari Nieto MD [address] [place] [phone] Discharge Disposition: Auto Discharge Social History Tobacco [...]
--- OUTSIDE RECORDS SUMMARY | 2023-11-30 16:10 | XMS_ITS | Encounter Summary ---
Author Organization [facility] Address [address] [place] [address] Care Team Providers Care Floor Worker Name Role Phone Shea Jones MD Primary Care Provider [phone] Encounter Details Date Type Department Care Team (Late st Contact Info) Description 10/03/2019 Lab Requisition [facility] Pathology & Laboratory Medicine - [address] [address] Outr Resulting Lab, Provider Social History Tobacco Use Types Packs/Day Years Used Date Smoking Tobacco: Never Assessed Sex and Gender Information Value Date Recorded Sex Assigned at Not on file Gender Identity Not on file Sexual Orientation Not on file documented as of this encounter Plan of Treatment Not on file documented as of this encounter Procedures Procedure Name Priority Date/Time Associated Diagnosis Comments PSA TOTAL, DIAGNOSTIC Routine 10/03/2019 10:19 EDT documented in this encounter Results * PSA TOTAL, DIAGNOSTIC (10/03/2019 10:19 EDT) PSA 0.4 0.0 - 3.5 ng/mL 10/04/2019 9:14 EDT [facility] Blood VENOUS BLOOD / Unknown 10/03/2019 10:19 EDT 10/03/2019 16:16 EDT Narrative [facility] - 10/04/2019 9:14 EDT NOTE: Serum PSA concentration should not be interpreted as absolute evidence for the presence or absence of malignant disease. Assayed on Siemens [employer] IT[employer] XPT using chemiluminescent technology.??Values obtained by using different assay methods cannot be used interchangeably. Provider Outr Resulting Lab CHEMISTRY & BLOOD GAS ORDERABLES [facility] [address] [place] [address] documented in this encounter Visit Diagnoses Not on filedocumented in this encounter Care Teams Floor Worker Relationship Specialty Start Date End Date Shea Jones MD [address] [place] [address] [place] [address] PCP - General 07/09/11 documented as of this encounter
--- OUTSIDE RECORDS SUMMARY | 2023-11-30 16:10 | XMS_ITS | Encounter Summary ---
Author Organization [facility] Address [address] [place] [address] Care Team Providers Care Drive Shaft And Steering Post Repairer Name Role Phone Unavailable Primary Care Provider Unavailabl e Encounter Details Date Type Department Care Team (Late st Contact Info) Description 01/21/2000 12:25 EST Hospital Encounter [facility] General Surgery Unit [address] [place], [place] [id number] Hardik Mckeon MD [address] [place] [address] [place] [phone] Discharge Disposition: Home or Self [...] Procedure Name Priority Date/Time Associated Diagnosis Comments CT LUMBAR SPINE W CONTRAST Routine 01/21/2000 18:10 EST FL MYELOGRAPHY LSPINE Routine 01/21/2000 14:03 EST documented in this encounter Results * CT LUMBAR SPINE W CONTRAST (01/21/2000 18:10 EST) Anatomical Region Laterality Modality Other 01/21/2000 18:1 0 EST Impressions 12/24/2008 17:06 EST IMPRESSION: 1. Moderate stenosis at the L3-4 and L4-5 level. 2. Possible L4 nerve root encroachment, either by disc bulging or herniation. The attending radiologist has reviewed the images, and concurs with the findings described above. /[facility] Narrative 12/24/2008 17:06 EST L SPINE MYELO, BACK PAIN R/O SPINAL STENOSIS CT LUMBAR SPINE WITH CONTRAST, 01/21/00, 0 HISTORY: Back pain, rule out spinal stenosis. FINDINGS: CT of the lumbar spine with contrast was performed. There are no comparison films. There is moderate stenosis at the L3-4 and L4-5 level. The left L4 root is indistinct within the foramen at the L4-5 level. This could be due to either disc bulging or mild herniation. There is partial sacralization, which is a natural variant, on the left at L5 and the sacrum. There are no pars defects. Procedure Note Luther Zaragoza MD / Anthony Smith MD - 12/24/2008 L SPINE MYELO, BACK PAIN R/O SPINAL STENOSIS CT LUMBAR SPINE WITH CONTRAST, 01/21/00, 0 HISTORY: Back pain, rule out spinal stenosis. FINDINGS: CT of the lumbar spine with contrast was performed. There are no comparison films. There is moderate stenosis at the L3-4 and L4-5 level. The left L4 root is indistinct within the foramen at the L4-5 level. This could be due to either disc bulging or mild herniation. There is partial sacralization, which is a natural variant, on the left at L5 and the sacrum. There are no pars defects. IMPRESSION IMPRESSION: 1. Moderate stenosis at the L3-4 and L4-5 level. 2. Possible L4 nerve root encroachment, either by disc bulging or herniation. The attending radiologist has reviewed the images, and concurs with the findings described above. /[facility] Hardik Mckeon MD IMG CT ORDERABLE S * FL MYELOGRAPHY LSPINE (01/21/2000 14:03 EST) Anatomical Region Laterality Modality Other 01/21/2000 14:0 3 EST Impressions 12/24/2008 17:06 EST IMPRESSION: 1. Two level moderate stenosis at the L3-4 level and at the L4-5 level with the L3-4 level being slightly more stenotic. ; / Addendum: ADDENDUM DICTATED 03/24/[address] SMITH, AND TRANSCRIBED 03/28/00 BY [facility]: Dr. Smith was present throughout the procedure. /[facility] Narrative 12/24/2008 17:06 EST L SPINE MYELO, BACK PAIN R/O SPINAL STENOSIS FLUOROSCOPIC GUIDED MYELOGRAPHY, LUMBAR SPINE: 01/21/00, 1300 hours HISTORY: Back pain, rule out spinal stenosis. TECHNIQUE: A myelogram of the L spine was performed by making a puncture at the L2-3 level and injecting 16 to 17cc of Omnipaque 180. Filming was performed in the region of the lumbar spine. FINDINGS: Myelogram of the lumbar spine was performed. Contrast was noted to flow easily and quickly to the T-12 L1 level. There was no gross nerve root cut off suggesting disc herniation. There is thinning of the contrast material at the L3-4 level and at the L4-5 level with the L3-4 level being thinned to a greater extent. This is consistent with moderate stenosis at these two levels. There are no abnormalities noted around the conus. Incidental finding is made of mild spurring at the L1-2 level. Procedure Note Luther Zaragoza MD / Anthony Smith MD - 12/24/2008 L SPINE MYELO, BACK PAIN R/O SPINAL STENOSIS FLUOROSCOPIC GUIDED MYELOGRAPHY, LUMBAR SPINE: 01/21/00, 1300 hours HISTORY: Back pain, rule out spinal stenosis. TECHNIQUE: A myelogram of the L spine was performed by making a puncture at the L2-3 level and injecting 16 to 17cc of Omnipaque 180. Filming was performed in the region of the lumbar spine. FINDINGS: Myelogram of the lumbar spine was performed. Contrast was noted to flow easily and quickly to the T-12 L1 level. There was no gross nerve root cut off suggesting disc herniation. There is thinning of the contrast material at the L3-4 level and at the L4-5 level with the L3-4 level being thinned to a greater extent. This is consistent with moderate stenosis at these two levels. There are no abnormalities noted around the conus. Incidental finding is made of mild spurring at the L1-2 level. IMPRESSION IMPRESSION: 1. Two level moderate stenosis at the L3-4 level and at the L4-5 level with the L3-4 level being slightly more stenotic. ; / Addendum: ADDENDUM DICTATED 03/24/[address] SMITH, AND TRANSCRIBED 03/28/00 BY [facility]: Dr. Smith was present throughout the procedure. /[facility] Hardik Mckeon MD IMG FLUOROSCOPY ORDERABLES documented in this encounter Visit Diagnoses Not on filedocumented in this encounter
--- OUTSIDE RECORDS SUMMARY | 2023-11-30 16:10 | XMS_ITS | Encounter Summary ---
Author Organization [facility] Address [address] [place] [address] Care Team Providers Care Ada Accommodation Consultant Name Role Phone Unavailable Primary Care Provider Unavailabl e Encounter Details Date Type Department Care Team (Latest Contact Info) Description 08/18/2000 18:25 EDT - 09/13/2000 11:59 EDT Hospital Encounter [facility] - [place] [facility] [address] [place] [address] Omari Nieto MD [address] [place] [phone] Discharge Disposition: Auto Discharge Social History Tobacco [...]
[2023-11-30 21:41] LABS: COMMENT (LAB VIEW ONLY) 127.99 mg/dL
== END 2023-11-30 16:04 | disposition home or self-care (01) ==
LOC: LBN 16:03
PROVIDERS: PCP Family Medicine; Visit Provider Family Medicine
DX: E11.9 Type 2 diabetes mellitus without complications (principal); Z12.2 Encounter for screening for malignant neoplasm of respiratory organs; E66.9 Obesity, unspecified; M79.671 Pain in right foot; M79.672 Pain in left foot; G47.33 Obstructive sleep apnea (adult) (pediatric)
CPT/HCPCS: 82043; 82570

== ENCOUNTER 2024-01-27 12:51 | Outpatient (CLI) | payer OTHER, SELFPAY ==
--- NOTE | 2024-01-27 13:15 | RT.EKG_ITS ---
APPROVED REPORT Exam: Resting ECG Reason for Exam: baseline Patient Location: O HR:81 bpm ECG Measurements Heart Rate 81 AXIS [place] 195 P 17 QRSd 106 QRS -66 QT 378 T 41 QTc 439 Conclusion Sinus rhythm...normal P axis, V-rate 50- 99 Multiple ventricular premature complexes...V complexes w/ short R-R intervls Left axis deviation Poor R wave progression
== END 2024-01-27 12:52 | disposition home or self-care (01) ==
PROVIDERS: PCP Family Medicine; Visit Provider Internal Medicine Cardiovascular Disease
DX: I25.10 Atherosclerotic heart disease of native coronary artery without angina pectoris (principal); G47.33 Obstructive sleep apnea (adult) (pediatric); Z99.89 Dependence on other enabling machines and devices
CPT/HCPCS: 93010

== ENCOUNTER 2024-02-23 02:24 | Outpatient (CLI) | payer OTHER, SELFPAY ==
--- NOTE | 2024-02-23 06:58 | DI.NM_ITS ---
APPROVED REPORT Exam: Pharmacologic Patient Location: Out-Patient Room/Bed: Stress Nurse: Silverio Phan RN Ordering Provider:KAROLYN ARCEO, Contact Number: [phone] BMI: 39.86 Baseline Rhythm: Sinus Rhythm. Comment: Frequent PVC's. Indications: Coronary Artery Calcifications; Sleep Apnea. Medical History Medical History: CAD; Obstructive Sleep Apnea; Alcohol Abuse; Diabetes Mellitus; HLD; HTN; Former Smo ker; Obesity; Lower Back Pain; Spinal Stenosis; GERD; Anxiety; Depression; SVT. Cardiac Medications: Allopurinol; Amitriptyline; Aspirin; Wellbutrin; Losartan; Metformin; Methocarba mol; Omeprazole; Monjaro; Ropinirole; Phentermin; Trazodone. Allergies: None. Cardiac Risk Factors: Family Hx; HLD; HTN; CVD; Diabetes Mellitus; Former Smoker; Obesity. Previous Cardiac Procedures: Ablation in 2008. Pretest Chest Pain Characteristics: None. Exercise History: Indeterminate. Physical Disabilities: Lower Back Pain; Spinal Stenosis. Lung Sounds: Clear bilaterally throughout, anterior and posterior. Heart Sounds: S1 and S2 auscultated. Stress Test Details Test: Pharmacologic stress was paired with low level exercise. Reason for pharmacologic stress test: physical limitation. Nuclear Acquisition: Rest Tc-99m/Stress Tc-99m 1 day Rest Isotope: Tc-99m Sestamibi. Dose: 15.0 Date: 02/23/2024 Injection Time: 0845 Stress Isotope: Tc-99m Sestamibi. Dose: 45.0 Date: 02/23/2024 Injection Time: 1025 HR Resting HR Supine: 70 bpm Max Heart Rate (APMHR): 158 bpm Resting HR Standin bpm Target HR (85% APMHR): 134 bpm Max HR Achieved: 106 bpm % of APMHR: 67 Recovery HR: 76 bpm BP Resting BP Supine: 116/82 mmHg Resting BP Standin/82 mmHg Max BP: 136/68 mmHg Recovery BP: 118/72 mmHg ECG Resting ECG: Sinus Rhythm. Ectopy: Frequent PVC's. Stress ECG: Sinus Tachycardia. ST Change: Nondiagnostic low heart rate. Arrhythmia: Frequent PVC's. Recovery ECG: Sinus Rhythm. Recovery ST Change: Nondiagnostic low heart rate. Recovery Arrhythmia: Frequent PVC's. Clinical Stress Symptoms: Mild Chest Pressure; pt. rated it at the highest a 1/10. Exercise duration: 04 min03 sec Exercise capacity: 1.61 METs Angina Score: Non-Limiting Rate Pressure Product: [id number] Stress ECG Conclusion 1. Resting electrocardiogram showed left axis, late transition 2. Patient underwent testing using pharmacologic stress with regadenoson and low-level exercise 3. Peak heart rate achieved was 67% of maximal predicted for age 4. The electrocardiographic portion of the test was nondiagnostic 5. See MPI report Stress Test Summary STAGE HR BP SpO2 Symptoms NOTES Supine 70 116/82 96 Standing 84 126/82 96 1 min post Lexiscan injection 97 118/60 96 Pt. complaining of mild chest pressure, rating it a 1/10 . 3 min post Lexiscan injection 80 136/68 97 Pt. complaining of minimal chest pressure, rating it a 0 .5/10. 6 min post Lexiscan injection 76 118/72 95 Pt. denies any chest pressure. Pt. was complaining of minimal to mild chest pressure immediately following lexiscan injection, which resolved to no chest pain at six minutes post lexiscan injection. Pt. was conversing pleasantly with nursing staff upon leaving the Stress Lab. Pt. left ambulatory in no apparent distress. MPI Conclusion Myocardial perfusion is normal. There is no ischemia or evidence of prior infarction Ejection fraction is 48% with normal wall motion
--- NOTE | 2024-02-23 09:02 | DI.US_ITS ---
APPROVED REPORT EXAM: Comprehensive 2D, Doppler, and color-flow Echocardiogram Patient Location: Out-Patient [employer] Motor: Dede Loya RDCS (AE) Indications: LV and RV function, CAD. Sleep apnea Other Information Study Quality: Adequate Conclusion Normal left ventricular wall thickness and chamber size. Ejection fraction is 55 to 60%. Wall motio n is normal Normal right ventricular size and function Both atria are normal in size There are no structural valvular abnormalities Trace aortic regurgitation Estimated right ventricular systolic pressure is 23 mmHg Ascending aorta measures 3.89 cm Wall motion Left Ventricle The left ventricle is normal size. The left ventricular systolic function is normal. The left ventric ular ejection fraction is within the normal range. There is normal left ventricular wall thickness. T here is normal LV segmental wall motion. There is no ventricular septal defect visualized. LVEF is 57 %. Right Ventricle The right ventricle is normal size. The right ventricular systolic function is normal. Atria The left atrium size is normal. The right atrium size is normal. The interatrial septum is intact wit h no evidence for an atrial septal defect. Aortic Valve The aortic valve is normal in structure. Aortic valve is trileaflet. There is no aortic valvular sten osis. Trace aortic regurgitation. Mitral Valve The mitral valve is normal in structure. No evidence of mitral valve stenosis. Trace mitral regurgita tion. Tricuspid Valve The tricuspid valve is normal in structure. There is no tricuspid valve stenosis. Trace tricuspid reg urgitation. The RVSP is 23.0 mmHg. Pulmonic Valve The pulmonary valve is normal in structure. There is no pulmonic valvular stenosis. Trace pulmonic re gurgitation. Great Vessels The aortic root is normal in size. The ascending aorta is mildly dilated. Aortic arch is not well vi sualized. IVC is normal in size and collapses >50% with inspiration. Pericardium There is no pericardial effusion. 2D Dimensions IVSD d PLAX 1.04 cm M: 0.6-1.2 Ao Root d 3.62 cm M: 3.1 - 3.7 LVPW d PLAX 1.00 cm M: 0.6 - 1.2 Ao Asc Diam d 3.89 cm M: 2.6 - 3.4 LVID d PLAX 5.84 cm M: 4.2 - 5.8 LVDs 4.01 cm M: 2.5 - 4.0 LV EF Teichholz 58.3 % FS 31.25 % LV EDV (Teich) 169.0 mL LV ESV (Teich) 70.5 mL M-Mode TAPSE 3.53 cm (M/F) >1.7 Auto EF LV EDV A4C 214.7 mL LV EDV A2C 183.6 mL LV EDV BP 197.2 mL LV ESV A4C 92.2 mL LV ESV A2C 82.4 mL LV ESV BP 88.5 mL LVEF(%) A4C 57.1 % LVEF(%) A2C 55.1 % LVEF(%) BP 55.1 % LV SV A4C 122.5 ml LV SV A2C 101.2 ml LV SV BP 108.6 ml LV CO A4C 8.3 L/min LV CO A2C 6.8 L/min LV CO BP 7.6 L/min HR A4C 67.93 BPM HR A2C 67.54 BPM LV EDV Index (BP) LA Volume LA Length A4C 6.2 cm LA Length A2C 5.5 cm LA Area A4C s 20.86 cm2 LA Area A2C s 22.70 cm2 LA Vol A4C A-L 59.20 mL LA Vol A2C A-L 80.01 mL LA Vol Biplane A-L 73.5 mL LA Vol/BSA A4C A-L LA Vol/BSA A2C A-L LA Vol/BSA BP A-L 29.3 mL/m2 LA Vol A4C MOD 53.8 mL LA Vol A2C MOD 74.0 mL LA Vol BP MOD 67.2 mL RA Volume RA Area A4C 22.4 cm2 RA ESV A4C (A-L) 65.3mL RA Vol/BSA A4C A-L RA Length A4C 6.5 cm RA ESV A4C (MOD) 62.2mL LV Diastology MV E' medial 0.059 (>0.07 m/s) MV E Vmax 0.76 (0.4-1.3 m/s) MV E/E' MED 12.77 (<14) MV A Vmax 0.95 (0.4-1.3 m/s) MV E' lateral 0.118 (>0.1 m/s) E/A Ratio 0.8 MV E/E' LAT 6.42 (<14) MV E' Average 0.089 m/s MV E/E'(average) 8.54 Aortic Valve AoV Vmax 1.68 m/s LVOT Vmax 1.15 m/s AoV Peak Grad 11.3 mmHg LVOT Peak Grad 5.3 mmHg AoV Area (Vmax) 2.57 cm2 LVOT VTI 0.234 m AoV VTI 0.382 m LVOT Mean Grad 2.9 mmHg AoV Mean Santi. 1.21 m/s LVOT SV 87.79 mL AoV Mean Grad 6.6 mmHg LVOT Diam s 2.15 cm AoV Area (VTI) 2.30 cm2 AV Regurg Peak Gr. 11.33 mmHg Velocity Ratio 0.68 Mitral Valve MV DT 214 (160-240 msec) MV Vmax TIPS 0.87 m/s MV Mean Grad 1.5 (<2mmHg) MV VTI 0.283 m Pulmonary Valve PV Vmax 0.94 (0.5-1.5 m/s) RVOT Vmax 0.50 m/s PV Peak Grad 3.5 mmHg RVOT Peak Gr. 1.0 mmHg PV Mean Santi 0.68 m/s RVOT VTI 0.115 m PV Mean Grad 2.1 mmHg RVOT Mean Gr. 0.6 mmHg Tricuspid Valve RA Pressure 3.00 mmHg TR Vmax 2.24 m/s TV S' 0.24 m/s TR Peak Grad 20.0 mmHg RVSP (TR) 23.0 mmHg
[2024-02-23] MEDS: Regadenoson 0.4 MG/5 ML SYR IVP (10:24)
== END 2024-02-23 02:44 ==
LOC: DI 02:24
PROVIDERS: PCP Family Medicine; Visit Provider Internal Medicine Cardiovascular Disease
DX: I25.10 Atherosclerotic heart disease of native coronary artery without angina pectoris (principal); G47.33 Obstructive sleep apnea (adult) (pediatric); Z99.89 Dependence on other enabling machines and devices; I35.1 Nonrheumatic aortic (valve) insufficiency
CPT/HCPCS: 78452; 93017; 93306; J2785

== ENCOUNTER 2024-04-10 08:51 | Outpatient (CLI) | payer OTHER, SELFPAY ==
--- NOTE | 2024-04-10 08:30 | DI.RAD_ITS ---
Exam(s) XR KNEE LT 3V AP,LAT,JR EXAM: XR KNEE LT 3V AP,LAT,JR CLINICAL HISTORY: M25.562 acute left knee pain; s/p TKA on left 7 yrs ago. TECHNIQUE: 2D digital imaging was performed. Three views. COMPARISON: CR XR KNEE LT 2V AP,LAT from 11/27/2018 FINDINGS: BONES: No acute fracture is present. No bony destructive lesion is seen. JOINTS: The knee prosthesis is normally aligned. No joint effusion is seen. SOFT TISSUE: Calcification again noted in patellar tendon. IMPRESSION: Stable appearance of knee prosthesis. DATA REPOSITORY: RADIATION DOSE DELIVERED:
== END 2024-04-10 09:11 ==
LOC: DI 08:53
PROVIDERS: PCP Family Medicine; Visit Provider Family Medicine
DX: M25.562 Pain in left knee (principal); Z96.652 Presence of left artificial knee joint
CPT/HCPCS: 73562

== ENCOUNTER 2024-05-28 14:49 | Outpatient (CLI) | payer OTHER, SELFPAY ==
--- NOTE | 2024-05-28 08:34 | DI.RAD_ITS ---
Exam(s) XR HAND LT COMPLETE EXAM: XR HAND LT COMPLETE CLINICAL HISTORY: left hand pain. TECHNIQUE: 2D digital imaging was performed. COMPARISON: No exams were available for comparison FINDINGS: 3 views No evidence of acute fracture nor dislocation nor radiopaque foreign body. There are moderate degenerative changes at the 1st carpometacarpal joint. There are moderate degener ative changes in the interphalangeal joint of the thumb. Index finger unremarkable. There are degen erative changes in the metacarpophalangeal joint of the 3rd-middle finger as well as in the proximal interphalangeal joint of the middle finger with some para-articular calcifications at this level. Th ere is relative sparing of the DIP joint of the 3rd-middle finger. The 4th-ring finger exhibit significant degenerative changes at the level the DIP joint with joint sp tanna narrowing and marginal osteophytes and there is also a 2 millimeter calcific density off the dors al aspect of this DIP joint. The PIP joint and MCP joint of the 4th-ring finger appear unremarkable. Fifth finger appears unremarkable. Bone density hand is normal. No lytic nor blastic osseous lesions evident. IMPRESSION: Multilevel degenerative changes as described individually above. DATA REPOSITORY: RADIATION DOSE DELIVERED:
== END 2024-05-28 14:50 | disposition home or self-care (01) ==
LOC: DIORS 14:50
PROVIDERS: PCP Family Medicine; Visit Provider Physician Assistant
DX: M18.12 Unilateral primary osteoarthritis of first carpometacarpal joint, left hand (principal)
CPT/HCPCS: 73130

== ENCOUNTER 2024-07-05 02:10 | Outpatient (CLI) | payer OTHER, SELFPAY ==
--- NOTE | 2024-07-05 06:22 | DI.MRI_ITS ---
Exam(s) MR UPPER EXTREMITY LT WO EXAM: MR UPPER EXTREMITY LT WO CLINICAL HISTORY: L HAND PAIN,arthritis lt hand,m19.042 TECHNIQUE: Multiplanar multisequence MRI of the left hand was performed without intravenous contrast . COMPARISON: CR XR HAND LT COMPLETE from 05/28/2024 FINDINGS: The examination is limited due to patient motion artifact. BONES/JOINTS: There is hypointense signal seen in the lunate on the T1 weighted images. There is hete rogeneous signal seen on the T2 weighted images. The findings raise a question of avascular necrosis. There is also hyperintense subchondral signal seen on the T2 weighted images at the articular surfac es of the bones adjacent to the lunate. Subchondral cysts are seen in the trapezium, trapezoid and ba se of the 1st metacarpal bone. There are prominent arthritic changes also seen at the DIP joint of th e ring finger with joint space narrowing, subchondral cysts and osteophytes. There is a small effusio n in the DRUJ. MUSCULOTENDINOUS STRUCTURES: The muscles show normal signal and size. No muscular fatty atrophy. The extensor and flexor tendons are unremarkable. SOFT TISSUES: There is a small fluid collection arising from the pisotriquetral joint likely reflecti ng a ganglion cyst. The TFCC is unremarkable. OTHER FINDINGS: None. IMPRESSION: 1. Abnormal signal seen in the lunate. This may reflect early avascular necrosis. 2. Small effusion in the DRUJ. 3. Arthritic changes seen in the hand, most marked at the DIP joint of the ring finger. 4. Small ganglion arising from the pisotriquetral joint. 5. No evidence of a soft tissue mass. No significant edema seen in the hand. DATA REPOSITORY:
== END 2024-07-05 02:30 ==
LOC: DI 02:10
PROVIDERS: PCP Family Medicine; Visit Provider Student in an Organized Health Care Education/Training Program
DX: M19.042 Primary osteoarthritis, left hand (principal)
CPT/HCPCS: 73218

== ENCOUNTER 2024-07-05 03:26 | Outpatient (CLI) | payer OTHER, SELFPAY ==
[2024-07-05 08:33] LABS: ESR 2 mm/hr (0-20)
[2024-07-05 09:32] LABS: C-Reactive Protein < 0.50 mg/dL (<or=0.5)
[2024-07-05 17:55] LABS: Rheumatoid Factor <8.6 IU/mL (<12.0)
[2024-07-06 14:06] LABS: ANA Interpretation Negative (Negative)
== END 2024-07-05 03:27 | disposition home or self-care (01) ==
PROVIDERS: PCP Family Medicine; Visit Provider Student in an Organized Health Care Education/Training Program
DX: M19.042 Primary osteoarthritis, left hand (principal)
CPT/HCPCS: 36415; 85652; 86038; 86140; 86431

== ENCOUNTER 2024-08-07 10:47 | Day surgery (SDC) | payer OTHER, SELFPAY ==
[2024-08-07 11:20] VITALS: BP 138/75; PULSE 69; RESP 18; TEMP 36.7; O2SAT 97
--- NOTE | 2024-08-07 12:46 | PDOC.DSDIS_ITS ---
Date of service: 08/07/24 Discharge Plan Disposition Patient Disposition: Home Condition: Good Discharge Details Reason For Visit: Left index finger cyst Attending Provider: Owen Amaya Primary Care Provider: Ha Anand Home Meds and New Rx's Prescriptions: New hydrocodone-acetaminophen 5-325 mg tablet 1 tab PO Q6H PRN (Reason: severe pain) Qty: 4 0RF Rx Instructions: Take one tablet up to every 6 hours as needed for severe postoperative pain Continued ibuprofen 600 mg tablet 600 mg PO TID PRN (Reason: pain) Qty: 30 3RF ammonium lactate 12 % lotion 1 applic Topical BID PRN (Reason: dry skin) Qty: 225 2RF aspirin 81 mg tablet,delayed release (DR/EC) 81 mg PO DAILY Qty: 90 3RF tirzepatide 12.5 mg/0.5 mL pen injector 12.5 mg subcut QWEEK Qty: 2 0RF Rx Instructions: for 4 weeks amoxicillin 500 mg tablet 2,000 mg PO prior to dental work PRN (Reason: dental and tattoing prophylaxis) Qty: 16 0RF alprostadil/Papaverine/Phentolamine 0.5 ml intra-cavernosal PRN MDD 1 mL Qty: 5 12RF Rx Instructions: 10mcg/30mg/1mg per mL (DME) FreeStyle Gloria 2 Sensor Kit See Rx Instructions .ROUTE .MEDSUPPLY Qty: 1 11RF Rx Instructions: As directed tirzepatide 15 mg/0.5 mL pen injector 15 mg subcut QWEEK 28 Days Qty: 2 12RF Rx Instructions: Inject 15 mg subcutaneously once weekly as directed prednisone 5 mg tablet 5 mg PO DAILY Qty: 30 0RF Rx Instructions: Take 2 pills (1omg) for 10 days and then 1 pill (5mg) for 10 days. alprazolam 0.5 mg tablet 0.5 mg PO ONCE PRN (Reason: anxiety) Qty: 2 0RF Rx Instructions: sig: one tab 30 min prior to study, may take a second dose at the time of exam if still anxious. CPAP 1 applic Inhalation HS Rx Instructions: [facility] [place] acetaminophen [Acetaminophen Extra Strength] 500 MG tablet 1,000 mg PO TID Qty: 180 0RF allopurinol 300 mg tablet 300 mg PO DAILY Qty: 90 3RF amitriptyline 10 mg tablet 10 mg PO DAILY Qty: 90 3RF bupropion HCl [Wellbutrin SR] 150 mg tablet sustained-release 12 hr 150 mg PO BID Qty: 180 3RF Rx Instructions: 1 TAB BID losartan 50 mg tablet 50 mg PO DAILY Qty: 90 3RF metformin 1,000 mg tablet 1,000 mg PO BID Qty: 180 3RF ropinirole 1 mg tablet 1 mg PO QHS Qty: 90 3RF Rx Instructions: administer 1-3 hours before bedtime trazodone 100 mg tablet 100 mg PO QHS Qty: 90 3RF Rx Instructions: start with 50 mg; increase to 100 mg as needed omeprazole 40 mg capsule,delayed release(DR/EC) 40 mg PO DAILY Qty: 90 3RF Rx Instructions: 1 CAP DAILY methocarbamol 500 mg tablet 500 - 1,000 mg PO Q6H PRN (Reason: Back pain or spasm) Qty: 14 1RF phentermine 30 mg capsule 30 mg PO DAILY Qty: 30 2RF Rx Instructions: must administer 2 hours after breakfast Discharge Instructions Additional Instructions: Finger Cyst Excision Discharge Instructions Activity: You should keep the hand elevated as much as possible for the first few days. You may use the other fingers as tolerated but avoid trying to do too much too soon. You may perform light activities with the dressing in place. Dressing/Cast: Your dressing should stay in place at all times for 48 hours. You may loosen the MELANIE wrap if you feel it is too tight and then rewrap more loosely. After 48 hours you may remove, clean area and cover with a clean dressing or band-aide. Continue with dressing changes until your postoperative appointment. Medications: - You should take Tylenol and Ibuprofen for baseline pain control. - You have Hydrocodone for breakthrough pain. - You may apply ice over the finger/hand. Follow-up: 7-10 days Referrals: Owen Amaya MD [ [facility] STAFF PHYSICIAN, Orthopaedic Surgical] Activity:: Elevate Remove Dressings/Wound Care:: 48 hours Shower/Bathe:: 48 hours Diet:: As Tolerated Discharge Orders Discharge Orders: Discharge Order (Routine); Ordered 08/07/24 Ordered By: Eunice Mattson
[2024-08-07] MEDS: Sodium Bicarbonate 50 MEQ/50 ML VIAL (13:15)
[2024-08-07] MEDS: Lidocaine 1% Multi-Dose W/EPI 1/100,000 50 ML VIAL (13:15)
[2024-08-07 13:43] VITALS: BP 126/65; PULSE 51; RESP 16; TEMP 36.7; O2SAT 97
--- NOTE | 2024-08-07 14:10 | ROE_ITS ---
Operative Note Operative Note PRE-OP DIAGNOSIS: Left ring finger mucous cyst POST-OP DIAGNOSIS: same PROCEDURE: Debridement of mucous cyst and DIP synovitis, left ring finger SURGEON: Owen Amaya ANESTHESIA TYPE: Local By Surgeon Refer to Anesthesia Record ESTIMATED BLOOD LOSS: 0 PATHOLOGY: none sent COMPLICATIONS: None Patient was transported to: same day Patient's condition: stable Indications: I have seen Jacob in clinic for symptoms of a digital mucous cyst about the left ring finger in the setting of posttraumatic arthritis. He feels that is getting larger and causing more discomfort on a daily basis and therefore I did offer cyst excision. I discussed cyst excision with the patient. I reviewed the risks of the procedure to include, but not limited to, bleeding, infection, pain, stiffness, recurrence, damage to nerves or vessels. Despite these risks, the patient elected to proceed. Findings: There was notable deformity of the DIP joint the left ring finger. There was a small ganglion cyst about the radial aspect but there also was thickened synovitis and inflammatory tissue seen about the DIP joint consistent with significant posttraumatic arthritis. Procedure Description: Jacob was greeted in the preoperative holding area where the correct side was identified and marked. The consent was reviewed with the patient and signed. All questions were answered. He was taken back to the operating room. The patient was placed into the supine position on the operating room table with the left arm on an arm board. All bony prominences were well padded. No prophylactic antibiotics were administered since this was a clean, elective hand surgical case. The left arm was then prepped with Chloraprep and draped in a standard fashion with stockinette and extremity drape. A timeout to confirm correct identity, side and site, procedure, allergies, anesthesia, and medical concerns was performed. A digital block was then performed using 1% lidocaine with epinephrine and buffered with sodium bicarbonate. This was allowed time to set up completely and was tested before proceeding with the case. A longitudinal incision was then made overlying the cyst. The skin was incised sharply. Full-thickness flaps were then elevated. There is thickened and inflamed tissue seen about this area. There was some cystic structure adjacent to the joint capsule radially. This was incised and cyst fluid was removed. The capsule of the DIP joint was very thick with adjacent synovitis and inflamm ation. He has a rongeur to debride this tissue down. The area of prominence over the radial aspect DIP joint was consistent with prominence of bone and synovitis, made worse with the ulnarly directed deformity of the distal phalanx. Once again debrided this tissue but did not find any other cystic structures. The finger was irrigated. The skin was then closed using a #4-0 nylon in interrupted fashion. The finger was dressed with Xeroform, 4 x 4, conform dressing. The patient tolerated the procedure well and was returned to the Same Day Surgery area in a stable condition suffering no known complication. Date of Procedure: 08/07/24
== END 2024-08-07 13:55 | disposition home or self-care (01) ==
PROVIDERS: PCP Family Medicine; Visit Provider Student in an Organized Health Care Education/Training Program
PROC: (CPT 26160; principal; 2024-08-07 14:15)
DX: M67.442 Ganglion, left hand (principal); M65.842 Other synovitis and tenosynovitis, left hand
CPT/HCPCS: 26160; J2004